=== PATIENT | male | born 1965 | race Caucasian/White ===

== ENCOUNTER 2018-09-15 11:43 | Emergency (ER) | payer OTHER ==
[2018-09-15 12:14] LABS: Absolute Lymphocytes (CBC) 2.3 K/uL (0.7-4.9); Absolute Monocytes 0.9 K/uL (0.1-1.3); Absolute Neutrophil 6.5 K/uL (1.8-8.0); Basophils % 0.7 % (0-1.3); Eosinophils % 1.2 % (0-4.4); Hematocrit 47.4 % (39.6-49.0); Lymphocytes % 22.9 % (15.3-44.8); MCH 24.2 pg (27.0-35.0); MCV 75.4 fL (80-100); MPV 7.3 fL (7.6-11.3); Monocytes % 8.8 % (3.3-12.3); RBC Red Blood Cell Count 6.29 M/uL (4.33-5.43)
[2018-09-15 12:32] LABS: Potassium 3.7 mmol/L (3.5-5.1); Troponin (Emerg Dept Use Only) 0.08 ng/mL (0.0-0.045)
[2018-09-15 12:44] LABS: Platelet Estimate ADEQ; Urine White Blood Cell Casts OK
[2018-09-15 12:45] LABS: Anisocytosis 1+; Blood Morphology Comment NOTED (NOT SEEN); Hypochromasia 1+; Platelets, Giant FEW
--- NOTE | 2018-09-15 13:02 | RAD REPORT ---
EXAM DESCRIPTION: Ruben Single View09/15/2018 12:20 pm CLINICAL HISTORY: Chest pain COMPARISON: 2014 FINDINGS: The lungs appear clear of acute infiltrate. The heart is probably upper limits normal siz e IMPRESSION: No acute abnormalities displayed
--- NOTE | 2018-09-15 13:25 | EKG ---
Test Date: 2018-09-15 Test Time: 11:49:50 Orthopedic Nurse: CRAIG MEASUREMENT RESULTS: Intervals: Rate: 74 VT: QRSD: 90 QT: 394 QTc: 437 Reseda: P: VT: QRS: -1 T: 25 INTERPRETIVE STATEMENTS: Atrial fibrillation Abnormal ECG Compared to ECG 03/05/2015 18:28:34 Sinus rhythm no longer present Electronically Signed On 09-15-18 13:25:37 CDT by Ashvin Nash
[2018-09-15] MEDS ORDERED: CLOPIDOGREL 75 MG TABLET ONE (13:30)
--- NOTE | 2018-09-15 13:45 | EDPHYS ---
Physician Documentation [facility] Name: Steve Gutierrez Age: 53 yrs Sex: Male : 1965 Arrival Date: 09/15/2018 Time: 11:50 Bed 4 Private MD: ED Physician Jl Velasquez HPI: 09/15 12:37 This 53 yrs old Male presents to ER via EMS with complaints of Chest Pain. rn 12:37 The patient or guardian reports chest pain that is located primarily in the left rn lateral anterior chest. Onset: this morning. The pain does not radiate. Associated signs and symptoms: Pertinent positives: None. Pertinent negatives: abdominal pain, cough, diaphoresis, dizziness, headache, lower extremity pain, lower extremity swelling, lightheadedness, nausea, near syncope, palpitations, recent travel, shortness of breath, syncope, vomiting. The chest pain is described as sharp, stabbing. Duration: The patient or guardian reports a single episode. Modifying factors: The symptoms are alleviated by nothing. the symptoms are aggravated by nothing. Severity of pain: At its worst the pain was moderate in the emergency department the pain is unchanged. The patient has not experienced similar symptoms in the past. Reports left sided chest pain, began 1-2 hours ago, constant, was sharp, now dull, no radiation, reports when touches chest wall can feel muscle spasm where pain is located, no fever/cough/sob. . Historical: - Allergies: 11:56 No Known Allergies; bp - Home Meds: 11:56 allopurinol 100 mg oral tab [Active]; omeprazole 20 mg oral TbEC [Active]; Coreg 25 mg bp Oral tab 1 tab 2 times per day [Active]; Exforge 10-160 mg oral tab [Active]; - PMHx: 11:56 CHF; Gastric Reflux; Gout; Hypertension; bp - Immunization history:: Adult Immunizations up to date. - Social history:: Smoking status: Patient uses tobacco products, smokes one pack cigarettes per day. - Ebola Screening: : Patient negative for fever greater than or equal to 101.5 degrees Fahrenheit, and additional compatible Ebola Virus Disease symptoms Patient denies exposure to infectious person Patient denies travel to an Ebola-affected area in the 21 days before illness onset No symptoms or risks identified at this time. - Family history:: not pertinent. - Hospitalizations: : No recent hospitalization is reported. ROS: 12:37 Constitutional: Negative for fever, chills, and weight loss, Eyes: Negative for injury, rn pain, redness, and discharge, Cardiovascular: Negative for palpitations, and edema, Respiratory: Negative for shortness of breath, cough, wheezing Abdomen/GI: Negative for abdominal pain, nausea, vomiting, diarrhea, and constipation, MS/Extremity: Negative for injury and deformity, Skin: Negative for injury, rash, and discoloration, Neuro: Negative for headache, weakness, numbness, tingling, and seizure. Exam: 12:37 Constitutional: This is a well developed, well nourished patient who is awake, alert, rn and in no acute distress. Head/Face: Normocephalic, atraumatic. Eyes: Pupils equal round and reactive to light, extra-ocular motions intact. Lids and lashes normal. Conjunctiva and sclera are non-icteric and not injected. Cornea within normal limits. Periorbital areas with no swelling, redness, or edema. Chest/axilla: Normal chest wall appearance and motion. Nontender with no deformity. No lesions are appreciated. Cardiovascular: Irregular, no murmur Respiratory: Lungs have equal breath sounds bilaterally, clear to auscultation and percussion. No rales, rhonchi or wheezes noted. No increased work of breathing, no retractions or nasal flaring. Abdomen/GI: soft, non-tender MS/ Extremity: Pulses equal, no cyanosis. Neurovascular intact. Full, normal range of motion. Equal circumference. Neuro: Awake and alert, GCS 15, oriented to person, place, time, and situation. Cranial nerves II-XII grossly intact. Motor strength 5/5 in all extremities. Sensory grossly intact. Cerebellar exam normal. Normal gait. Vital Signs: 11:58 BP 163 / 100; Pulse 76; Resp 14; Temp 97.6; Pulse Ox 98% ; Weight 138.35 kg; Height 6 bp ft. 6 in. (198.12 cm); 12:00 BP 131 / 116; Pulse 79; Resp 22; Pulse Ox 98% ; bp 12:30 BP 150 / 93; Pulse 74; Resp 16; Pulse Ox 98% ; bp 13:15 BP 149 / 86; Pulse 69; Resp 17; Pulse Ox 98% ; bp 11:58 Body Mass Index 35.25 (138.35 kg, 198.12 cm) bp MDM: 11:53 Patient medically screened. rn 13:41 Differential diagnosis: acute myocardial infarction, chest wall pain, congestive heart rn failure costochondritis, pericarditis, pleurisy, pneumonia, pneumothorax, pulmonary embolus, stable angina, unstable angina. Data reviewed: vital signs, nurses notes, lab test result(s), EKG, radiologic studies, plain films, and as a result, I will admit patient. Counseling: I had a detailed discussion with the patient and/or guardian regarding: the historical points, exam findings, and any diagnostic results supporting the discharge/admit diagnosis, lab results, radiology results, the need for further work-up and treatment in the hospital. Refusal of service: The patient/guardian displays adequate decision making capability and despite a detailed discussion of alternatives, benefits, risks, and consequences refuses: Admission to the hospital for further work-up and treatment. ED course: Pt refuses admission, reports feels much better after belching, states "no way staying in hospital", spoke with him at length about elevated troponin and possible heart attack. states he has had 3 caths, and all "normal". Understands risks of going home, states will return if worsens.. 09/15 11:53 Order name: Basic Metabolic Panel; Complete Time: 12:57 rn 09/15 11:53 Order name: CBC with Diff; Complete Time: 12:57 rn 09/15 11:53 Order name: NT PRO-BNP; Complete Time: 12:57 rn 09/15 11:53 Order name: Troponin (emerg Dept Use Only); Complete Time: 12:57 rn 09/15 11:53 Order name: XRAY Chest (1 view); Complete Time: 13:06 rn 09/15 12:19 Order name: CBC Smear Scan; Complete Time: 12:57 EDMS 09/15 11:53 Order name: EKG; Complete Time: 11:54 rn 09/15 11:53 Order name: Cardiac monitoring; Complete Time: 12:09 rn 09/15 11:53 Order name: EKG - Nurse/Tech; Complete Time: 12:09 rn 09/15 11:53 Order name: IV Saline Lock; Complete Time: 12: rn 09/15 11:53 Order name: Labs collected and sent; Complete Time: 12:09 rn 09/15 11:53 Order name: O2 Per Protocol; Complete Time: 12: rn 09/15 11:53 Order name: O2 Sat Monitoring; Complete Time: 12: rn Administered Medications: 13:25 Drug: PlaVIX 300 mg Route: PO; bp 13:57 Follow up: Response: No adverse reaction bp Disposition: 09/15/18 13:44 Patient has left against medical advice. Impression: Chest pain, unspecified, Unspecified combined systolic (congestive) and diastolic (congestive) heart failure, Elevated troponin. - Patients states they are going to Home. - Condition is Stable. - Discharge Instructions: Nonspecific Chest Pain, Heart Failure, Hypertension. Follow up: Private Physician; When: As needed; Reason: Recheck today's complaints, Re-evaluation by your physician. - Problem is new. - Symptoms have improved. Signatures: Dispatcher [employer] EDMS Jl Velasquez MD MD rn Ana, MOHSEN Tay RN bp Corrections: (The following items were deleted from the chart) 13:57 13:44 09/15/2018 13:44 Patients has left against medical advice. Impression: Chest bp pain, unspecified; Unspecified combined systolic (congestive) and diastolic (congestive) heart failure; Elevated troponin. Patient states they are going to Home. Condition is Stable. Follow up: Private Physician; When: As needed; Reason: Recheck today's complaints, Re-evaluation by your physician. Problem is new. Symptoms have improved. rn
--- NOTE | 2018-09-15 13:45 | ER ---
Nurse's Notes [facility] Name: Steve Gutierrez Age: 53 yrs Sex: Male : 1965 Arrival Date: 09/15/2018 Time: 11:50 Bed 4 Private MD: Diagnosis: Chest pain, unspecified;Unspecified combined systolic (congestive) and diastolic (congestive) heart failure;Elevated troponin Presentation: 09/15 11:50 Presenting complaint: EMS states: CHEST PAIN. Transition of care: patient was not bp received from another setting of care. Onset of symptoms was September 15, 2018 at 11:00. Risk Assessment: Do you want to hurt yourself or someone else? Patient reports no desire to harm self or others. Initial Sepsis Screen: Does the patient meet any 2 criteria? No. Patient's initial sepsis screen is negative. Does the patient have a suspected source of infection? No. Patient's initial sepsis screen is negative. Care prior to arrival: IV initiated. 20 GA, in the right hand. 11:50 Method Of Arrival: EMS: [employer] [facility] bp 11:50 Acuity: DELIA 2 bp 11:56 Care prior to arrival: Medication(s) given: Albuterol Neb x 1, ASA, 81 mg, x 4. bp Triage Assessment: 12:09 General: Appears in no apparent distress. uncomfortable, obese, Behavior is calm, bp cooperative, appropriate for age. Pain: Complains of pain in left lateral anterior chest. EENT: No deficits noted. Neuro: Level of Consciousness is awake, alert, obeys commands, Oriented to person, place, time, situation, Appropriate for age. Cardiovascular: Rhythm is sinus rhythm. Historical: - Allergies: 11:56 No Known Allergies; bp - Home Meds: 11:56 allopurinol 100 mg oral tab [Active]; omeprazole 20 mg oral TbEC [Active]; Coreg 25 mg bp Oral tab 1 tab 2 times per day [Active]; Exforge 10-160 mg oral tab [Active]; - PMHx: 11:56 CHF; Gastric Reflux; Gout; Hypertension; bp - Immunization history:: Adult Immunizations up to date. - Social history:: Smoking status: Patient uses tobacco products, smokes one pack cigarettes per day. - Ebola Screening: : Patient negative for fever greater than or equal to 101.5 degrees Fahrenheit, and additional compatible Ebola Virus Disease symptoms Patient denies exposure to infectious person Patient denies travel to an Ebola-affected area in the 21 days before illness onset No symptoms or risks identified at this time. - Family history:: not pertinent. - Hospitalizations: : No recent hospitalization is reported. Screenin:12 Abuse screen: Denies threats or abuse. Denies injuries from another. Nutritional bp screening: No deficits noted. Tuberculosis screening: No symptoms or risk factors identified. Fall Risk None identified. Assessment: 12:00 General: SEE TRIAGE NOTE. Pain: Pain does not radiate. Pain began 1 hour ago. bp 13:55 Reassessment: PT LEFT AMA, DECLINED ADMIT OR CARDIAC WORKUP. ADVISED TO STAY BY STAFF bp AND MD, BUT REFUSED. URGED TO RETURN IF S/S RETURN OR WORSEN. LEFT IN STABLE CONDITION, AO x4, NO ATAXIA. Vital Signs: 11:58 BP 163 / 100; Pulse 76; Resp 14; Temp 97.6; Pulse Ox 98% ; Weight 138.35 kg; Height 6 bp ft. 6 in. (198.12 cm); 12:00 BP 131 / 116; Pulse 79; Resp 22; Pulse Ox 98% ; bp 12:30 BP 150 / 93; Pulse 74; Resp 16; Pulse Ox 98% ; bp 13:15 BP 149 / 86; Pulse 69; Resp 17; Pulse Ox 98% ; bp 11:58 Body Mass Index 35.25 (138.35 kg, 198.12 cm) bp ED Course: 11:50 Patient arrived in ED. bp 11:53 Jl Velasquez MD is Attending Physician. rn 11:55 Triage completed. bp 11:58 Arm band placed on. bp 12:00 Maintain EMS IV. Dressing intact. Good blood return noted. Site clean \T\ dry. Gauge \T\ bp site: 20 GAUGE LEFT HAND. Patient maintains SpO2 saturation greater than 95% on room air. 12:00 Patient has correct armband on for positive identification. Placed in gown. Bed in low bp position. Call light in reach. Side rails up X2. monitoring specialist on. Pulse ox on. NIBP on. 12:03 EKG done, by solder technician. reviewed by Jl Velasquez MD. at1 12:15 XRAY Chest (1 view) In Process Unspecified. EDMS 12:30 Jasvir Perez, MOHSEN is Primary Nurse. bp 13:56 No provider procedures requiring assistance completed. IV discontinued, intact, bp bleeding controlled, No redness/swelling at site. Pressure dressing applied. Administered Medications: 13:25 Drug: PlaVIX 300 mg Route: PO; bp 13:57 Follow up: Response: No adverse reaction bp Outcome: 13:56 AMA AMA form signed bp 13:56 Condition: stable 13:56 Instructed on follow up and referral plans. 13:57 Patient left the ED. bp Signatures: Dispatcher [employer] EDMS Jl Velasquez MD MD rn Felicita Olmedo, scientific glass blower EKG Tat1 Jasvir Perez, RN RN bp
[2018-09-15 14:13] VITALS: TEMP 97.6; O2SAT 98
[2018-09-15 14:17] VITALS: BP 149/86
== END 2018-09-15 13:57 | disposition left against medical advice (07) ==
LOC: ER 11:43
DX: I50.40 Unspecified combined systolic (congestive) and diastolic (congestive) heart failure (principal); R79.89 Other specified abnormal findings of blood chemistry; I10 Essential (primary) hypertension; F17.210 Nicotine dependence, cigarettes, uncomplicated
CPT/HCPCS: 36415; 71045; 80048; 83880; 84484; 85025; 93005; 99285

== ENCOUNTER 2018-10-30 22:54 | Observation (INO) | payer OTHER ==
[2018-10-31 00:14] LABS: BUN Blood Urea Nitrogen 22 mg/dL (7-18); Bicarbonate 23 mmol/L (21-32); Glucose Level 113 mg/dL (74-106); Magnesium 2.4 mg/dL (1.8-2.4); Potassium 3.9 mmol/L (3.5-5.1); Sodium Level 140 mmol/L (136-145); Troponin (Emerg Dept Use Only) < 0.02 ng/mL (0.0-0.045)
[2018-10-31 01:04] LABS: Absolute Lymphocytes (CBC) 1.7 K/uL (0.7-4.9); Absolute Monocytes 0.8 K/uL (0.1-1.3); Absolute Neutrophil 7.2 K/uL (1.8-8.0); Basophils % 0.9 % (0-1.3); Eosinophils % 1.9 % (0-4.4); Hematocrit 47.5 % (39.6-49.0); Lymphocytes % 16.8 % (15.3-44.8); MCH 24.5 pg (27.0-35.0); MCV 74.6 fL (80-100); MPV 7.7 fL (7.6-11.3); Monocytes % 7.9 % (3.3-12.3); RBC Red Blood Cell Count 6.36 M/uL (4.33-5.43)
[2018-10-31 01:07] LABS: Protime INR 0.98
--- NOTE | 2018-10-31 02:25 | ER ---
Nurse's Notes [facility] Name: Steve Gutierrez Age: 53 yrs Sex: Male : 1965 Arrival Date: 10/30/2018 Time: 22:54 Bed 7 Private MD: Diagnosis: Near Syncope;Palpitations;Unspecified atrial fibrillation Presentation: 10/30 22:57 Presenting complaint: EMS states: toned out for report of pt feeling dizzy for approx bb 30 minutes now pt states symptoms have resolved. Transition of care: patient was not received from another setting of care. Onset of symptoms was October 30, 2018. Risk Assessment: Do you want to hurt yourself or someone else? Patient reports no desire to harm self or others. Initial Sepsis Screen: Does the patient meet any 2 criteria? No. Patient's initial sepsis screen is negative. Does the patient have a suspected source of infection? No. Patient's initial sepsis screen is negative. Care prior to arrival: IV initiated. 22 GA, in the right hand. 22:57 Method Of Arrival: EMS: [facility] bb 22:57 Acuity: DELIA 3 bb Triage Assessment: 23:01 General: Appears in no apparent distress. obese, Behavior is calm, cooperative. Pain: bb Denies pain. Neuro: Level of Consciousness is awake, alert, obeys commands, Oriented to person, place, time, situation, Speech is normal. Cardiovascular: Heart tones S1 S2 present Capillary refill < 3 seconds Patient's skin is warm and dry. Pulses are all present. Edema is absent. Cardiovascular: Reports diaphoresis, lightheadedness, palpitations, Denies chest pain, shortness of breath. Respiratory: Airway is patent Respiratory effort is even, unlabored, Respiratory pattern is regular, Breath sounds are clear bilaterally. GI: Abdomen is non-distended, Bowel sounds present X 4 quads. Abd is soft and non tender X 4 quads. Derm: Skin is pink, warm \T\ dry. Musculoskeletal: Circulation, motion, and sensation intact. Historical: - Allergies: 23:01 No Known Allergies; bb - Home Meds: 23:01 allopurinol 100 mg Oral tab [Active]; omeprazole 20 mg Oral TbEC [Active]; Colchicine bb Oral [Active]; amlodipine oral [Active]; Elaina 180 mg Oral tab 1 tab once daily [Active]; carvedilol oral oral [Active]; - PMHx: 23:01 CHF; Gastric Reflux; Gout; Hypertension; bb 10/31 02:08 Atrial Fib; bb - PSHx: 10/30 23:01 Appendectomy; Vasectomy; orthopedic surgery to left leg; orthopedic surgery to left bb hand; - Immunization history:: Adult Immunizations up to date. - Social history:: Smoking status: Patient/guardian denies using tobacco, Patient uses alcohol, but reports only rare drinking. Patient/guardian denies using street drugs. - Ebola Screening: : No symptoms or risks identified at this time. - Family history:: not pertinent. - Hospitalizations: : No recent hospitalization is reported. Screenin:05 Abuse screen: Denies threats or abuse. Nutritional screening: No deficits noted. bb Tuberculosis screening: No symptoms or risk factors identified. Fall Risk None identified. Assessment: 23:05 Reassessment: No changes from previously documented assessment. see triage assessment. bb 23:40 Reassessment: Patient appears in no apparent distress at this time. Patient and/or ak1 family updated on plan of care and expected duration. Pain level reassessed. Patient is alert, oriented x 3, equal unlabored respirations, skin warm/dry/pink. Patient denies pain at this time. Patient states feeling better. Patient states symptoms have improved. 10/31 00:24 Reassessment: inside lab paged for lab draw. ak1 00:45 Reassessment: inside lab obtained recollect labs. ak1 02:19 Reassessment: Patient and/or family updated on plan of care and expected duration. Pain bb level reassessed. Patient is alert, oriented x 3, equal unlabored respirations, skin warm/dry/pink. pt resting quietly with no complaints will continue to monitor. 03:23 Reassessment: Patient is alert, oriented x 3, equal unlabored respirations, skin bb warm/dry/pink. IV site intact, no erythema or edema noted report called to Asif CONNOLLY for room 219. Vital Signs: 10/30 23:01 BP 122 / 83; Pulse 83; Resp 18 S; Temp 98.2(O); Pulse Ox 100% on R/A; Weight 137.89 kg bb (R); Height 6 ft. 6 in. (198.12 cm) (R); Pain 0/10; 12/18 00:49 BP 129 / 88; Pulse 69; Resp 19; Pulse Ox 98% on R/A; mw2 02:18 BP 132 / 82; Pulse 62; Resp 18; Pulse Ox 97% on R/A; bb 03:19 BP 139 / 78; Pulse 70; Resp 15; Temp 98.2; Pulse Ox 98% on R/A; Pain 0/10; ak1 10/30 23:01 Body Mass Index 35.13 (137.89 kg, 198.12 cm) bb ED Course: 10/30 22:54 Patient arrived in ED. ds1 22:56 Jl Velasquez MD is Attending Physician. rn 22:56 Yamileth Sosa RN is Primary Nurse. bb 22:58 Triage completed. bb 23:01 Arm band placed on Patient placed in an exam room, on a stretcher, on lunchroom monitor, bb on pulse oximetry. EKG completed in triage. Results shown to MD. 23:05 Patient has correct armband on for positive identification. Placed in gown. Bed in low bb position. Call light in reach. Side rails up X 1. gambling monitor on. Pulse ox on. NIBP on. 23:18 CT completed. Patient tolerated procedure well. Patient moved to CT via stretcher. Patient moved back from CT. 23:23 CT Head Brain wo Cont In Process Unspecified. EDMS 23:39 No provider procedures requiring assistance completed. Missed attempt(s): 22 gauge in ak1 right hand. 12 02:23 Josr Merino MD is Hospitalizing Provider. rn 03:18 Patient admitted, IV remains in place. ak1 Administered Medications: No medications were administered Outcome: 02:24 Decision to Hospitalize by Provider. rn 03:18 Condition: improved ak1 03:18 Instructed on the need for admit. 03:23 Admitted to Tele accompanied by tech, via wheelchair, room 219, with chart, Report bb called to Asif CONNOLLY 03:46 Patient left the ED. ak1 Signatures: Dispatcher [employer] EDMS Ursula Peterson Demi ds1 Yamileth Sosa RN RN bb Jl Velasquez MD MD rn Krenek, Amber, RN RN ak1 Johnna Dong mw2 Corrections: (The following items were deleted from the chart) 10/30 22:58 22:57 Care prior to arrival: None. bb bb
--- NOTE | 2018-10-31 02:25 | EDPHYS ---
Physician Documentation [facility] Name: Steve Gutierrez Age: 53 yrs Sex: Male : 1965 Arrival Date: 10/30/2018 Time: 22:54 Bed 7 Private MD: ED Physician Jl Velasquez HPI: 10/30 23:07 This 53 yrs old Male presents to ER via EMS with complaints of near syncope. rn 23:07 The patient has experienced near-syncope. Onset: The symptoms/episode began/occurred rn just prior to arrival. Duration: This was a single episode. Associated injury: The patient did not suffer any apparent associated injury. Associated signs and symptoms: Pertinent positives: diaphoresis, lightheadedness, nausea, palpitations. Current symptoms: Currently, the patient is not experiencing any symptoms. The patient has not experienced similar symptoms in the past. Reports felt fine today, went to bathroom, felt sudden onset of nausea/diaphoresis/palpitations/and tunnel vision, almost passed out, laid down and felt better, now symptoms have resolved, now at baseline. Hx of "irregular heartbeat", but no known afib.. Historical: - Allergies: 23:01 No Known Allergies; bb - Home Meds: 23:01 allopurinol 100 mg Oral tab [Active]; omeprazole 20 mg Oral TbEC [Active]; Colchicine bb Oral [Active]; amlodipine oral [Active]; Elaina 180 mg Oral tab 1 tab once daily [Active]; carvedilol oral oral [Active]; - PMHx: 23:01 CHF; Gastric Reflux; Gout; Hypertension; bb 10/31 02:08 Atrial Fib; bb - PSHx: 10/30 23:01 Appendectomy; Vasectomy; orthopedic surgery to left leg; orthopedic surgery to left bb hand; - Immunization history:: Adult Immunizations up to date. - Social history:: Smoking status: Patient/guardian denies using tobacco, Patient uses alcohol, but reports only rare drinking. Patient/guardian denies using street drugs. - Ebola Screening: : No symptoms or risks identified at this time. - Family history:: not pertinent. - Hospitalizations: : No recent hospitalization is reported. ROS: 23:10 Constitutional: Negative for fever, chills, and weight loss, Eyes: Negative for injury, rn pain, redness, and discharge, Neck: Negative for injury, pain, and swelling, Cardiovascular: + palpitations Respiratory: Negative for cough, wheezing, and pleuritic chest pain, Abdomen/GI: Negative for abdominal pain, diarrhea, and constipation, MS/Extremity: Negative for injury and deformity, Skin: Negative for injury, rash, and discoloration, Neuro: Negative for headache, numbness, tingling, and seizure. Exam: 23:10 Constitutional: Overweight male, no acute distress Head/Face: Normocephalic, rn atraumatic. Eyes: Pupils equal round and reactive to light, extra-ocular motions intact. Lids and lashes normal. Conjunctiva and sclera are non-icteric and not injected. Cornea within normal limits. Periorbital areas with no swelling, redness, or edema. ENT: MMM, no stridor Cardiovascular: Irregular rhythm, normal rate, no murmur Respiratory: Lungs have equal breath sounds bilaterally, clear to auscultation. No increased work of breathing, no retractions or nasal flaring. Speaks full sentences Abdomen/GI: soft, non-tender MS/ Extremity: Pulses equal, no cyanosis. Neurovascular intact. Full, normal range of motion. Equal circumference. Neuro: Awake and alert, GCS 15, oriented to person, place, time, and situation. Cranial nerves II-XII grossly intact. Motor strength 5/5 in all extremities. Sensory grossly intact. Cerebellar exam normal. Vital Signs: 23:01 BP 122 / 83; Pulse 83; Resp 18 S; Temp 98.2(O); Pulse Ox 100% on R/A; Weight 137.89 kg bb (R); Height 6 ft. 6 in. (198.12 cm) (R); Pain 0/10; 10/31 00:49 BP 129 / 88; Pulse 69; Resp 19; Pulse Ox 98% on R/A; mw2 02:18 BP 132 / 82; Pulse 62; Resp 18; Pulse Ox 97% on R/A; bb 03:19 BP 139 / 78; Pulse 70; Resp 15; Temp 98.2; Pulse Ox 98% on R/A; Pain 0/10; ak1 10/30 23:01 Body Mass Index 35.13 (137.89 kg, 198.12 cm) bb MDM: 10/30 22:56 Patient medically screened. 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 Data reviewed: vital signs, nurses notes, lab test result(s), EKG, radiologic studies, CT scan, and as a result, I will admit patient. Counseling: I had a detailed discussion with the patient and/or guardian regarding: the historical points, exam findings, and any diagnostic results supporting the discharge/admit diagnosis, lab results, radiology results, the need for further work-up and treatment in the hospital. Response to treatment: the patient's symptoms have resolved after treatment, the patient's condition has returned to base line, and as a result, I will admit patient. 10/30 23:05 Order name: Basic Metabolic Panel 10/30 23:05 Order name: CBC with Diff 10/30 23:05 Order name: Magnesium; Complete Time: : 10/30 23:05 Order name: Protime (+inr); Complete Time: : 10/30 23:05 Order name: Ptt, Activated; Complete Time: : 10/30 23:05 Order name: Troponin (emerg Dept Use Only); Complete Time: : 10/30 23:06 Order name: Basic Metabolic Panel; Complete Time: : [facility] 10/30 23:06 Order name: CBC with Automated Diff; Complete Time: : [facility] 10/31 03:04 Order name: CKMB Creatine Kinase MB [facility] 10/31 03:04 Order name: CKMB Creatine Kinase MB [facility] 10/31 03:04 Order name: CKMB Creatine Kinase MB [facility] 10/31 03:04 Order name: Comprehensive Metabolic Panel [facility] 10/31 03:04 Order name: Comprehensive Metabolic Panel [facility] 10/31 03:04 Order name: Creatine Phosphokinase [facility] 10/30 23:05 Order name: CT Head Brain wo Cont 10/30 23:05 Order name: EKG; Complete Time: 23:06 10/30 23:05 Order name: Cardiac monitoring; Complete Time: 23:40 10/31 03:04 Order name: Creatine Phosphokinase [facility] 10/31 03:04 Order name: Creatine Phosphokinase [facility] 10/31 03:04 Order name: Lipid Profile [facility] 10/31 03:04 Order name: Lipid Profile [facility] 10/31 03:04 Order name: Troponin I [facility] 10/31 03:04 Order name: Troponin I [facility] 10/31 03:04 Order name: Troponin I [facility] 10/31 03:05 Order name: CONS Pharmacy Consult [facility] 10/31 03:05 Order name: CONS Physician Consult [facility] 10/31 03:05 Order name: Renal [facility] 10/31 03:05 Order name: Echo with Doppler [facility] 10/31 03:05 Order name: CBC with Automated Diff [facility] 10/31 03:05 Order name: Renal Ultrasound-Complete [facility] 10/30 23:05 Order name: EKG - Nurse/Tech; Complete Time: 23:17 rn 10/30 23:05 Order name: IV Saline Lock; Complete Time: 23:41 rn 10/30 23:05 Order name: Labs collected and sent; Complete Time: 23:41 rn 10/30 23:05 Order name: NPO; Complete Time: 23:17 rn 10/30 23:05 Order name: O2 Per Protocol; Complete Time: 23:17 rn 10/30 23:05 Order name: O2 Sat Monitoring; Complete Time: 23:17 rn Administered Medications: No medications were administered Disposition: 10/31/18 02:24 Hospitalization ordered by Josr Merino for Observation. Preliminary diagnosis are Near Syncope, Palpitations, Unspecified atrial fibrillation. - Bed requested for Telemetry/MedSurg (observation). - Status is Observation. ak1 - Condition is Stable. - Problem is new. - Symptoms have improved. UTI on Admission? No Signatures: Dispatcher [employer] [facility] Yanni Eagle RN Yamileth Driver RN RN bb Nieto, Roman, MD MD rn Krenek, Amber, RN RN ak1 Corrections: (The following items were deleted from the chart) 02:24 02:24 Hospitalization Ordered by Josr Merino MD for Observation. Preliminary rn diagnosis is Near Syncope; Palpitations. Bed requested for Telemetry/MedSurg (observation). Status is Observation. Condition is Stable. Problem is new. Symptoms have improved. UTI on Admission? No. rn 03:17 02:24 10/31/2018 02:24 Hospitalization Ordered by Josr Merino MD for Observation. malu Preliminary diagnosis is Near Syncope; Palpitations; Unspecified atrial fibrillation. Bed requested for Telemetry/MedSurg (observation). Status is Observation. Condition is Stable. Problem is new. Symptoms have improved. UTI on Admission? No. rn 03:46 03:17 10/31/2018 02:24 Hospitalization Ordered by Josr Merino MD for Observation. ak1 Preliminary diagnosis is Near Syncope; Palpitations; Unspecified atrial fibrillation. Bed requested for Telemetry/MedSurg (observation). Status is Observation. Condition is Stable. Problem is new. Symptoms have improved. UTI on Admission? No. kl
[2018-10-31] MEDS ORDERED: ONDANSETRON 4 MG/2 ML VIAL IV PRN (02:59)
[2018-10-31] MEDS ORDERED: MORPHINE 2 MG/ML SYR IV PRN (02:59)
[2018-10-31] MEDS ORDERED: ACETAMINOPHEN 500 MG TAB PO PRN (02:59)
[2018-10-31] MEDS ORDERED: NA CHLORIDE 0.9% 1,000 ML IV SCH (03:00)
[2018-10-31 04:05] VITALS: O2SAT 98
[2018-10-31 04:16] VITALS: BMI 36.8
--- NOTE | 2018-10-31 06:00 | EKG ---
Test Date: 2018-10-30 Test Time: 23:00:19 Station Chief: CARY MEASUREMENT RESULTS: Intervals: Rate: 80 ME: QRSD: 96 QT: 400 QTc: 461 Rea: P: ME: QRS: -5 T: 53 INTERPRETIVE STATEMENTS: Atrial fibrillation Nonspecific T wave abnormality, probably digitalis effect Prolonged QT Abnormal ECG Compared to ECG 09/15/2018 11:49:50 T-wave abnormality now present Prolonged QT interval now present Electronically Signed On 10-31-18 05:59:37 MANAGING MANAGER by Ashvin Nash
[2018-10-31 06:21] LABS: Absolute Monocytes 0.5 K/uL (0.1-1.3); Absolute Neutrophil 4.5 K/uL (1.8-8.0); Basophils % 1.1 % (0-1.3); Eosinophils % 2.8 % (0-4.4); Hematocrit 45.7 % (39.6-49.0); Lymphocytes % 26.8 % (15.3-44.8); MCH 24.5 pg (27.0-35.0); MCV 75.6 fL (80-100); MPV 7.4 fL (7.6-11.3); Monocytes % 7.5 % (3.3-12.3); RBC Red Blood Cell Count 6.05 M/uL (4.33-5.43)
[2018-10-31 06:46] LABS: ALT/SGPT 24 U/L (12-78); AST/SGOT 21 U/L (15-37); Albumin 3.2 g/dL (3.4-5.0); Alkaline Phosphatase 123 U/L (45-117); BUN Blood Urea Nitrogen 23 mg/dL (7-18); Bicarbonate 28 mmol/L (21-32); Bilirubin Total 0.7 mg/dL (0.2-1.0); CKMB Creatine Kinase MB < 1.0 ng/mL (0.3-3.6); Creatine Phosphokinase 38 U/L (39-308); Glucose Level 93 mg/dL (74-106); HDL Cholesterol 42 mg/dL (40-60); LDL Cholesterol, Calculated 112 (<130); Potassium 4.5 mmol/L (3.5-5.1); Protein, Total 6.9 g/dL (6.4-8.2); Sodium Level 141 mmol/L (136-145); Troponin I 0.02 ng/mL (0.0-0.045)
[2018-10-31 07:55] LABS: Urine Appearance CLEAR; Urine Bilirubin NEGATIVE (NEG); Urine Blood 1+ (NEG); Urine Color YELLOW; Urine Glucose NEGATIVE (NEG); Urine Protein 1+ (NEG); Urine Specific Gravity <=1.005 (1.005-1.030); Urine Urobilinogen 0.2 mg/dL (0.2-1.0); Urine pH 5.5 (5.0-7.0)
[2018-10-31] MEDS ORDERED: COLCHICINE 0.6 MG TAB PO PRN (07:56)
--- NOTE | 2018-10-31 07:57 | P.HP ---
Certification for Inpatient Patient admitted to: Observation With expected LOS: <2 Midnights Patient will require the following post-hospital care: None Practitioner: I am a practitioner with admitting privileges, knowledge of patient current condition, hospital course, and medical plan of care. Services: Services provided to patient in accordance with Admission requirements found in Title 42 Section 412.3 of the Code of Federal Regulations Patient History Date of Service: 10/31/18 Reason for admission: Lightheadedness/chest pain along with palpitations History of Present Illness: Patient is a 53-year-old gentleman who came into the hospital with lightheadedness. Patient almost passed out. He had gone to the restroom and while he was in the bathroom he suddenly started having nausea along with diaphoresis and palpitation. He felt like she was going to pass out but he laid down and afterwards he felt much better. He said he felt some palpitations. He has never had any history of arrhythmia. In the ER his workup revealed atrial fibrillation. He was in the hospital couple weeks ago with chest pain as well. Patient's renal function is elevated as well. Patient may need further workup with Cardiology including echocardiogram and stress test. Patient's renal function is elevated so will need to premedicate prior to cardiac catheterization. Will Consult nephrology and get a renal ultrasound. Also gently hydrate the patient. Thing patient has some underlying cardiac disease which has gone undiagnosed. He will need admission to the hospital for further workup. Allergies Tape Allergy (Uncoded 10/31/18 04:08) Hives/Rash Home Medications: Allopurinol [Zyloprim] 100 mg PO DAILY 10/31/18 Amlodipine/Valsartan [Amlodipine-Valsartan 10-160 mg] 1 tab PO DAILY 10/31/18 Carvedilol [Coreg] 25 mg PO BID 10/31/18 Colchicine 0.6 mg PO DAILY PRN 10/31/18 - Past Medical/Surgical History Has patient received pneumonia vaccine in the past: No Diabetic: No -: HTN -: CHF -: Gout -: Renal Failure stage I -: Appendectomy -: Knee surgery -: Vasectomy -: Jaw surgery -: Tracheostomy -: L hand sx -: L. knee TKR - Family History Father Medical History: Cancer Notes: colon- - Social History Smoking Status: Never smoker Alcohol use: Yes CD- Drugs: No Caffeine use: No Place of Residence: Home Review of Systems 10-point ROS is otherwise unremarkable Physical Examination - Vital Signs Temperature: 97.2 F Blood Pressure: 135/88 Pulse: 70 Respirations: 18 Pulse Ox (%): 98 - Physical Exam General: Alert, In no apparent distress, Oriented x3 HEENT: Atraumatic, PERRLA, Mucous membr. moist/pink, EOMI, Sclerae nonicteric Neck: Supple, 2+ carotid pulse no bruit, No LAD, Without JVD or thyroid abnormality Respiratory: Clear to auscultation bilaterally, Normal air movement Cardiovascular: Normal S1 S2, No murmurs, Irregular heart rate/rhythm Gastrointestinal: Normal bowel sounds, Soft and benign, Non-distended, No tenderness Musculoskeletal: No clubbing, No swelling, No tenderness Integumentary: No rashes Neurological: Normal gait, Normal speech, Normal strength at 5/5 x4 extr, Normal tone, Sensation intact, Cranial nerves 3-12 intact, Normal affect Lymphatics: No axilla or inguinal lymphadenopathy - Studies Laboratory Data (last 24 hrs) 10/31/18 00:43: PT 11.6, INR 0.98, APTT 22.8 L 10/31/18 00:43: WBC 10.0, Hgb 15.6, Hct 47.5, Plt Count 248 10/30/18 23:33: Sodium 140, Potassium 3.9, BUN 22 H, Creatinine 2.00 H, Glucose 113 H, Magnesium 2.4 Assessment & Plan - Problems (Diagnosis) (1) Atrial fibrillation with controlled ventricular rate Current Visit: Yes Status: Acute (2) Atypical chest pain Current Visit: Yes Status: Acute (3) Renal failure (ARF), acute on chronic Current Visit: No Status: Acute (4) Gout Current Visit: No Status: Chronic (5) Hypertension Current Visit: No Status: Chronic - Plan 1. Serial troponins and EKG 2. Cardiology consultation 3. Echocardiogram and patient may benefit from stress test; hold anti coagulation until evaluated by Cardiology 4. Anti-platelet therapy, and continue additional home medications. Lipid profile and statin therapy 5. IV morphine for pain 6. Nitro p.r.n. 7. Renal ultrasound and nephrology consultation 8. GI and DVT prophylaxis Discharge Plan: Home Plan to discharge in: Greater than 2 days - Advance Directives Does patient have a Living Will: No Does patient have a Durable POA for Healthcare: No - Code Status/Comfort Care Code Status Assessed: Yes Code Status: Full Code Critical Care: No Time Spent Managing PTS Care (In Minutes): 50
--- NOTE | 2018-10-31 08:26 | RAD REPORT ---
EXAM DESCRIPTION: CT - Head Brain Wo Cont - 10/31/2018 4:22 am CLINICAL HISTORY: near syncope Headache, syncope, head injury. COMPARISON: CT-STROKE BRAIN W/O CONTRAST dated 07/19/2012; HEAD BRAIN W O CONTRAST dated 08/23/2009 TECHNIQUE: All CT scans are performed using dose optimization technique as appropriate and may inclu de automated exposure control or mA/KV adjustment according to patient size. FINDINGS: No intracranial hemorrhage, hydrocephalus or extra-axial fluid collection.No areas of brai n edema or evidence of midline shift. The paranasal sinuses and mastoids are clear. The calvarium is intact. IMPRESSION: No acute intracranial abnormality.
[2018-10-31] MEDS: ALLOPURINOL 100 MG TAB PO SCH (09:00)
[2018-10-31] MEDS ORDERED: ASPIRIN EC 81 MG TAB PO SCH (09:00)
[2018-10-31] MEDS ORDERED: CARVEDILOL 25 MG TAB PO SCH (09:00)
[2018-10-31] MEDS ORDERED: VALSARTAN 80 MG TAB PO SCH (09:00)
[2018-10-31] MEDS: AMLODIPINE 10 MG TAB PO SCH (09:00)
[2018-10-31] MEDS ORDERED: VALSARTAN PO SCH (09:00)
[2018-10-31] MEDS ORDERED: AMLODIPINE PO SCH (09:00)
[2018-10-31 09:20] LABS: Urine Bacteria NONE SEEN /HPF (NONE SEEN); Urine Culture Reflex Order NOT NEEDED; Urine RBC <5 /HPF (NONE SEEN)
--- NOTE | 2018-10-31 09:26 | RAD REPORT ---
EXAM DESCRIPTION: US - Renal Ultrasound-Complete - 10/31/2018 8:46 am CLINICAL HISTORY: GUILLAUME Flank pain COMPARISON: Abdomen Exam Complete dated 07/28/2016 FINDINGS: Both kidneys are normal in size, shape and echotexture. The right kidney measures 10.0 x 5.7 x 4.9 cm. No hydronephrosis, focal mass or perinephric fluid. The left kidney measures 9.6 x 5.1 x 3.9 cm. No hydronephrosis, focal mass or perinephric fluid. The urinary bladder is incompletely distended without gross abnormality seen. IMPRESSION: Unremarkable renal sonogram.
[2018-10-31 10:42] LABS: Creatine Phosphokinase 55 U/L (39-308); Troponin I < 0.02 ng/mL (0.0-0.045)
--- NOTE | 2018-10-31 12:28 | ECHO ---
HEIGHT: 6 ft 6 in WEIGHT: 318 lb 8 oz DATE OF STUDY: 10/31/[address]: Josr Merino MD 2-DIMENSIONAL: YES M.MODE: YES DOPPLER: YES COLOR FLOW: YES TDS: NO PORTABLE: NO DEFINITY: NO BUBBLE STUDY: NO DIAGNOSIS: CHEST PAIN, SYNCOPE CARDIAC HISTORY: CATHERIZATION: YES SURGERY: NO PROSTHETIC VALVE: NO PACEMAKER: NO MEASUREMENTS (cm) DIASTOLIC (NORMALS) SYSTOLIC (NORMALS) IVSd 1.2 (0.6-1.2) LA Diam 5.1 (1.9-4.0) LVEF 50% LVIDd 4.8 (3.5-5.7) LVIDs 3.6 (2.0-3.5) %FS 25% LVPWd 1.1 (0.6-1.2) Ao Diam 3.0 (2.0-3.7) 2 DIMENSIONAL ASSESSMENT: RIGHT ATRIUM: NORMAL LEFT ATRIUM: DILATED RIGHT VENTRICLE: NORMAL LEFT VENTRICLE: NORMAL TRICUSPID VALVE: NORMAL MITRAL VALVE: NORMAL PULMONIC VALVE: NORMAL AORTIC VALVE: NORMAL PERICARDIAL EFFUSION: NONE AORTIC ROOT: NORMAL LEFT VENTRICULAR WALL MOTION: NORMAL. DOPPLER/COLOR FLOW: NORMAL. COMMENTS: LEFT ATRIUM ENLARGEMENT- NO THROMBUS. ATRIAL FIBRILLIATION. NORMAL LEFT VENTRICULAR SIZE AND FUNCTION. TECHNOLOGIST: MIL GENTILE RDCS
--- NOTE | 2018-10-31 14:44 | P.CNS ---
Date of Consult: 10/31/18 Reason for Consult: CKD Chief Complaint: Lightheadedness/chest pain along with palpitations History of Present Illness: A 53 Y/o man with PMhx of HTN on valsartan on BP meds since , gout on allopurinol and chlochicine prn and CKD Cr 1.4 from 6278-4313 and trending up to ~1.8-2.0 in 2018, was following with mooner but stopped follow as he couldnt afford the copay presented with near syncope, and chest pain, found to have new onset afib currently no chest pain, palpitation, nausea, vomiting , dyusria or hematuria Allergies Tape Allergy (Uncoded 10/31/18 04:08) Hives/Rash Home Medications: Allopurinol [Zyloprim] 100 mg PO DAILY 10/31/18 Amlodipine/Valsartan [Amlodipine-Valsartan 10-160 mg] 1 tab PO DAILY 10/31/18 Carvedilol [Coreg] 25 mg PO BID 10/31/18 Colchicine 0.6 mg PO DAILY PRN 10/31/18 - Past Medical/Surgical History Diabetic: No -: HTN -: CHF -: Gout -: Renal Failure stage I -: Appendectomy -: Knee surgery -: Vasectomy -: Jaw surgery -: Tracheostomy -: L hand sx -: L. knee TKR - Family History Father Medical History: Cancer Notes: colon- - Social History Smoking Status: Current every day smoker Alcohol use: Yes CD- Drugs: No Caffeine use: No Place of Residence: Home Physical Examination Temp Pulse Resp BP Pulse Ox 97.9 F 73 18 140/81 96 10/31/18 12:00 10/31/18 12:00 10/31/18 12:00 10/31/18 12:00 10/31/18 12:00 General: In no apparent distress, Oriented x3 Neck: Supple, Without JVD or thyroid abnormality Respiratory: Clear to auscultation bilaterally, Normal air movement Cardiovascular: No edema, Regular rate/rhythm, Normal S1 S2 Gastrointestinal: Normal bowel sounds Laboratory Data (last 24 hrs) 10/31/18 00:43: PT 11.6, INR 0.98, APTT 22.8 L 10/31/18 00:43: WBC 10.0, Hgb 15.6, Hct 47.5, Plt Count 248 10/30/18 23:33: Sodium 140, Potassium 3.9, BUN 22 H, Creatinine 2.00 H, Glucose 113 H, Magnesium 2.4 - Problems (1) Atrial fibrillation with controlled ventricular rate Current Visit: Yes Status: Acute (2) Atypical chest pain Current Visit: Yes Status: Acute (3) Renal failure (ARF), acute on chronic Current Visit: No Status: Acute (4) Gout Current Visit: No Status: Chronic Conclusions/Impression: A 53 Y/o man with PMhx of HTN on valsartan on BP meds since , gout on allopurinol and chlochicine prn and CKD Cr 1.4 from 0897-9122 and trending up to ~1.8-2.0 in 2018, was following with mooner but stopped follow as he couldnt afford the copay presented with near syncope, and chest pain, found to have new onset afib currently no chest pain, palpitation, nausea, vomiting , dyusria or hematuria CKD Cr at baseline ua +ve for protein and blood US 10/9.5 cm no hydro will hold cholchicine and valsartan renal dose all meds will order urine prot and cr HTN hold valsratan Chest pain cardiology f/u new onset Afib Started on AC Gout hold cholchicine and resume allopurinol
--- NOTE | 2018-10-31 16:58 | P.PN ---
Subjective Date of Service: 10/31/18 Chief Complaint: Lightheadedness/chest pain along with palpitations Patient seen and examined at bedside with RN. Chart reviewed. Case discussed with cardiology and nephrology at this time. No complaints to offer overnight. States the syncope is better than before. Review of Systems 10-point ROS is otherwise unremarkable Physical Examination - Vital Signs Temperature: 98.1 F Blood Pressure: 135/77 Pulse: 69 Respirations: 17 Pulse Ox (%): 97 - Physical Exam General: Alert, In no apparent distress HEENT: Atraumatic, PERRLA, EOMI Neck: Supple, JVD not distended Respiratory: Clear to auscultation bilaterally, Normal air movement Cardiovascular: Normal S1 S2, Irregular heart rate/rhythm Gastrointestinal: Normal bowel sounds, No tenderness Musculoskeletal: No tenderness Integumentary: No rashes Neurological: Normal speech, Normal tone, Normal affect Lymphatics: No axilla or inguinal lymphadenopathy - Studies Laboratory Data (last 24 hrs) 10/31/18 00:43: PT 11.6, INR 0.98, APTT 22.8 L 10/31/18 00:43: WBC 10.0, Hgb 15.6, Hct 47.5, Plt Count 248 10/30/18 23:33: Sodium 140, Potassium 3.9, BUN 22 H, Creatinine 2.00 H, Glucose 113 H, Magnesium 2.4 Medications List Reviewed: Yes Assessment And Plan - Current Problems (Diagnosis) (1) Atrial fibrillation with controlled ventricular rate Current Visit: Yes Status: Acute Plan: Atrial fibrillation with RVR with heart rate of 140 -Cardiology consulted. Appreciated Reccs -Started on Betapace and eliquis -echocardiogram is pending at this time -will follow up with cardiology post echocardiogram (2) Hx-TIA (transient ischemic attack) Current Visit: No Status: Chronic (3) GERD (gastroesophageal reflux disease) Current Visit: No Status: Chronic Qualifiers: Esophagitis presence: without esophagitis Qualified Code(s): K21.9 - Gastro -esophageal reflux disease without esophagitis (4) Gout Current Visit: No Status: Chronic Plan: Held colchine sent at this time due to GUILLAUME on CKD Qualifiers: Gout site: unspecified site Gout etiology: unspecified cause Chronicity: unspecified Qualified Code(s): M10.9 - Gout, unspecified (5) Hypertension Current Visit: No Status: Chronic Plan: Stop Losartan and Coreg for right now Qualifiers: Hypertension type: essential hypertension Qualified Code(s): I10 - Essential (primary) hypertension (6) Tobacco abuse Current Visit: No Status: Chronic - Plan Patient pending clinical improvement at this time. Will received 3 doses of Betapace here wait for patient can be safely discharged home. Has been started on Eliquis here was rate controlled. Rhythm however still continues to be in irregular heart rate. Echocardiogram is also pending at this time. Will follow up with cardiology in about next 24-48 hr for possible dc home Discharge Plan: Home Plan to discharge in: 48 Hours - Code Status/Comfort Care Code Status Assessed: Yes Critical Care: No
[2018-10-31] MEDS: SOTALOL HCL 80 MG TAB PO SCH (17:33)
--- NOTE | 2018-10-31 18:04 | CON ---
Date of Consultation: 10/31/2018 Mr. Gutierrez was admitted to Dr. Merino's service on 10/31/2018. I saw the patient on 10/31/2018. Reason For Consultation: Near syncope and atrial fibrillation, new onset. History Of Present Illness: Mr. Gutierrez is a 53-year-old white male, who presumably has a history of atrial fibrillation and CHF, as well as gout, reflux, and hypertension. This was listed on his chart , although the patient stated that he has never had any heart issues before. He came in with near sy ncope, was felt to have atrial fibrillation with moderate ventricular response. Denied any chest carlos manuel n, but did have some palpitations and near syncope. He did have palpitation. Denied any nausea or v omiting or diaphoresis. Denied PND, orthopnea, or pedal edema. His CPK MB troponin was negative. H is creatinine is 2.1. Echocardiogram is pending. Atrial fibrillation was noted on his last EKG. CT of the head was negative. Past Medical History: Otherwise stated above. Allergies: NONE. Review of Systems: Negative. Social History: Positive for tobacco. Negative for drugs. Family History: Negative for heart disease. Medications: At home include allopurinol, Coreg, colchicine. He also takes amlodipine and valsartan combination. Physical Examination: Vital Signs: Stable. He was afebrile. He was in atrial fibrillation at a rate of 80. HEENT: Negative. Neck: Supple without any bruit, lymphadenopathy, JVD, or thyromegaly. Chest: Clear to auscultation and percussion. Cardiac: Revealed a regular rhythm and rate. No murmurs, gallops, rubs, was irregularly irregular. Abdomen: Benign. Extremities: Revealed no clubbing, cyanosis, or edema. Diagnostic Data: As stated above. Impression And Plan: 1.Atrial fibrillation, possible new onset. 2.Renal insufficiency. Creatinine is 2.1, stage 3. 3.Obesity. He weighs 318 pounds. 4.Gout. 5.Hypertension. An echocardiogram is pending. We will see what that shows, but I would like to put him on Betapace 80 mg 1 p.o. b.i.d. He needs to get at least 3 doses before he goes home. I would also put him on Eliquis 5 mg b.i.d. considering his renal function. He will need an outpatient Kaur can eventually. If his blood pressure becomes an issue, we may have to take him off some of the RON inhibitors and ARBs concerning his renal function. I will discuss the case further with Dr. Helder ballesteros is covering for Dr. Merino. If he remains in atrial fibrillation after the third dose of Betapace, dana dougherty can certainly send him home and I will plan to do a cardioversion in 3 weeks. ATUL/JUAN M Voice ID: [id number] Report ID: [id number]
[2018-10-31 18:06] LABS: Urine Protein/Creatinine Ratio 0.7 ratio (<0.15)
[2018-10-31] MEDS: APIXABAN 5 MG TABLET PO SCH (20:09)
[2018-10-31] MEDS ORDERED: ATORVASTATIN 40 MG TAB PO SCH (21:00)
[2018-11-01] MEDS: SOTALOL HCL 80 MG TAB PO SCH (06:02)
[2018-11-01] MEDS: AMLODIPINE 10 MG TAB PO SCH (08:57)
[2018-11-01] MEDS: ALLOPURINOL 100 MG TAB PO SCH (08:58)
[2018-11-01 09:18] LABS: Potassium 3.8 mmol/L (3.5-5.1)
[2018-11-01] MEDS: APIXABAN 5 MG TABLET PO SCH (09:25)
[2018-11-01 11:08] VITALS: TEMP 97.1
--- NOTE | 2018-11-01 15:19 | P.DS ---
Admission Date: 10/31/18 Discharge Date: 11/01/18 Disposition: ROUTINE DISCHARGE Discharge Condition: GOOD Reason for Admission: Lightheadedness/chest pain along with palpitations - Problems (1) Atrial fibrillation with controlled ventricular rate Onset Date: 11/01/18 Current Visit: Yes Status: Acute (2) Hx-TIA (transient ischemic attack) Current Visit: No Status: Chronic (3) GERD (gastroesophageal reflux disease) Current Visit: No Status: Chronic Qualifiers: Esophagitis presence: without esophagitis Qualified Code(s): K21.9 - Gastro -esophageal reflux disease without esophagitis (4) Gout Onset Date: 11/01/18 Current Visit: No Status: Chronic Qualifiers: Gout site: unspecified site Gout etiology: unspecified cause Chronicity: unspecified Qualified Code(s): M10.9 - Gout, unspecified (5) Hypertension Onset Date: 11/01/18 Current Visit: No Status: Chronic Qualifiers: Hypertension type: essential hypertension Qualified Code(s): I10 - Essential (primary) hypertension (6) Tobacco abuse Current Visit: No Status: Chronic Brief History of Present Illness: See HPI Hospital Course: Overall during the hospital stay patient remained stable Patient was initially admitted to the hospital for atrial fibrillation with RVR. Patient was seen here by cardiology's and was started on Betapace and Eliquis. Patient's home dose of Coreg was on hold here in the hospital. Patient also had an echocardiogram done here in the hospital which was consistent with left atrial enlargement. Per cardiology's recommendation patient then was discharged home under stable condition was asked to follow up with cardiology outpatient for possible cardioversion after properly being anticoagulated. Patient demonstrated understanding and thus was discharged home under stable condition. While here in the hospital patient was also seen by nephrology for his GUILLAUME was improving and thus patient was discharged home under stable condition Vital Signs/Physical Exam: Temp Pulse Resp BP Pulse Ox 97.1 F 58 20 144/93 H 98 11/01/18 08:00 11/01/18 08:00 11/01/18 08:00 11/01/18 08:00 11/01/18 08:00 General: Alert, In no apparent distress HEENT: Atraumatic, PERRLA, EOMI Neck: Supple, JVD not distended Respiratory: Clear to auscultation bilaterally, Normal air movement Cardiovascular: Regular rate/rhythm, Normal S1 S2 Gastrointestinal: Normal bowel sounds, No tenderness Musculoskeletal: No tenderness Integumentary: No rashes Neurological: Normal speech, Normal tone, Normal affect Lymphatics: No axilla or inguinal lymphadenopathy Laboratory Data at Discharge: WBC 7.3 K/uL (4.3-10.9) D 10/31/18 05:57 Hgb 14.8 g/dL (13.6-17.9) 10/31/18 05:57 Hct 45.7 % (39.6-49.0) 10/31/18 05:57 Plt Count 240 K/uL (152-406) 10/31/18 05:57 PT 11.6 SECONDS (9.5-12.5) 10/31/18 00:43 INR 0.98 10/31/18 00:43 APTT 22.8 SECONDS (24.3-36.9) L 10/31/18 00:43 Sodium 139 mmol/L (136-145) 11/01/18 08:54 Potassium 3.8 mmol/L (3.5-5.1) 11/01/18 08:54 BUN 25 mg/dL (7-18) H 11/01/18 08:54 Creatinine 2.00 mg/dL (0.55-1.3) H 11/01/18 08:54 Glucose 109 mg/dL (74-106) H 11/01/18 08:54 Magnesium 2.4 mg/dL (1.8-2.4) 10/30/18 23:33 Total Bilirubin 0.7 mg/dL (0.2-1.0) 10/31/18 05:57 AST 21 U/L (15-37) 10/31/18 05:57 ALT 24 U/L (12-78) 10/31/18 05:57 Alkaline Phosphatase 123 U/L (45-117) H 10/31/18 05:57 Troponin I < 0.02 ng/mL (0.0-0.045) 10/31/18 09:59 Triglycerides 138 mg/dL (<150) 11/01/18 06:34 Cholesterol 180 mg/dL (<200) 11/01/18 06:34 HDL Cholesterol 42 mg/dL (40-60) 11/01/18 06:34 Cholesterol/HDL Ratio 4.29 11/01/18 06:34 Home Medications: Allopurinol [Zyloprim*] 100 mg PO DAILY 10/31/18 Amlodipine [Norvasc*] 10 mg PO DAILY #30 tab 11/01/18 Apixaban [Eliquis] 5 mg PO BID #60 tablet 11/01/18 Atorvastatin Calcium [Lipitor] 40 mg PO BEDTIME #30 tab 11/01/18 Sotalol HCl [Betapace*] 80 mg PO BID 6AM 6PM #60 tab 11/01/18 New Medications: Amlodipine [Norvasc*] 10 mg PO DAILY #30 tab Apixaban [Eliquis] 5 mg PO BID #60 tablet Atorvastatin Calcium [Lipitor] 40 mg PO BEDTIME #30 tab Sotalol HCl [Betapace*] 80 mg PO BID 6AM 6PM #60 tab Patient Discharge Instructions: Please f.u with PCP and Dr Pruett in 1 to 2 days post discharge. Please f.u with Nephrology In 1 to 2 days post discharge. New medication. Betapace 80mg BID. Eliquis 5mg BID. Stop taking. Coreg. Hold medication. Valsartan until you see nephrology Diet: Regular Activity: Ad zackery Followup: Aditya Le MD [ACTIVE - CAN ADMIT] - 1-2 Days (Call for appointment.) Malcolm Pruett MD [ACTIVE - CAN ADMIT] - 1-2 Days (Call for appointment.)
[2018-11-01 15:51] VITALS: BP 128/85
--- NOTE | 2018-11-01 16:01 | PN ---
Date of Progress Note: 11/01/2018 Subjective: The patient was admitted with acute kidney injury on chronic kidney disease. Physical Examination: Vital Signs: When I saw the patient, blood pressure 130/79, pulse of 72. Chest: Clear to auscultation. Heart: S1 and S2, regular. Abdomen: Soft, nontender. Extremities: Trace edema. Laboratory Data: WBC 7.3, H and H 14.8/45.7, platelets 240. Sodium 139, potassium 3.8, bicarb 26, B UN 25, creatinine 2, calcium 8.6. Current Medications: The patient on its include; amlodipine 10 mg, atorvastatin, sotalol, Tylenol, Z ofran, allopurinol. Assessment And Plan: 1.Chronic kidney disease, normal size kidney, proteinuric, non nephrotic mostly secondary to hyperte nsion nephrosclerosis/cardiorenal. I am going to continue the patient on current treatment. Start t he patient on gentle dose of Lasix and we will follow up the patient. 2.Gout. Continue allopurinol. 3.Hypertension, controlled, optimal. Continue current treatment. We will add low dose of Lasix. T he patient cleared from the renal standpoint for discharge planning to follow up in the office in 2-3 weeks with chemistry. CLARISSA/JUAN M Voice ID: [id number] Report ID: [id number]
== END 2018-11-01 13:00 | disposition home or self-care (01) ==
LOC: ER 22:54 → 2ND 10-31 02:59
PROVIDERS: ADMIT Hospitalist; ATTEND Hospitalist
DX: I48.91 Unspecified atrial fibrillation (principal); I12.9 Hypertensive chronic kidney disease with stage 1 through stage 4 chronic kidney disease, or unspecified chronic kidney disease; N18.3 Chronic kidney disease, stage 3 (moderate); N17.9 Acute kidney failure, unspecified; K21.9 Gastro-esophageal reflux disease without esophagitis; M10.9 Gout, unspecified; E66.9 Obesity, unspecified; Z68.36 Body mass index [BMI] 36.0-36.9, adult; F17.210 Nicotine dependence, cigarettes, uncomplicated; Z86.73 Personal history of transient ischemic attack (TIA), and cerebral infarction without residual deficits
CPT/HCPCS: 36415; 70450; 76770; 80048; 80053; 80061; 81001; 82550; 82553; 82570; 82962; 83735; 84156; 84484; 85025; 85610; 85730; 87040; 93005; 93306; 99285; G0378; J7030

== ENCOUNTER 2022-03-10 20:38 | Inpatient (IN) | payer OTHER ==
--- OUTSIDE RECORDS SUMMARY | 2022-03-10 20:41 | XMS REPORT | Continuity of Care Document ---
:1965 Author Organization [facility] t Address [address] [place] [address] Care Team Providers Name Role Phone Rashmi PENDLETON Primary Care Physician Unavailable Rashmi Pendleton Attending Clinician Unavailable Jose Attending Clinician Unavailable SANTO Attending Clinician Unavailable Santo ANGEL Attending Clinician Payers Payer Name Policy Type Policy Number Effective Date Expiration Date Apportable [id number] 2015 00:00:00 [place] Problems Condition Condition Condition Status Onset Resolution Last Treating Co mments Source Name Details Category Date Date Treatment Clinician Date S/P knee S/P knee Disease Active Unive rs surgery surgery 5-17 ity of 00:00: [place] 00 Medical Branch Knee Knee Disease Active Univers arthropath arthropath 9-03 it y of y y 00:00: [place] 00 Medical Branch Septic Septic Disease Active Univers joint of joint of 6-12 [place] of [place] Allergies, Adverse Reactions, Alerts Allergy Allergy Status Severity Reaction(s) Onset Inactive Treating Comm ents Source Name Type Date Date Clinician Cephalex Propensi Active Hives Univer s in ty to 4-18 ity of adverse 00:00: [place] reaction 00 Medical s Branch CEPHALEX DRUG Active Hives Univers IN INGREDI 4-18 ity of 00:00: [place] 00 Medical Branch Adhesive Propensi Active Rash Univer s ty to 04-25 ity of adverse 00:00: [place] reaction 00 Medical s to Branch drug ADHESIVE Drug Active Med Hives Univers Class 04-25 ity of 00:00: [place] 00 Medical Branch Social History Social Habit Start Date Stop Date Quantity Comments Source Exposure to Not sure [facility] SARS-CoV-2 Medical Branch (event) History of Snuff User [facility] tobacco use Medical Branc h Alcohol intake 2022-03-01 2022-03-01 0 /d [facility] 00:00:00 00:00:00 Medical Branch Tobacco use and 2015-04-25 2015-04-25 Current user [facility] [place] exposure 00:00:00 00:00:00 Medical Branch Sex Ass[birth year] [facility] 00:00:00 00:00:00 Medical Branch Smoking Status Start Date Stop Date Source Never smoker [facility] Branch Medications Ordered Filled Start Stop Current Ordering Indication Dosage Frequency Signature Comments Components Source Medication Medication Date Date Medication? Clinician (SIG) Name Name atorvastati Yes 40mg Take 40 mg Univers n 40 mg 4-18 by mouth ity of tablet 16:57: at [place] 09 bedtime. Medical Branch losartan Yes 100mg Take 100 Univ ers 100 mg 4-18 mg by ity of tablet 16:57: mouth daily. Medical Branch isosorbide Yes 30mg Take 30 mg U nivers mononitrate 4-18 by mouth 2 it y of 30 mg 24 hr 16:57: (two) [place] tablet 09 times Medical daily. Branch metoprolol Yes 50mg Take 50 mg U nivers succinate 4-18 by mouth ity of XL 50 mg 24 16:57: [place]. [place] hr tablet 09 [facility] OMEPRAZOLE Yes 40mg Take 40 mg U nivers ORAL 4-18 by mouth ity of 16:57: daily. Medical Branch allopurinoL Yes 100mg Take 100 U nivers 100 mg 4-18 mg by ity of tablet 16:57: mouth [place] 09 daily. Medical Branch aMILoride 5 Yes 5mg Take 5 mg U nivers mg tablet 4-18 by mouth 2 ity of 16:57: (two) [place] 09 times Medical daily. Branch TAKE 2 TABLETS BID amLODIPine Yes 10mg Take 10 mg U nivers 10 mg 4-18 by mouth ity of tablet 16:57: daily. Medical Branch furosemide Yes 80mg Take 80 mg U nivers 80 mg 4-18 by mouth ity of tablet 16:57: daily. Medical Branch sildenafiL Yes 100mg Take 100 Un lesley 100 mg 4-18 mg by ity of tablet 16:57: mouth daily. Medical Branch Cholecalcif Yes Take by Un lesley mary, 4-18 mouth ity of Vitamin D3, 16:57: daily. Adonisa s (VITAMIN [facility] D3) 125 mcg Scandia (5,000 unit) tablet apixaban 5 Yes 1358 5mg Take 1 Unive rs mg tablet 4-18 tablet by ity o f 00:00: mouth 2 (two) Medical times Branch daily. Indication s: atrial fibrillati on Sotalol HCl Sotalol HCl Yes Caleb TAKE [address] [facility] TABLET BY [facility] Losartan Losartan Yes Caleb [address] Potassium Potassium [facility]ics Atorvastati Atorvastati Yes Caleb TAKE [address] [facility] [facility] n Calcium n Calcium [facility] TABLET BY [facility] EVERY DAY l [facility] ent Clinics Allopurinol Allopurinol Yes Caleb [address] [facility] Diltiazem Diltiazem Yes Caleb [address] HCl ER HCl ER [facility] Amlodipine Amlodipine Yes Caleb [address] Besylate Besylate [facility] Omeprazole Omeprazole Yes Caleb [address] [facility] 30 minutes [facility] morning l meal [facility] ent Clinics Vital Signs Vital Name Observation Time Observation Value Comments Source Systolic blood 2022-03-01 21:20:00 114 mm[Hg] Univer sity of [facility] Diastolic blood 2022-03-01 21:20:00 70 mm[Hg] Unive rsity of [facility] Heart rate 2022-03-01 21:20:00 92 /min [facility] Body height 2022-03-01 21:20:00 198.1 cm [facility] Body weight 2022-03-01 21:20:00 129.417 kg [facility] BMI 2022-03-01 21:20:00 32.97 kg/m2 [facility] Oxygen saturation 2022-03-01 21:20:00 100 /min [facility] in Arterial blood Medical Br anch by Pulse oximetry Procedures This patient has no known procedures. Encounters Start End Encounter Admission Attending Care Care Encounter Source Date/Time Date/Time Type Type Clinicians Facility Department ID 2022-03-01 Outpatient [facility], [facility] [id number] [facility] 2022-02-24 Outpatient Pendleton, [facility] 07[facility]00 [facility] [id number] [facility] 2021-12-09 Outpatient Pendleton, [facility] 14:24:32 [facility] [id number] [facility] 2021-12-09 Outpatient Pendleton, [facility] 14:20:37 Caleb [id number] [facility] 2021-12-09 Outpatient Pendleton, [facility] 12:25:28 Caleb [id number] [facility] 2021-12-09 Outpatient Pendleton, [facility] 12:22:39 Caleb [id number] [facility] 2021-12-09 Outpatient Pendleton, [facility] 12:14:43 Caleb [id number] [facility] 2021-12-09 Outpatient Pendleton, [facility] 11:58:24 Caleb [id number] [facility] 2021-12-09 Outpatient [place], [place] [id number] [facility] 11:57:28 Caleb [id number] [facility] 2021-12-09 Outpatient [facility] [id number] [facility] 11:57:19 [id number] [facility] 2021-12-09 Outpatient Jose, [facility] [id number] 11:55:56 Jorge [id number] [facility] 2021-12-09 [facility] 11:[facility] Caleb [id number] [facility] 2021-12-09 [facility]der[facility] 11:[facility]13 Caleb [id number] [facility] 2022-03-10 2022-03-10 Outpatient R SANTO, [facility] [id number] Univers 14:00:00 14:00:00 REG [id number] marco [facility] 2022-03-10 2022-03-10 [id number] 2022-03-05 ambulatory [facility] [id number] [facility] 2022-03-01 2022-03-01 [facility] [id number] Univers 15:40:00 16:52:06 Visit Reg ROSENBERG [id number] marco [facility] [id number] Cathy harrell PROFESSIO [id number] [address] 2022-03-01 2022-03-01 [facility] [id number] Univers 15:40:00 16:52:06 DIONISIOJENNIFFER joelfabby [facility] 2022-02-26 2022-02-26 ambulatory [facility] [id number] [facility] 2022-02-26 2022-02-26 ambulatory [facility]LMLC [facility] [id number] [facility] 2022-02-24 2022-02-24 ambulatory [facility]LMLC [facility] [id number] [facility] 2022-02-24 2022-02-24 ambulatory [facility]MLC [facility] [id number] [facility] 2022-02-23 2022-02-23 ambulatory [facility]LMLC [facility] [id number] [facility] 2022-02-22 2022-02-22 ambulatory [facility]MLC [facility] [id number] [facility] 2022-01-19 2022-01-19 ambulatory [facility]C [facility] [id number] [facility] 2021-12-07 2021-12-07 ambulatory [facility]C [facility] [id number] [facility] 2021-11-19 2021-11-19 ambulatory [facility]ML[facility] [id number] [facility] 2021-10-28 2021-10-28 ambulatory [facility]MLC [facility] [id number] [facility] 2021-10-20 2021-10-20 ambulatory [facility]C [facility] [id number] [facility] 2021-07-27 2021-07-27 Outpatient [facility] [id number] [facility] 2021-06-11 2021-06-11 Outpatient [facility] [id number] [facility] 2021-03-12 2021-03-12 Outpatient [facility] [id number] [facility] 2021-03-12 2021-03-12 Outpatient [facility] [id number] [facility] 2020-12-11 2020-12-11 Outpatient [facility] [id number] [facility] 2020-11-25 2020-11-25 Outpatient [facility] [id number] [facility] 2020-10-29 2020-10-29 Outpatient [facility]C [facility] [id number] [facility] 2020-10-29 2020-10-29 Outpatient [facility]C [facility] [id number] [facility] 2020-10-28 2020-10-28 Outpatient [facility]C [facility] [id number] [facility] 2020-09-04 2020-09-04 Outpatient [facility]C [facility] [id number] [facility] 2020-08-29 2020-08-29 Outpatient [facility]C [facility] [id number] [facility] 2020-05-22 2020-05-22 [facility] [id number] 08:45:00 08:45:00 t [employer] [place] [facility] Out[facility] Clinics 2020-05-20 2020-05-20 [facility] [id number] 06:39:00 06:39:[address] [facility] - Drive [facility] Outpati ent Clinics 2020-05-05 2020-05-05 [facility] [id number] 10:18:00 10:18:[address] Luke s - Drive [facility] Out[facility] Clinics 2020-05-01 2020-05-01 [facility] [id number] 13:45:00 13:45:00 [place] [employer] - Drive [facility] Outpati ent Clinics 2020-05-01 2020-05-01 [facility] [id number] 13:45:00 13:45:00 [place] [employer] - Drive [facility] Outpat[facility] ent Clinics 2020-04-18 2020-04-18 [facility] [id number] 10:53:00 10:53:00 t [facility] s - Road [facility] 2020-04-10 2020-04-10 [facility] [id number] 11:00:00 11:00:00 t [facility] ent Clinics 2020-03-14 2020-03-14 [facility] [id number] 11:30:00 11:30:00 t [employer] s - Drive [facility] Results This patient has no known results.
--- NOTE | 2022-03-10 21:33 | RAD REPORT ---
EXAM DESCRIPTION: RAD - Chest Single View - 03/10/2022 9:02 pm CLINICAL HISTORY: DYSPNEA COMPARISON: Chest Pa And Lat (2 Views) dated 11/29/2018; Chest Single View dated 09/15/2018; CHEST SIN GLE VIEW dated 03/05/2015; CHEST SINGLE VIEW dated 03/01/2015 FINDINGS: Lines: None. Lungs: No evidence of edema or pneumonia. Pleural: No significant pleural effusions or pneumothorax. Cardiac: The heart size is within normal limits. Bones: No acute fractures. Other: IMPRESSION: No acute cardiopulmonary disease.
[2022-03-10] MEDS ORDERED: ONDANSETRON 4 MG (ODT) TAB ONE (22:13)
[2022-03-11] MEDS ORDERED: NA CHLORIDE 0.9% 1,000 ML ONE (00:56)
--- NOTE | 2022-03-11 01:30 | ER ---
Nurse's Notes [facility] Name: Steve Gutierrez Age: 56 yrs Sex: Male : 1965 Arrival Date: 03/10/2022 Time: 20:42 Bed 2 Private MD: Diagnosis: Vomiting;Acute kidney failure, unspecified-on chronic;Weakness;Chronic atrial fibrillation;Essential (primary) hypertension Presentation: 03/10 22:00 Chief complaint: Patient states: i have stage 5 kidney disease and i have been throwing lg3 up on and off for several weeks but now i cant keep anything down. its just getting worse. Coronavirus screen: Client denies travel out of the [place] in the last 14 days. At this time, the client does not indicate any symptoms associated with coronavirus-19. Ebola Screen: No symptoms or risks identified at this time. Initial Sepsis Screen: Does the patient meet any 2 criteria? No. Patient's initial sepsis screen is negative. Does the patient have a suspected source of infection? No. Patient's initial sepsis screen is negative. Risk Assessment: Do you want to hurt yourself or someone else? Patient reports no desire to harm self or others. Onset of symptoms is unknown. 22:00 Method Of Arrival: Wheelchair lg3 22:00 Acuity: DELIA 3 lg3 Triage Assessment: 22:03 General: Appears in no apparent distress. uncomfortable, Behavior is calm, cooperative. lg3 Pain: Complains of pain in abdomen. EENT: No deficits noted. No signs and/or symptoms were reported regarding the EENT system. Neuro: No deficits noted. Level of Consciousness is awake, alert, obeys commands, Oriented to person, place, time, situation. Cardiovascular: No deficits noted. Denies chest pain, shortness of breath. Respiratory: No deficits noted. Airway is patent Trachea midline Respiratory effort is even, unlabored, Respiratory pattern is regular, symmetrical. GI: Reports lower abdominal pain, upper abdominal pain, nausea, vomiting. : No deficits noted. No signs and/or symptoms were reported regarding the genitourinary system. Derm: No deficits noted. No signs and/or symptoms reported regarding the dermatologic system. Skin is intact, is healthy with good turgor, Skin is dry, Skin is pink, warm \T\ dry. Musculoskeletal: No deficits noted. No signs and/or symptoms reported regarding the musculoskeletal system. Circulation, motion, and sensation intact. Range of motion: intact in all extremities. Historical: - Allergies: 22:03 cephalexin; lg3 - Home Meds: 22:03 Metoprolol Tartrate Oral [Active]; Aspirin Oral [Active]; lg3 - PMHx: 22:03 Atrial Fib; CHF; Gastric Reflux; Gout; Hypertension; renal disease; lg3 - PSHx: 22:03 Appendectomy; left knee; left leg; jaw; lg3 - Immunization history:: Adult Immunizations up to date, Client reports having NOT received the Covid vaccine. - Social history:: Smoking status: Patient reports use of chewing tobacco. Patient/guardian denies using alcohol. Screenin/28 06:03 Abuse screen: Denies threats or abuse. Denies injuries from another. Nutritional as6 screening: No deficits noted. Tuberculosis screening: No symptoms or risk factors identified. Fall Risk None identified. Assessment: 01:30 General: see triage assessment . as6 18:05 GI: Reports nausea, vomiting. winslow Vital Signs: 03/10 22:00 BP 121 / 72; Pulse 91; Resp 17 S; Temp 97.8(O); Pulse Ox 100% on R/A; Weight 127.01 kg lg3 (R); Height 6 ft. 6 in. (198.12 cm) (R); Pain 6/10; 03/11 01:14 BP 116 / 64; Pulse 73 MON; Resp 14 S; Pulse Ox 100% on R/A; as6 02:14 BP 104 / 58; Pulse 68; Resp 13; Pulse Ox 100% on R/A; oe 03:10 BP 115 / 65; Pulse 60; Resp 14; Pulse Ox 100% on R/A; oe 04:14 BP 111 / 71; Pulse 62; Resp 18; Pulse Ox 100% on R/A; oe 06:05 BP 110 / 56; Pulse 62; Resp 14 S; Pulse Ox 100% on R/A; as6 03/10 22:00 Body Mass Index 32.36 (127.01 kg, 198.12 cm) lg3 ED Course: 03/10 20:42 Patient arrived in ED. belinda 20:46 Ashkan Messina MD is Attending Physician. ambreen 21:04 XRAY Chest (1 view) In Process Unspecified. EDMS 22:03 Triage completed. lg3 22:03 Arm band placed on right wrist. lg3 23:13 Donal Carrillo, MOHSEN is Primary Nurse. as6 03/11 01:00 Inserted saline lock: 20 gauge in right antecubital area, using aseptic technique. as6 Blood collected. 01:29 Peter Velasquez MD is Hospitalizing Provider. ambreen 02:24 Stone Protocol In Process Unspecified. EDMS 06:03 Bed in low position. Call light in reach. Side rails up X2. Adult w/ patient. Cardiac as6 monitor on. Pulse ox on. NIBP on. 06:03 No provider procedures requiring assistance completed. Patient admitted, IV remains in as6 place. Administered Medications: 02:24 Discontinued: NS 0.9% 1000 ml IV at 75 ml/hr continuous ambreen 03/10 22:10 Drug: Zofran (Ondansetron) 4 mg Route: PO; lg3 22:10 Follow up: Response: No adverse reaction lg3 03/11 04:18 Follow up: Response: No adverse reaction as6 01:13 Drug: NS 0.9% 1000 ml Route: IV; Rate: 75 ml/hr; Site: right antecubital; as6 04:17 Follow up: Response: No adverse reaction; IV Status: Order to discontinue infusion; IV as6 Intake: 100ml 02:21 Drug: Pepcid (famotidine) 20 mg Route: IVP; Site: right antecubital; as6 06:02 Follow up: Response: No adverse reaction as6 02:22 Drug: morphine 4 mg Route: IVP; Site: right antecubital; as6 06:02 Follow up: Response: No adverse reaction; RASS: Alert and Calm (0) as6 02:22 Drug: Zofran (Ondansetron) 4 mg Route: IVP; Site: right antecubital; as6 06:02 Follow up: Response: No adverse reaction as6 04:18 Drug: D5W 1000 ml, Sodium Bicarbonate 150 mEq Route: IV; Rate: 75 ml/hr; Site: right as6 antecubital; 06:03 Follow up: IV Status: Infusion continued upon admission as6 Intake: 04:17 IV: 100ml; Total: 100ml. as6 Outcome: 01:30 Decision to Hospitalize by Provider. ambreen 06:04 Admitted to ER Hold. Please see [facility] for further documentation. as6 06:04 Condition: stable 06:04 Instructed on the need for admit. 18:06 Patient left the ED. nayla Signatures: Dispatcher [employer] EDAshkan Yu MD MD cha Espinosa, Orlando oe Gibson, Lacie, RN RN lg3 Donal Carrillo RN RN as6 Brittany Cortez RN RN ha Zapata, Kelly kz
--- NOTE | 2022-03-11 01:30 | EDPHYS ---
Physician Documentation [facility] Name: Steve Gutierrez Age: 56 yrs Sex: Male : 1965 Arrival Date: 03/10/2022 Time: 20:42 Bed 2 Private MD: COTY Physician Ashkan Messina HPI: 03/11 01:23 This 56 yrs old Male presents to ER via Wheelchair with complaints of ambreen Vomiting. 01:23 The patient presents to the emergency department with nausea, vomiting, that is ambreen intermittent. Onset: The symptoms/episode began/occurred 3 day(s) ago. Possible causes: unknown. The symptoms are aggravated by food , The symptoms are alleviated by nothing. remaining still. Associated signs and symptoms: Pertinent positives: nausea, vomiting. Severity of symptoms: At their worst the symptoms were mild in the emergency department the symptoms are unchanged. The patient has experienced similar episodes in the past, several times. Historical: - Allergies: 03/10 22:03 cephalexin; lg3 - Home Meds: 22:03 Metoprolol Tartrate Oral [Active]; Aspirin Oral [Active]; lg3 - PMHx: 22:03 Atrial Fib; CHF; Gastric Reflux; Gout; Hypertension; renal disease; lg3 - PSHx: 22:03 Appendectomy; left knee; left leg; jaw; lg3 - Immunization history:: Adult Immunizations up to date, Client reports having NOT received the Covid vaccine. - Social history:: Smoking status: Patient reports use of chewing tobacco. Patient/guardian denies using alcohol. ROS: 03/11 01:24 Constitutional: Negative for fever, chills, and weight loss, Eyes: Negative for injury, ambreen pain, redness, and discharge, ENT: Negative for injury, pain, and discharge, Neck: Negative for injury, pain, and swelling, Cardiovascular: Negative for chest pain, palpitations, and edema, Respiratory: Negative for shortness of breath, cough, wheezing, and pleuritic chest pain, Back: Negative for injury and pain, : Negative for injury, bleeding, discharge, and swelling, MS/Extremity: Negative for injury and deformity, Skin: Negative for injury, rash, and discoloration, Neuro: Negative for headache, weakness, numbness, tingling, and seizure, Psych: Negative for depression, anxiety, suicide ideation, homicidal ideation, and hallucinations, Allergy/Immunology: Negative for hives, rash, and allergies, Endocrine: Negative for neck swelling, polydipsia, polyuria, polyphagia, and marked weight changes, Hematologic/Lymphatic: Negative for swollen nodes, abnormal bleeding, and unusual bruising. Abdomen/GI: Positive for abdominal pain, nausea and vomiting, abdominal cramps. Exam: 01:24 Constitutional: This is a well developed, well nourished patient who is awake, alert, ambreen and in no acute distress. Head/Face: Normocephalic, atraumatic. Eyes: Pupils equal round and reactive to light, extra-ocular motions intact. Lids and lashes normal. Conjunctiva and sclera are non-icteric and not injected. Cornea within normal limits. Periorbital areas with no swelling, redness, or edema. ENT: Nares patent. No nasal discharge, no septal abnormalities noted. Tympanic membranes are normal and external auditory canals are clear. Oropharynx with no redness, swelling, or masses, exudates, or evidence of obstruction, uvula midline. Mucous membranes moist. Neck: Trachea midline, no thyromegaly or masses palpated, and no cervical lymphadenopathy. Supple, full range of motion without nuchal rigidity, or vertebral point tenderness. No Meningismus. Chest/axilla: Normal chest wall appearance and motion. Nontender with no deformity. No lesions are appreciated. Cardiovascular: Regular rate and rhythm with a normal S1 and S2. No gallops, murmurs, or rubs. Normal PMI, no JVD. No pulse deficits. Respiratory: Lungs have equal breath sounds bilaterally, clear to auscultation and percussion. No rales, rhonchi or wheezes noted. No increased work of breathing, no retractions or nasal flaring. Back: No spinal tenderness. No costovertebral tenderness. Full range of motion. Male : Normal genitalia with no discharge or lesions. Skin: Warm, dry with normal turgor. Normal color with no rashes, no lesions, and no evidence of cellulitis. MS/ Extremity: Pulses equal, no cyanosis. Neurovascular intact. Full, normal range of motion. Neuro: Awake and alert, GCS 15, oriented to person, place, time, and situation. Cranial nerves II-XII grossly intact. Motor strength 5/5 in all extremities. Sensory grossly intact. Cerebellar exam normal. Normal gait. Psych: Awake, alert, with orientation to person, place and time. Behavior, mood, and affect are within normal limits. 01:24 ECG was reviewed by the Attending Physician. 01:24 Abdomen/GI: Inspection: abdomen appears normal, Bowel sounds: normal, Palpation: mild abdominal tenderness, in the right upper quadrant and left upper quadrant, Liver: no appreciated palpable abnormalities, Hernia: not appreciated. Vital Signs: 03/10 22:00 BP 121 / 72; Pulse 91; Resp 17 S; Temp 97.8(O); Pulse Ox 100% on R/A; Weight 127.01 kg lg3 (R); Height 6 ft. 6 in. (198.12 cm) (R); Pain 6/10; 03/11 01:14 BP 116 / 64; Pulse 73 MON; Resp 14 S; Pulse Ox 100% on R/A; as6 02:14 BP 104 / 58; Pulse 68; Resp 13; Pulse Ox 100% on R/A; oe 03:10 BP 115 / 65; Pulse 60; Resp 14; Pulse Ox 100% on R/A; oe 04:14 BP 111 / 71; Pulse 62; Resp 18; Pulse Ox 100% on R/A; oe 06:05 BP 110 / 56; Pulse 62; Resp 14 S; Pulse Ox 100% on R/A; as6 03/10 22:00 Body Mass Index 32.36 (127.01 kg, 198.12 cm) lg3 MDM: 03/10 20:47 Patient medically screened. ambreen 03/11 01:26 Differential diagnosis: Nonspecific abd pain, gastritis, cholecystitis, pancreatitis, ambreen appendicitis, diverticulitis, viral gastroenteritis, gastroenteritis. Data reviewed: vital signs, nurses notes, lab test result(s), EKG, radiologic studies, CT scan. Data interpreted: teletypesetter monitor: rate is 73 beats/min, rhythm is regular, Pulse oximetry: on room air is 73 %. Test interpretation: by ED physician or midlevel provider: ECG, plain radiologic studies. Counseling: I had a detailed discussion with the patient and/or guardian regarding: the historical points, exam findings, and any diagnostic results supporting the discharge/admit diagnosis, lab results, radiology results, the need for further work-up and treatment in the hospital. 03/10 20:47 Order name: Basic Metabolic Panel; Complete Time: 02:21 ambreen 03/10 20:47 Order name: CBC with Diff; Complete Time: 01:53 ambreen 03/10 20:47 Order name: LFT's; Complete Time: 02:21 ambreen 03/10 20:47 Order name: Magnesium; Complete Time: 02:21 ambreen 03/10 20:47 Order name: NT PRO-BNP; Complete Time: 02:21 ambreen 03/10 20:47 Order name: PT-INR; Complete Time: 01:53 ambreen 03/10 20:47 Order name: Troponin HS; Complete Time: 02:21 ambreen 03/10 23:48 Order name: SARS-COV-2 RT PCR (Document "Date of Onset" if Symptomatic); Complete Time: ambreen 03/11 01:30 Order name: Lipase; Complete Time: 02:21 EDMS 03/11 01:36 Order name: Urine Dipstick-Ancillary; Complete Time: 01:53 EDMS 03/11 03:26 Order name: Urinalysis EDMS 03/11 03:26 Order name: CBC with Automated Diff EDMS 03/11 03:26 Order name: CBC with Automated Diff EDMS 03/10 20:47 Order name: XRAY Chest (1 view) [facility] 03/11 01:26 Order name: Stone Protocol EDMS 03/11 03:26 Order name: CBC with Automated Diff EDMS 03/11 03:26 Order name: CBC with Automated Diff EDMS 03/11 03:26 Order name: Comprehensive Metabolic Panel EDMS 03/11 03:26 Order name: Comprehensive Metabolic Panel EDMS 03/11 03:26 Order name: Comprehensive Metabolic Panel EDMS 03/11 03:26 Order name: Comprehensive Metabolic Panel EDMS 03/11 03:26 Order name: Magnesium EDMS 03/11 03:26 Order name: Magnesium EDMS 03/11 03:26 Order name: Magnesium EDMS 03/11 03:26 Order name: Magnesium EDMS 03/11 08:14 Order name: US EDMS 03/10 20:47 Order name: EKG; Complete Time: 20:48 ambreen 03/10 20:47 Order name: Cardiac monitoring; Complete Time: 01:14 ambreen 03/10 20:47 Order name: EKG - Nurse/Tech; Complete Time: 01:14 ambreen 03/10 20:47 Order name: IV Saline Lock; Complete Time: 01:14 ambreen 03/10 20:47 Order name: Labs collected and sent; Complete Time: : [facility] 03/10 20:47 Order name: O2 Per Protocol; Complete Time: [facility] 03/10 20:47 Order name: O2 Sat Monitoring; Complete Time: : [facility] 03/10 23:48 Order name: Urine Dipstick-Ancillary (obtain specimen); Complete Time: 01:38 [facility] 03/11 03:26 Order name: NPO EDMS EC:24 Rate is 73 beats/min. Rhythm is irregularly irregular. QRS [place] is Normal. [place] interval ambreen is normal. QT interval is normal. No Q waves. T waves are Normal. No ST changes noted. Clinical impression: Atrial Fibrillation and No evidence of ischemia. Interpreted by me. Reviewed by me. Administered Medications: 02:24 Discontinued: NS 0.9% 1000 ml IV at 75 ml/hr continuous [facility] 03/10 22:10 Drug: Zofran (Ondansetron) 4 mg Route: PO; lg3 22:10 Follow up: Response: No adverse reaction lg3 03/11 04:18 Follow up: Response: No adverse reaction as6 01:13 Drug: NS 0.9% 1000 ml Route: IV; Rate: 75 ml/hr; Site: right antecubital; as6 04:17 Follow up: Response: No adverse reaction; IV Status: Order to discontinue infusion; IV as6 Intake: 100ml 02:21 Drug: Pepcid (famotidine) 20 mg Route: IVP; Site: right antecubital; as6 06:02 Follow up: Response: No adverse reaction as6 02:22 Drug: morphine 4 mg Route: IVP; Site: right antecubital; as6 06:02 Follow up: Response: No adverse reaction; RASS: Alert and Calm (0) as6 02:22 Drug: Zofran (Ondansetron) 4 mg Route: IVP; Site: right antecubital; as6 06:02 Follow up: Response: No adverse reaction as6 04:18 Drug: D5W 1000 ml, Sodium Bicarbonate 150 mEq Route: IV; Rate: 75 ml/hr; Site: right as6 antecubital; 06:03 Follow up: IV Status: Infusion continued upon admission as6 Disposition Summary: 03/11/22 01:30 Hospitalization Ordered Hospitalization Status: Inpatient Admission ambreen Provider: Peter Velasquez cha Condition: Stable ambreen Problem: new ambreen Symptoms: have improved ambreen Bed/Room Type: Standard ambreen Location: Telemetry/MedSurg (Inpatient)(03/11/22 16:34) ja Room Assignment: 216(03/11/22 16:34) steffany Diagnosis - Vomiting ambreen - Acute kidney failure, unspecified - on chronic ambreen - Weakness ambreen - Chronic atrial fibrillation ambreen - Essential (primary) hypertension ambreen Forms: - Medication Reconciliation Form ambreen - SBAR form ambreen Signatures: Dispatcher [employer] EDMS Ashkan Messina MD MD cha Attema, Lee, SOUS CHEF-C SOUS CHEF-Cla1 Mk Mayen, RN RN ja1 Jimena Allan RN RN eb1 Amy Guzman RN RN lg3 Donal Carrillo, RN RN as6 Corrections: (The following items were deleted from the chart) 01:30 01:24 LIPASE+C.LAB.BRZ ordered. EDKS EDKS 01:48 01:30 Telemetry/MedSurg (Inpatient) ambreen eb1 01:48 01:30 ambreen eb1 16:34 01:48 [facility] ER HOLD eb1 ja1 16:34 01:48 ERHOLD- eb1 ja1
[2022-03-11 01:36] LABS: Absolute Lymphocytes (CBC) 1.5 K/uL (0.7-4.9); Hematocrit 34.7 % (39.6-49.0); Lymphocytes % 31.6 % (15.3-44.8); MPV 8.6 fL (7.6-11.3); Protime INR 1.14; RBC Red Blood Cell Count 4.06 M/uL (4.33-5.43)
[2022-03-11 01:36] LABS: Urine Blood 3+ (Negative); Urine Glucose Negative (Negative); Urine Protein 2+ (Negative); Urine Specific Gravity 1.015 (1.005-1.030); Urine pH 5.5 (5.0-7.0)
[2022-03-11] MEDS ORDERED: ONDANSETRON 4 MG/2 ML VIAL ONE ×2 (02:10→13:03)
[2022-03-11] MEDS ORDERED: FAMOTIDINE 20 MG/2 ML VIAL IV ONE (02:10)
[2022-03-11] MEDS ORDERED: MORPHINE 4 MG/ML SYR ONE (02:10)
[2022-03-11 02:16] LABS: Albumin 3.9 g/dL (3.4-5.0); Bilirubin Direct 0.3 mg/dL (0-0.2); Bilirubin Total 0.6 mg/dL (0.2-1.0); Magnesium 2.1 mg/dL (1.8-2.4); Potassium 4.8 mmol/L (3.5-5.1); Protein, Total 7.7 g/dL (6.4-8.2); Troponin High Sensitivity 24.2 pg/mL (<58.9)
--- NOTE | 2022-03-11 03:31 | P.HP ---
Certification for Inpatient Patient admitted to: Inpatient With expected LOS: >2 Midnights Patient will require the following post-hospital care: None Practitioner: I am a practitioner with admitting privileges, knowledge of patient current condition, hospital course, and medical plan of care. Services: Services provided to patient in accordance with Admission requirements found in Title 42 Section 412.3 of the Code of Federal Regulations <Fredy Fragoso - Last Filed: 03/11/22 03:27> Patient History Date of Service: 03/11/22 Reason for admission: Acute renal failure History of Present Illness: 56-year-old male with history of atrial fibrillation not on chronic anticoagulation therapy, chronic diastolic congestive heart failure, GERD, gout, hypertension and chronic kidney disease was sent to the ER by his storage management consultant, he has been having malaise, weakness, lethargy and vomiting over the course of the last week. Ever since November him and his storage management consultant have been working to have a fistula placed to initiate dialysis, patient reports his most recent creatinine was 6 but he been doing very poorly this past week. He was evaluated here in the emergency department found to be in acute renal failure with significant uremia, acidosis although his potassium was normal, blood pressure within normal limits. ED wishes to admit patient for further evaluation and management/to initiate dialysis. Patient did have CT abdomen pelvis without contrast which was negative for any acute findings or signs of obstructive uropathy. - Past Medical/Surgical History Diabetic: No -: HTN -: Chronic diastolic CHF -: Gout -: ESRD -: A. fib -: Appendectomy -: Knee surgery -: Vasectomy -: Jaw surgery -: Tracheostomy -: L hand sx -: L. knee TKR Psychosocial/ Personal History: Patient lives at home with his family - Family History Father -: Cancer Notes: colon- - Social History Smoking Status: Never smoker Alcohol use: Yes CD- Drugs: No Caffeine use: No Place of Residence: Home <Fredy Fragoso - Last Filed: 03/11/22 03:27> Date of Service: 03/11/22 <Peter Velasquez - Last Filed: 03/11/22 16:40> Allergies Tape Allergy (Uncoded 10/31/18 04:08) Hives/Rash Home Medications: allopurinoL [Zyloprim*] 100 mg PO DAILY 10/31/18 Amlodipine [Norvasc*] 10 mg PO DAILY #30 tab 11/01/18 Apixaban [Eliquis] 5 mg PO BID #60 tablet 11/01/18 Atorvastatin Calcium [Lipitor] 40 mg PO BEDTIME #30 tab 11/01/18 Sotalol HCl [Betapace*] 80 mg PO BID 6AM 6PM #60 tab 11/01/18 Review of Systems 10-point ROS is otherwise unremarkable Gastrointestinal: Nausea, Vomiting, Abdominal Pain <Fredy Fragoso - Last Filed: 03/11/22 03:27> Physical Examination - Physical Exam General: Alert, In no apparent distress, Oriented x3 HEENT: Atraumatic, PERRLA, Mucous membr. moist/pink, EOMI, Sclerae nonicteric Neck: Supple, 2+ carotid pulse no bruit, No LAD, Without JVD or thyroid abnormality Respiratory: Clear to auscultation bilaterally, Normal air movement Cardiovascular: Regular rate/rhythm, Normal S1 S2 Gastrointestinal: Normal bowel sounds, No tenderness Musculoskeletal: No tenderness Integumentary: No rashes Neurological: Normal speech, Normal strength at 5/5 x4 extr, Normal tone, Normal affect - Studies Laboratory Data (last 24 hrs) 03/11/22 01:23: Lipase Cancelled 03/11/22 01:09: PT 12.6 H, INR 1.14 03/11/22 01:09: WBC 4.9, Hgb 11.4 L, Hct 34.7 L, Plt Count 124 L 03/11/22 01:09: Sodium 136, Potassium 4.8, BUN 163 H, Creatinine 13.00 H*, Glucose 109 H, Magnesium 2.1, Total Bilirubin 0.6, AST 10 L, ALT 33, Alkaline Phosphatase 154 H, Lipase 857 H <Fredy Fragoso - Last Filed: 03/11/22 03:27> - Studies Laboratory Data (last 24 hrs) 03/11/22 01:23: Lipase Cancelled 03/11/22 01:09: PT 12.6 H, INR 1.14 03/11/22 01:09: WBC 4.9, Hgb 11.4 L, Hct 34.7 L, Plt Count 124 L 03/11/22 01:09: Sodium 136, Potassium 4.8, BUN 163 H, Creatinine 13.00 H*, Glucose 109 H, Magnesium 2.1, Total Bilirubin 0.6, AST 10 L, ALT 33, Alkaline Phosphatase 154 H, Lipase 857 H <Peter Velasquez - Last Filed: 03/11/22 16:40> Assessment and Plan - Plan Assessment: ESRD/uremia/acidosis Acute on chronic diastolic congestive heart failure Atrial fibrillation not on chronic anticoagulation therapy Hypertension Gout Plan: ESRD/uremia/acidosis: Nephrology consulted, aware patient will need dialysis will need to consult general surgery for temporary dialysis access. Patient started on bicarbonate drip. N.p.o. Acute on chronic diastolic congestive heart failure: BNP elevated although this is likely related to his renal failure as well chest x-ray is clear no significant signs of overload at this time, blood pressure not significantly elevated. Continue gentle bicarbonate drip patient will benefit with dialysis. Last echocardiogram 2018 with atrial fibrillation and ejection fraction of around 50%. Atrial fibrillation not on chronic anticoagulation therapy:Monitor on telemetry, rate is controlled well at this time patient has not taken any anticoagulants recently. Was taken off of his Eliquis by nephrology. Hypertension: Obtain and continue medication Gout: Continue home medications DVT PPX: SCD Code status: Full Discharge Plan: Home Plan to discharge in: Greater than 2 days - Advance Directives Does patient have a Living Will: No Does patient have a Durable POA for Healthcare: No - Code Status/Comfort Care Code Status Assessed: Yes (Full code) Critical Care: No Time Spent Managing Pts Care (In Minutes): 55 <Fredy Fragoso - Last Filed: 03/11/22 03:27> - Plan Patient seen on rounds earlier this morning. No significant change. Agree with plan of care as noted above Continues with nausea, had emesis last night. Reports about a week of symptoms associated with vague/diffuse abdominal discomfort. Has had minimal p.o. intake over the last week CT abdomen/pelvis without acute findings per overnight read General surgery consulted for dialysis access, nephrology consulted, <Peter Velasquez - Last Filed: 03/11/22 16:40>
[2022-03-11] MEDS ORDERED: SODIUM BICARB 50 MEQ/50ML VIAL ONE (03:59)
[2022-03-11] MEDS ORDERED: D5W 1,000 ML IV ONE (03:59)
[2022-03-11] MEDS ORDERED: D5W 1,000 ML with NA BICARB 8.4% 150 MEQ IV SCH ×2 (04:00)
[2022-03-11 08:06] VITALS: BMI 32.2
--- NOTE | 2022-03-11 08:14 | RAD REPORT ---
EXAM DESCRIPTION: US - Urinary Bladder - 03/11/2022 8:05 am CLINICAL HISTORY: Bladder pain. Unable to empty bladder. FINDINGS: Prevoid bladder volume equals 240 cc Postvoid bladder volume equals 3 cc No ascites IMPRESSION: Prevoid bladder volume equals 240 cc Postvoid bladder volume equals 3 cc
--- NOTE | 2022-03-11 11:54 | P.CNS ---
Date of Consult: 03/11/22 Reason for Consult: Progressive CKD/ ESRD Requesting Physician: Peter Velasquez Primary Care Provider: Dr. Caleb Pendleton Chief Complaint: Acute renal failure History of Present Illness: 56-year-old male with history of atrial fibrillation not on chronic anticoagulation therapy, chronic diastolic congestive heart failure, GERD, gout, hypertension and chronic kidney disease was sent to the ER by his sofa inspector, he has been having malaise, weakness, lethargy and vomiting over the course of the last week. Ever since November him and his sofa inspector have been working to have a fistula placed to initiate dialysis, patient reports his most recent creatinine was 6 but he been doing very poorly this past week. He was evaluated here in the emergency department found to be in acute renal failure with significant uremia, acidosis although his potassium was normal, blood pressure within normal limits. ED wishes to admit patient for further evaluation and management/to initiate dialysis. Patient did have CT abdomen pelvis without contrast which was negative for any acute findings or signs of obstructive uropathy. 01:23 This 56 yrs old Male presents to ER via Wheelchair with complaints of ambreen Vomiting. 01:23 The patient presents to the emergency department with nausea, vomiting, that is ambreen intermittent. Onset: The symptoms/episode began/occurred 3 day(s) ago. Possible causes: unknown. The symptoms are aggravated by food , The symptoms are alleviated by nothing. remaining still. Associated signs and symptoms: Pertinent positives: nausea, vomiting. Severity of symptoms: At their worst the symptoms were mild in the e mergency department the symptoms are unchanged. The patient has experienced similar episodes in the past, several times. Allergies Tape Allergy (Uncoded 10/31/18 04:08) Hives/Rash Home medications list reviewed: Yes Home Medications: Metoprolol Tartrate 1 tab PO DAILY 03/11/22 - Past Medical/Surgical History Diabetic: No -: HTN -: Chronic diastolic CHF -: Gout -: ESRD/ Dr. Greco -: A. fib -: Appendectomy -: Knee surgery -: Vasectomy -: Jaw surgery -: Tracheostomy -: L hand sx -: L. knee TKR Psychosocial/ Personal History: Patient lives at home with his family - Family History Father Medical History: Cancer Notes: colon- - Social History Smoking Status: Current every day smoker Alcohol use: No CD- Drugs: No Caffeine use: No Place of Residence: Home Review of Systems 10-point ROS is otherwise unremarkable General: Weakness, Malaise Gastrointestinal: Nausea Neurological: Weakness Physical Examination Temp Pulse Resp BP Pulse Ox 61 107/69 95 03/11/22 08:00 03/11/22 08:00 03/11/22 08:00 General: Oriented x3, Cooperative, Mild distress HEENT: Atraumatic Neck: Supple Respiratory: Clear to auscultation bilaterally Cardiovascular: No edema, Regular rate/rhythm Gastrointestinal: Soft and benign, Non-distended, No guarding Musculoskeletal: No clubbing, No contractures Integumentary: No rashes, No cyanosis Neurological: Normal speech Laboratory Data (last 24 hrs) 03/11/22 01:23: Lipase Cancelled 03/11/22 01:09: PT 12.6 H, INR 1.14 03/11/22 01:09: WBC 4.9, Hgb 11.4 L, Hct 34.7 L, Plt Count 124 L 03/11/22 01:09: Sodium 136, Potassium 4.8, BUN 163 H, Creatinine 13.00 H*, Glucose 109 H, Magnesium 2.1, Total Bilirubin 0.6, AST 10 L, ALT 33, Alkaline Phosphatase 154 H, Lipase 857 H Imagings Data: EXAM DESCRIPTION: RAD - Chest Single View - 03/10/2022 9:02 pm CLINICAL HISTORY: DYSPNEA COMPARISON: Chest Pa And Lat (2 Views) dated 11/29/2018; Chest Single View dated 09/15/2018; CHEST SINGLE VIEW dated 03/05/2015; CHEST SINGLE VIEW dated 03/01/2015 FINDINGS: Lines: None. Lungs: No evidence of edema or pneumonia. Pleural: No significant pleural effusions or pneumothorax. Cardiac: The heart size is within normal limits. Bones: No acute fractures. Other: IMPRESSION: No acute cardiopulmonary disease. EXAM DESCRIPTION: US - Urinary Bladder - 03/11/2022 8:05 am CLINICAL HISTORY: Bladder pain. Unable to empty bladder. FINDINGS: Prevoid bladder volume equals 240 cc Postvoid bladder volume equals 3 cc No ascites IMPRESSION: Prevoid bladder volume equals 240 cc Postvoid bladder volume equals 3 cc Conclusions/Impression: ESRD Uremia with weight loss and anorexia -Surgery consult for tunneled HD CVC placement -Check HBV panel -Initiate dialysis michi Acidosis -Continue IVF with bicarb HTN with CKD/ CHF complicated by hypotension -Restart Metoprolol due to his history of Afib (Not on anticoagulation) Diastolic CHF, chronic -Low sodium diet Malnutrition -Encourage nutrition as tolerated -Consider Nepro Anemia in chronic illness -Start Retacrit CKD MBD -Start Vitamin D Thank you for the consultation. Case reviewed with Dr. Velasquez; CVC placement tomorrow
[2022-03-11] MEDS ORDERED: EPOETIN ALFA 10,000 UNIT/ML VIAL SQ ONE (12:30)
[2022-03-11] MEDS: ONDANSETRON 4 MG/2 ML VIAL IV PRN (12:58)
[2022-03-11] MEDS: MORPHINE 2 MG/ML SYR IV PRN (13:01)
[2022-03-11] MEDS ORDERED: MORPHINE 2 MG/ML SYR ONE (13:06)
--- NOTE | 2022-03-11 13:20 | RAD REPORT ---
EXAM DESCRIPTION: CT - Stone Protocol - 03/11/2022 6:03 am CLINICAL HISTORY: 56 years Male abd pain, N/V TECHNIQUE: Axial CT imaging of the abdomen and pelvis was performed without oral or intravenous cont rast. Sagittal and coronal reconstructed images were then performed. The CT study is performed acco rding to ALARA (as low as reasonably achievable) or ALARA/IMAGE GENTLY, with automatic adjustment of mA and/or kV according to patient size. Performed on: 03/11/2022 at 2:14 AM COMPARISON: 02/05/2018. FINDINGS: Lung bases: The lung bases are clear. Liver: The liver is normal in size and configuration. No focal hepatic abnormalities are appreciated on this unenhanced scan. Liver attenuation is within normal limits. Spleen: The spleen is top normal in size and is normal in configuration and attenuation. No focal spl enic abnormalities are appreciated on this unenhanced scan. Gallbladder and bile duct: The gallbladder is well distended and contains numerous gallstones. Ther e is no biliary ductal dilatation. Pancreas: The pancreas is grossly normal in size and configuration. Adrenal Glands: The adrenal glands are normal in size and configuration. Kidneys: The kidneys are normal in size and configuration. There is no evidence of hydronephrosis. Th ere is no evidence of nephrolithiasis. No focal renal abnormalities are identified. There is a circum aortic left renal vein. Stomach: The stomach is grossly normal. There is no definite hiatal hernia. Bowel: The bowel gas pattern is non specific and non obstructive. There is prominent colonic submucos al fat best appreciated from the distal transverse colon to the rectosigmoid junction and can be seen with chronic inflammatory bowel disease. Appendix: The appendix is not clearly visualized and may be surgically absent. Free air: There is no evidence of free air. Free fluid: There is no evidence of free fluid. Vasculature: The aorta is normal in caliber and contour. The inferior vena cava is grossly unremarkab le. There is a circumaortic left renal vein. Lymphadenopathy: No pathologic lymphadenopathy is identified. Bladder: The bladder is incompletely distended on this examination. There is minimal intramural fat along the wall of the urinary bladder which is a nonspecific finding. Reproductive: The prostate gland is grossly within normal limits. The prostate gland measures approxi mately 5.3 x 3.9 cm in cross-sectional diameter. Bones: No acute osseous abnormalities are identified. There are degenerative changes of the thoracolu mbar spine. A hemangioma is present in the L4 vertebral body. Soft tissues: No acute soft tissue abnormalities are identified. IMPRESSION: 1. No evidence of acute intra-abdominal or intrapelvic pathology. 2. Cholelithiasis without evidence of biliary ductal dilatation. 3. Prominent colonic submucosal fat best appreciated from the distal transverse colon to the rectos igmoid junction which is nonspecific but can be seen with chronic inflammatory bowel disease. 4. Borderline splenomegaly. Electronically signed by: Pat Rubio DO 03/11/2022 2:59 AM CDT Due to temporary technical issues with the PACS/Fluency reporting system, reports are being signed by the in house radiologist without review as a courtesy to ensure prompt reporting. The interpreting r adiologist is fully responsible for the content of the report.
[2022-03-11] MEDS: D5W 1,000 ML with NA BICARB 8.4% 150 MEQ IV SCH ×4 (16:00→21:33)
[2022-03-11] MEDS ORDERED: NA CHLORIDE 0.9% 1,000 ML IV PRN (19:55)
[2022-03-11] MEDS ORDERED: MANNITOL 25% 12.5 GM/50 ML VIAL IV PRN (19:55)
[2022-03-11] MEDS ORDERED: ALBUMIN HUMAN 25% 50 ML IV SCH (20:00)
[2022-03-11] MEDS: DOCUSATE NA 100 MG CAP PO SCH (21:33)
[2022-03-11] MEDS: METOPROLOL TAR 25 MG TAB PO SCH (21:34)
[2022-03-12 04:03] LABS: Absolute Lymphocytes (CBC) 1.2 K/uL (0.7-4.9); Hematocrit 30.1 % (39.6-49.0); Lymphocytes % 28.7 % (15.3-44.8); MPV 8.1 fL (7.6-11.3); RBC Red Blood Cell Count 3.59 M/uL (4.33-5.43)
[2022-03-12 04:36] LABS: Albumin 3.6 g/dL (3.4-5.0); Bilirubin Total 0.7 mg/dL (0.2-1.0); Magnesium 1.8 mg/dL (1.8-2.4); Phosphorus 6.9 mg/dL (2.5-4.9); Potassium 4.2 mmol/L (3.5-5.1); Protein, Total 6.7 g/dL (6.4-8.2); Uric Acid 8.3 mg/dL (3.5-7.2)
--- NOTE | 2022-03-12 06:40 | P.PN ---
Date of Service: 03/12/22 Subjective: didn't sleep much last night, tired this morning falling asleep during conversation threw up food last night ROS: 10 point ROS as noted above, otherwise negative Physical exam GEN: slight lethargy, but arousable, AOX3 HEENT: Normal conjunctiva, sclera anicteric CV: Regular rate and rhythm, +mild edema Pulm: Nonlabored respirations on room air ABD: Soft, nondistended Neuro: moves extremities, arousable Problem List ESRD/uremia/acidosis Acute on chronic diastolic congestive heart failure Atrial fibrillation not on chronic anticoagulation therapy Hypertension Gout no significant change overnight plan for dialysis cath placement today continue bicarb drip nephrology consulted, dialysis today monitor afib, eliquis stopped as outpatient nausea/vomiting likely secondary to uremia Code: full Dispo: home, 3-4 days, set up dialysis Time Spent Managing Pts Care (In Minutes): 35
[2022-03-12] MEDS: D5W 1,000 ML with NA BICARB 8.4% 150 MEQ IV SCH ×4 (07:20→23:41)
--- NOTE | 2022-03-12 07:47 | EKG ---
Test Date: 2022-03-11 Test Time: 01:05:56 Train Control Electronic Technician: MEASUREMENT RESULTS: Intervals: Rate: 73 [place]: QRSD: 108 QT: 406 QTc: 447 [place]: P: [place]: QRS: 23 T: 75 INTERPRETIVE STATEMENTS: Atrial fibrillation Abnormal ECG Compared to ECG 10/30/2018 23:00:19 T-wave abnormality no longer present Prolonged QT interval no longer present Electronically Signed On 03-12-22 07:42:38 CDT by Malcolm Pruett
[2022-03-12] MEDS: VITAMIN D 5,000 UNIT CAP PO SCH (09:00)
[2022-03-12] MEDS: METOPROLOL TAR 25 MG TAB PO SCH ×2 (09:00→21:14)
[2022-03-12] MEDS: DOCUSATE NA 100 MG CAP PO SCH ×2 (09:00→21:14)
[2022-03-12] MEDS: CALCITROL 0.25 MCG CAP PO SCH (09:00)
[2022-03-12] MEDS: ONDANSETRON 4 MG/2 ML VIAL IV PRN ×2 (11:52→18:52)
[2022-03-12] MEDS ORDERED: NA CHLORIDE 0.9% 500 ML ONE (12:14)
[2022-03-12] MEDS ORDERED: FENTANYL CITR 100 MCG/2 ML ONE ×2 (12:28→13:17)
[2022-03-12] MEDS ORDERED: LIDOCAINE 2% MPF 5 ML VIAL ONE ×2 (12:28→13:17)
[2022-03-12] MEDS ORDERED: propofoL 200 MG/20 ML VIAL IV ONE ×2 (12:28→13:17)
[2022-03-12] MEDS ORDERED: MIDAZOLAM HCL 2 MG/2 ML INJ ONE ×2 (12:28→13:17)
[2022-03-12] MEDS ORDERED: HEPARIN 5000 UNIT/ML 1 ML VIAL ONE (12:30)
[2022-03-12] MEDS ORDERED: BUPIVACAINE 0.5% PF 10 ML VIAL ONE (12:31)
[2022-03-12] MEDS ORDERED: NA CHLORIDE 0.9% 100 ML IV ONE (12:31)
[2022-03-12] MEDS ORDERED: CIPROFLOXACIN 400mg IV 400 MG/200 ML BAG IV ONE (12:57)
[2022-03-12] MEDS ORDERED: LIDOCAINE 1% MPF 5 ML VIAL ONE (13:17)
[2022-03-12] MEDS ORDERED: ONDANSETRON 4 MG/2 ML VIAL ONE (13:21)
[2022-03-12] MEDS ORDERED: Phenylephrine HCl 10 MG/ML 1 ML VIAL ONE (13:31)
[2022-03-12] MEDS ORDERED: EPHEDRINE SULF 50 MG/ML VIAL ONE (13:50)
[2022-03-12] MEDS ORDERED: NS 0.9% VIAL 10 ML ONE (13:51)
--- NOTE | 2022-03-12 14:08 | P.BOP ---
Preoperative diagnosis: ESRD Postoperative diagnosis: same Primary procedure: 1. Placement of tunneled D catheter Secondary procedure: 2. Interpretation of fluoroscopy Other procedure(s): 3. Right neck ultrasound Estimated blood loss: <10cc Specimen: none Findings: as above Anesthesia: General Complications: None Drain(s): Other (Hemosplit) Transferred to: Recovery Room Condition: Good
--- NOTE | 2022-03-12 14:51 | RAD REPORT ---
EXAM DESCRIPTION: ISRAChevy Single View03/12/2022 2:26 pm CLINICAL HISTORY: Device placement/central venous catheter placement IMPRESSION: Central venous catheter with its tip in the superior vena cava No pneumothorax
--- NOTE | 2022-03-12 14:52 | RAD REPORT ---
EXAM DESCRIPTION: RAD - Fluoroscopy <1 Hour - 03/12/2022 2:42 pm CLINICAL HISTORY: Device placement central venous catheter placement FINDINGS: A central venous catheter was placed into the superior vena cava. Fifteen fluoroscopic spo t images are submitted. Fluoroscopy time 0.9 minutes The examination was performed by Dr. Sloan
--- NOTE | 2022-03-12 18:10 | CON ---
Date of Consultation: 03/12/2022 Diagnosis: End-stage renal disease. History Of Present Illness: This is a case of a 56-year-old patient with history of atrial fibrillat ion, congestive heart failure, GERD, gout, hypertension, now in need of hemodialysis access with admi ssion to the hospital for malaise, weakness, lethargic, and vomiting. Medications: Include metoprolol. Past Medical History: As above. Past Surgical History: Prior surgeries includes tracheostomy after a trauma, jaw surgery, left hand surgery, left knee surgery, appendectomy, vasectomy. Family History: Colon cancer. Social History: He smokes every day a pack a day. He does not drink alcohol. The patient counseled on the importance of smoking cessation. Physical Examination: General: The patient is awake, alert. HEENT: Pupils anicteric. Heart: S1, S2. Abdomen: Soft and depressible. Respiratory: Bilateral breath sounds. Extremities: Good capillary refill. Laboratory Data: Blood work shows WBC count of 4.2, hemoglobin of 10.1, platelets of 103. INR is 1. 14. Bicarb is 13, potassium 4.2, creatinine is 11.4. Chest x-ray interpreted by Dr. Rome, no acute c ardiopulmonary disease. Assessment: This is a 56-year-old patient with multiple medical problems as described above, but at the same time he needs dialysis catheter today. They want a tunneled catheter. I explained to the p atient the benefits, alternatives, and risks, also to the family member, which include, but not limit ed to infection, bleeding, damage to adjacent structures as complication, hemothorax, pneumothorax, p ulmonary embolism, myocardial infarction, sepsis, deep vein thromboses, and even . He also unde rstands this may not relieve any symptoms. He might need more than one surgical intervention. He sa ys he was already planning to have a fistula placed in [place], but this event came to acute and he d id not have a chance for that. He understands that catheter will be placed today. HM/MODL Voice ID: [id number] Report ID: [id number]
--- NOTE | 2022-03-12 18:19 | P.PN ---
Date of Service: 03/12/22 Vital Signs Temp Pulse Resp BP Pulse Ox 97 F 78 18 122/60 99 03/12/22 14:43 03/12/22 14:43 03/12/22 14:43 03/12/22 14:43 03/12/22 08:00 Medications Calcitriol (Calcitrol 0.25 Mcg Cap) 0.5 mcg PO DAILY [facility] Last Admin: 03/12/22 09:00 Dose: Not Given Documented by: Cholecalciferol (Vitamin D 5,000 Unit Cap) 5,000 unit PO DAILY [facility] Last Admin: 03/12/22 09:00 Dose: Not Given Documented by: Docusate Sodium (Docusate Na 100 Mg Cap) 100 mg PO BID [facility] Last Admin: 03/12/22 09:00 Dose: Not Given Documented by: Heparin Sodium (Porcine) (Heparin 1,000 Unit/Ml Vial) 6,000 unit IV EVERY HD PRN PRN Reason: AFTER EACH Last Admin: 03/12/22 17:28 Dose: 6,000 unit Documented by: Sodium Bicarbonate 150 meq/ (Dextrose/Water) 1,150 mls @ 75 mls/hr IV .[id number] [facility] Last Admin: 03/12/22 07:20 Dose: 1,150 mls Documented by: Albumin Human (Albumin 25%) 50 mls @ 100 mls/hr IV EVERY HD [facility] Mannitol (Mannitol 25% 12.5 Gm/50 Ml Vial) 12.5 gm IV EVERY HD PRN PRN Reason: Titrate to SBP (MUST DEFINE) Metoprolol Tartrate (Metoprolol Tar 25 Mg Tab) 12.5 mg PO BID [facility] Last Admin: 03/12/22 09:00 Dose: Not Given Documented by: Morphine Sulfate (Morphine 2 Mg/Ml Syr) 2 mg IV Q6H PRN PRN Reason: Pain scale 5-7 (Moderate) Last Admin: 03/11/22 13:01 Dose: 2 mg Documented by: Ondansetron HCl (Ondansetron 4 Mg/2 Ml Vial) 4 mg IV Q6HP PRN PRN Reason: NAUSEA / VOMITING Last Admin: 03/12/22 11:52 Dose: 4 mg Documented by: Sodium Chloride (Flush Normal Saline 10 Ml) 10 ml IV BID [facility] Last Admin: 03/12/22 09:00 Dose: 10 ml Documented by: Assessment/ Plan: Nephrology No dyspnea No chest pain Malaise, fatigue, weakness, anorexia and mild confusion. No acute events overnight Vitals, medications, blood work and imaging reviewed in the chart. General: Oriented x3, Cooperative, Mild distress HEENT: Atraumatic Neck: Supple Respiratory: Clear to auscultation bilaterally Cardiovascular: No edema, Regular rate/rhythm Gastrointestinal: Soft and benign, Non-distended, No guarding Musculoskeletal: No clubbing, No contractures Integumentary: No rashes, No cyanosis Neurological: Normal speech Laboratory Data (last 24 hrs) 03/11/22 01:23: Lipase Cancelled 03/11/22 01:09: PT 12.6 H, INR 1.14 03/11/22 01:09: WBC 4.9, Hgb 11.4 L, Hct 34.7 L, Plt Count 124 L 03/11/22 01:09: Sodium 136, Potassium 4.8, BUN 163 H, Creatinine 13.00 H*, Glucose 109 H, Magnesium 2.1, Total Bilirubin 0.6, AST 10 L, ALT 33, Alkaline Phosphatase 154 H, Lipase 857 H Imagings Data: EXAM DESCRIPTION: RAD - Chest Single View - 03/10/2022 9:02 pm CLINICAL HISTORY: DYSPNEA COMPARISON: Chest Pa And Lat (2 Views) dated 11/29/2018; Chest Single View dated 09/15/2018; CHEST SINGLE VIEW dated 03/05/2015; CHEST SINGLE VIEW dated 03/01/2015 FINDINGS: Lines: None. Lungs: No evidence of edema or pneumonia. Pleural: No significant pleural effusions or pneumothorax. Cardiac: The heart size is within normal limits. Bones: No acute fractures. Other: IMPRESSION: No acute cardiopulmonary disease. EXAM DESCRIPTION: US - Urinary Bladder - 03/11/2022 8:05 am CLINICAL HISTORY: Bladder pain. Unable to empty bladder. FINDINGS: Prevoid bladder volume equals 240 cc Postvoid bladder volume equals 3 cc No ascites IMPRESSION: Prevoid bladder volume equals 240 cc Postvoid bladder volume equals 3 cc Conclusions/Impression: ESRD Uremia with weight loss and anorexia -Tunneled HD CVC placement today -HBV panel pending -Initiate dialysis today -Social Work consult to arrange HD placement Acidosis -Continue IVF with bicarb HTN with CKD/ CHF complicated by hypotension -Continue Metoprolol due to his history of Afib (Not on anticoagulation) Diastolic CHF, chronic -Low sodium diet Malnutrition -Encourage nutrition as tolerated -Consider Nepro Anemia in chronic illness -Retacrit TIW CKD MBD -Continue Vitamin D Case reviewed with Dr. Velasquez
[2022-03-12] MEDS: MORPHINE 2 MG/ML SYR IV PRN (18:51)
--- NOTE | 2022-03-13 01:55 | OP ---
Date of Procedure: 03/12/2022 Surgeon: Kamar Sloan MD Preoperative Diagnosis: End-stage renal disease. Postoperative Diagnosis: End-stage renal disease. Procedures: 1.Placement of a tunneled hemodialysis catheter. Catheter placed is a HemoSplit hemodialysis cathet er. 2.Interpretation of fluoroscopy. 3.Right neck ultrasound. Estimated Blood Loss: Less than 10 mL. Specimen: None. Findings: As above. Anesthesia: General plus local. Estimated Blood Loss: Less than 10 cc. Indications: This is the case of a 56-year-old patient who comes to us with end-stage renal disease. The patient needed hemodialysis catheter. They requested for a tunneled catheter. The benefits, a lternatives, and risks of placement of catheter were fully explained to him and his family, which inc lude, but are not limited to infection, bleeding, damage to adjacent structures, anesthesia complicat ion, hemothorax, pneumothorax, PE, sepsis, DVT, SC, and even . He also understands this may not relieve symptoms. He might need more than one surgical intervention. He signed a consent. He also understands this is a temporary catheter. He has to visit his vascular surgeon in [place] to put fi stula as soon as possible and to remove this as soon as possible. Procedure In Detail: The patient was brought to the operating room, placed in supine position and an esthesia was done without complication. The neck area was prepped and draped in a sterile fashion. The chest also was prepped and draped in a sterile fashion. The patient was placed in Trendelenburg position. Right neck ultrasound was done. We noticed patency of the internal jugular vein. After i njecting local anesthetic to use that as a guidance, we placed an 18-gauge needle in the right internet developer al jugular vein at the first attempt. We passed a guidewire to remove the needle. A guidewire was s een coming into superior vena cava using fluoroscopy. A small incision was made in the right upper c hest where we tried to tunnel the catheter to meet that new incision in the right neck region. Seria l dilators were placed through the guidewire under direct visualization with fluoroscopy until we put the introducer as the final one. We removed the guidewire, passed the catheter through and peeled o ff the introducer catheter. This was done under fluoroscopy. Excellent backflow and inflow. The li ne was flushed with heparinized solution. The patient tolerated the procedure well. 3-0 chromic was used for the neck and the catheter was secured with 3-0 nylon. The patient tolerated the procedure well. The patient was brought back to normal position from Trendelenburg and the patient was sent to recovery in stable condition where he is going to receive a stat chest x-ray. AIMEE Voice ID: [id number] Report ID: [id number]
[2022-03-13 04:24] LABS: Absolute Lymphocytes (CBC) 1.2 K/uL (0.7-4.9); Hematocrit 27.9 % (39.6-49.0); Lymphocytes % 30.4 % (15.3-44.8); MPV 8.6 fL (7.6-11.3); RBC Red Blood Cell Count 3.36 M/uL (4.33-5.43)
[2022-03-13 05:02] LABS: Albumin 3.2 g/dL (3.4-5.0); Bilirubin Total 0.9 mg/dL (0.2-1.0); Magnesium 1.7 mg/dL (1.8-2.4); Phosphorus 5.4 mg/dL (2.5-4.9); Potassium 3.4 mmol/L (3.5-5.1); Protein, Total 6.3 g/dL (6.4-8.2)
--- NOTE | 2022-03-13 06:31 | P.PN ---
Date of Service: 03/13/22 Subjective: tolerated HD yesterday feels better unable to keep food down no new/worsening symptoms ROS: 10 point ROS as noted above, otherwise negative Physical exam GEN: drowsy, AOx3, NAD HEENT: Normal conjunctiva, sclera anicteric CV: Regular rate and rhythm, +mild edema Pulm: Nonlabored respirations on room air ABD: Soft, nondistended integumentary: R upper chest with HD cath in place Problem List ESRD/uremia/acidosis emesis secondary to uremia Acute on chronic diastolic congestive heart failure Atrial fibrillation not on chronic anticoagulation therapy Hypertension Gout feels slightly better tolerated HD yesterday plan for dialysis today nephrology consulted monitor afib, eliquis stopped as outpatient nausea/vomiting likely secondary to uremia no epigastric / RUQ tenderness, CT abd negative Code: full Dispo: home, 2-3 days, set up dialysis Time Spent Managing Pts Care (In Minutes): 35
[2022-03-13] MEDS: ONDANSETRON 4 MG/2 ML VIAL IV PRN (07:22)
[2022-03-13] MEDS: MORPHINE 2 MG/ML SYR IV PRN (07:22)
[2022-03-13] MEDS: METOPROLOL TAR 25 MG TAB PO SCH ×2 (09:00→21:40)
[2022-03-13] MEDS ORDERED: POTASSIUM 25 MEQ EFFERV TAB PO ONE (09:15)
[2022-03-13] MEDS: DOCUSATE NA 100 MG CAP PO SCH ×2 (09:41→21:40)
[2022-03-13] MEDS: CALCITROL 0.25 MCG CAP PO SCH (09:41)
[2022-03-13] MEDS: VITAMIN D 5,000 UNIT CAP PO SCH (09:41)
[2022-03-13] MEDS ORDERED: EPOETIN ALFA-EPBX 10,000 UNIT/ML VIAL SQ ONE (10:31)
--- NOTE | 2022-03-13 10:34 | P.PN ---
Date of Service: 03/13/22 Vital Signs Temp Pulse Resp BP Pulse Ox 97.7 F 80 13 103/56 L 97 03/13/22 08:00 03/13/22 09:00 03/13/22 08:00 03/13/22 09:00 03/13/22 08:00 Medications Calcitriol (Calcitrol 0.25 Mcg Cap) 0.5 mcg PO DAILY [facility] Last Admin: 03/13/22 09:41 Dose: 0.5 mcg Documented by: Cholecalciferol (Vitamin D 5,000 Unit Cap) 5,000 unit PO DAILY [facility] Last Admin: 03/13/22 09:41 Dose: 5,000 unit Documented by: Docusate Sodium (Docusate Na 100 Mg Cap) 100 mg PO BID [facility] Last Admin: 03/13/22 09:41 Dose: 100 mg Documented by: Heparin Sodium (Porcine) (Heparin 1,000 Unit/Ml Vial) 6,000 unit IV EVERY HD PRN PRN Reason: AFTER EACH Last Admin: 03/12/22 17:28 Dose: 6,000 unit Documented by: Sodium Bicarbonate 150 meq/ (Dextrose/Water) 1,150 mls @ 75 mls/hr IV .[id number] [facility] Last Admin: 03/12/22 23:41 Dose: 1,150 mls Documented by: Albumin Human (Albumin 25%) 50 mls @ 100 mls/hr IV EVERY HD [facility] Mannitol (Mannitol 25% 12.5 Gm/50 Ml Vial) 12.5 gm IV EVERY HD PRN PRN Reason: Titrate to SBP (MUST DEFINE) Metoprolol Tartrate (Metoprolol Tar 25 Mg Tab) 12.5 mg PO BID [facility] Last Admin: 03/13/22 09:00 Dose: Not Given Documented by: Morphine Sulfate (Morphine 2 Mg/Ml Syr) 2 mg IV Q6H PRN PRN Reason: Pain scale 5-7 (Moderate) Last Admin: 03/13/22 07:22 Dose: 2 mg Documented by: Ondansetron HCl (Ondansetron 4 Mg/2 Ml Vial) 4 mg IV Q6HP PRN PRN Reason: NAUSEA / VOMITING Last Admin: 03/13/22 07:22 Dose: 4 mg Documented by: Sodium Chloride (Flush Normal Saline 10 Ml) 10 ml IV BID [facility] Last Admin: 03/13/22 09:00 Dose: Not Given Documented by: Assessment/ Plan: Nephrology No dyspnea No chest pain Malaise, fatigue, weakness, anorexia and nausea. No acute events overnight Vitals, medications, blood work and imaging reviewed in the chart. General: Oriented x3, Cooperative, Mild distress HEENT: Atraumatic Neck: Supple Respiratory: Clear to auscultation bilaterally Cardiovascular: No edema, Regular rate/rhythm Gastrointestinal: Soft and benign, Non-distended, No guarding Musculoskeletal: No clubbing, No contractures Integumentary: No rashes, No cyanosis Neurological: Normal speech Laboratory Data (last 24 hrs) 03/11/22 01:23: Lipase Cancelled 03/11/22 01:09: PT 12.6 H, INR 1.14 03/11/22 01:09: WBC 4.9, Hgb 11.4 L, Hct 34.7 L, Plt Count 124 L 03/11/22 01:09: Sodium 136, Potassium 4.8, BUN 163 H, Creatinine 13.00 H*, Glucose 109 H, Magnesium 2.1, Total Bilirubin 0.6, AST 10 L, ALT 33, Alkaline Phosphatase 154 H, Lipase 857 H Imagings Data: EXAM DESCRIPTION: RAD - Chest Single View - 03/10/2022 9:02 pm CLINICAL HISTORY: DYSPNEA COMPARISON: Chest Pa And Lat (2 Views) dated 11/29/2018; Chest Single View dated 09/15/2018; CHEST SINGLE VIEW dated 03/05/2015; CHEST SINGLE VIEW dated 03/01/2015 FINDINGS: Lines: None. Lungs: No evidence of edema or pneumonia. Pleural: No significant pleural effusions or pneumothorax. Cardiac: The heart size is within normal limits. Bones: No acute fractures. Other: IMPRESSION: No acute cardiopulmonary disease. EXAM DESCRIPTION: US - Urinary Bladder - 03/11/2022 8:05 am CLINICAL HISTORY: Bladder pain. Unable to empty bladder. FINDINGS: Prevoid bladder volume equals 240 cc Postvoid bladder volume equals 3 cc No ascites IMPRESSION: Prevoid bladder volume equals 240 cc Postvoid bladder volume equals 3 cc Conclusions/Impression: ESRD Uremia with weight loss and anorexia -HBV panel pending -First HD 03-13-22; Next HD today -Social Work consult to arrange HD placement Acidosis -Continue IVF with bicarb HTN with CKD/ CHF complicated by hypotension -Continue Metoprolol due to his history of Afib (Not on anticoagulation) Diastolic CHF, chronic -Low sodium diet Malnutrition -Encourage nutrition as tolerated -Start Nepro Anemia in chronic illness -Retacrit X1 today CKD MBD -Continue Vitamin D Case reviewed with Dr. Velasquez
[2022-03-13] MEDS: NEPRO SHAKE 237 ML CAN PO SCH ×2 (14:00→21:41)
[2022-03-13] MEDS: D5W 1,000 ML with NA BICARB 8.4% 150 MEQ IV SCH ×2 (14:00)
[2022-03-13] MEDS: NA CHLORIDE 0.9% 1,000 ML IV SCH (16:07)
[2022-03-14] MEDS: NA CHLORIDE 0.9% 1,000 ML IV SCH ×3 (04:20→20:44)
[2022-03-14 04:35] LABS: Absolute Lymphocytes (CBC) 1.2 K/uL (0.7-4.9); Hematocrit 27.7 % (39.6-49.0); Lymphocytes % 29.9 % (15.3-44.8); MPV 8.6 fL (7.6-11.3); RBC Red Blood Cell Count 3.33 M/uL (4.33-5.43)
[2022-03-14 04:52] LABS: Albumin 3.3 g/dL (3.4-5.0); Bilirubin Total 0.9 mg/dL (0.2-1.0); Magnesium 1.7 mg/dL (1.8-2.4); Potassium 3.7 mmol/L (3.5-5.1); Protein, Total 6.4 g/dL (6.4-8.2)
--- NOTE | 2022-03-14 06:24 | P.PN ---
Date of Service: 03/14/22 Subjective: feeling better, s/p HD yesterday tolerated breakfast slight nausea this morning reports metallic taste this morning ROS: 10 point ROS as noted above, otherwise negative Physical exam GEN: AOx3, NAD HEENT: Normal conjunctiva, sclera anicteric CV: Regular rate and rhythm, +mild b/l pedal edema Pulm: Nonlabored respirations on room air ABD: Soft, nondistended integumentary: R upper chest with HD cath in place Problem List ESRD/uremia/acidosis emesis secondary to uremia Acute on chronic diastolic congestive heart failure Atrial fibrillation not on chronic anticoagulation therapy Hypertension Gout feels better tolerated HD twice now next HD [place] nephrology consulted monitor afib, eliquis stopped as outpatient nausea/vomiting likely secondary to uremia, seems to have improved no epigastric / RUQ tenderness, CT abd negative Code: full Dispo: home, ~2 days, set up dialysis Time Spent Managing Pts Care (In Minutes): 35
[2022-03-14] MEDS: ONDANSETRON 4 MG/2 ML VIAL IV PRN (06:38)
[2022-03-14] MEDS: DOCUSATE NA 100 MG CAP PO SCH ×2 (08:24→20:43)
[2022-03-14] MEDS: VITAMIN D 5,000 UNIT CAP PO SCH (08:25)
[2022-03-14] MEDS: NEPRO SHAKE 237 ML CAN PO SCH ×3 (08:25→20:45)
[2022-03-14] MEDS: CALCITROL 0.25 MCG CAP PO SCH (08:25)
[2022-03-14] MEDS: METOPROLOL TAR 25 MG TAB PO SCH ×2 (08:25→20:45)
[2022-03-14 12:31] LABS: Urine Appearance Clear (Clear); Urine Bilirubin Negative (Negative); Urine Blood 3+ (Negative); Urine Color Yellow (Yellow); Urine Glucose Negative (Negative); Urine Protein 3+ (Negative); Urine Specific Gravity 1.015 (1.005-1.030); Urine Urobilinogen 0.2 mg/dL (0.2-1.0)
[2022-03-14 12:42] LABS: Urine Microscopic Reflex ORDER UMIC
[2022-03-14 12:44] LABS: Urine RBC >50 /HPF (NONE SEEN)
[2022-03-14 12:45] LABS: Urine Bacteria <20 /HPF (NONE SEEN)
--- NOTE | 2022-03-14 16:16 | P.PN ---
Date of Service: 03/14/22 Vital Signs Temp Pulse Resp BP Pulse Ox 97.8 F 68 20 117/68 97 03/14/22 12:00 03/14/22 12:00 03/14/22 12:00 03/14/22 12:00 03/14/22 12:00 Medications Calcitriol (Calcitrol 0.25 Mcg Cap) 0.5 mcg PO DAILY [facility] Last Admin: 03/14/22 08:25 Dose: 0.5 mcg Documented by: Cholecalciferol (Vitamin D 5,000 Unit Cap) 5,000 unit PO DAILY [facility] Last Admin: 03/14/22 08:25 Dose: 5,000 unit Documented by: Docusate Sodium (Docusate Na 100 Mg Cap) 100 mg PO BID [facility] Last Admin: 03/14/22 08:24 Dose: 100 mg Documented by: Enteral Nutritional Formula (Nepro Shake 237 Ml Can) 240 ml PO TID [facility] Last Admin: 03/14/22 12:42 Dose: Not Given Documented by: Heparin Sodium (Porcine) (Heparin 1,000 Unit/Ml Vial) 6,000 unit IV EVERY HD PRN PRN Reason: AFTER EACH Last Admin: 03/13/22 21:54 Dose: 6,000 unit Documented by: Albumin Human (Albumin 25%) 50 mls @ 100 mls/hr IV EVERY HD [facility] Sodium Chloride (Ns 1000 Ml Ivbag) 1,000 mls @ 75 mls/hr IV .[id number] [facility] Last Admin: 03/14/22 08:24 Dose: 1,000 mls Documented by: Mannitol (Mannitol 25% 12.5 Gm/50 Ml Vial) 12.5 gm IV EVERY HD PRN PRN Reason: Titrate to SBP (MUST DEFINE) Metoprolol Tartrate (Metoprolol Tar 25 Mg Tab) 12.5 mg PO BID [facility] Last Admin: 03/14/22 08:25 Dose: 12.5 mg Documented by: Morphine Sulfate (Morphine 2 Mg/Ml Syr) 2 mg IV Q6H PRN PRN Reason: Pain scale 5-7 (Moderate) Last Admin: 03/13/22 07:22 Dose: 2 mg Documented by: Ondansetron HCl (Ondansetron 4 Mg/2 Ml Vial) 4 mg IV Q6HP PRN PRN Reason: NAUSEA / VOMITING Last Admin: 03/14/22 06:38 Dose: 4 mg Documented by: Sodium Chloride (Flush Normal Saline 10 Ml) 10 ml IV BID [facility] Last Admin: 03/14/22 08:25 Dose: Not Given Documented by: Assessment/ Plan: Nephrology No dyspnea No chest pain Feeling better with an improving appetite. Metallic taste. No acute events overnight Vitals, medications, blood work and imaging reviewed in the chart. General: Oriented x3, Cooperative, Mild distress HEENT: Atraumatic Neck: Supple Respiratory: Clear to auscultation bilaterally Cardiovascular: No edema, Regular rate/rhythm Gastrointestinal: Soft and benign, Non-distended, No guarding Musculoskeletal: No clubbing, No contractures Integumentary: No rashes, No cyanosis Neurological: Normal speech Laboratory Data (last 24 hrs) 03/11/22 01:23: Lipase Cancelled 03/11/22 01:09: PT 12.6 H, INR 1.14 03/11/22 01:09: WBC 4.9, Hgb 11.4 L, Hct 34.7 L, Plt Count 124 L 03/11/22 01:09: Sodium 136, Potassium 4.8, BUN 163 H, Creatinine 13.00 H*, Glucose 109 H, Magnesium 2.1, Total Bilirubin 0.6, AST 10 L, ALT 33, Alkaline Phosphatase 154 H, Lipase 857 H Imagings Data: EXAM DESCRIPTION: RAD - Chest Single View - 03/10/2022 9:02 pm CLINICAL HISTORY: DYSPNEA COMPARISON: Chest Pa And Lat (2 Views) dated 11/29/2018; Chest Single View dated 09/15/2018; CHEST SINGLE VIEW dated 03/05/2015; CHEST SINGLE VIEW dated 03/01/2015 FINDINGS: Lines: None. Lungs: No evidence of edema or pneumonia. Pleural: No significant pleural effusions or pneumothorax. Cardiac: The heart size is within normal limits. Bones: No acute fractures. Other: IMPRESSION: No acute cardiopulmonary disease. EXAM DESCRIPTION: US - Urinary Bladder - 03/11/2022 8:05 am CLINICAL HISTORY: Bladder pain. Unable to empty bladder. FINDINGS: Prevoid bladder volume equals 240 cc Postvoid bladder volume equals 3 cc No ascites IMPRESSION: Prevoid bladder volume equals 240 cc Postvoid bladder volume equals 3 cc Conclusions/Impression: ESRD Uremia with weight loss and anorexia -HBV panel pending -First HD 03-13-22; Next HD Tuesday -Social Work consult to arrange HD placement Acidosis, Resolved HTN with CKD/ CHF complicated by hypotension -Continue Metoprolol due to his history of Afib (Not on anticoagulation) Diastolic CHF, chronic -Low sodium diet -Start CoQ10 Malnutrition -Encourage nutrition as tolerated -Continue Nepro Anemia in chronic illness -Retacrit TIW CKD MBD -Continue Vitamin D Case reviewed with Dr. Velasquez
[2022-03-14] MEDS: MORPHINE 2 MG/ML SYR IV PRN (20:43)
[2022-03-14 22:29] VITALS: O2SAT 99
[2022-03-14] MEDS ORDERED: ALPRAZOLAM 0.25 MG TABLET PO ONE (23:46)
[2022-03-15] MEDS: MORPHINE 2 MG/ML SYR IV PRN ×2 (05:51→20:43)
[2022-03-15 05:58] LABS: Hematocrit 28.4 % (39.6-49.0); MPV 8.4 fL (7.6-11.3); RBC Red Blood Cell Count 3.38 M/uL (4.33-5.43)
[2022-03-15 06:16] LABS: Albumin 3.1 g/dL (3.4-5.0); Magnesium 1.7 mg/dL (1.8-2.4); Phosphorus 4.5 mg/dL (2.5-4.9); Potassium 3.7 mmol/L (3.5-5.1)
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
[2022-03-15] MEDS: NA CHLORIDE 0.9% 1,000 ML IV SCH ×2 (07:00→18:14)
[2022-03-15] MEDS: COENZYME Q10- 200 MG CAP PO SCH (09:00)
[2022-03-15] MEDS: CALCITROL 0.25 MCG CAP PO SCH (09:00)
[2022-03-15] MEDS: DOCUSATE NA 100 MG CAP PO SCH ×2 (09:00→20:41)
[2022-03-15] MEDS: METOPROLOL TAR 25 MG TAB PO SCH ×2 (09:00→20:41)
[2022-03-15] MEDS: NEPRO SHAKE 237 ML CAN PO SCH (09:00)
[2022-03-15] MEDS: VITAMIN D 5,000 UNIT CAP PO SCH (09:00)
[2022-03-15] MEDS: EPOETIN ALFA 10,000 UNIT/ML VIAL SQ SCH (16:28)
[2022-03-15 21:55] LABS: UR PROTEIN 236.6 mg/dL (<11.9); Urine Protein/Creatinine Ratio 1.4 ratio (<0.15)
[2022-03-16 05:29] LABS: Hematocrit 26.8 % (39.6-49.0); MPV 8.2 fL (7.6-11.3); RBC Red Blood Cell Count 3.18 M/uL (4.33-5.43)
[2022-03-16 05:46] LABS: Albumin 2.9 g/dL (3.4-5.0); Magnesium 1.8 mg/dL (1.8-2.4); Phosphorus 3.8 mg/dL (2.5-4.9); Potassium 4.1 mmol/L (3.5-5.1)
[2022-03-16] MEDS: NA CHLORIDE 0.9% 1,000 ML IV SCH ×2 (06:29→09:40)
[2022-03-16] MEDS: METOPROLOL TAR 25 MG TAB PO SCH ×2 (08:21→22:23)
[2022-03-16] MEDS: DOCUSATE NA 100 MG CAP PO SCH ×2 (08:21→22:23)
[2022-03-16] MEDS: VITAMIN D 5,000 UNIT CAP PO SCH (08:21)
[2022-03-16] MEDS: COENZYME Q10- 200 MG CAP PO SCH (08:21)
[2022-03-16] MEDS: CALCITROL 0.25 MCG CAP PO SCH (08:21)
[2022-03-16 12:04] LABS: Urine Appearance Clear (Clear); Urine Bilirubin Negative (Negative); Urine Blood 3+ (Negative); Urine Color Yellow (Yellow); Urine Glucose Negative (Negative); Urine Protein 3+ (Negative); Urine Specific Gravity 1.015 (1.005-1.030); Urine Urobilinogen 0.2 mg/dL (0.2-1.0)
[2022-03-16 12:38] LABS: Urine Bacteria <20 /HPF (NONE SEEN); Urine Microscopic Reflex ORDER UMIC; Urine RBC >50 /HPF (NONE SEEN)
[2022-03-16 12:39] LABS: Urine Yeast FEW (NONE SEEN)
--- NOTE | 2022-03-16 17:28 | P.PN ---
Date of Service: 03/15/22 Vital Signs Temp Pulse Resp BP Pulse Ox 98.2 F 69 18 140/88 100 03/16/22 12:00 03/16/22 12:00 03/16/22 12:00 03/16/22 12:00 03/16/22 12:00 Medications Calcitriol (Calcitrol 0.25 Mcg Cap) 0.5 mcg PO DAILY [facility] Last Admin: 03/16/22 08:21 Dose: 0.5 mcg Documented by: Cholecalciferol (Vitamin D 5,000 Unit Cap) 5,000 unit PO DAILY [facility] Last Admin: 03/16/22 08:21 Dose: 5,000 unit Documented by: Coenzyme Q10 (Coenzyme Q10- 200 Mg Cap) 200 mg PO DAILY [facility] Last Admin: 03/16/22 08:21 Dose: 200 mg Documented by: Docusate Sodium (Docusate Na 100 Mg Cap) 100 mg PO BID [facility] Last Admin: 03/16/22 08:21 Dose: 100 mg Documented by: Epoetin Agustín (Epoetin Agustín 10,000 Unit/Ml Vial) 10,000 unit SQ M,W,F [facility] Last Admin: 03/15/22 16:28 Dose: 10,000 unit Documented by: Heparin Sodium (Porcine) (Heparin 1,000 Unit/Ml Vial) 6,000 unit IV EVERY HD PRN PRN Reason: AFTER EACH Last Admin: 03/13/22 21:54 Dose: 6,000 unit Documented by: Albumin Human (Albumin 25%) 50 mls @ 100 mls/hr IV EVERY HD [facility] Mannitol (Mannitol 25% 12.5 Gm/50 Ml Vial) 12.5 gm IV EVERY HD PRN PRN Reason: Titrate to SBP (MUST DEFINE) Metoprolol Tartrate (Metoprolol Tar 25 Mg Tab) 12.5 mg PO BID [facility] Last Admin: 03/16/22 08:21 Dose: 12.5 mg Documented by: Morphine Sulfate (Morphine 2 Mg/Ml Syr) 2 mg IV Q6H PRN PRN Reason: Pain scale 5-7 (Moderate) Last Admin: 03/15/22 20:43 Dose: 2 mg Documented by: Ondansetron HCl (Ondansetron 4 Mg/2 Ml Vial) 4 mg IV Q6HP PRN PRN Reason: NAUSEA / VOMITING Last Admin: 03/14/22 06:38 Dose: 4 mg Documented by: Sodium Chloride (Flush Normal Saline 10 Ml) 10 ml IV BID [facility] Last Admin: 03/16/22 08:21 Dose: Not Given Documented by: Assessment/ Plan: Nephrology No dyspnea No chest pain No acute events overnight Vitals, medications, blood work and imaging reviewed in the chart. General: Oriented x3, Cooperative, Mild distress HEENT: Atraumatic Neck: Supple Respiratory: Clear to auscultation bilaterally Cardiovascular: No edema, Regular rate/rhythm Gastrointestinal: Soft and benign, Non-distended, No guarding Musculoskeletal: No clubbing, No contractures Integumentary: No rashes, No cyanosis Neurological: Normal speech Laboratory Data (last 24 hrs) 03/11/22 01:23: Lipase Cancelled 03/11/22 01:09: PT 12.6 H, INR 1.14 03/11/22 01:09: WBC 4.9, Hgb 11.4 L, Hct 34.7 L, Plt Count 124 L 03/11/22 01:09: Sodium 136, Potassium 4.8, BUN 163 H, Creatinine 13.00 H*, Glucose 109 H, Magnesium 2.1, Total Bilirubin 0.6, AST 10 L, ALT 33, Alkaline Phosphatase 154 H, Lipase 857 H Imagings Data: EXAM DESCRIPTION: RAD - Chest Single View - 03/10/2022 9:02 pm CLINICAL HISTORY: DYSPNEA COMPARISON: Chest Pa And Lat (2 Views) dated 11/29/2018; Chest Single View dated 09/15/2018; CHEST SINGLE VIEW dated 03/05/2015; CHEST SINGLE VIEW dated 03/01/2015 FINDINGS: Lines: None. Lungs: No evidence of edema or pneumonia. Pleural: No significant pleural effusions or pneumothorax. Cardiac: The heart size is within normal limits. Bones: No acute fractures. Other: IMPRESSION: No acute cardiopulmonary disease. EXAM DESCRIPTION: US - Urinary Bladder - 03/11/2022 8:05 am CLINICAL HISTORY: Bladder pain. Unable to empty bladder. FINDINGS: Prevoid bladder volume equals 240 cc Postvoid bladder volume equals 3 cc No ascites IMPRESSION: Prevoid bladder volume equals 240 cc Postvoid bladder volume equals 3 cc Conclusions/Impression: ESRD Uremia with weight loss and anorexia -HBV panel pending -First HD 03-13-22; HD MWF -HD placement Acidosis, Resolved HTN with CKD/ CHF complicated by hypotension -Continue Metoprolol due to his history of Afib (Not on anticoagulation) Diastolic CHF, chronic -Low sodium diet -Continue CoQ10 Malnutrition -Encourage nutrition as tolerated -Continue Nepro Anemia in chronic illness -Retacrit TIW CKD MBD -Continue Vitamin D
--- NOTE | 2022-03-16 17:29 | P.PN ---
Date of Service: 03/16/22 Vital Signs Temp Pulse Resp BP Pulse Ox 98.2 F 69 18 140/88 100 03/16/22 12:00 03/16/22 12:00 03/16/22 12:00 03/16/22 12:00 03/16/22 12:00 Medications Calcitriol (Calcitrol 0.25 Mcg Cap) 0.5 mcg PO DAILY [facility] Last Admin: 03/16/22 08:21 Dose: 0.5 mcg Documented by: Cholecalciferol (Vitamin D 5,000 Unit Cap) 5,000 unit PO DAILY [facility] Last Admin: 03/16/22 08:21 Dose: 5,000 unit Documented by: Coenzyme Q10 (Coenzyme Q10- 200 Mg Cap) 200 mg PO DAILY [facility] Last Admin: 03/16/22 08:21 Dose: 200 mg Documented by: Docusate Sodium (Docusate Na 100 Mg Cap) 100 mg PO BID [facility] Last Admin: 03/16/22 08:21 Dose: 100 mg Documented by: Epoetin Agustín (Epoetin Agustín 10,000 Unit/Ml Vial) 10,000 unit SQ M,W,F [facility] Last Admin: 03/15/22 16:28 Dose: 10,000 unit Documented by: Heparin Sodium (Porcine) (Heparin 1,000 Unit/Ml Vial) 6,000 unit IV EVERY HD PRN PRN Reason: AFTER EACH Last Admin: 03/13/22 21:54 Dose: 6,000 unit Documented by: Albumin Human (Albumin 25%) 50 mls @ 100 mls/hr IV EVERY HD [facility] Mannitol (Mannitol 25% 12.5 Gm/50 Ml Vial) 12.5 gm IV EVERY HD PRN PRN Reason: Titrate to SBP (MUST DEFINE) Metoprolol Tartrate (Metoprolol Tar 25 Mg Tab) 12.5 mg PO BID [facility] Last Admin: 03/16/22 08:21 Dose: 12.5 mg Documented by: Morphine Sulfate (Morphine 2 Mg/Ml Syr) 2 mg IV Q6H PRN PRN Reason: Pain scale 5-7 (Moderate) Last Admin: 03/15/22 20:43 Dose: 2 mg Documented by: Ondansetron HCl (Ondansetron 4 Mg/2 Ml Vial) 4 mg IV Q6HP PRN PRN Reason: NAUSEA / VOMITING Last Admin: 03/14/22 06:38 Dose: 4 mg Documented by: Sodium Chloride (Flush Normal Saline 10 Ml) 10 ml IV BID [facility] Last Admin: 03/16/22 08:21 Dose: Not Given Documented by: Assessment/ Plan: Nephrology No dyspnea No chest pain Feeling better with improved appetite No acute events overnight Vitals, medications, blood work and imaging reviewed in the chart. General: Oriented x3, Cooperative, Mild distress HEENT: Atraumatic Neck: Supple Respiratory: Clear to auscultation bilaterally Cardiovascular: No edema, Regular rate/rhythm Gastrointestinal: Soft and benign, Non-distended, No guarding Musculoskeletal: No clubbing, No contractures Integumentary: No rashes, No cyanosis Neurological: Normal speech Laboratory Data (last 24 hrs) 03/11/22 01:23: Lipase Cancelled 03/11/22 01:09: PT 12.6 H, INR 1.14 03/11/22 01:09: WBC 4.9, Hgb 11.4 L, Hct 34.7 L, Plt Count 124 L 03/11/22 01:09: Sodium 136, Potassium 4.8, BUN 163 H, Creatinine 13.00 H*, Glucose 109 H, Magnesium 2.1, Total Bilirubin 0.6, AST 10 L, ALT 33, Alkaline Phosphatase 154 H, Lipase 857 H Imagings Data: EXAM DESCRIPTION: RAD - Chest Single View - 03/10/2022 9:02 pm CLINICAL HISTORY: DYSPNEA COMPARISON: Chest Pa And Lat (2 Views) dated 11/29/2018; Chest Single View dated 09/15/2018; CHEST SINGLE VIEW dated 03/05/2015; CHEST SINGLE VIEW dated 03/01/2015 FINDINGS: Lines: None. Lungs: No evidence of edema or pneumonia. Pleural: No significant pleural effusions or pneumothorax. Cardiac: The heart size is within normal limits. Bones: No acute fractures. Other: IMPRESSION: No acute cardiopulmonary disease. EXAM DESCRIPTION: US - Urinary Bladder - 03/11/2022 8:05 am CLINICAL HISTORY: Bladder pain. Unable to empty bladder. FINDINGS: Prevoid bladder volume equals 240 cc Postvoid bladder volume equals 3 cc No ascites IMPRESSION: Prevoid bladder volume equals 240 cc Postvoid bladder volume equals 3 cc Conclusions/Impression: ESRD Uremia with weight loss and anorexia -HBV panel pending -First HD 03-13-22; HD MWF -HD placement Acidosis, Resolved HTN with CKD/ CHF complicated by hypotension -Continue Metoprolol due to his history of Afib (Not on anticoagulation) Diastolic CHF, chronic -Low sodium diet -Continue CoQ10 Malnutrition -Encourage nutrition as tolerated -Continue Nepro Anemia in chronic illness -Retacrit TIW CKD MBD -Continue Vitamin D
--- NOTE | 2022-03-16 17:31 | P.PN ---
Subjective Date of Service: 03/16/22 Primary Care Provider: Dr. Caleb Pendleton Chief Complaint: Acute renal failure Patient has no new complaints. He reports good appetites. Blood pressure is well controlled. Physical Examination - Vital Signs Temperature: 98.2 F Blood Pressure: 140/88 Pulse: 69 Respirations: 18 Pulse Ox (%): 100 Assessment And Plan - Plan Physical exam GEN: AOx3, NAD HEENT: Normal conjunctiva, sclera anicteric CV: Regular rate and rhythm, +mild b/l pedal edema Pulm: Non-labored respirations on room air ABD: Soft, nondistended integumentary: R upper chest with HD cath in place Problem List ESRD/uremia/metabolic acidosis acidosis emesis secondary to uremia; resolved Acute on chronic diastolic congestive heart failure Atrial fibrillation not on chronic anticoagulation therapy Hypertension Gout Clinically stable nephrology is following and managing hemodialysis Patient is slated for routine hemodialysis and waiting for dialysis seat. nausea/vomiting secondary to uremia, resolved. Resume Eliquis for A. fib Hepatitis panel is still pending.
[2022-03-16] MEDS: APIXABAN 2.5 MG TABLET PO SCH (22:23)
[2022-03-17 04:48] LABS: Absolute Lymphocytes (CBC) 1.4 K/uL (0.7-4.9); Hematocrit 28.9 % (39.6-49.0); Lymphocytes % 28.7 % (15.3-44.8); MPV 8.3 fL (7.6-11.3); RBC Red Blood Cell Count 3.41 M/uL (4.33-5.43)
[2022-03-17 05:01] LABS: Bilirubin Total 0.7 mg/dL (0.2-1.0); Phosphorus 3.8 mg/dL (2.5-4.9); Protein, Total 6.2 g/dL (6.4-8.2)
[2022-03-17] MEDS: METOPROLOL TAR 25 MG TAB PO SCH ×2 (09:00→20:33)
--- NOTE | 2022-03-17 12:14 | P.PN ---
Subjective Date of Service: 03/17/22 Primary Care Provider: Dr. Caleb Pendleton Chief Complaint: Acute renal failure Patient has no complaint. No new issues since yesterday. He is scheduled for dialysis today. Physical Examination - Vital Signs Temperature: 97.5 F Blood Pressure: 139/81 Pulse: 63 Respirations: 16 Pulse Ox (%): 100 Assessment And Plan - Plan Physical exam GEN: AOx3, NAD HEENT: Normal conjunctiva, sclera anicteric CV: Regular rate and rhythm, +mild b/l pedal edema Pulm: Non-labored respirations on room air ABD: Soft, nondistended integumentary: R upper chest with HD cath in place Problem List ESRD/uremia/metabolic acidosis acidosis emesis secondary to uremia; resolved Acute on chronic diastolic congestive heart failure Atrial fibrillation not on chronic anticoagulation therapy Hypertension Gout Clinically stable nephrology is following and managing hemodialysis Patient is slated for routine hemodialysis and waiting for dialysis seat. nausea/vomiting secondary to uremia, resolved. Continue Eliquis for A. fib Hepatitis panel is still pending.
[2022-03-17 12:15] LABS: HBsAG Nonreactive (Nonreactive)
[2022-03-17] MEDS: VITAMIN D 5,000 UNIT CAP PO SCH (12:44)
[2022-03-17] MEDS: DOCUSATE NA 100 MG CAP PO SCH ×2 (12:44→20:33)
[2022-03-17] MEDS: APIXABAN 2.5 MG TABLET PO SCH ×2 (12:44→20:33)
[2022-03-17] MEDS: CALCITROL 0.25 MCG CAP PO SCH ×2 (12:44→18:02)
[2022-03-17] MEDS: COENZYME Q10- 200 MG CAP PO SCH (12:45)
[2022-03-17] MEDS: EPOETIN ALFA 10,000 UNIT/ML VIAL SQ SCH (17:00)
--- NOTE | 2022-03-17 20:08 | P.PN ---
Date of Service: 03/17/22 Vital Signs Temp Pulse Resp BP Pulse Ox 98.1 F 79 16 151/84 H 79 L 03/17/22 16:00 03/17/22 16:00 03/17/22 16:00 03/17/22 16:00 03/17/22 16:00 Medications Apixaban (Apixaban 2.5 Mg Tablet) 2.5 mg PO BID [facility] Last Admin: 03/17/22 12:44 Dose: 2.5 mg Documented by: Calcitriol (Calcitrol 0.25 Mcg Cap) 0.5 mcg PO DAILY [facility] Last Admin: 03/17/22 18:02 Dose: 0.5 mcg Documented by: Cholecalciferol (Vitamin D 5,000 Unit Cap) 5,000 unit PO DAILY [facility] Last Admin: 03/17/22 12:44 Dose: 5,000 unit Documented by: Coenzyme Q10 (Coenzyme Q10- 200 Mg Cap) 200 mg PO DAILY [facility] Last Admin: 03/17/22 12:45 Dose: 200 mg Documented by: Docusate Sodium (Docusate Na 100 Mg Cap) 100 mg PO BID [facility] Last Admin: 03/17/22 12:44 Dose: 100 mg Documented by: Epoetin Agustín (Epoetin Agustín 10,000 Unit/Ml Vial) 10,000 unit SQ M,W,F [facility] Last Admin: 03/17/22 17:00 Dose: 10,000 unit Documented by: Heparin Sodium (Porcine) (Heparin 1,000 Unit/Ml Vial) 4,000 unit IV EVERY HD PRN PRN Reason: DIALYSIS CATHETER CARE Last Admin: 03/17/22 12:20 Dose: 4,000 unit Documented by: Heparin Sodium (Porcine) (Heparin 1,000 Unit/Ml Vial) 2,000 unit IV EVERY HD PRN PRN Reason: DIALYSIS Last Admin: 03/17/22 09:28 Dose: 2,000 unit Documented by: Albumin Human (Albumin 25%) 50 mls @ 100 mls/hr IV EVERY HD [facility] Mannitol (Mannitol 25% 12.5 Gm/50 Ml Vial) 12.5 gm IV EVERY HD PRN PRN Reason: Titrate to SBP (MUST DEFINE) Metoprolol Tartrate (Metoprolol Tar 25 Mg Tab) 12.5 mg PO BID [facility] Last Admin: 03/17/22 09:00 Dose: Not Given Documented by: Ondansetron HCl (Ondansetron 4 Mg/2 Ml Vial) 4 mg IV Q6HP PRN PRN Reason: NAUSEA / VOMITING Last Admin: 03/14/22 06:38 Dose: 4 mg Documented by: Sodium Chloride (Flush Normal Saline 10 Ml) 10 ml IV BID [facility] Last Admin: 03/17/22 09:00 Dose: 10 ml Documented by: Assessment/ Plan: Nephrology No dyspnea No chest pain Feeling better with improved appetite No acute events overnight Vitals, medications, blood work and imaging reviewed in the chart. General: Oriented x3, Cooperative, Mild distress HEENT: Atraumatic Neck: Supple Respiratory: Clear to auscultation bilaterally Cardiovascular: No edema, Regular rate/rhythm Gastrointestinal: Soft and benign, Non-distended, No guarding Musculoskeletal: No clubbing, No contractures Integumentary: No rashes, No cyanosis Neurological: Normal speech Laboratory Data (last 24 hrs) 03/11/22 01:23: Lipase Cancelled 03/11/22 01:09: PT 12.6 H, INR 1.14 03/11/22 01:09: WBC 4.9, Hgb 11.4 L, Hct 34.7 L, Plt Count 124 L 03/11/22 01:09: Sodium 136, Potassium 4.8, BUN 163 H, Creatinine 13.00 H*, Glucose 109 H, Magnesium 2.1, Total Bilirubin 0.6, AST 10 L, ALT 33, Alkaline Phosphatase 154 H, Lipase 857 H Imagings Data: EXAM DESCRIPTION: RAD - Chest Single View - 03/10/2022 9:02 pm CLINICAL HISTORY: DYSPNEA COMPARISON: Chest Pa And Lat (2 Views) dated 11/29/2018; Chest Single View dated 09/15/2018; CHEST SINGLE VIEW dated 03/05/2015; CHEST SINGLE VIEW dated 03/01/2015 FINDINGS: Lines: None. Lungs: No evidence of edema or pneumonia. Pleural: No significant pleural effusions or pneumothorax. Cardiac: The heart size is within normal limits. Bones: No acute fractures. Other: IMPRESSION: No acute cardiopulmonary disease. EXAM DESCRIPTION: US - Urinary Bladder - 03/11/2022 8:05 am CLINICAL HISTORY: Bladder pain. Unable to empty bladder. FINDINGS: Prevoid bladder volume equals 240 cc Postvoid bladder volume equals 3 cc No ascites IMPRESSION: Prevoid bladder volume equals 240 cc Postvoid bladder volume equals 3 cc Conclusions/Impression: ESRD Uremia with weight loss and anorexia -HBV panel negative -First HD 03-13-22; HD MWF -HD placement [facility] Acidosis, Resolved HTN with CKD/ CHF complicated by hypotension -Continue Metoprolol due to his history of Afib (Not on anticoagulation) Diastolic CHF, chronic -Low sodium diet -Continue CoQ10 Malnutrition -Encourage nutrition as tolerated -Continue Nepro Anemia in chronic illness -Retacrit TIW CKD MBD -Continue Vitamin D
[2022-03-18] MEDS: COENZYME Q10- 200 MG CAP PO SCH (09:00)
[2022-03-18] MEDS: METOPROLOL TAR 25 MG TAB PO SCH (09:28)
[2022-03-18] MEDS: DOCUSATE NA 100 MG CAP PO SCH (09:28)
[2022-03-18] MEDS: CALCITROL 0.25 MCG CAP PO SCH (09:28)
[2022-03-18] MEDS: APIXABAN 2.5 MG TABLET PO SCH (09:29)
[2022-03-18] MEDS: VITAMIN D 5,000 UNIT CAP PO SCH (09:29)
[2022-03-18 09:30] VITALS: BP 119/83
[2022-03-18 10:36] VITALS: TEMP 97.3
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
--- NOTE | 2022-03-18 21:01 | P.PN ---
Date of Service: 03/18/22 Vital Signs Temp Pulse Resp BP Pulse Ox 97.3 F 80 18 119/83 100 03/18/22 08:00 03/18/22 09:28 03/18/22 08:00 03/18/22 09:28 03/18/22 08:00 Assessment/ Plan: Nephrology No dyspnea No chest pain Feeling better and ready to go home. No acute events overnight Vitals, medications, blood work and imaging reviewed in the chart. General: Oriented x3, Cooperative, Mild distress HEENT: Atraumatic Neck: Supple Respiratory: Clear to auscultation bilaterally Cardiovascular: No edema, Regular rate/rhythm Gastrointestinal: Soft and benign, Non-distended, No guarding Musculoskeletal: No clubbing, No contractures Integumentary: No rashes, No cyanosis Neurological: Normal speech Laboratory Data (last 24 hrs) 03/11/22 01:23: Lipase Cancelled 03/11/22 01:09: PT 12.6 H, INR 1.14 03/11/22 01:09: WBC 4.9, Hgb 11.4 L, Hct 34.7 L, Plt Count 124 L 03/11/22 01:09: Sodium 136, Potassium 4.8, BUN 163 H, Creatinine 13.00 H*, Glucose 109 H, Magnesium 2.1, Total Bilirubin 0.6, AST 10 L, ALT 33, Alkaline Phosphatase 154 H, Lipase 857 H Imagings Data: EXAM DESCRIPTION: RAD - Chest Single View - 03/10/2022 9:02 pm CLINICAL HISTORY: DYSPNEA COMPARISON: Chest Pa And Lat (2 Views) dated 11/29/2018; Chest Single View dated 09/15/2018; CHEST SINGLE VIEW dated 03/05/2015; CHEST SINGLE VIEW dated 03/01/2015 FINDINGS: Lines: None. Lungs: No evidence of edema or pneumonia. Pleural: No significant pleural effusions or pneumothorax. Cardiac: The heart size is within normal limits. Bones: No acute fractures. Other: IMPRESSION: No acute cardiopulmonary disease. EXAM DESCRIPTION: US - Urinary Bladder - 03/11/2022 8:05 am CLINICAL HISTORY: Bladder pain. Unable to empty bladder. FINDINGS: Prevoid bladder volume equals 240 cc Postvoid bladder volume equals 3 cc No ascites IMPRESSION: Prevoid bladder volume equals 240 cc Postvoid bladder volume equals 3 cc Conclusions/Impression: ESRD Uremia with weight loss and anorexia -HBV panel negative -First HD 03-13-22; HD MWF -HD placement [facility] Acidosis, Resolved HTN with CKD/ CHF complicated by hypotension -Continue Metoprolol due to his history of Afib (Not on anticoagulation) Diastolic CHF, chronic -Low sodium diet -Continue CoQ10 Malnutrition -Encourage nutrition as tolerated -Continue Nepro Anemia in chronic illness -Retacrit TIW CKD MBD -Continue Vitamin D Case reviewed with Dr. Pisano
== END 2022-03-18 11:25 | disposition home or self-care (01) | DRG 291 ==
LOC: ER 20:38 → ERHOLD 03-11 03:21 → 2ND 03-11 17:09
PROVIDERS: ADMIT Hospitalist; ATTEND Hospitalist
PROC: 02HV33Z Insertion of Infusion Device into Superior Vena Cava, Percutaneous Approach (ICD-10-PCS; 2022-03-12)
PROC: B518YZA Fluoroscopy of Superior Vena Cava using Other Contrast, Guidance (ICD-10-PCS; 2022-03-12)
PROC: 5A1D70Z Performance of Urinary Filtration, Intermittent, Less than 6 Hours Per Day (ICD-10-PCS; 2022-03-12)
PROC: 0JH63XZ Insertion of Tunneled Vascular Access Device into Chest Subcutaneous Tissue and Fascia, Percutaneous Approach (ICD-10-PCS; principal; 2022-03-12 12:00)
PROC: 5A1D70Z Performance of Urinary Filtration, Intermittent, Less than 6 Hours Per Day (ICD-10-PCS; 2022-03-13)
PROC: 5A1D70Z Performance of Urinary Filtration, Intermittent, Less than 6 Hours Per Day (ICD-10-PCS; 2022-03-15)
PROC: 5A1D70Z Performance of Urinary Filtration, Intermittent, Less than 6 Hours Per Day (ICD-10-PCS; 2022-03-17)
DX: I13.2 Hypertensive heart and chronic kidney disease with heart failure and with stage 5 chronic kidney disease, or end stage renal disease (principal); I50.33 Acute on chronic diastolic (congestive) heart failure; N18.6 End stage renal disease; N17.9 Acute kidney failure, unspecified; E87.2 Acidosis; E46 Unspecified protein-calorie malnutrition; I48.91 Unspecified atrial fibrillation; K21.9 Gastro-esophageal reflux disease without esophagitis; M10.9 Gout, unspecified; F17.210 Nicotine dependence, cigarettes, uncomplicated; I95.9 Hypotension, unspecified; R11.2 Nausea with vomiting, unspecified; Z68.31 Body mass index [BMI] 31.0-31.9, adult; D63.8 Anemia in other chronic diseases classified elsewhere; Z20.822 Contact with and (suspected) exposure to COVID-19
CPT/HCPCS: 36415; 71045; 74176; 76000; 76377; 76857; 80048; 80053; 80069; 80076; 81003; 81015; 82570; 83520; 83690; 83735; 83880; 84100; 84156; 84484; 84550; 85025; 85027; 85610; 86021; 86160; 86317; 86335; 86704; 86803; 87086; 87088; 87340; 90935; 93005; 96361; 96365; 96366; 96375; 99285; C1752; J0744; J1644; J2250; J2270; J2370; J2405; J2704; J3010; J3490; J7030; J7040; Q5106; U0003

== ENCOUNTER 2022-05-13 10:04 | Emergency (ER) | payer OTHER ==
--- NOTE | 2022-05-13 10:55 | ER ---
Nurse's Notes [facility] Name: Steve Gutierrez Age: 56 yrs Sex: Male : 1965 Arrival Date: 05/13/2022 Time: 10:09 Bed 11 Private MD: Diagnosis: Foreign body in right ear, initial encounter Presentation: 05/13 10:26 Chief complaint: Patient states: he got the soft part of an earbud stuck in his right ap3 ear this morning around 0630. patient reports being evaluated at another ED and they were unable to dislodge the earbud. Patient reports pain in the right ear. Coronavirus screen: At this time, the client does not indicate any symptoms associated with coronavirus-19. Ebola Screen: No symptoms or risks identified at this time. Initial Sepsis Screen: Does the patient meet any 2 criteria? No. Patient's initial sepsis screen is negative. Does the patient have a suspected source of infection? No. Patient's initial sepsis screen is negative. Risk Assessment: Do you want to hurt yourself or someone else? Patient reports no desire to harm self or others. Onset of symptoms was May 13, 2022 at 06:30. 10:26 Method Of Arrival: Ambulatory ap3 10:26 Acuity: DELIA 4 ap3 Triage Assessment: 10:29 General: Appears uncomfortable, Behavior is calm, cooperative. Pain: Complains of pain ap3 in right ear Pain currently is 7 out of 10 on a pain scale. Pain began suddenly. EENT: Reports decreased hearing in right ear pain in right ear. Neuro: Level of Consciousness is awake, alert, obeys commands, Oriented to person, place, time, situation. Cardiovascular: Patient's skin is warm and dry. Respiratory: Airway is patent Respiratory effort is even, unlabored, Respiratory pattern is regular, symmetrical. Historical: - Allergies: 10:28 Cephalexin; ap3 - PMHx: 10:28 Atrial Fib; CHF; Gastric Reflux; Gout; Hypertension; Renal Disease; dialysis; ap3 - PSHx: 10:28 Appendectomy; jaw; left knee; left leg; ap3 - Immunization history:: Client reports having NOT received the Covid vaccine. - Social history:: Smoking status: Patient reports use of chewing tobacco. Screenin:30 Abuse screen: Denies threats or abuse. Nutritional screening: No deficits noted. ap3 Tuberculosis screening: No symptoms or risk factors identified. Vital Signs: 10:26 BP 137 / 76; Pulse 84; Resp 17; Temp 98.2; Pulse Ox 100% ; Weight 127.91 kg; Height 6 ap3 ft. 6 in. (198.12 cm); Pain 7/10; 10:26 Body Mass Index 32.59 (127.91 kg, 198.12 cm) ap3 ED Course: 10:09 Patient arrived in ED. ja2 10:11 Ashkan Anders PA is PHCP. cp 10:11 Ashkan Messina MD is Attending Physician. cp 10:28 Triage completed. ap3 10:30 Arm band placed on right wrist. ap3 10:53 Sondra Looney MD is Referral Physician. cp 11:24 Shazia Carmichael, RN is Primary Nurse. iw Administered Medications: No medications were administered Outcome: 10:54 Discharge ordered by . cp 11:24 Patient left the ED. iw Signatures: Shazia Carmichael RN RN Ashkan Snyder PA PA cp Prokisch, Amanda, RN RN ap3 [facility]
--- NOTE | 2022-05-13 10:55 | EDPHYS ---
Physician Documentation [facility] Name: Steve Gutierrez Age: 56 yrs Sex: Male : 1965 Arrival Date: 05/13/2022 Time: 10:09 Bed 11 Private MD: COTY Physician Ashkan Messina HPI: 05/13 10:49 This 56 yrs old Male presents to ER via Ambulatory with complaints of Foreign Body In cp Ear. 10:50 The patient presents with a foreign body sensation, soft plastic tip of ear bud. The cp complaints affect the right ear. Onset: The symptoms/episode began/occurred this morning. Associated signs and symptoms: Pertinent negatives: cough, fever, shortness of breath, sore throat. Severity of symptoms: in the emergency department the symptoms are unchanged despite home interventions. Historical: - Allergies: 10:28 Cephalexin; ap3 - PMHx: 10:28 Atrial Fib; CHF; Gastric Reflux; Gout; Hypertension; Renal Disease; dialysis; ap3 - PSHx: 10:28 Appendectomy; jaw; left knee; left leg; ap3 - Immunization history:: Client reports having NOT received the Covid vaccine. - Social history:: Smoking status: Patient reports use of chewing tobacco. ROS: 10:51 Eyes: Negative for injury, pain, redness, and discharge. cp 10:51 Constitutional: Negative for body aches, chills, fever, poor PO intake. 10:51 ENT: Positive for ear pain, foreign body sensation, Negative for drainage from ear(s), sore throat, difficulty swallowing, difficulty handling secretions. 10:51 Respiratory: Negative for cough, shortness of breath, wheezing. 10:51 Abdomen/GI: Negative for abdominal pain, vomiting, diarrhea, constipation. 10:51 Neuro: Negative for altered mental status, headache. 10:51 All other systems are negative. Exam: 10:52 Head/Face: Normocephalic, atraumatic. cp 10:52 Constitutional: The patient appears in no acute distress, alert, awake, non-toxic, well developed, well nourished. 10:52 ENT: External ear(s): are unremarkable, Ear canal(s): foreign body, black colored plastic tip of ear bud, in the right external ear canal, Examination of the other ear shows no obvious abnormality, Nose: is normal, Mouth: is normal. 10:52 Chest/axilla: Inspection: normal. 10:52 Cardiovascular: Rate: normal. Vital Signs: 10:26 BP 137 / 76; Pulse 84; Resp 17; Temp 98.2; Pulse Ox 100% ; Weight 127.91 kg; Height 6 ap3 ft. 6 in. (198.12 cm); Pain 7/10; 10:26 Body Mass Index 32.59 (127.91 kg, 198.12 cm) ap3 MDM: 10:46 Patient medically screened. [facility] 10:53 Differential diagnosis: otitis media, otitis externa, ruptured TM, foreign body, cp cerumen impaction, barotrauma . Data reviewed: vital signs, nurses notes, and as a result, I will discharge patient. Administered Medications: No medications were administered Disposition Summary: 05/13/22 10:54 Discharge Ordered Location: Home cp Problem: new cp Symptoms: are resolved cp Condition: Stable cp Diagnosis - Foreign body in right ear, initial encounter cp Followup: cp - With: Sondra Looney MD - When: 1 - 2 days - Reason: Worsening of condition Discharge Instructions: - Discharge Summary Sheet cp - Ear Foreign Body cp Forms: - Medication Reconciliation Form cp - Thank You Letter cp - Antibiotic Education cp - Prescription Opioid Use cp Signatures: Ashkan Messina MD MD cha Page, Corey, JUAN C PA Felicita Banegas, RN RN ap3
[2022-05-13 11:33] VITALS: BP 137/76; TEMP 98.2; O2SAT 100
== END 2022-05-13 11:24 | disposition home or self-care (01) ==
LOC: ER 10:04
DX: T16.1XXA Foreign body in right ear, initial encounter (principal)
CPT/HCPCS: 99281

== ENCOUNTER 2023-08-02 11:39 | Observation (INO) | payer OTHER ==
--- OUTSIDE RECORDS SUMMARY | 2023-08-02 11:50 | XMS REPORT | Continuity of Care Document ---
:1965 Author Organization [facility] t Address [address] [place] [address] Care Team Providers Name Role Phone Caleb Pendleton Primary Care Physician Caleb Pendleton Attending Clinician Unavailable Jorge Garcia Attending Clinician Unavailable REGINALD GASPAR Attending Clinician Unavailable REGINALD GASPAR Attending Clinician Unavailable BRUNA PLUMMER Attending Clinician Unavailable REG BLANCHARD Attending Clinician Unavailable DELFIN VASQUEZ Attending Clinician Unavailable Delfin Vasquez MD Attending Clinician Suraj Wan MD Attending Clinician SURAJ WAN Attending Clinician Unavailable Salomon ANGEL, Joslyn Dunbar Attending Clinician [phone] Reg Blanchard MD Attending Clinician ZONIA BRAMBILA Attending Clinician Unavailable ZONIA BRAMBILA Attending Clinician Unavailable Bruna Plummer PA-C Attending Clinician Doctor Unassigned, Lavelle Attending Clinician Unavailable Call, Clc Apac Phone Attending Clinician Unavailable MART SANTANA Attending Clinician Unavailable Mart Grimes Attending Clinician Nurse, Clc Echo Attending Clinician Unavailable Vicky Garcia Attending Clinician Josefa CONNOLLY, Steve James Attending Clinician Unavailable Gerson Anguiano MD Attending Clinician Luis Orta MD Attending Clinician LUIS ORTA Attending Clinician Unavailable Hugo Sandoval MD Attending Clinician ZONIA BRAMBILA Admitting Clinician Unavailable DELFIN VASQUEZ Admitting Clinician Unavailable MART SANTANA Admitting Clinician Unavailable Gerson Anguiano MD Admitting Clinician Payers Payer Name Policy Type Policy Number Effective Date Expiration Date Soraya hester Metail [id number] 2015spring [facility]00[id number] Common Sp angelita ing Medicare 00:00:00 - [facility] Problems Condition Condition Condition Status Onset Resolution Last Treating Co mments Source Name Details Category Date Date Treatment Clinician Date Chronic Chronic Disease Active Univers heart heart 3-21 ity of failure failure 00:00: [place] with with 00 Medical preserved preserved Bran ch ejection ejection fraction fraction ICD ICD Disease Active Univers (implantab (implantab 3-21 it y of le le 00:00: [place] cardiovert cardiovert 00 Me dical er-defibri er-defibri Br anch llator) in llator) in place place Nonobstruc Nonobstruc Disease Active U nivers tive tive 3-21 ity of atheroscle atheroscle [place] rosis of rosis of 00 Medica l coronary coronary Branch artery artery Persistent Persistent Disease Active Overview : Univers atrial atrial 1-17 Formattin ity of fibrillati fibrillati 00:00: g of this [place] on on 00 note Medical might be Branch different from the original. 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 [id number] Body mass Problem Com mon index Spirit [BMI] - [facility] 33.0-33.9, [facility] End stage ESRD (end Problem Com mon renal stage Spirit disease renal - [facility] disease) [facility] Chronic Problem Common co-occurre gout, Spirit nt and due unspecifie - [facility] to gout d, with [facility] Congestive CHF Problem Commo n heart (congestiv Spirit failure e heart - [facility] failure) [facility] Vitamin D Vitamin D Problem Com mon deficiency deficiency Sp angelita - [facility] [id number] Anemia in Problem Com mon chronic Spirit kidney - [facility] disease [facility] [id number] Cardiac Problem Commo n defibrilla Spirit tor in - [facility] place [facility] [id number] Dyslipidem Problem Co mmon ia Spirit - [facility] [id number] Chronic Problem Commo n kidney Spirit disease, - [facility] stage IV (severe) [facility] [id number] Erectile Problem Comm on dysfunctio Spirit n, - [facility] unspecifie [facility] erectile [facility] dysfunctio Medica l n type Center [id number] History of Problem Co mmon MRSA Spirit infection - [facility] Gastroesop Gastroesop Problem C ommon hageal hageal Spirit reflux reflux - CHI disease disease [facility] without without [facility] esophagiti esophagiti Me dical s s [place] [id number] Atrial Problem Common fibrillati Spirit on by - [facility] electrocar [facility] [id number] Reactive Problem Commo n depression Spirit - [facility] [id number] Hypertensi Problem Com mon on, Spirit unspecifie - [facility] d type [facility] Allergies, Adverse Reactions, Alerts Allergy Allergy Status Severity Reaction(s) Onset Inactive Treating Comm ents Source Name Type Date Date Clinician Cephalex Propensi Active Hives Univer s in ty to 4-18 ity of adverse 00:00: [place] reaction 00 Medical s Branch CEPHALEX DRUG Active Hives Univers IN INGREDI 4-18 ity of 00:00: [place] 00 Medical Branch Adhesive Propensi Active Rash Univer s ty to 6-12 ity of adverse 00:00: [place] reaction 00 Medical s to Branch drug Adhesive Propensi Active Rash Univer s ty to 6-12 ity of adverse 00:00: [place] reaction 00 Medical s to Branch drug ADHESIVE Drug Active Med Hives Univers Class 6-12 ity of 00:00: [place] 00 Medical Branch Social History Social Habit Start Date Stop Date Quantity Comments Source Gender identity [facility] [place] [facility] Sexual orientation [facility] [place] [facility] History SDOH Social Unive rsity of Connections Phone [facility] edical Branch History SDOH Social Unive rsity of Connections [facility] Med ical Together Branch History SDOH Social Unive rsity of Connections [facility] Medical Branch History SDOH Social Unive rsity of Connections [place] [facility] Membership Branch History SDOH Social Unive rsity of Connections [place] [facility] Meetings Branch History of tobacco Snuff User Univer sity of use [facility] Sex Assigned At Common Sp angelita - [facility] History of Social 2023-05-30 2023-05-30 Univers ity of function 00:00:00 00:00:00 [facility] Alcohol intake 2023-05-30 2023-05-30 0 /d University of 00:00:00 00:00:00 [facility] Exposure to 2023-04-02 2023-04-12 Not sure University SARS-CoV-2 (event) 00:00:00 07:18:00 [facility] Tobacco use and 2022-11-25 2022-11-25 User of Universit y of exposure 00:00:00 00:00:00 smokeless [facility] tobacco [place] Tobacco Comment 2022-11-25 2022-11-25 1 1/2 - 2 Universit y of 00:00:00 00:00:00 cans/day [place] [facility] History SDOH 2022-11-03 2022-11-03 1 University o f Alcohol Frequency 00:00:00 00:00:00 [place] M edical Branch History SDOH 2022-11-03 2022-11-03 0 University o f Alcohol Std Drinks 00:00:00 00:00:00 [facility] Branch History SDOH 2022-11-03 2022-11-03 1 University o f Alcohol Binge 00:00:00 00:00:00 [place] [facility] Branch History SDOH Social 2022-11-03 2022-11-03 3 Unive rsity of Connections Living 00:00:00 00:00:00 [facility] Education 2022-11-03 2022-11-03 12 University of 00:00:00 00:00:00 [facility] Smoking Status Start Date Stop Date Source Never smoked tobacco [facility] Medications Ordered Filled Start Stop Current Ordering Indication Dosage Frequency Signature Comments Components Source Medication Medication Date Date Medication? Clinician (SIG) Name Name metoprolol Yes 25mg Take 1 Unive rs succinate 5-30 tablet by ity o f XL 25 mg 24 00:00: mouth [place] hr tablet 00 the Medical morning. Branch metoprolol Yes 25mg Take 1 Unive rs succinate 5-30 tablet by ity o f XL 25 mg 24 00:00: [place] hr tablet 00 the Medical morning. Branch metoprolol 2022-0 Yes 25mg Take 1 Unive rs succinate 5-30 tablet by ity o f XL 25 mg 24 00:00: [place] hr tablet 00 the Medical morning. Branch metoprolol 2022- Yes 25mg Take 1 Unive rs succinate 5-30 tablet by ity o f XL 25 mg 24 00:00: [place] hr tablet 00 the Medical morning. Branch metoprolol 2023-0 Yes 25mg Take 1 Unive rs succinate 5-30 tablet by ity o f XL 25 mg 24 00:00: mouth [place] hr tablet 00 the Medical morning. Branch metoprolol 2023-0 Yes 25mg Take 1 Unive rs succinate 5-30 tablet by ity o f XL 25 mg 24 00:00: mouth [place] hr tablet 00 the Medical morning. Branch metoprolol 2023-0 Yes 25mg Take 1 Unive rs succinate 5-30 tablet by ity o f XL 25 mg 24 00:00: [place] hr tablet 00 the Medical morning. Branch metoprolol 2023-0 Yes 25mg Take 1 Unive rs succinate 5-30 tablet by ity o f XL 25 mg 24 00:00: [place] hr tablet 00 the Medical morning. Branch metoprolol 2023-0 Yes 25mg Take 1 Unive rs succinate 5-30 tablet by ity o f XL 25 mg 24 00:00: [place] hr tablet 00 the Medical morning. Branch metoprolol 2023-0 Yes 25mg Take 1 Unive rs succinate 5-30 tablet by ity o f XL 25 mg 24 00:00: [place] hr tablet 00 the Medical morning. Branch amLODIPine 2023-0 2023- No 10mg Take 1 Univ ers 10 mg 3-30 03-30 tablet by ity of tablet 09:21: 00:00 mouth in [place] 07 :00 the Medical morning. Branch amLODIPine 2023-0 2023- No 10mg Take 1 Univ ers 10 mg 3-30 03-30 tablet by ity of tablet 09:21: 00:00 mouth in [place] 07 :00 the Medical morning. Branch amLODIPine 2023-0 2023- No 10mg Take 1 Univ ers 10 mg 3-30 03-30 tablet by ity of tablet 09:21: 00:00 mouth in [place] 07 :00 the Medical morning. Branch amLODIPine 2023-0 2023- No 10mg Take 1 Univ ers 10 mg 3-30 03-30 tablet by ity of tablet 09:21: 00:00 mouth in [place] 07 :00 the Medical morning. Branch losartan 25 2023-0 Yes [id number] 25mg Take 1 Univers mg tablet 3-30 9100 tablet by ity o f 00:00: mouth in [place] 00 the Medical morning. Branch losartan 25 2022-0 Yes [id number] 25mg Take 1 Univers mg tablet 3-30 9100 tablet by ity o f 00:00: mouth in [place] 00 the Medical morning. Branch losartan 25 2022-0 Yes [id number] 25mg Take 1 Univers mg tablet 3-30 9100 tablet by ity o f 00:00: mouth in [place] 00 the Medical morning. Branch losartan 25 2022-0 Yes [id number] 25mg Take 1 Univers mg tablet 3-30 9100 tablet by ity o f 00:00: mouth in [place] 00 the Medical morning. Branch losartan 25 2022-0 Yes [id number] 25mg Take 1 Univers mg tablet 3-30 9100 tablet by ity o f 00:00: mouth in [place] the Medical morning. Branch losartan 25 2022-0 Yes [id number] 25mg Take 1 Univers mg tablet 3-30 9100 tablet by ity o f 00:00: mouth in [place] the Medical morning. Branch losartan 25 2022-0 Yes [id number] 25mg Take 1 Univers mg tablet 3-30 9100 tablet by ity o f 00:00: mouth in [place] the Medical morning. Branch losartan 25 2022-0 Yes [id number] 25mg Take 1 Univers mg tablet 3-30 9100 tablet by ity o f 00:00: mouth in [place] the Medical morning. Branch losartan 25 2022-0 Yes [id number] 25mg Take 1 Univers mg tablet 3-30 9100 tablet by ity o f 00:00: mouth in [place] the Medical morning. Branch losartan 25 2022-0 Yes [id number] 25mg Take 1 Univers mg tablet 3-30 9100 tablet by ity o f 00:00: mouth in [place] 00 the Medical morning. Branch losartan 25 2022-0 Yes [id number] 25mg Take 1 Univers mg tablet 3-30 9100 tablet by ity o f 00:00: mouth in [place] 00 the Medical morning. Branch losartan 25 2022-0 Yes [id number] 25mg Take 1 Univers mg tablet 3-30 9100 tablet by ity o f 00:00: mouth in [place] 00 the Medical morning. Branch losartan 25 2022-0 Yes [id number] 25mg Take 1 Univers mg tablet 3-30 9100 tablet by ity o f 00:00: mouth in [place] 00 the Medical morning. Branch losartan 25 2022-0 Yes [id number] 25mg Take 1 Univers mg tablet 3-30 9100 tablet by ity o f 00:00: mouth in [place] 00 the Medical morning. Branch dronedarone 2022-0 3- No [id number] 400mg Take 1 Univers 400 mg 3-30 03-30 tablet by ity of tablet 00:00: 00:00 mouth in [place] 00 :00 the Medical morning Branch and 1 tablet in the evening. Take with meals. dronedarone 2022-0 2022- No [id number] 400mg Take 1 Univers 400 mg 3-30 03-30 tablet by ity of tablet 00:00: 00:00 mouth in [place] 00 :00 the Medical morning Branch and 1 tablet in the evening. Take with meals. dronedarone 2022-0 3- No [id number] 400mg Take 1 Univers 400 mg 3-30 -30 tablet by ity of tablet 00:00: 00:00 mouth in [place] 00 :00 the Medical morning Branch and 1 tablet in the evening. Take with meals. dronedarone 2022-0 2022- No [id number] 400mg Take 1 Univers 400 mg 3-30 -30 tablet by ity of tablet 00:00: 00:00 mouth in [place] 00 :00 the Medical morning Branch and 1 tablet in the evening. Take with meals. OMEPRAZOLE 3-0 Yes 40mg Take 40 mg U nivers ORAL 3-21 by mouth ity of 08:50: daily. [place] [address] Medical Branch allopurinoL 3-0 Yes 100mg Take 1 Uni vers 100 mg 3-21 tablet by ity of tablet 08:50: mouth in [place] [address] the Medical morning. Branch sildenafiL 3-0 Yes 100mg Take 1 Univ ers 100 mg 3-21 tablet by ity of tablet 08:50: mouth in [place] [address] the Medical morning. Branch Cholecalcif 2022-0 Yes Take by Uni vers mary, 3-21 mouth ity of Vitamin D3, 08:50: [place] 125 [place] 58 Medical (5,000 Branch unit) tablet atorvastati 3-0 Yes 40mg Take 1 Univ ers n 40 mg 3-21 tablet by ity of tablet 08:50: mouth at [place] [address] bedtime. Medical Branch OMEPRAZOLE 2023-0 Yes 40mg Take 40 mg U nivers ORAL 3-21 by mouth ity of 08:50: daily. [place] [address] Medical Branch allopurinoL 2023-0 Yes 100mg Take 1 Uni vers 100 mg 3-21 tablet by ity of tablet 08:50: mouth in [place] [address] the Medical morning. Branch sildenafiL 2023-0 Yes 100mg Take 1 Univ ers 100 mg 3-21 tablet by ity of tablet 08:50: mouth in [place] [address] the Medical morning. Branch Cholecalcif 2023-0 Yes Take by Uni vers mary, 3-21 mouth ity of Vitamin D3, 08:50: [place]. [place] 125 [place] 58 Medical (5,000 Branch unit) tablet atorvastati 2023-0 Yes 40mg Take 1 Univ ers n 40 mg 3-21 tablet by ity of tablet 08:50: mouth at [place] [address] bedtime. Medical Branch OMEPRAZOLE 2023-0 Yes 40mg Take 40 mg U nivers ORAL 3-21 by mouth ity of 08:50: daily. [place] [address] Medical Branch allopurinoL 2023-0 Yes 100mg Take 1 Uni vers 100 mg 3-21 tablet by ity of tablet 08:50: mouth in [place] [address] the Medical morning. Branch sildenafiL 2023-0 Yes 100mg Take 1 Univ ers 100 mg 3-21 tablet by ity of tablet 08:50: mouth in [place] [address] the Medical morning. Branch Cholecalcif 2023-0 Yes Take by Uni vers mary, 3-21 mouth ity of Vitamin D3, 08:50: [place]. [place] 125 [place] 58 Medical (5,000 Branch unit) tablet atorvastati 2023-0 Yes 40mg Take 1 Univ ers n 40 mg 3-21 tablet by ity of tablet 08:50: mouth at [place] [address] bedtime. Medical Branch OMEPRAZOLE 2023-0 Yes 40mg Take 40 mg U nivers ORAL 3-21 by mouth ity of 08:50: daily. [place] [address] Medical Branch allopurinoL 2023-0 Yes 100mg Take 1 Uni vers 100 mg 3-21 tablet by ity of tablet 08:50: mouth in [place] [address] the Medical morning. Branch sildenafiL 2023-0 Yes 100mg Take 1 Univ ers 100 mg 3-21 tablet by ity of tablet 08:50: mouth in [place] [address] the Medical morning. Branch Cholecalcif 2023-0 Yes Take by Uni vers mary, 3-21 mouth ity of Vitamin D3, 08:50: [place]. [place] 125 [place] 58 Medical (5,000 Branch unit) tablet atorvastati 2023-0 Yes 40mg Take 1 Univ ers n 40 mg 3-21 tablet by ity of tablet 08:50: mouth at [place] [address] bedtime. Medical Branch OMEPRAZOLE 2023-0 Yes 40mg Take 40 mg U nivers ORAL 3-21 by mouth ity of 08:50: daily. [place] [address] Medical Branch allopurinoL 2023-0 Yes 100mg Take 1 Uni vers 100 mg 3-21 tablet by ity of tablet 08:50: mouth in [place] [address] the Medical morning. Branch sildenafiL 2023-0 Yes 100mg Take 1 Univ ers 100 mg 3-21 tablet by ity of tablet 08:50: mouth in [place] [address] the Medical morning. Branch Cholecalcif 2023-0 Yes Take by Uni vers mary, 3-21 mouth ity of Vitamin D3, 08:50: [place]. [place] 125 [place] 58 Medical (5,000 Branch unit) tablet atorvastati 2023-0 Yes 40mg Take 1 Univ ers n 40 mg 3-21 tablet by ity of tablet 08:50: mouth at [place] [address] bedtime. Medical Branch OMEPRAZOLE 2023-0 Yes 40mg Take 40 mg U nivers ORAL 3-21 by mouth ity of 08:50: daily. [place] [address] Medical Branch allopurinoL 2023-0 Yes 100mg Take 1 Uni vers 100 mg 3-21 tablet by ity of tablet 08:50: mouth in [place] [address] the Medical morning. Branch sildenafiL 2023-0 Yes 100mg Take 1 Univ ers 100 mg 3-21 tablet by ity of tablet 08:50: mouth in [place] [address] the Medical morning. Branch Cholecalcif 2023-0 Yes Take by Uni vers mary, 3-21 mouth ity of Vitamin D3, 08:50: [place]. [place] 125 [place] 58 Medical (5,000 Branch unit) tablet atorvastati 2023-0 Yes 40mg Take 1 Univ ers n 40 mg 3-21 tablet by ity of tablet 08:50: mouth at [place] [address] bedtime. Medical Branch OMEPRAZOLE 2023-0 Yes 40mg Take 40 mg U nivers ORAL 3-21 by mouth ity of 08:50: daily. [place] [address] Medical Branch allopurinoL 2023-0 Yes 100mg Take 1 Uni vers 100 mg 3-21 tablet by ity of tablet 08:50: mouth in [place] [address] the Medical morning. Branch sildenafiL 2023-0 Yes 100mg Take 1 Univ ers 100 mg 3-21 tablet by ity of tablet 08:50: mouth in [place] [address] the Medical morning. Branch Cholecalcif 2023-0 Yes Take by Uni vers mary, 3-21 mouth ity of Vitamin D3, 08:50: [place]. [place] 125 [place]cg 58 Medical (5,000 Branch unit) tablet atorvastati 2023-0 Yes 40mg Take 1 Univ ers n 40 mg 3-21 tablet by ity of tablet 08:50: mouth at [place] [address] bedtime. Medical Branch OMEPRAZOLE 2023-0 Yes 40mg Take 40 mg U nivers ORAL 3-21 by mouth ity of 08:50: daily. [place] [address] Medical Branch allopurinoL 2023-0 Yes 100mg Take 1 Uni vers 100 mg 3-21 tablet by ity of tablet 08:50: mouth in [place] [address] the Medical morning. Branch sildenafiL 2023-0 Yes 100mg Take 1 Univ ers 100 mg 3-21 tablet by ity of tablet 08:50: mouth in [place] [address] the Medical morning. Branch Cholecalcif 2023-0 Yes Take by Uni vers mary, 3-21 mouth ity of Vitamin D3, 08:50: [place]. [place] 125 [place] 58 Medical (5,000 Branch unit) tablet atorvastati 2023-0 Yes 40mg Take 1 Univ ers n 40 mg 3-21 tablet by ity of tablet 08:50: mouth at [place] [address] bedtime. Medical Branch OMEPRAZOLE 2023-0 Yes 40mg Take 40 mg U nivers ORAL 3-21 by mouth ity of 08:50: daily. [place] [address] Medical Branch allopurinoL 2023-0 Yes 100mg Take 1 Uni vers 100 mg 3-21 tablet by ity of tablet 08:50: mouth in [place] [address] the Medical morning. Branch sildenafiL 2023-0 Yes 100mg Take 1 Univ ers 100 mg 3-21 tablet by ity of tablet 08:50: mouth in [place] [address] the Medical morning. Branch Cholecalcif 2023-0 Yes Take by Uni vers mray, 3-21 mouth ity of Vitamin D3, 08:50: [place]. [place] 125 [place]cg 58 Medical (5,000 Branch unit) tablet atorvastati 2023-0 Yes 40mg Take 1 Univ ers n 40 mg 3-21 tablet by ity of tablet 08:50: mouth at [place] [address] bedtime. Medical Branch OMEPRAZOLE 2023-0 Yes 40mg Take 40 mg U nivers ORAL 3-21 by mouth ity of 08:50: daily. [place] [address] Medical Branch allopurinoL 2023-0 Yes 100mg Take 1 Uni vers 100 mg 3-21 tablet by ity of tablet 08:50: mouth in [place] [address] the Medical morning. Branch amLODIPine 2023-0 Yes 10mg Take 1 Unive rs 10 mg 3-21 tablet by ity of tablet 08:50: mouth in [place] [address] the Medical morning. Branch sildenafiL 2023-0 Yes 100mg Take 1 Univ ers 100 mg 3-21 tablet by ity of tablet 08:50: mouth in [place] [address] the Medical morning. Branch Cholecalcif 2023-0 Yes Take by Uni vers mary, 3-21 mouth ity of Vitamin D3, 08:50: [place] 125 [place] 58 Medical (5,000 Branch unit) tablet atorvastati 2023-0 Yes 40mg Take 1 Univ ers n 40 mg 3-21 tablet by ity of tablet 08:50: mouth at [place] [address] bedtime. Medical Branch OMEPRAZOLE 2023-0 Yes 40mg Take 40 mg U nivers ORAL 3-21 by mouth ity of 08:50: daily. [place] [address] Medical Branch allopurinoL 2023-0 Yes 100mg Take 1 Uni vers 100 mg 3-21 tablet by ity of tablet 08:50: mouth in [place] [address] the Medical morning. Branch amLODIPine 2023-0 Yes 10mg Take 1 Unive rs 10 mg 3-21 tablet by ity of tablet 08:50: mouth in [place] [address] the Medical morning. Branch sildenafiL 2023-0 Yes 100mg Take 1 Univ ers 100 mg 3-21 tablet by ity of tablet 08:50: mouth in [place] [address] the Medical morning. Branch Cholecalcif 2023-0 Yes Take by Uni vers mary, 3-21 mouth ity of Vitamin D3, 08:50: [place]. [place] 125 [place] 58 Medical (5,000 Branch unit) tablet atorvastati 2023-0 Yes 40mg Take 1 Univ ers n 40 mg 3-21 tablet by ity of tablet 08:50: mouth at [place] [address] bedtime. Medical Branch OMEPRAZOLE 2023-0 Yes 40mg Take 40 mg U nivers ORAL 3-21 by mouth ity of 08:50: daily. [place] [address] Medical Branch allopurinoL 2023-0 Yes 100mg Take 1 Uni vers 100 mg 3-21 tablet by ity of tablet 08:50: mouth in [place] [address] the Medical morning. Branch amLODIPine 2023-0 Yes 10mg Take 1 Unive rs 10 mg 3-21 tablet by ity of tablet 08:50: mouth in [place] [address] the Medical morning. Branch sildenafiL 2023-0 Yes 100mg Take 1 Univ ers 100 mg 3-21 tablet by ity of tablet 08:50: mouth in [place] [address] the Medical morning. Branch Cholecalcif 2023-0 Yes Take by Uni vers mary, 3-21 mouth ity of Vitamin D3, 08:50: [place] 125 [place] 58 Medical (5,000 Branch unit) tablet atorvastati 2023-0 Yes 40mg Take 1 Univ ers n 40 mg 3-21 tablet by ity of tablet 08:50: mouth at [place] [address] bedtime. Medical Branch OMEPRAZOLE 2023-0 Yes 40mg Take 40 mg U nivers ORAL 3-21 by mouth ity of 08:50: daily. [place] [address] Medical Branch allopurinoL 2023-0 Yes 100mg Take 1 Uni vers 100 mg 3-21 tablet by ity of tablet 08:50: mouth in [place] [address] the Medical morning. Branch sildenafiL 2023-0 Yes 100mg Take 1 Univ ers 100 mg 3-21 tablet by ity of tablet 08:50: mouth in [place] [address] the Medical morning. Branch Cholecalcif 2023-0 Yes Take by Uni vers mary, 3-21 mouth ity of Vitamin D3, 08:50: [place] 125 [place] 58 Medical (5,000 Branch unit) tablet atorvastati 2023-0 Yes 40mg Take 1 Univ ers n 40 mg 3-21 tablet by ity of tablet 08:50: mouth at [place] [address] bedtime. Medical Branch OMEPRAZOLE 2023-0 Yes 40mg Take 40 mg U nivers ORAL 3-21 by mouth ity of 08:50: daily. [place] [address] Medical Branch allopurinoL 2023-0 Yes 100mg Take 1 Uni vers 100 mg 3-21 tablet by ity of tablet 08:50: mouth in [place] [address] the Medical morning. Branch sildenafiL 2023-0 Yes 100mg Take 1 Univ ers 100 mg 3-21 tablet by ity of tablet 08:50: mouth in [place] [address] the Medical morning. Branch Cholecalcif 2023-0 Yes Take by Uni vers mary, 3-21 mouth ity of Vitamin D3, 08:50: [place]. [place] 125 [place] 58 Medical (5,000 Branch unit) tablet atorvastati 2023-0 Yes 40mg Take 1 Univ ers n 40 mg 3-21 tablet by ity of tablet 08:50: mouth at [place] [address] bedtime. Medical Branch OMEPRAZOLE 2023-0 Yes 40mg Take 40 mg U nivers ORAL 3-21 by mouth ity of 08:50: daily. [place] [address] Medical Branch allopurinoL 2023-0 Yes 100mg Take 1 Uni vers 100 mg 3-21 tablet by ity of tablet 08:50: mouth in [place] [address] the Medical morning. Branch sildenafiL 2023-0 Yes 100mg Take 1 Univ ers 100 mg 3-21 tablet by ity of tablet 08:50: mouth in [place] [address] the Medical morning. Branch Cholecalcif 2023-0 Yes Take by Uni vers mary, 3-21 mouth ity of Vitamin D3, 08:50: [place] 125 [place] 58 [facility] (5,000 Branch unit) tablet atorvastati 2023-0 Yes 40mg Take 1 Univ ers n 40 mg 3-21 tablet by ity of tablet 08:50: mouth at [place] [address] bedtime. Medical Branch OMEPRAZOLE 2023-0 Yes 40mg Take 40 mg U nivers ORAL 3-21 by mouth ity of 08:50: daily. [place] [address] Medical Branch allopurinoL 2023-0 Yes 100mg Take 1 Uni vers 100 mg 3-21 tablet by ity of tablet 08:50: mouth in [place] [address] the Medical morning. Branch sildenafiL 2023-0 Yes 100mg Take 1 Univ ers 100 mg 3-21 tablet by ity of tablet 08:50: mouth in [place] [address] the Medical morning. Branch Cholecalcif 2023-0 Yes Take by Uni vers mary, 3-21 mouth ity of Vitamin D3, 08:50: [place]. [place] 125 [place]cg 58 [facility] (5,000 Branch unit) tablet atorvastati 2023-0 Yes 40mg Take 1 Univ ers n 40 mg 3-21 tablet by ity of tablet 08:50: mouth at [place] [address] bedtime. Medical Branch OMEPRAZOLE 2023-0 Yes 40mg Take 40 mg U nivers ORAL 3-21 by mouth ity of 08:50: daily. [place] [address] Medical Branch allopurinoL 2023-0 Yes 100mg Take 1 Uni vers 100 mg 3-21 tablet by ity of tablet 08:50: mouth in [place] [address] the Medical morning. Branch sildenafiL 2023-0 Yes 100mg Take 1 Univ ers 100 mg 3-21 tablet by ity of tablet 08:50: mouth in [place] [address] the Medical morning. Branch Cholecalcif 2023-0 Yes Take by Uni vers mary, 3-21 mouth ity of Vitamin D3, 08:50: [place]. [place] 125 mcg 58 [facility] (5,000 Branch unit) tablet atorvastati 2023-0 Yes 40mg Take 1 Univ ers n 40 mg 3-21 tablet by ity of tablet 08:50: mouth at [place] [address] bedtime. Medical Branch OMEPRAZOLE 2023-0 Yes 40mg Take 40 mg U nivers ORAL 3-21 by mouth ity of 08:50: daily. [place] [address] Medical Branch allopurinoL 2023-0 Yes 100mg Take 1 Uni vers 100 mg 3-21 tablet by ity of tablet 08:50: mouth in [place] [address] the Medical morning. Branch sildenafiL 2023-0 Yes 100mg Take 1 Univ ers 100 mg 3-21 tablet by ity of tablet 08:50: mouth in [place] [address] the Medical morning. Branch Cholecalcif 2023-0 Yes Take by Uni vers mary, 3-21 mouth ity of Vitamin D3, 08:50: [place]. [place] 125 [place]cg 58 Medical (5,000 Branch unit) tablet atorvastati 2023-0 Yes 40mg Take 1 [facility] ers n 40 mg 3-21 tablet by ity of tablet 08:50: mouth at [place] [address] bedtime. Medical Branch OMEPRAZOLE 2023-0 Yes 40mg Take 40 mg U nivers ORAL 3-21 by mouth ity of 08:50: daily. [place] [address] Medical Branch allopurinoL 2023-0 Yes 100mg Take 1 Uni vers 100 mg 3-21 tablet by ity of tablet 08:50: mouth in [place] 58 the Medical morning. Branch sildenafiL 2023-0 Yes 100mg Take 1 Univ ers 100 mg 3-21 tablet by ity of tablet 08:50: mouth in [place] [address] the Medical morning. Branch Cholecalcif 2023-0 Yes Take by Uni vers mary, 3-21 mouth ity of Vitamin D3, 08:50: daily. [place] 125 [place]cg 58 Medical (5,000 Branch unit) tablet atorvastati 2023-0 Yes 40mg Take 1 Univ ers n 40 mg 3-21 tablet by ity of tablet 08:50: mouth at [place] [address] bedtime. Medical Branch atorvastati 2023-0 Yes 40mg Take 1 [facility] ers n 40 mg 3-16 tablet by ity of tablet 09:35: mouth at [place] [address] bedtime. Medical Branch OMEPRAZOLE 2023-0 Yes 40mg Take 40 mg U nivers ORAL 3-16 by mouth ity of 09:35: daily. [place] [address] Medical Branch allopurinoL 2023-0 Yes 100mg Take 1 Uni vers 100 mg 3-16 tablet by ity of tablet 09:35: mouth in [place] [address] the Medical morning. Branch amLODIPine 2023-0 Yes 10mg Take 1 Unive rs 10 mg 3-16 tablet by ity of tablet 09:35: mouth in [place] [address] the Medical morning. Branch sildenafiL 2023-0 Yes 100mg Take 1 Univ ers 100 mg 3-16 tablet by ity of tablet 09:35: mouth in [place] [address] the Medical morning. Branch Cholecalcif 2023-0 Yes Take by Uni vers mary, 3-16 mouth ity of Vitamin D3, 09:35: daily. [place] 125 [place]cg 44 [facility] (5,000 Branch unit) tablet atorvastati 2023-0 Yes 40mg Take 1 [facility] ers n 40 mg 3-16 tablet by ity of tablet 09:35: mouth at [place] [address] bedtime. Medical Branch OMEPRAZOLE 2023-0 Yes 40mg Take 40 mg U nivers ORAL 3-16 by mouth ity of 09:35: daily. [place] [address] Medical Branch allopurinoL 2023-0 Yes 100mg Take 1 Uni vers 100 mg 3-16 tablet by ity of tablet 09:35: mouth in [place] [address] the Medical morning. Branch amLODIPine 2023-0 Yes 10mg Take 1 Un[facility] rs 10 mg 3-16 tablet by ity of tablet 09:35: mouth in [place] [address] the Medical morning. Branch sildenafiL 2023-0 Yes 100mg Take 1 Univ ers 100 mg 3-16 tablet by ity of tablet 09:35: mouth in [place] [address] the Medical morning. Branch Cholecalcif 3-0 Yes Take by Uni vers mary, 3-16 mouth ity of Vitamin D3, 09:35: daily. [place] 125 [place]cg 44 [facility] (5,000 Branch unit) tablet atorvastati 2023-0 Yes 40mg Take 1 [facility] ers n 40 mg 3-16 tablet by ity of tablet 09:35: mouth at [place] [address] bedtime. Medical Branch OMEPRAZOLE 2023-0 Yes 40mg Take 40 mg U nivers ORAL 3-16 by mouth ity of 09:35: daily. [place] [address] Medical Branch allopurinoL 2023-0 Yes 100mg Take 1 Uni vers 100 mg 3-16 tablet by ity of tablet 09:35: mouth in [place] [address] the Medical morning. Branch amLODIPine 3-0 Yes 10mg Take 1 Un[facility] rs 10 mg 3-16 tablet by ity of tablet 09:35: mouth in [place] [address] the Medical morning. Branch sildenafiL 2023-0 Yes 100mg Take 1 [facility] ers 100 mg 3-16 tablet by ity of tablet 09:35: mouth in [place] [address] the Medical morning. Branch Cholecalcif 3-0 Yes Take by Uni vers mary, 3-16 mouth ity of Vitamin D3, 09:35: daily. [place] 125 [place] 44 [facility] (5,000 Branch unit) tablet amiodarone 2023-0 Yes 200mg Take 1 [facility] ers 200 mg 3-16 tablet by ity of tablet 00:00: mouth in [place] [address] the Medical morning. Branch amiodarone 2023-0 Yes 200mg Take 1 [facility] ers 200 mg 3-16 tablet by ity of tablet 00:00: mouth in [place] [address] the Medical morning. Branch amiodarone 2023-0 Yes 200mg Take 1 Univ ers 200 mg 3-16 tablet by ity of tablet 00:00: mouth in [place] [address] the Medical morning. Branch amiodarone 2023-0 Yes 200mg Take 1 [facility] ers 200 mg 3-16 tablet by ity of tablet 00:00: mouth in [place] [address] the Medical morning. Branch amiodarone 2023-0 2023- No 200mg Take 1 Uni vers 200 mg 3-16 03-30 tablet by ity of tablet 00:00: 00:00 mouth in [place] 00 :00 the Medical morning. Branch amiodarone 2023-0 2023- No 200mg Take 1 Uni vers 200 mg 3-16 03-30 tablet by ity of tablet 00:00: 00:00 mouth in [place] 00 :00 the Medical morning. Branch atorvastati 2023-0 Yes 40mg Take 1 Univ ers n 40 mg 3-14 tablet by ity of tablet 08:13: mouth at [place] [address] bedtime. Medical Branch OMEPRAZOLE 2023-0 Yes 40mg Take 40 mg U nivers ORAL 3-14 by mouth ity of 08:13: daily. [place] Medical Branch allopurinoL 2023-0 Yes 100mg Take 1 Uni vers 100 mg 3-14 tablet by ity of tablet 08:13: mouth in [place] [address] the Medical morning. Branch amLODIPine 2023-0 Yes 10mg Take 1 Unive rs 10 mg 3-14 tablet by ity of tablet 08:13: mouth in [place] [address] the Medical morning. Branch Cholecalcif 3-0 Yes Take by Uni vers mary, 3-14 mouth ity of Vitamin D3, 08:13: [place]. [place] 125 [place]cg 02 [facility] (5,000 Branch unit) tablet atorvastati 3-0 Yes 40mg Take 1 [facility] ers n 40 mg 3-14 tablet by ity of tablet 08:13: mouth at [place] [address] bedtime. Medical Branch OMEPRAZOLE 2023-0 Yes 40mg Take 40 mg U nivers ORAL 3-14 by mouth ity of 08:13: daily. [place] [address] Medical Branch allopurinoL 2023-0 Yes 100mg Take 1 Uni vers 100 mg 3-14 tablet by ity of tablet 08:13: mouth in [place] the Medical morning. Branch amLODIPine 2023-0 Yes 10mg Take 1 Unive rs 10 mg 3-14 tablet by ity of tablet 08:13: mouth in [place] [address] the Medical morning. Branch Cholecalcif 2023-0 Yes Take by Uni vers mary, 3-14 mouth ity of Vitamin D3, 08:13: daily. [place] 125 [place]cg 02 [facility] (5,000 Branch unit) tablet iopamidol 2023-0 2023- No ONCE INTRA U nivers (ISOVUE 2-02 12-16 PROCEDURE, ity o f 300-500 mL) 15:07: 15:17 [place] injection 07 :04 on [facility] 12/16/22 at Branch 0907, Until [facility] 12/16/22 at 0917, Routine, CV Intraproce dure atorvastati 2022-0 Yes 40mg Take 40 mg [facility] n 40 mg 2-02 by mouth ity of tablet 12:40: at [place] [address] bedtime. Medical Branch OMEPRAZOLE 2022-0 Yes 40mg Take 40 mg U nivers ORAL 2-02 by mouth ity of 12:40: daily. [place] [address] Medical Branch allopurinoL 2022-0 Yes 100mg Take 100 U nivers 100 mg 2-02 mg by ity of tablet 12:40: mouth [place] daily. Medical Branch amLODIPine 2022-0 Yes 10mg Take 10 mg U nivers 10 mg 2-02 by mouth ity of tablet 12:40: daily. [place] [address] Medical Branch sildenafiL 2022-0 Yes 100mg Take 100 [facility] [place] 100 mg 2-02 mg by ity of tablet 12:40: mouth [place] [address] daily. Medical Branch Cholecalcif 2022-0 Yes Take by Uni vers mary, 2-02 mouth ity of Vitamin D3, 12:40: daily. [place] 125 mcg 34 Medical (5,000 Branch unit) tablet atorvastati 2022-0 Yes 40mg Take 40 mg [facility] n 40 mg 2-02 by mouth ity of tablet 12:40: at [place] [address] bedtime. Medical Branch OMEPRAZOLE 2022-0 Yes 40mg Take 40 mg U nivers ORAL 2-02 by mouth ity of 12:40: daily. [place] [address] Medical Branch allopurinoL 2022-0 Yes 100mg Take 100 U nivers 100 mg 2-02 mg by ity of tablet 12:40: mouth [place] daily. Medical Branch amLODIPine 2022-0 Yes 10mg Take 10 mg U nivers 10 mg 2-02 by mouth ity of tablet 12:40: daily. [place] [address] Medical Branch sildenafiL 2022-0 Yes 100mg Take 100 [facility] [place] 100 mg 2-02 mg by ity of tablet 12:40: mouth [place] 34 daily. Medical Branch Cholecalcif 2022-0 Yes Take by Uni vers mary, 2-02 mouth ity of Vitamin D3, 12:40: daily. [place] 125 mcg 34 Medical (5,000 Branch unit) tablet atorvastati 2022-0 Yes 40mg Take 40 mg [facility] n 40 mg 2-02 by mouth ity of tablet 12:40: at [place] [address] bedtime. Medical Branch OMEPRAZOLE 2022-0 Yes 40mg Take 40 mg U nivers ORAL 2-02 by mouth ity of 12:40: daily. [place] [address] Medical Branch allopurinoL 2022-0 Yes 100mg Take 100 U nivers 100 mg 2-02 mg by ity of tablet 12:40: mouth [place] 34 daily. Medical Branch amLODIPine 2022-0 Yes 10mg Take 10 mg U nivers 10 mg 2-02 by mouth ity of tablet 12:40: daily. [place] [address] Medical Branch sildenafiL 2022-0 Yes 100mg Take 100 [facility] [place] 100 mg 2-02 mg by ity of tablet 12:40: mouth [place] 34 daily. Medical Branch Cholecalcif 2022-0 Yes Take by Uni vers mary, 2-02 mouth ity of Vitamin D3, 12:40: daily. [place] 125 mcg 34 Medical (5,000 Branch unit) tablet atorvastati 2022-0 Yes 40mg Take 40 mg [facility] n 40 mg 2-02 by mouth ity of tablet 12:40: at [place] [address] bedtime. Medical Branch OMEPRAZOLE 2022-0 Yes 40mg Take 40 mg U nivers ORAL 2-02 by mouth ity of 12:40: daily. [place] [address] Medical Branch allopurinoL 2022-0 Yes 100mg Take 100 U nivers 100 mg 2-02 mg by ity of tablet 12:40: mouth [place] daily. Medical Branch amLODIPine 2022-0 Yes 10mg Take 10 mg U nivers 10 mg 2-02 by mouth ity of tablet 12:40: daily. [place] [address] Medical Branch sildenafiL 2022-0 Yes 100mg Take 100 [facility] [place] 100 mg 2-02 mg by ity of tablet 12:40: mouth [place] 34 daily. Medical Branch Cholecalcif 2022-0 Yes Take by Uni vers mary, 2-02 mouth ity of Vitamin D3, 12:40: daily. [place] 125 [place]cg 34 Medical (5,000 Branch unit) tablet sildenafiL 2022-0 Yes 100mg Take 100 [facility] [place] 100 mg 2-02 mg by ity of tablet 12:40: mouth [place] 34 daily. Medical Branch sildenafiL 2022-0 Yes 100mg Take 100 [facility] [place] 100 mg 2-02 mg by ity of tablet 12:40: mouth [place] 34 daily. Medical Branch atorvastati 2022-0 Yes 40mg Take 40 mg [facility] n 40 mg 1-31 by mouth ity of tablet 08:45: at [place] 14 bedtime. Medical Branch OMEPRAZOLE 2022-0 Yes 40mg Take 40 mg U nivers ORAL 1-31 by mouth ity of 08:45: daily. [place] [address] Medical Branch allopurinoL 2022-0 Yes 100mg Take 100 U nivers 100 mg 1-31 mg by ity of tablet 08:45: mouth [place] 14 daily. Medical Branch amLODIPine 2022-0 Yes 10mg Take 10 mg U nivers 10 mg 1-31 by mouth ity of tablet 08:45: daily. [place] [address] Medical Branch sildenafiL 2022-0 Yes 100mg Take 100 [facility] [place] 100 mg 1-31 mg by ity of tablet 08:45: mouth [place] 14 daily. Medical Branch Cholecalcif 2022-0 Yes Take by Uni vers mary, - mouth ity of Vitamin D3, 08:45: daily. [place] 125 [place]cg 14 Medical (5,000 Branch unit) tablet atorvastati 2022-0 Yes 40mg Take 40 mg [facility] n 40 mg -31 by mouth ity of tablet 08:45: at [place] 14 bedtime. Medical Branch OMEPRAZOLE 2022-0 Yes 40mg Take 40 mg U nivers ORAL 1-31 by mouth ity of 08:45: daily. [place] [address] Medical Branch allopurinoL 2022-0 Yes 100mg Take 100 U nivers 100 mg 1-31 mg by ity of tablet 08:45: mouth [place] 14 daily. Medical Branch amLODIPine 2022-0 Yes 10mg Take 10 mg U nivers 10 mg 1-31 by mouth ity of tablet 08:45: daily. [place] [address] Medical Branch sildenafiL 2022-0 Yes 100mg Take 100 [facility] [place] 100 mg 1-31 mg by ity of tablet 08:45: mouth [place] 14 daily. Medical Branch Cholecalcif 2022-0 Yes Take by Uni vers mary, 1-31 mouth ity of Vitamin D3, 08:45: daily. [place] 125 [place]cg 14 Medical (5,000 Branch unit) tablet apixaban 5 2022-0 Yes 1358 5mg Take 1 Unive rs mg tablet 1-31 tablet by ity o f 00:00: mouth in [place] 00 the Medical morning Branch and 1 tablet in the evening. Indication s: atrial fibrillati on apixaban 2022-0 Yes 1358 5mg Take 1 Unive rs mg tablet 1-31 tablet by ity o f 00:00: mouth in [place] 00 the Medical morning Branch and 1 tablet in the evening. Indication s: atrial fibrillati on apixaban 2022-0 Yes 1358 5mg Take 1 Unive rs mg tablet 1-31 tablet by ity o f 00:00: mouth in [place] 00 the Medical morning Branch and 1 tablet in the evening. Indication s: atrial fibrillati on apixaban 2022-0 Yes 1358 5mg Take 1 Unive rs mg tablet 1-31 tablet by ity o f 00:00: mouth in [place] 00 the Medical morning Branch and 1 tablet in the evening. Indication s: atrial fibrillati on apixaban 2022-0 Yes 1358 5mg Take 1 Unive rs mg tablet 1-31 tablet by ity o f 00:00: mouth in [place] 00 the Medical morning Branch and 1 tablet in the evening. Indication s: atrial fibrillati on apixaban 2022-0 Yes 1358 5mg Take 1 Unive rs mg tablet 1-31 tablet by ity o f 00:00: mouth in [place] 00 the Medical morning Branch and 1 tablet in the evening. Indication s: atrial fibrillati on apixaban 2022-0 Yes 1358 5mg Take 1 Unive rs mg tablet 1-31 tablet by ity o f 00:00: mouth in [place] 00 the Medical morning Branch and 1 tablet in the evening. Indication s: atrial fibrillati on apixaban 2022-0 Yes 1358 5mg Take 1 Unive rs mg tablet 1-31 tablet by ity o f 00:00: mouth in [place] 00 the Medical morning Branch and 1 tablet in the evening. Indication s: atrial fibrillati on apixaban 2022-0 Yes 1358 5mg Take 1 Unive rs mg tablet 1-31 tablet by ity o f 00:00: mouth in [place] 00 the Medical morning Branch and 1 tablet in the evening. Indication s: atrial fibrillati on apixaban 2022-0 Yes 1358 5mg Take 1 Unive rs mg tablet 1-31 tablet by ity o f 00:00: mouth in [place] 00 the Medical morning Branch and 1 tablet in the evening. Indication s: atrial fibrillati on apixaban 2022-0 Yes 1358 5mg Take 1 Unive rs mg tablet 1-31 tablet by ity o f 00:00: mouth in [place] 00 the Medical morning Branch and 1 tablet in the evening. Indication s: atrial fibrillati on apixaban 2022-0 Yes 1358 5mg Take 1 Unive rs mg tablet 1-31 tablet by ity o f 00:00: mouth in [place] 00 the Medical morning Branch and 1 tablet in the evening. Indication s: atrial fibrillati on apixaban 2022-0 Yes 1358 5mg Take 1 Unive rs mg tablet 1-31 tablet by ity o f 00:00: mouth in [place] 00 the Medical morning Branch and 1 tablet in the evening. Indication s: atrial fibrillati on apixaban 2022-0 Yes 1358 5mg Take 1 Unive rs mg tablet 1-31 tablet by ity o f 00:00: mouth in [place] 00 the Medical morning Branch and 1 tablet in the evening. Indication s: atrial fibrillati on apixaban 2022-0 Yes 1358 5mg Take 1 Unive rs mg tablet 1-31 tablet by ity o f 00:00: mouth in [place] 00 the Medical morning Branch and 1 tablet in the evening. Indication s: atrial fibrillati on apixaban 2022-0 Yes 1358 5mg Take 1 Unive rs mg tablet 1-31 tablet by ity o f 00:00: mouth in [place] 00 the Medical morning Branch and 1 tablet in the evening. Indication s: atrial fibrillati on apixaban 2022-0 Yes 1358 5mg Take 1 Unive rs mg tablet 1-31 tablet by ity o f 00:00: mouth in [place] 00 the Medical morning Branch and 1 tablet in the evening. Indication s: atrial fibrillati on apixaban 5 2022-0 Yes 1358 5mg Take 1 Unive rs mg tablet 1-31 tablet by ity o f 00:00: mouth in [place] 00 the Medical morning Branch and 1 tablet in the evening. Indication s: atrial fibrillati on apixaban 2022-0 Yes 1358 5mg Take 1 Unive rs mg tablet 1-31 tablet by ity o f 00:00: mouth in [place] 00 the Medical morning Branch and 1 tablet in the evening. Indication s: atrial fibrillati on apixaban 2022-0 Yes 1358 5mg Take 1 Unive rs mg tablet 1-31 tablet by ity o f 00:00: mouth in [place] 00 the Medical morning Branch and 1 tablet in the evening. Indication s: atrial fibrillati on apixaban 2022-0 Yes 1358 5mg Take 1 Unive rs mg tablet 1-31 tablet by ity o f 00:00: mouth in [place] 00 the Medical morning Branch and 1 tablet in the evening. Indication s: atrial fibrillati on apixaban 2022-0 Yes 1358 5mg Take 1 Unive rs mg tablet 1-31 tablet by ity o f 00:00: mouth in [place] 00 the Medical morning Branch and 1 tablet in the evening. Indication s: atrial fibrillati on apixaban 2022-0 Yes 1358 5mg Take 1 Unive rs mg tablet 1-31 tablet by ity o f 00:00: mouth in [place] 00 the Medical morning Branch and 1 tablet in the evening. Indication s: atrial fibrillati on apixaban 2022-0 Yes 1358 5mg Take 1 Unive rs mg tablet 1-31 tablet by ity o f 00:00: mouth in [place] 00 the Medical morning Branch and 1 tablet in the evening. Indication s: atrial fibrillati on apixaban 2022-0 Yes 1358 5mg Take 1 Unive rs mg tablet 1-31 tablet by ity o f 00:00: mouth in [place] 00 the Medical morning Branch and 1 tablet in the evening. Indication s: atrial fibrillati on apixaban 2022-0 Yes 1358 5mg Take 1 Unive rs mg tablet 1-31 tablet by ity o f 00:00: mouth in [place] 00 the Medical morning Branch and 1 tablet in the evening. Indication s: atrial fibrillati on apixaban 2022-0 Yes 1358 5mg Take 1 Unive rs mg tablet 1-31 tablet by ity o f 00:00: mouth in [place] 00 the Medical morning Branch and 1 tablet in the evening. Indication s: atrial fibrillati on atorvastati Yes 40mg Take 40 mg Univers n 40 mg 1-24 by mouth ity of tablet 12:15: at [place] [address] bedtime. Medical Branch OMEPRAZOLE 2022-0 Yes 40mg Take 40 mg U nivers ORAL 1-24 by mouth ity of 12:15: daily. [place] [address] Medical Branch allopurinoL 2022-0 Yes 100mg Take 100 U nivers 100 mg 1-24 mg by ity of tablet 12:15: mouth [place] [address] daily. Medical Branch Cholecalcif 2022-0 Yes Take by Uni vers mary, 1-24 mouth ity of Vitamin D3, 12:15: daily. [place] 125 [place] 51 Medical (5,000 Branch unit) tablet atorvastati 0 Yes 40mg Take 40 mg Univers n 40 mg 1-24 by mouth ity of tablet 12:15: at [place] [address] bedtime. Medical Branch OMEPRAZOLE 2022-0 Yes 40mg Take 40 mg U nivers ORAL 1-24 by mouth ity of 12:15: daily. [place] [address] Medical Branch allopurinoL 2022-0 Yes 100mg Take 100 U nivers 100 mg 1-24 mg by ity of tablet 12:15: mouth [place] [address] daily. Medical Branch Cholecalcif 2022-0 Yes Take by Uni vers mary, 1-24 mouth ity of Vitamin D3, 12:15: daily. [place] 125 [place] 51 Medical (5,000 Branch unit) tablet apixaban 2021-11 Yes 5mg 5 mg, Univers (ELIQUIS) 2-25 Oral, BID, ity of tablet 5 mg 02:00: First dose [place] 00 on [facility] 11/06/22 Branch at 1999, Until Discontinu ed, Routine
Indicatio ns: Non-Valvul ar Atrial Fibrillati on apixaban 2021-11 Yes 5mg 5 mg, Univers (ELIQUIS) 2-25 Oral, BID, ity of tablet 5 mg 02:00: First dose [place] 00 on [facility] 11/06/22 Branch at 2000, Until Discontinu ed, Routine
Indicatio ns: Non-Valvul ar Atrial Fibrillati on apixaban 2021-11 No 5mg 5 mg, Univers (ELIQUIS) 2-25 12-24 Oral, BID, ity of tablet 5 mg 02:00: 01:17 First dose [place] 00 :32 on [facility] 11/06/22 Branch at 1999, Until Discontinu ed, Routine
Indicatio ns: Non-Valvul ar Atrial Fibrillati on metoprolol 2021-11 Yes 75mg 75 mg, Unive rs succinate 2-24 Oral, ity of XL (TOPROL 15:00: DAILY, [place] XL) tablet 00 First dose Med ical 75 mg (after Branch last modificati on) on 11/06/22 at 0900, Until Discontinu ed, Routine metoprolol 2021-11 Yes 75mg 75 mg, Unive rs succinate 2-24 Oral, ity of XL (TOPROL 15:00: DAILY, [place] XL) tablet 00 First dose Med ical 75 mg (after Branch last modificati on) on 11/06/22 at 0900, Until Discontinu ed, Routine metoprolol 2021-11 75mg 75 mg, Univ ers succinate 2-24 12-24 Oral, ity of XL (TOPROL 15:00: 01:17 DAILY, [facility] XL) tablet 00 :32 First dose Med ical 75 mg (after Branch last modificati on) on 11/06/22 at 0900, Until Discontinu ed, Routine apixaban 2021-11 Yes 1358 5mg Take 1 Unive rs mg tablet 2-24 tablet by ity o f 00:00: mouth in [place] the Medical morning Branch and 1 tablet in the evening. Indication s: atrial fibrillati on metoprolol 2021-11 Yes [id number] 75mg Take 3 U nivers succinate 2-24 tablets by ity of XL 25 mg 24 00:00: mouth in [place] hr tablet the Medical morning. Branch amiodarone 2021-11 Yes 200mg Take 1 Univ ers 200 mg 2-24 tablet by ity of tablet 00:00: mouth in [place] 00 the Medical morning. Branch Indication s: vt apixaban 5 2021-11 Yes 1358 5mg Take 1 Unive rs mg tablet 2-24 tablet by ity o f 00:00: mouth in [place] the Medical morning Branch and 1 tablet in the evening. Indication s: atrial fibrillati on metoprolol 2021-11 Yes [id number] 75mg Take 3 U nivers succinate 2-24 tablets by ity of XL 25 mg 24 00:00: mouth in [place] hr tablet 00 the Medical morning. Branch amiodarone 2021-11 Yes 200mg Take 1 Univ ers 200 mg 2-24 tablet by ity of tablet 00:00: mouth in [place] the Medical morning. Branch Indication s: vt apixaban 2021-11 Yes 1358 5mg Take 1 Unive rs mg tablet 2-24 tablet by ity o f 00:00: mouth in [place] the Medical morning Branch and 1 tablet in the evening. Indication s: atrial fibrillati on metoprolol 2021-11 Yes [id number] 75mg Take 3 U nivers succinate 2-24 tablets by ity of XL 25 mg 24 00:00: mouth in [place] hr tablet 00 the Medical morning. Branch amiodarone 2021-11 Yes 200mg Take 1 Univ ers 200 mg 2-24 tablet by ity of tablet 00:00: mouth in [place] the Medical morning. Branch Indication s: vt apixaban 2021-11 Yes 1358 5mg Take 1 Unive rs mg tablet 2-24 tablet by ity o f 00:00: mouth in [place] the morning Branch and 1 tablet in the evening. Indication s: atrial fibrillati on metoprolol 2021-11 Yes [id number] 75mg Take 3 U nivers succinate 2-24 tablets by ity of XL 25 mg 24 00:00: mouth in [place] hr tablet the Medical morning. Branch amiodarone 2021-11 Yes 200mg Take 1 Univ ers 200 mg 2-24 tablet by ity of tablet 00:00: mouth in [place] the Medical morning. Branch Indication s: vt apixaban 2021-11 Yes 1358 5mg Take 1 Unive rs mg tablet 2-24 tablet by ity o f 00:00: mouth in [place] the Medical morning Branch and 1 tablet in the evening. Indication s: atrial fibrillati on metoprolol 2021-11 Yes [id number] 75mg Take 3 U nivers succinate 2-24 tablets by ity of XL 25 mg 24 00:00: mouth in [place] hr tablet 00 the Medical morning. Branch amiodarone 2021-11 Yes 200mg Take 1 Univ ers 200 mg 2-24 tablet by ity of tablet 00:00: mouth in [place] 00 the Medical morning. Branch Indication s: vt apixaban 2021-11 Yes 1358 5mg Take 1 Unive rs mg tablet 2-24 tablet by ity o f 00:00: mouth in [place] the Medical morning Branch and 1 tablet in the evening. Indication s: atrial fibrillati on metoprolol 2021-11 Yes [id number] 75mg Take 3 U nivers succinate 2-24 tablets by ity of XL 25 mg 24 00:00: mouth in [place] hr tablet 00 the Medical morning. Branch amiodarone 2021-11 Yes 200mg Take 1 Univ ers 200 mg 2-24 tablet by ity of tablet 00:00: mouth in [place] the Medical morning. Branch Indication s: vt apixaban 5 2021-11 Yes 1358 5mg Take 1 Unive rs mg tablet 2-24 tablet by ity o f 00:00: mouth in [place] the morning Branch and 1 tablet in the evening. Indication s: atrial fibrillati on metoprolol 2021-11 Yes [id number] 75mg Take 3 U nivers succinate 2-24 tablets by ity of XL 25 mg 24 00:00: mouth in [place] hr tablet 00 the morning. Branch amiodarone 2021-11 Yes 200mg Take 1 [facility] 200 mg 2-24 tablet by ity of tablet 00:00: mouth in [place] the morning. Branch Indication s: vt apixaban 5 2021-11 Yes 1358 5mg Take 1 [facility] mg tablet 2-24 tablet by ity o f 00:00: mouth in [place] the morning Branch and 1 tablet in the evening. Indication s: atrial fibrillati on metoprolol 2021-11 Yes [id number] 75mg Take 3 [facility] succinate 2-24 tablets by ity of XL 25 mg 24 00:00: mouth in [place] hr tablet 00 the Medical morning. Branch amiodarone 2021-11 Yes 200mg Take 1 [facility] 200 mg 2-24 tablet by ity of tablet 00:00: mouth in [place] the Medical morning. Branch Indication s: vt apixaban 5 2021-11 Yes 1358 5mg Take 1 [facility] mg tablet 2-24 tablet by ity o f 00:00: mouth in [place] the Medical morning Branch and 1 tablet in the evening. Indication s: atrial fibrillati on metoprolol 2021-11 Yes [id number] 75mg Take 3 [facility] succinate 2-24 tablets by ity of XL 25 mg 24 00:00: mouth in [place] hr tablet 00 the Medical morning. Branch amiodarone 2021-11 Yes 200mg Take 1 [facility] 200 mg 2-24 tablet by ity of tablet 00:00: mouth in [place] the Medical morning. Branch Indication s: vt apixaban 2021-11 Yes 1358 5mg Take 1 [facility] mg tablet 2-24 tablet by ity o f 00:00: mouth in [place] the morning Branch and 1 tablet in the evening. Indication s: atrial fibrillati on metoprolol 2021-11 Yes [id number] 75mg Take 3 [facility] succinate 2-24 tablets by ity of XL 25 mg 24 00:00: mouth in [place] hr tablet the Medical morning. Branch amiodarone 2021-11 Yes 200mg Take 1 [facility] 200 mg 2-24 tablet by ity of tablet 00:00: mouth in [place] the Medical morning. Branch Indication s: vt apixaban 2021-11 Yes 1358 5mg Take 1 [facility] mg tablet 2-24 tablet by ity o f 00:00: mouth in [place] the morning Branch and 1 tablet in the evening. Indication s: atrial fibrillati on metoprolol 2021-11 Yes [id number] 75mg Take 3 [facility] succinate 2-24 tablets by ity of XL 25 mg 24 00:00: mouth in [place] hr tablet the morning. Branch amiodarone 2021-11 Yes 200mg Take 1 [facility] 200 mg 2-24 tablet by ity of tablet 00:00: mouth in [place] the morning. Branch Indication s: vt apixaban 2021-11 Yes 1358 5mg Take 1 [facility] mg tablet 2-24 tablet by ity o f 00:00: mouth in [place] the Medical morning Branch and 1 tablet in the evening. Indication s: atrial fibrillati on metoprolol 2021-11 Yes [id number] 75mg Take 3 [facility] succinate 2-24 tablets by ity of XL 25 mg 24 00:00: mouth in [place] hr tablet 00 the Medical morning. Branch amiodarone 2021-11 Yes 200mg Take 1 [facility] 200 mg 2-24 tablet by ity of tablet 00:00: mouth in [place] 00 the Medical morning. Branch Indication s: vt apixaban 5 2021-11 Yes 1358 5mg Take 1 [facility] mg tablet 2-24 tablet by ity o f 00:00: mouth in [place] 00 the morning Branch and 1 tablet in the evening. Indication s: atrial fibrillati on metoprolol 2021-11 Yes [id number] 75mg Take 3 [facility] succinate 2-24 tablets by ity of XL 25 mg 24 00:00: mouth in [place] hr tablet 00 the morning. Branch amiodarone 2021-11 Yes 200mg Take 1 [facility] 200 mg 2-24 tablet by ity of tablet 00:00: mouth in [place] 00 the Medical morning. Branch Indication s: vt apixaban 5 2021-11 Yes 1358 5mg Take 1 [facility] mg tablet 2-24 tablet by ity o f 00:00: mouth in [place] the morning Branch and 1 tablet in the evening. Indication s: atrial fibrillati on metoprolol 2021-11 Yes [id number] 75mg Take 3 [facility] succinate 2-24 tablets by ity of XL 25 mg 24 00:00: mouth in [place] hr tablet 00 the Medical morning. Branch amiodarone 2021-11 Yes 200mg Take 1 [facility] 200 mg 2-24 tablet by ity of tablet 00:00: mouth in [place] the Medical morning. Branch Indication s: vt apixaban 2021-11 Yes 1358 5mg Take 1 [facility] mg tablet 2-24 tablet by ity o f 00:00: mouth in [place] the morning Branch and 1 tablet in the evening. Indication s: atrial fibrillati on metoprolol 2021-11 Yes [id number] 75mg Take 3 [facility] succinate 2-24 tablets by ity of XL 25 mg 24 00:00: mouth in [place] hr tablet 00 the Medical morning. Branch amiodarone 2021-11 Yes 200mg Take 1 [facility] 200 mg 2-24 tablet by ity of tablet 00:00: mouth in [place] 00 the Medical morning. Branch Indication s: vt metoprolol 2021-11 Yes [id number] 75mg Take 3 [facility] succinate 2-24 tablets by ity of XL 25 mg 24 00:00: mouth in [place] hr tablet 00 the Medical morning. Branch amiodarone 2021-11 Yes 200mg Take 1 [facility] 200 mg 2-24 tablet by ity of tablet 00:00: mouth in [place] 00 the Medical morning. Branch Indication s: vt metoprolol 2021-11 Yes [id number] 75mg Take 3 [facility] succinate 2-24 tablets by ity of XL 25 mg 24 00:00: mouth in [place] hr tablet 00 the Medical morning. Branch amiodarone 2021-11 Yes 200mg Take 1 [facility] 200 mg 2-24 tablet by ity of tablet 00:00: mouth in [place] 00 the Medical morning. Branch Indication s: vt metoprolol 2021-11 Yes [id number] 75mg Take 3 [facility] succinate 2-24 tablets by ity of XL 25 mg 24 00:00: mouth in [place] hr tablet 00 the Medical morning. Branch metoprolol 2021-11 Yes [id number] 75mg Take 3 [facility] succinate 2-24 tablets by ity of XL 25 mg 24 00:00: mouth in [place] hr tablet 00 the Medical morning. Branch metoprolol 2021-11 Yes [id number] 75mg Take 3 [facility] succinate 2-24 tablets by ity of XL 25 mg 24 00:00: mouth in [place] hr tablet 00 the Medical morning. Branch metoprolol 2021-11 Yes [id number] 75mg Take 3 [facility] succinate 2-24 tablets by ity of XL 25 mg 24 00:00: mouth in [place] hr tablet 00 the Medical morning. Branch metoprolol 2021-11 Yes [id number] 75mg Take 3 [facility] succinate 2-24 tablets by ity of XL 25 mg 24 00:00: mouth in [place] hr tablet 00 the Medical morning. Branch metoprolol 2021-11 Yes [id number] 75mg Take 3 [facility] succinate 2-24 tablets by ity of XL 25 mg 24 00:00: mouth in [place] hr tablet 00 the Medical morning. Branch metoprolol 2021-11 Yes [id number] 75mg Take 3 [facility] succinate 2-24 tablets by ity of XL 25 mg 24 00:00: mouth in [place] hr tablet 00 the Medical morning. Branch metoprolol 2021-11 Yes [id number] 75mg Take 3 [facility] succinate 2-24 tablets by ity of XL 25 mg 24 00:00: mouth in [place] hr tablet 00 the Medical morning. Branch metoprolol 2021-11 Yes [id number] 75mg Take 3 [facility] succinate 2-24 tablets by ity of XL 25 mg 24 00:00: mouth in [place] hr tablet 00 the Medical morning. Branch metoprolol 2021-11 Yes [id number] 75mg Take 3 [facility] succinate 2-24 tablets by ity of XL 25 mg 24 00:00: mouth in [place] hr tablet 00 the Medical morning. Branch metoprolol 2021-11 Yes [id number] 75mg Take 3 [facility] succinate 2-24 tablets by ity of XL 25 mg 24 00:00: mouth in [place] hr tablet 00 the Medical morning. Branch metoprolol 2021-11 Yes [id number] 75mg Take 3 [facility] succinate 2-24 tablets by ity of XL 25 mg 24 00:00: mouth in [place] hr tablet 00 the Medical morning. Branch metoprolol 2021-11 Yes [id number] 75mg Take 3 [facility] succinate 2-24 tablets by ity of XL 25 mg 24 00:00: mouth in [place] hr tablet 00 the Medical morning. Branch metoprolol 2021-11 Yes [id number] 75mg Take 3 [facility] succinate 2-24 tablets by ity of XL 25 mg 24 00:00: mouth in [place] hr tablet 00 the Medical morning. Branch metoprolol 2021-11 Yes [id number] 75mg Take 3 [facility] succinate 2-24 tablets by ity of XL 25 mg 24 00:00: mouth in [place] hr tablet 00 the Medical morning. Branch metoprolol 2021-11 Yes [id number] 75mg Take 3 [facility] succinate 2-24 tablets by ity of XL 25 mg 24 00:00: mouth in [place] hr tablet 00 the Medical morning. Branch metoprolol 2021-11 Yes [id number] 75mg Take 3 [facility] succinate 2-24 tablets by ity of XL 25 mg 24 00:00: mouth in [place] hr tablet 00 the Medical morning. Branch metoprolol 2021-11 Yes [id number] 75mg Take 3 [facility] succinate 2-24 tablets by ity of XL 25 mg 24 00:00: mouth in [place] hr tablet 00 the Medical morning. Branch metoprolol 2021-11- No [id number] 75mg Take 3 [facility] succinate -06 04-30 tablets by ity of XL 25 mg 24 00:00: 00:00 mouth in [place] hr tablet 00 :00 the Medical morning. Branch metoprolol 2021-11- No [id number] 75mg Take 3 [facility] succinate 2-24 05-30 tablets by ity of XL 25 mg 24 00:00: 00:00 mouth in [place] hr tablet 00 :00 the Medical morning. Branch amiodarone 2021-11- No 200mg Take 1 [facility] vers 200 mg 01-07 tablet by ity of tablet 00:00: 00:00 mouth in [place] 00 :00 the Medical morning. Branch Indication s: vt amiodarone 2021-11- No 200mg Take 1 [facility] vers 200 mg 01-07 tablet by ity of tablet 00:00: 00:00 mouth in [place] 00 :00 the Medical morning. Branch Indication s: vt amiodarone 2021-11- No 200mg Take 1 [facility] vers 200 mg 01-07 tablet by ity of tablet 00:00: 00:00 mouth in [place] 00 :00 the Medical morning. Branch Indication s: vt apixaban 5 2021-11- No 1358 5mg Take 1 [facility] mg tablet 01-07 tablet by ity of 00:00: 00:00 mouth in [place] 00 :00 the Medical morning Branch and 1 tablet in the evening. Indication s: atrial fibrillati on apixaban 5 2021-11- No 1358 5mg Take 1 [facility] mg tablet 01-07 tablet by ity of 00:00: 00:00 mouth in [place] 00 :00 the Medical morning Branch and 1 tablet in the evening. Indication s: atrial fibrillati on apixaban 5 2021-11- No 1358 5mg Take 1 [facility] mg tablet 01-07 tablet by ity of 00:00: 00:00 mouth in [place] 00 :00 the Medical morning Branch and 1 tablet in the evening. Indication s: atrial fibrillati on atorvastati 2021-11 Yes 40mg Take 40 mg [facility] n 40 mg 2- by mouth ity of tablet 17:17: at [place] 32 bedtime. Medical Branch OMEPRAZOLE 2021-11 Yes 40mg Take 40 mg [facility] nivers ORAL 2-23 by mouth ity of 17:17: daily. [place] [address] Medical Branch allopurinoL 2021-11 Yes 100mg Take 100 [facility] n[facility] 100 mg 2-23 mg by ity of tablet 17:17: mouth [place] 32 daily. Medical Branch amLODIPine 2021-11 Yes 10mg Take 10 mg [facility]ivers 10 mg 2-23 by mouth ity of tablet 17:17: daily. [place] [address] Medical Branch sildenafiL 2021-11 Yes 100mg Take 100 [facility] 100 mg 2-23 mg by ity of tablet 17:17: mouth [place] daily. Medical Branch Cholecalcif 2021-11 Yes Take by [facility], 2-23 mouth [facility] of Vitamin D3, 17:17: [place] (VITAMIN Medical D3) 125 mcg Branch (5,000 unit) tablet atorvastati 2021-11 Yes 40mg Take 40 mg [facility] n 40 mg 2-23 by mouth ity of tablet 17:17: at [place] [address] bedtime. Medical Branch OMEPRAZOLE 2021-11 Yes 40mg Take 40 mg [facility] nivers ORAL 2-23 by mouth ity of 17:17: daily. [place] [address] Medical Branch allopurinoL 2021-11 Yes 100mg Take 100 [facility] 100 mg 2-23 mg by ity of tablet 17:17: mouth [place] [address] daily. Medical Branch amLODIPine 2021-11 Yes 10mg Take 10 mg [facility] 10 mg 2-23 by mouth ity of tablet 17:17: daily. [place] [address] Medical Branch sildenafiL 2021-11 Yes 100mg Take 100 [facility] 100 mg 2-23 mg by ity of tablet 17:17: mouth [place] [address] daily. Medical Branch Cholecalcif 2021-11 Yes Take by [facility] m[facility], 2-23 mouth ity of Vitamin D3, 17:17: [place]. [place] (VITAMIN Medical D3) 125 mcg Branch (5,000 unit) tablet atorvastati 2021-11 Yes 40mg Take 40 mg [facility] n 40 mg 2-23 by mouth ity of tablet 17:17: at [place] [address] bedtime. Medical Branch OMEPRAZOLE 2021-11 Yes 40mg Take 40 mg [facility] nivers ORAL 2-23 by mouth ity of 17:17: daily. [place] [address] Medical Branch allopurinoL 2021-11 Yes 100mg Take 100 [facility] 100 mg 2-23 mg by ity of tablet 17:17: mouth [place] 32 daily. Medical Branch amLODIPine 2021-11 Yes 10mg Take 10 mg [facility] 10 mg 2-23 by mouth ity of tablet 17:17: daily. [place] [address] Medical Branch sildenafiL 2021-11 Yes 100mg Take 100 [facility] 100 mg 2-23 mg by ity of tablet 17:17: mouth [place] 32 daily. Medical Branch Cholecalcif 2021-11 Yes Take by [facility] m[facility], 2-23 mouth ity of Vitamin D3, 17:17: [place]. [place] (VITAMIN 32 Medical D3) 125 mcg Branch (5,000 unit) tablet atorvastati 2021-11 Yes 40mg Take 40 mg [facility] n 40 mg 2-23 by mouth ity of tablet 17:17: at [place] bedtime. Medical Branch OMEPRAZOLE 2021-11 Yes 40mg Take 40 mg [facility] nivers ORAL 2-23 by mouth ity of 17:17: daily. [place] [address] Medical Branch allopurinoL 2021-11 Yes 100mg Take 100 [facility] 100 mg 2-23 mg by ity of tablet 17:17: mouth [place] 32 daily. Medical Branch amLODIPine 2021-11 Yes 10mg Take 10 mg [facility]ivers 10 mg 2-23 by mouth ity of tablet 17:17: daily. [place] [address] Medical Branch sildenafiL 2021-11 Yes 100mg Take 100 [facility] 100 mg 2-23 mg by ity of tablet 17:17: mouth [place] 32 daily. Medical Branch Cholecalcif 2021-11 Yes Take by [facility] mary, 2-23 mouth ity of Vitamin D3, 17:17: [place]. [place] (VITAMIN 32 Medical D3) 125 mcg Branch (5,000 unit) tablet atorvastati 2021-11 Yes 40mg Take 40 mg [facility] n 40 mg 2-23 by mouth ity of tablet 17:17: at [place] [address] bedtime. Medical Branch OMEPRAZOLE 2021-11 Yes 40mg Take 40 mg [facility] nivers ORAL 2-23 by mouth ity of 17:17: daily. [place] [address] Medical Branch allopurinoL 2021-11 Yes 100mg Take 100 [facility] 100 mg 2-23 mg by ity of tablet 17:17: mouth [place] 32 daily. Medical Branch amLODIPine 2022-1 Yes 10mg Take 10 mg [facility]ivers 10 mg 2-23 by mouth ity of tablet 17:17: daily. [place] [address] Medical Branch sildenafiL 2021-11 Yes 100mg Take 100 [facility] [place] 100 mg 2-23 mg by ity of tablet 17:17: mouth [place] 32 daily. Medical Branch Cholecalcif 2021-11 Yes Take by [facility] mary, 2-23 mouth ity of Vitamin D3, 17:17: [place]. [place] (VITAMIN 32 Medical D3) 125 mcg Branch (5,000 unit) tablet atorvastati 2021-11 Yes 40mg Take 40 mg [facility] n 40 mg 2-23 by mouth ity of tablet 17:17: at [place] [address] bedtime. Medical Branch OMEPRAZOLE 2021-11 Yes 40mg Take 40 mg [facility] nivers ORAL 2-23 by mouth ity of 17:17: daily. [place] [address] Medical Branch allopurinoL 2021-11 Yes 100mg Take 100 [facility] nivers 100 mg 2-23 mg by ity of tablet 17:17: mouth [place] [address] daily. Medical Branch amLODIPine 2021-11 Yes 10mg Take 10 mg [facility] nivers 10 mg 2-23 by mouth ity of tablet 17:17: daily. [place] [address] Medical Branch sildenafiL 2021-11 Yes 100mg Take 100 [facility] 100 mg 2-23 mg by ity of tablet 17:17: mouth [place] daily. Medical Branch Cholecalcif 2021-11 Yes Take by [facility] mary, 2-23 mouth ity of Vitamin D3, 17:17: [place]. [place] (VITAMIN 32 Medical D3) 125 mcg Branch (5,000 unit) tablet atorvastati 2021-11 Yes 40mg Take 40 mg [facility] n 40 mg 2-23 by mouth ity of tablet 17:17: at [place] [address] bedtime. Medical Branch OMEPRAZOLE 2021-11 Yes 40mg Take 40 mg U nivers ORAL 2-23 by mouth ity of 17:17: daily. [place] [address] Medical Branch allopurinoL 2021-11 Yes 100mg Take 100 U nivers 100 mg 2-23 mg by ity of tablet 17:17: mouth [place] 32 daily. Medical Branch amLODIPine 2021-11 Yes 10mg Take 10 mg U nivers 10 mg 2-23 by mouth ity of tablet 17:17: daily. [place] [address] Medical Branch sildenafiL 2021-11 Yes 100mg Take 100 [facility] [place] 100 mg 2-23 mg by ity of tablet 17:17: mouth [place] 32 daily. Medical Branch Cholecalcif 2021-11 Yes Take by [facility] vers mary, 2-23 mouth ity of Vitamin D3, 17:17: daily. [place] (VITAMIN 32 Medical D3) 125 mcg Branch (5,000 unit) tablet atorvastati 2021-11 Yes 40mg Take 40 mg [facility] n 40 mg 2-23 by mouth ity of tablet 17:17: at [place] [address] bedtime. Medical Branch OMEPRAZOLE 2021-11 Yes 40mg Take 40 mg U nivers ORAL 2-23 by mouth ity of 17:17: daily. [place] [address] Medical Branch allopurinoL 2021-11 Yes 100mg Take 100 U nivers 100 mg 2-23 mg by ity of tablet 17:17: mouth [place] 32 daily. Medical Branch amLODIPine 2021-11 Yes 10mg Take 10 mg U nivers 10 mg 2-23 by mouth ity of tablet 17:17: daily. [place] [address] Medical Branch sildenafiL 2021-11 Yes 100mg Take 100 [facility] [place] 100 mg 2-23 mg by ity of tablet 17:17: mouth [place] 32 daily. Medical Branch Cholecalcif 2021-11 Yes Take by [facility] mary, 2-23 mouth ity of Vitamin D3, 17:17: daily. [place] (VITAMIN 32 Medical D3) 125 mcg Branch (5,000 unit) tablet atorvastati 2021-11 Yes 40mg Take 40 mg [facility] n 40 mg 2-23 by mouth ity of tablet 17:17: at [place] [address] bedtime. Medical Branch OMEPRAZOLE 2021-11 Yes 40mg Take 40 mg U nivers ORAL 2-23 by mouth ity of 17:17: daily. [place] [address] Medical Branch allopurinoL 2021-11 Yes 100mg Take 100 U nivers 100 mg 2-23 mg by ity of tablet 17:17: mouth [place] 32 daily. Medical Branch amLODIPine 2021-11 Yes 10mg Take 10 mg U nivers 10 mg 2-23 by mouth ity of tablet 17:17: daily. [place] [address] Medical Branch sildenafiL 2021-11 Yes 100mg Take 100 [facility] [place] 100 mg 2-23 mg by ity of tablet 17:17: mouth [place] 32 daily. Medical Branch Cholecalcif 2021-11 Yes Take by [facility] mary, 2-23 mouth ity of Vitamin D3, 17:17: daily. [place] (VITAMIN 32 Medical D3) 125 mcg Branch (5,000 unit) tablet atorvastati 2021-11 Yes 40mg Take 40 mg [facility] n 40 mg 2-23 by mouth ity of tablet 17:17: at [place] [address] bedtime. Medical Branch OMEPRAZOLE 2021-11 Yes 40mg Take 40 mg U nivers ORAL 2-23 by mouth ity of 17:17: daily. [place] [address] Medical Branch allopurinoL 2021-11 Yes 100mg Take 100 U nivers 100 mg 2-23 mg by ity of tablet 17:17: mouth [place] 32 daily. Medical Branch amLODIPine 2021-11 Yes 10mg Take 10 mg U nivers 10 mg 2-23 by mouth ity of tablet 17:17: daily. [place] [address] Medical Branch sildenafiL 2021-11 Yes 100mg Take 100 [facility] [place] 100 mg 2-23 mg by ity of tablet 17:17: mouth [place] 32 daily. Medical Branch Cholecalcif 2021-11 Yes Take by [facility] vers mary, 2-23 mouth ity of Vitamin D3, 17:17: daily. [place] (VITAMIN 32 Medical D3) 125 mcg Branch (5,000 unit) tablet atorvastati 2021-11 Yes 40mg Take 40 mg [facility] n 40 mg 2-23 by mouth ity of tablet 17:17: at [place] [address] bedtime. Medical Branch OMEPRAZOLE 2021-11 Yes 40mg Take 40 mg U nivers ORAL 2-23 by mouth ity of 17:17: daily. [place] [address] Medical Branch allopurinoL 2021-11 Yes 100mg Take 100 U nivers 100 mg 2-23 mg by ity of tablet 17:17: mouth [place] 32 daily. Medical Branch amLODIPine 2021-11 Yes 10mg Take 10 mg U nivers 10 mg 2-23 by mouth ity of tablet 17:17: daily. [place] [address] Medical Branch sildenafiL 2021-11 Yes 100mg Take 100 [facility] [place] 100 mg 2-23 mg by ity of tablet 17:17: mouth [place] 32 daily. Medical Branch Cholecalcif 2021-11 Yes Take by [facility] vers mary, 2-23 mouth ity of Vitamin D3, 17:17: [place]. [place] (VITAMIN 32 Medical D3) 125 mcg Branch (5,000 unit) tablet amLODIPine 2021-11 Yes 10mg Take 10 mg U nivers 10 mg 2-23 by mouth ity of tablet 17:17: daily. [address] sildenafiL 2021-11 Yes 100mg Take 100 [facility] [place] 100 mg 2-23 mg by ity of tablet 17:17: mouth [place] 32 daily. [facility] Branch amLODIPine 2021-11 Yes 10mg Take 10 mg U nivers 10 mg 2-23 by mouth ity of tablet 17:17: daily. [address] sildenafiL 2021-11 Yes 100mg Take 100 Un [place] 100 mg 2-23 mg by ity of tablet 17:17: mouth [place] 32 daily. [facility] Branch amiodarone 2021-11 Yes 200mg 200 mg, Uni vers (PACERONE) 2-23 Oral, ity of tablet 200 15:00: DAILY, [place] mg 00 First dose Medical on [facility] 11/05/22 at 0900, Until Discontinu ed, Routine amiodarone 2021-11 Yes 200mg 200 mg, Uni vers (PACERONE) 2-23 Oral, ity of tablet 200 15:00: DAILY, [place] mg 00 First dose Medical on [facility] 11/05/22 at 0900, Until Discontinu ed, Routine amiodarone 2021-11 No 200mg 200 mg, Un [facility] (PACERONE) - 12-24 Oral, ity of tablet 200 15:00: 01:17 DAILY, [place] mg 00 :32 First dose Medical on [facility] 11/05/22 at 0900, Until Discontinu ed, Routine metoprolol 2021-11 No 50mg Take 50 mg Univers succinate 01-06 by mouth ity o f XL 50 mg 24 11:25: 00:00 daily. [place] hr tablet 02 :00 [facility] metoprolol 2021-11 No 50mg Take 50 mg Univers succinate 01-06- by mouth ity o f XL 50 mg 24 11:25: 00:00 daily. [place] hr tablet 02 :00 [facility] metoprolol 2021-11- No 50mg Take 50 mg Univers succinate 01-06- by mouth ity o f XL 50 mg 24 11:25: 00:00 daily. [place] hr tablet 02 :00 [facility] metoprolol 2021-11- No 50mg Take 50 mg [facility] succinate 2-23 12-23 by mouth ity o f XL 50 mg 24 11:25: 00:00 daily. [place] hr tablet 02 : Medical Branch atorvastati 2021-11 Yes 40mg Take 40 mg [facility] n 40 mg 2-23 by mouth ity of tablet 11:25: at [place] 00 bedtime. Medical Branch OMEPRAZOLE 2021-11 Yes 40mg Take 40 mg U nivers ORAL 2-23 by mouth ity of 11:25: daily. Medical Branch allopurinoL 2021-11 Yes 100mg Take 100 U nivers 100 mg 2-23 mg by ity of tablet 11:25: mouth [place] 00 daily. Medical Branch amLODIPine 2021-11 Yes 10mg Take 10 mg U nivers 10 mg 2-23 by mouth ity of tablet 11:25: daily. Medical Branch sildenafiL 2021-11 Yes 100mg Take 100 [facility] [place] 100 mg 2-23 mg by ity of tablet 11:25: mouth [place] 00 daily. Medical Branch Cholecalcif 2021-11 Yes Take by Uni vers mary, 2-23 mouth ity of Vitamin D3, 11:25: daily. [place] (VITAMIN 00 Medical D3) 125 mcg Branch (5,000 unit) tablet atorvastati 2021-11 Yes 40mg Take 40 mg [facility] n 40 mg 2-23 by mouth ity of tablet 11:25: at [place] 00 bedtime. Medical Branch OMEPRAZOLE 2021-11 Yes 40mg Take 40 mg U nivers ORAL 2-23 by mouth ity of 11:25: daily. Medical Branch allopurinoL 2021-11 Yes 100mg Take 100 U nivers 100 mg 2-23 mg by ity of tablet 11:25: mouth [place] 00 daily. Medical Branch amLODIPine 2021-11 Yes 10mg Take 10 mg U nivers 10 mg 2-23 by mouth ity of tablet 11:25: daily. Medical Branch sildenafiL 2021-11 Yes 100mg Take 100 [facility] [place] 100 mg 2-23 mg by ity of tablet 11:25: mouth [place] 00 daily. Medical Branch Cholecalcif 2021-11 Yes Take by Uni vers mary, 2-23 mouth ity of Vitamin D3, 11:25: daily. [place] (VITAMIN 00 Medical D3) 125 mcg Branch (5,000 unit) tablet atorvastati 2021-11 Yes 40mg Take 40 mg Univers n 40 mg 2-23 by mouth ity of tablet 11:25: at [place] 00 bedtime. Medical Branch OMEPRAZOLE 2021-11 Yes 40mg Take 40 mg U nivers ORAL 2-23 by mouth ity of 11:25: daily. Medical Branch allopurinoL 2021-11 Yes 100mg Take 100 U nivers 100 mg 2-23 mg by ity of tablet 11:25: mouth daily. Medical Branch amLODIPine 2021-11 Yes 10mg Take 10 mg U nivers 10 mg 2-23 by mouth ity of tablet 11:25: daily. Medical Branch sildenafiL 2021-11 Yes 100mg Take 100 [facility] [place] 100 mg 2-23 mg by ity of tablet 11:25: mouth daily. Medical Branch Cholecalcif 2021-11 Yes Take by Uni vers mary, 2-23 mouth ity of Vitamin D3, 11:25: daily. [place] (VITAMIN 00 Medical D3) 125 mcg [place] (5,000 unit) tablet isosorbide 2021-11- No 30mg Take 30 mg Univers mononitrate 2-23 12-23 by mouth 2 i ty of 30 mg 24 hr 08:29: 00:00 (two) [place] tablet 17 :00 times Medical daily. Branch isosorbide 2021-11- No 30mg Take 30 mg Univers mononitrate 2-23 12-23 by mouth 2 i ty of 30 mg 24 hr 08:29: 00:00 (two) [place] tablet 17 :00 times Medical daily. Branch isosorbide 2021-11- No 30mg Take 30 mg Univers mononitrate 2-23 12-23 by mouth 2 i ty of 30 mg 24 hr 08:29: 00:00 (two) [place] tablet 17 :00 times Medical daily. Branch isosorbide 2021-11- No 30mg Take 30 mg Univers mononitrate 2-23 12-23 by mouth 2 i ty of 30 mg 24 hr 08:29: 00:00 (two) [place] tablet 17 :00 times Medical daily. Branch HYDROcodone 2021-11 Yes 1{tbl} 1 tablet, Univers -acetaminop 2-23 Oral, ity of hen (NORCO 01:06: Q6HPRN, [place] 5) 5-325 mg 16 Starting Medi danae tablet 1 on [place] Branch tablet 11/04/22 at 1906, Until Discontinu ed, Routine, Pain (scale 4-6) HYDROcodone 2021-11 Yes 1{tbl} 1 tablet, Univers -acetaminop 2-23 Oral, ity of hen (NORCO 01:06: Q6HPRN, [place] 5) 5-325 mg 16 Starting Medi danae tablet 1 on [place] Branch tablet 11/04/22 at 1906, Until Discontinu ed, Routine, Pain (scale 4-6) HYDROcodone 2021-11- No 1{tbl} 1 tablet, Univers -acetaminop 2-23 11-06 Oral, ity of hen (NORCO 01:06: 01:17 Q6HPRN, [place] 5) 5-325 mg 16 :32 Starting Medi danae tablet 1 on [place] Branch tablet 11/04/22 at 1906, Until Tue11/05/22 at 1917, Routine, Pain (scale 4-6) lidocaine 2021-11- No ONCE INTRA U nivers 1% (PF) 01-05 PROCEDURE, ity o f (XYLOCAINE) 21:54: 23:18 Starting [place] injection 28 :17 on [facility] Medical 11/04/22 Branch at 1554, Until [place] 11/04/22 at 1718, Routine, CV Intraproce dure sulfur 2021-11- No [id number] 5mL 5 mL, Unive rs hexafluorid 01-05 Intravenou i ty of e microsphr 20:15: 18:30 s, ONCE, 1 [place] (LUMASON) 00 :00 dose, On Medica l injection 5 [place] Branch mL 11/04/22 at 1415, Routine
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 approving Restricted medication : MICHELLE EDMOND sulfur 2021-11- No [id number] 5mL 5 mL, Unive rs hexafluorid 01-05 Intravenou i ty of e microsphr 20:15: 18:30 s, ONCE, 1 [place] (LUMASON) 00 :00 dose, On Medica l injection 5 Renae Branch mL 11/04/22 at 1415, Routine
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 approving Restricted medication : MICHELLE EDMOND magnesium 2021-11- No [id number] 1g 1 g, IV Univers sulfate in 01-05 Piggyback, it y of D5W 1 16:30: 17:42 ONCE, 1 [place] gram/100 mL 00 :00 dose, On [facility] RTU IV Renae Branch Piggyback 1 11/04/22 g at 1030, Administer over 60 Minutes, 100 mL aspirin 2021-11- No 81mg 81 mg, Univers chewable 01-05 Oral, ity of tablet 81 15:00: 14:56 DAILY, [place] mg 00 :10 First dose Medical on Renae Branch 11/04/22 at 0900, Until Discontinu ed, Routine vancomycin 2021-11 No 15mg/kg 1,500 mg Univers 1500 mg in 01-05 (rounded ity of NS 500 mL 13:45: 16:24 from [place] IV 00 :00 1,939.5 mg Medical Piggyback = 15 mg/kg Bran RTU 1,500 ?129.3 mg kg), IV Piggyback, ONCE, 1 dose, On Renae 11/04/22 at 0745, Administer over 90 Minutes, 500 mL, CV Preprocedu re
Reas on for Anti-Infec tive: Surgical Prophylaxi s
Surgi danae Prophylaxi s: Cardiothor acic
Du ration of therapy: within 24 hours of surgery atorvastati 2021-11 Yes 40mg 40 mg, Univ ers n (LIPITOR) 01-05 Oral, QHS, it y of tablet 40 03:00: [place] dose [place] mg 00 on [facility] 11/03/22 Branch at 2100, Until Discontinu ed, Routine atorvastati 2021-11 Yes 40mg 40 mg, Univ ers n (LIPITOR) 01-05 Oral, QHS, it y of tablet 40 03:00: [place] mg 00 on [facility] 11/03/22 Branch at 2100, Until Discontinu ed, Routine atorvastati 2021-11- No 40mg 40 mg, Uni vers n (LIPITOR) 01-05 Oral, QHS, i ty of tablet 40 03:00: 01:17 First dose [place] mg 00 :32 on Tue Medical 11/03/22 Branch at 2100, Until Discontinu ed, Routine heparin 2021-11- No [id number] 0U/h 0-3,200 Un lesley 25,000 -22 12-22 Units/hr ity of Units/250 02:48: 13:39 (0-32 [place] mL 51 :10 mL/hr), IV Medical (Premixed Infusion, Branc h Bag) in TITRATE, 0.45 % NS Parameters in Admin. Instr., Starting on Tue11/03/22 at 2047
In itiate infusion at 12 units/kg/h r calculated as: 1,000 Units/hr (Maximum initial rate: 1,000 Units/hr, then adjust dose as needed per aPTT).&nbs p; CA UTION - If LMWH given in ER, AVOID bolus and start next dose/drip 12 hrs after ER dosage.&nb sp; M ust program rate using programmab le infusion pump.&nbsp ; Yadira ck with the ordering provider first prior to any administra tion should the patient be on existing/a dditional anticoagul ant therapy.&a mp;nbsp;&n bsp;Range, Dosing and Testing&nb sp; - aPTT < 40: & nbsp;Bolus 3000 units, increase rate 100 units/hr.& nbsp;- aPTT 40-49:&nbs p; In crease rate 50 units/hr. - aPTT 50-70:&nbs p; NO CHANGE.&nb sp;- aPTT 71-85:&nbs p;&nbs p;Decrease rate 50 units/hr.& nbsp;- aPTT 86-100:&nb sp; H old 30 minutes, decrease rate 100 units/hr.& nbsp;- aPTT 101-150:&n bsp; Hold 60 minutes, decrease rate 150 units/hr.& nbsp;- aPTT > 150: Hold 60 minutes, decrease rate 300 units/hr.& nbsp;&nbsp ;Check aPTT 6 hours after initiation , then Q6H after every change, aPTT Q12H once therapeuti c levels are reached.&n bsp; DO NOT ADJUST INITIAL BOLUS OR INITIAL INFUSION RATE.
iopamidol 2021-11 No ONCE INTRA U nivers (ISOVUE 01-04 PROCEDURE, ity o f 370-500 mL) 23:25: 23:47 [place] injection 28 :53 on [facility] 11/03/22 Branch at 1725, Until Tue11/03/22 at 1747, Routine, CV Intraproce dure lidocaine 2021-11- No ONCE INTRA U nivers 1% (PF) 01-04 PROCEDURE, ity o f (XYLOCAINE) 22:58: 23:46 Starting [place] injection 15 :21 on [facility] 11/03/22 Branch at 1658, Until Tue11/03/22 at 1746, Routine, CV Intraproce dure midazolam 2021-11- No ONCE INTRA U nivers (VERSED) 01-04 PROCEDURE, ity of injection 22:56: 23:46 Starting [place] as 22 :21 on [facility] 11/03/22 Branch at 1656, Until Tue11/03/22 at 1746, Routine, CV Intraproce dure FENTanyl PF 2021-11 No ONCE INTRA Univers (SUBLIMAZE 01-04 PROCEDURE, it y of (PF)) 22:56: 23:46 Starting [place] injection 10 :21 on [facility] 11/03/22 Branch at 1656, Until [facility] 11/03/22 at 1746, Routine, CV Intraproce dure aspirin 2021-11 325mg 325 mg, Unive rs tablet 325 01-04 Oral, ity of mg 15:45: 14:54 ONCE, 1 [place] 00 :00 dose, On Medical [facility] Branch 11/03/22 at 0945, Routine sulfur 2021-11- No [id number] 5mL 5 mL, Unive rs hexafluorid 01-04 Intravenou i ty of e microsphr 15:30: 15:30 s, ONCE, 1 [place] (LUMASON) 00 :00 dose, On Medica l injection 5 Tue Branch mL 11/03/22 at 0930, Routine
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 approving Restricted medication : MICHELLE EDMOND pantoprazol 2021-11 Yes 40mg 40 mg, Univ ers e 2- Oral, ity of (PROTONIX) 15:00: DAILY, [place] EC tablet 00 First dose Medi danae 40 mg on Wed Branch 11/03/22 at 0900, Until Discontinu ed, Routine amLODIPine 2021-11 Yes 10mg 10 mg, Unive rs (NORVASC) 2-21 Oral, ity of tablet 10 15:00: DAILY, [place] mg 00 First dose Medical on Wed Branch 11/03/22 at 0900, Until Discontinu ed, Routine allopurinoL 2021-11 Yes 100mg 100 mg, Un lesley (ZYLOPRIM) 2-21 Oral, ity of tablet 100 15:00: DAILY, [place] mg 00 First dose Medical on Wed Branch 11/03/22 at 0900, Until Discontinu ed, Routine pantoprazol 2021-11 Yes 40mg 40 mg, Univ ers e 2- Oral, ity of (PROTONIX) 15:00: DAILY, [place] EC tablet 00 First dose Medi danae 40 mg on Wed Branch 11/03/22 at 0900, Until Discontinu ed, Routine amLODIPine 2021-11 Yes 10mg 10 mg, Unive rs (NORVASC) 2- Oral, ity of tablet 10 15:00: DAILY, [place] mg 00 First dose Medical on Wed Branch 11/03/22 at 0900, Until Discontinu ed, Routine allopurinoL 2021-11 Yes 100mg 100 mg, Un lesley (ZYLOPRIM) 2-21 Oral, ity of tablet 100 15:00: DAILY, [place] mg 00 First dose Medical on Wed Branch 11/03/22 at 0900, Until Discontinu ed, Routine pantoprazol 2021-11 No 40mg 40 mg, Uni vers e 2- 12- Oral, ity of (PROTONIX) 15:00: 01:17 DAILY, [place] EC tablet 00 :32 First dose Medi danae 40 mg on Wed Branch 11/03/22 at 0900, Until Discontinu ed, Routine amLODIPine 2021-11 No 10mg 10 mg, Univ ers (NORVASC) 2- 12-24 Oral, ity of tablet 10 15:00: 01:17 DAILY, [place] mg 00 :32 First dose Medical on Tue Branch 11/03/22 at 0900, Until Discontinu ed, Routine allopurinoL 2021-11- No 100mg 100 mg, U nivers (ZYLOPRIM) 01-0424 Oral, ity of tablet 100 15:00: 01:17 DAILY, [place] mg 00 :32 First dose Medical on Tue Branch 11/03/22 at 0900, Until Discontinu ed, Routine metoprolol 2021-11- No 50mg 50 mg, Univ ers succinate 01-04 Oral, ity of XL (TOPROL 15:00: 15:51 DAILY, [place] XL) tablet 00 :07 First dose Med ical 50 mg on Tue Branch 11/03/22 at 0900, Until Discontinu ed, Routine heparin 2021-11- No 0U/h 0-3,200 Univer s 25,000 01-04 Units/hr ity of Units/250 11:00: 23:45 (0-32 [place] mL 00 :39 mL/hr), IV Medical (Premixed Infusion, Branc h Bag) in TITRATE, 0.45 % NS Parameters in Admin. Instr., Starting on Tue11/03/22 at 0500
In itiate infusion at 12 units/kg/h r calculated as: 1,000 Units/hr (Maximum initial rate: 1,000 Units/hr, then adjust dose as needed per aPTT).&nbs p; CA UTION - If LMWH given in ER, AVOID bolus and start next dose/drip 12 hrs after ER dosage.&nb sp; M ust program rate using programmab le infusion pump.&nbsp ; Yadira ck with the ordering provider first prior to any administra tion should the patient be on existing/a dditional anticoagul ant therapy.&a mp;nbsp;&n bsp;Range, Dosing and Testing&nb sp; - aPTT < 40: & nbsp;Bolus 3000 units, increase rate 100 units/hr.& nbsp;- aPTT 40-49:&nbs p; In crease rate 50 units/hr. - aPTT 50-70:&nbs p; NO CHANGE.&nb sp;- aPTT 71-85:&nbs p;&nbs p;Decrease rate 50 units/hr.& nbsp;- aPTT 86-100:&nb sp; H old 30 minutes, decrease rate 100 units/hr.& nbsp;- aPTT 101-150:&n bsp; Hold 60 minutes, decrease rate 150 units/hr.& nbsp;- aPTT > 150: Hold 60 minutes, decrease rate 300 units/hr.& nbsp;&nbsp ;Check aPTT 6 hours after initiation , then Q6H after every change, aPTT Q12H once therapeuti c levels are reached.&n bsp; DO NOT ADJUST INITIAL BOLUS OR INITIAL INFUSION RATE.
HEPARIN 2021-11- No 4000U 4,000 Univers SODIUM 01-04 Units, IV ity of (PORCINE) 11:00: 11:26 Push, [place] 1,000 00 :00 ONCE, 1 Medical UNIT/ML dose, On Branch BOLUS ACS Wed ORDER SET 11/03/22 at 0500, ASHLEY amiodarone 2021-11- No 1mg/min 1 mg/min Univers (CORDARONE) 01-04 (33.3333 ity of 900 mg in 09:00: 20:55 mL/hr, [place] D5W 500 mL 00 :02 rounded to Med ical infusion 33.33 Branch mL/hr), IV Infusion, CONTINUOUS , Starting on 11/03/22 at 0300
Al l amiodarone infusions must be administer ed using a 0.22 micron in line filter. Administer via central line if available. Amiodarone infusions with concentrat ions > 2 mg/mL must be administer ed via central line.
atorvastati 2021-11 Yes 40mg Take 40 mg Univers n 40 mg 01-04 by mouth ity of tablet 03:01: at [place] 23 bedtime. Medical Branch metoprolol 2021-11 Yes 50mg Take 50 mg U nivers succinate 01-04 by mouth ity of XL 50 mg 24 03:01: daily. [place] hr tablet 23 Medical Branch OMEPRAZOLE 2021-11 Yes 40mg Take 40 mg U nivers ORAL 2-21 by mouth ity of 03:01: daily. [place] Medical Branch allopurinoL 2021-11 Yes 100mg Take 100 U nivers 100 mg 2-21 mg by ity of tablet 03:01: mouth [place] 23 daily. Medical Branch amLODIPine 2021-11 Yes 10mg Take 10 mg U nivers 10 mg 2-21 by mouth ity of tablet 03:01: daily. [place] [address] Medical Branch sildenafiL 2021-11 Yes 100mg Take 100 Un lesley 100 mg 2-21 mg by ity of tablet 03:01: mouth [place] 23 daily. Medical Branch aMILoride 5 2021-11- No 5mg Take 5 mg Univers mg tablet -03 11- by mouth 2 ity of 02:37: 00:00 (two) [place] 38 :00 times Medical daily. Branch TAKE 2 TABLETS BID aMILoride 5 2021-11 No 5mg Take 5 mg Univers mg tablet -03 11- by mouth 2 ity of 02:37: 00:00 (two) [place] 38 :00 times Medical daily. Branch TAKE 2 TABLETS BID aMILoride 5 2021-11 No 5mg Take 5 mg Univers mg tablet -03 11- by mouth 2 ity of 02:37: 00:00 (two) [place] 38 :00 times Medical daily. Branch TAKE 2 TABLETS BID losartan 2021-11- No 100mg Take 100 Uni vers 100 mg 2-21 12-21 mg by ity of tablet 02:37: 00:00 mouth [place] 02 :00 daily. Medical Branch losartan 2021-11- No 100mg Take 100 Uni vers 100 mg 2-21 12-21 mg by ity of tablet 02:37: 00:00 mouth [place] 02 :00 daily. Medical Branch losartan 2021-11- No 100mg Take 100 Uni vers 100 mg 2-21 12-21 mg by ity of tablet 02:37: 00:00 mouth [place] 02 :00 daily. Medical Branch furosemide 2021-11- No 80mg Take 80 mg Univers 80 mg 2-21 12-21 by mouth ity of tablet 02:36: 00:00 daily. [place] 13 :00 Medical Branch furosemide 2021-11- No 80mg Take 80 mg Univers 80 mg 2-21 12- by mouth ity of tablet 02:36: 00:00 daily. [place] 13 :00 Medical Branch furosemide 2021-11- No 80mg Take 80 mg Univers 80 mg - 12-21 by mouth ity of tablet 02:36: 00:00 daily. [place] 13 :00 Medical Branch isosorbide 2021-11 Yes 30mg Take 30 mg U nivers mononitrate 2-21 by mouth 2 it y of 30 mg 24 hr 02:15: (two) [place] tablet 37 times Medical daily. Branch Cholecalcif 2021-11 Yes Take by Uni vers mary, 2-21 mouth ity of Vitamin D3, 02:15: daily. [place] s (VITAMIN 37 Medical D3) 125 mcg Branch (5,000 unit) tablet Oseltamivir Oseltamivir 2021-11 No QD Oseltamivi Phosphate Phosphate 2-07 r 30 MG 30 MG 00:00: Phosphate 00 30 MG Oseltamivir Oseltamivir 2021-11 No QD Oseltamivi Phosphate Phosphate 2-07 r 30 MG 30 MG 00:00: Phosphate 00 30 MG Oseltamivir Oseltamivir 2021-11 No QD Oseltamivi Phosphate Phosphate 2-07 r 30 MG 30 MG 00:00: Phosphate 00 30 MG Oseltamivir Oseltamivir 2021-11 No QD Oseltamivi Phosphate Phosphate 2-07 r 30 MG 30 MG 00:00: Phosphate 00 30 MG Oseltamivir Oseltamivir 2021-11 No QD Oseltamivi Phosphate Phosphate 2-07 r 30 MG 30 MG 00:00: Phosphate 00 30 MG atorvastati Yes 40mg Take 40 mg Univers n 40 mg 4-18 by mouth ity of tablet 16:57: at [place] 09 bedtime. Medical Branch losartan Yes 100mg Take 100 Univ ers 100 mg 4-18 mg by ity of tablet 16:57: mouth [place] daily. Medical Branch isosorbide Yes 30mg Take 30 mg U nivers mononitrate 4-18 by mouth 2 it y of 30 mg 24 hr 16:57: (two) [place] tablet 09 times Medical daily. Branch metoprolol Yes 50mg Take 50 mg U nivers succinate 4-18 by mouth ity of XL 50 mg 24 16:57: daily. [place] s hr tablet 09 Medical Branch OMEPRAZOLE Yes 40mg Take 40 mg U nivers ORAL 4-18 by mouth ity of 16:57: daily. [place] [facility] Branch allopurinoL Yes 100mg Take 100 U nivers 100 mg 4-18 mg by ity of tablet 16:57: mouth daily. Medical Branch aMILoride 5 Yes 5mg Take 5 mg U nivers mg tablet 4-18 by mouth 2 ity of 16:57: (two) [place] times Medical daily. Branch TAKE 2 TABLETS BID amLODIPine Yes 10mg Take 10 mg U nivers 10 mg 4-18 by mouth ity of tablet 16:57: daily. [address] Branch furosemide Yes 80mg Take 80 mg U nivers 80 mg 4-18 by mouth ity of tablet 16:57: daily. [address] Branch sildenafiL Yes 100mg Take 100 Un lesley 100 mg 4-18 mg by ity of tablet 16:57: mouth daily. Medical Branch Cholecalcif Yes Take by Uni vers mary, 4-18 mouth ity of Vitamin D3, 16:57: [place]. [place] (VITAMIN [facility] D3) 125 mcg Branch (5,000 unit) tablet apixaban 5 Yes 1358 5mg Take 1 Unive rs mg tablet 4-18 tablet by ity o f 00:00: mouth 2 [place] (two) Medical times Branch daily. Indication s: atrial fibrillati on apixaban 5 2021-0 2021- No 1358 5mg Take 1 Univ ers mg tablet 4-18 12-21 tablet by ity of 00:00: 00:00 mouth 2 [place] 00 :00 (two) Medical times Branch daily. Indication s: atrial fibrillati on apixaban 5 2021-0 2021- No 1358 5mg Take 1 Univ ers mg tablet 4-18 12-21 tablet by ity of 00:00: 00:00 mouth 2 [place] 00 :00 (two) Medical times Branch daily. Indication s: atrial fibrillati on apixaban 5 2021-0 2021- No 1358 5mg Take 1 Univ ers mg tablet 4-18 12-21 tablet by ity of 00:00: 00:00 mouth 2 [place] 00 :00 (two) Medical times Branch daily. Indication s: atrial fibrillati on Cephalexin Cephalexin 2- No 1{capsu BID Cephalexin 500 MG 500 MG 02-24 le} 500 MG 00:00: 00:00 00 :00 Cephalexin Cephalexin 2021-0 2- No 1{capsu BID Cephalexin 500 MG 500 MG 02-24 le} 500 MG 00:00: 00:00 00 :00 Cephalexin Cephalexin 2021-0 2- No 1{capsu BID Cephalexin 500 MG 500 MG 02-24 le} 500 MG 00:00: 00:00 00 :00 Cephalexin Cephalexin 2021-0 2- No 1{capsu BID Cephalexin 500 MG 500 MG 02-24 le} 500 MG 00:00: 00:00 00 :00 [place] Kenalog 2017- No 40mg Common (Triamcinol (Triamcinol 0-25 S pirit one) one) 00:00: - [facility] Dexamethaso Dexamethaso 2018-1 No 10mg Common ne ne 0-25 Spirit 00:00: - [facility] Kenalog Kenalog 2017- No 40mg Common (Triamcinol (Triamcinol 0-25 S pirit one) one) 00:00: - [facility] Dexamethaso Dexamethaso 2018-1 No 10mg Common ne ne 0-25 Spirit 00:00: - [facility] Kenalog Kenalog 2018-1 No 40mg Common (Triamcinol (Triamcinol 0-25 S pirit one) one) 00:00: - [facility] Dexamethaso Dexamethaso 2018-1 No 10mg Common ne ne 0-25 Spirit 00:00: - [facility] Kenalog Kenalog 2018-1 No 40mg Common (Triamcinol (Triamcinol 0-25 S pirit one) one) 00:00: - [facility] Dexamethaso Dexamethaso 2018-1 No 10mg Common ne ne 0-25 Spirit 00:00: - [facility] Kenalog Kenalog 2017- No 40mg Common (Triamcinol (Triamcinol 0-25 S pirit one) one) 00:00: - [facility] Dexamethaso Dexamethaso 2017-11 No 10mg Common ne ne 0-25 Spirit 00:00: - [facility] 00 [facility] Kenalog Kenalog 2017-11 No 40mg Common (Triamcinol (Triamcinol 0-25 S pirit one) one) 00:00: - [facility] Dexamethaso Dexamethaso 2017-11 No 10mg Common ne ne 0-25 Spirit 00:00: - [facility] 00 [facility] Kenalog Kenalog 2017-11 No 40mg Common (Triamcinol (Triamcinol 0-25 S pirit one) one) 00:00: - [facility] 00 [facility] Dexamethaso Dexamethaso 2017-11 No 10mg Common ne ne 0-25 Spirit 00:00: - [facility] 00 [facility] Kenalog Kenalog 2017-11 No 40mg Common (Triamcinol (Triamcinol 0-25 S pirit one) one) 00:00: - [facility] Dexamethaso Dexamethaso 2017-11 No 10mg Common ne ne 0-25 Spirit 00:00: - [facility] Kenalog Kenalog 2017-11 No 40mg Common (Triamcinol (Triamcinol 0-25 S pirit one) one) 00:00: - [facility] Dexamethaso Dexamethaso 2017-11 No 10mg Common ne ne 0-25 Spirit 00:00: - [facility] 00 [facility] Kenalog Kenalog 2017-11 No 40mg Common (Triamcinol (Triamcinol 0-25 S pirit one) one) 00:00: - [facility] Dexamethaso Dexamethaso 2017-11 No 10mg Common ne ne 0-25 Spirit 00:00: - [facility] 00 [facility] Kenalog Kenalog 2017-11 No 40mg Common (Triamcinol (Triamcinol 0-25 S pirit one) one) 00:00: - [facility] Dexamethaso Dexamethaso 2017-11 No 10mg Common ne ne 0-25 Spirit 00:00: - [facility] 00 [facility] Kenalog Kenalog 2017-11 No 40mg Common (Triamcinol (Triamcinol 0-25 S pirit one) one) 00:00: - [facility] Dexamethaso Dexamethaso 2017-11 No 10mg Common ne ne 0-25 Spirit 00:00: - [facility] 00 [facility] Kenalog Kenalog 2017-11 No 40mg Common (Triamcinol (Triamcinol 0-25 S pirit one) one) 00:00: - [facility] Dexamethaso Dexamethaso 2017-11 No 10mg Common ne ne 0-25 Spirit 00:00: - [facility] 00 [facility] Kenalog Kenalog 2017-11 No 40mg Common (Triamcinol (Triamcinol 0-25 S pirit one) one) 00:00: - [facility] Dexamethaso Dexamethaso 2017-11 No 10mg Common ne ne 0-25 Spirit 00:00: - [facility] 00 [facility] Kenalog Kenalog 2017-11 No 40mg Common (Triamcinol (Triamcinol 0-25 S pirit one) one) 00:00: - [facility] Dexamethaso Dexamethaso 2017-11 No 10mg Common ne ne 0-25 Spirit 00:00: - [facility] Kenalog Kenalog 2017-11 No 40mg Common (Triamcinol (Triamcinol 0-25 S pirit one) one) 00:00: - [facility] Dexamethaso Dexamethaso 2017-11 No 10mg Common ne ne 0-25 Spirit 00:00: - [facility] 00 [facility] Kenalog Kenalog 2017-11 No 40mg Common (Triamcinol (Triamcinol 0-25 S pirit one) one) 00:00: - [facility] Dexamethaso Dexamethaso 2017-11 No 10mg Common ne ne 0-25 Spirit 00:00: - [facility] 00 [facility] Kenalog Kenalog 2017-11 No 40mg Common (Triamcinol (Triamcinol 0-25 S pirit one) one) 00:00: - [facility] 00 [facility] Dexamethaso Dexamethaso 2018- No 10mg Common ne ne 0-25 Spirit 00:00: - [facility] 00 [facility] Kenalog Kenalog 2017- No 40mg Common (Triamcinol (Triamcinol 0-25 S pirit one) one) 00:00: - [facility] 00 [facility] Dexamethaso Dexamethaso 2017- No 10mg Common ne ne 0-25 Spirit 00:00: - [facility] 00 [facility] Kenalog Kenalog 2017- No 40mg Common (Triamcinol (Triamcinol 0-25 S pirit one) one) 00:00: - [facility] 00 [facility] Dexamethaso Dexamethaso 2017- No 10mg Common ne ne 0-25 Spirit 00:00: - [facility] 00 [facility] Kenalog Kenalog 2017- No 40mg Common (Triamcinol (Triamcinol 0-25 S pirit one) one) 00:00: - [facility] 00 [facility] Dexamethaso Dexamethaso 2017- No 10mg Common ne ne 0-25 Spirit 00:00: - [facility] 00 [facility] Kenalog Kenalog 2017- No 40mg Common (Triamcinol (Triamcinol 0-25 S pirit one) one) 00:00: - [facility] Dexamethaso Dexamethaso 2018- No 10mg Common ne ne 0-25 Spirit 00:00: - [facility] 00 [facility] Kenalog Kenalog 2017- No 40mg Common (Triamcinol (Triamcinol 0-25 S pirit one) one) 00:00: - [facility] Dexamethaso Dexamethaso 2018- No 10mg Common ne ne 0-25 Spirit 00:00: - [facility] 00 [facility] Dexamethaso Dexamethaso 2018- No 10mg Common ne ne 0-25 Spirit 00:00: - [facility] 00 [facility] Kenalog Kenalog 2017- No 40mg Common (Triamcinol (Triamcinol 0-25 S pirit one) one) 00:00: - [facility] Kenalog Kenalog 2018-0 No 40mg Common (Triamcinol (Triamcinol 7-16 S pirit one) one) 00:00: - [facility] Dexamethaso Dexamethaso 2018-0 No 10mg Common ne ne 7-16 Spirit 00:00: - [facility] 00 [facility] Kenalog Kenalog 2018-0 No 40mg Common (Triamcinol (Triamcinol 7-16 S pirit one) one) 00:00: - [facility] 00 [facility] Dexamethaso Dexamethaso 2018-0 No 10mg Common ne ne 7-16 Spirit 00:00: - [facility] 00 [facility] Kenalog Kenalog 2018-0 No 40mg Common (Triamcinol (Triamcinol 7-16 S pirit one) one) 00:00: - [facility] 00 [facility] Dexamethaso Dexamethaso 2018-0 No 10mg Common ne ne 7-16 Spirit 00:00: - [facility] 00 [facility] Kenalog Kenalog 2018-0 No 40mg Common (Triamcinol (Triamcinol 7-16 S pirit one) one) 00:00: - [facility] 00 [facility] Dexamethaso Dexamethaso 2018-0 No 10mg Common ne ne 7-16 Spirit 00:00: - [facility] 00 [facility] Kenalog Kenalog 2018-0 No 40mg Common (Triamcinol (Triamcinol 7-16 S pirit one) one) 00:00: - [facility] 00 [facility] Dexamethaso Dexamethaso 2018-0 No 10mg Common ne ne 7-16 Spirit 00:00: - [facility] 00 [facility] Kenalog Kenalog 2018-0 No 40mg Common (Triamcinol (Triamcinol 7-16 S pirit one) one) 00:00: - [facility] 00 [facility] Dexamethaso Dexamethaso 2018-0 No 10mg Common ne ne 7-16 Spirit 00:00: - [facility] 00 [facility] Kenalog Kenalog 2018-0 No 40mg Common (Triamcinol (Triamcinol 7-16 S pirit one) one) 00:00: - [facility] Dexamethaso Dexamethaso 2018-0 No 10mg Common ne ne 7-16 Spirit 00:00: - [facility] 00 [facility] Kenalog Kenalog 2018-0 No 40mg Common (Triamcinol (Triamcinol 7-16 S pirit one) one) 00:00: - [facility] 00 [facility] Dexamethaso Dexamethaso 2018-0 No 10mg Common ne ne 7-16 Spirit 00:00: - [facility] 00 [facility] Kenalog Kenalog 2018-0 No 40mg Common (Triamcinol (Triamcinol 7-16 S pirit one) one) 00:00: - [facility] 00 [facility] Dexamethaso Dexamethaso 2018-0 No 10mg Common ne ne 7-16 Spirit 00:00: - [facility] 00 [facility] Kenalog Kenalog 2018-0 No 40mg Common (Triamcinol (Triamcinol 7-16 S pirit one) one) 00:00: - [facility] 00 [facility] Dexamethaso Dexamethaso 2018-0 No 10mg Common ne ne 7-16 Spirit 00:00: - [facility] 00 [facility] Kenalog Kenalog 2018-0 No 40mg Common (Triamcinol (Triamcinol 7-16 S pirit one) one) 00:00: - [facility] 00 [facility] Dexamethaso Dexamethaso 2018-0 No 10mg Common ne ne 7-16 Spirit 00:00: - [facility] 00 [facility] Kenalog Kenalog 2018-0 No 40mg Common (Triamcinol (Triamcinol 7-16 S pirit one) one) 00:00: - [facility] Dexamethaso Dexamethaso 2018-0 No 10mg Common ne ne 7-16 Spirit 00:00: - [facility] 00 [facility] Kenalog Kenalog 2018-0 No 40mg Common (Triamcinol (Triamcinol 7-16 S pirit one) one) 00:00: - [facility] 00 [facility] Dexamethaso Dexamethaso 2018-0 No 10mg Common ne ne 7-16 Spirit 00:00: - [facility] 00 [facility] Kenalog Kenalog 2018-0 No 40mg Common (Triamcinol (Triamcinol 7-16 S pirit one) one) 00:00: - [facility] 00 [facility] Dexamethaso Dexamethaso 2018-0 No 10mg Common ne ne 7-16 Spirit 00:00: - [facility] 00 [facility] Kenalog Kenalog 2018-0 No 40mg Common (Triamcinol (Triamcinol 7-16 S pirit one) one) 00:00: - [facility] 00 [facility] Dexamethaso Dexamethaso 2018-0 No 10mg Common ne ne 7-16 Spirit 00:00: - [facility] 00 [facility] Kenalog Kenalog 2018-0 No 40mg Common (Triamcinol (Triamcinol 7-16 S pirit one) one) 00:00: - [facility] 00 [facility] Dexamethaso Dexamethaso 2018-0 No 10mg Common ne ne 7-16 Spirit 00:00: - [facility] 00 [facility] Kenalog Kenalog 2018-0 No 40mg Common (Triamcinol (Triamcinol 7-16 S pirit one) one) 00:00: - [facility] 00 [facility] Dexamethaso Dexamethaso 2018-0 No 10mg Common ne ne 7-16 Spirit 00:00: - [facility] 00 [facility] Kenalog Kenalog 2018-0 No 40mg Common (Triamcinol (Triamcinol 7-16 S pirit one) one) 00:00: - [facility] 00 [facility] Dexamethaso Dexamethaso 2018-0 No 10mg Common ne ne 7-16 Spirit 00:00: - [facility] 00 [facility] Kenalog Kenalog 2018-0 No 40mg Common (Triamcinol (Triamcinol 7-16 S pirit one) one) 00:00: - [facility] 00 [facility] Dexamethaso Dexamethaso 2018-0 No 10mg Common ne ne 7-16 Spirit 00:00: - [facility] 00 [facility] Kenalog Kenalog 2018-0 No 40mg Common (Triamcinol (Triamcinol 7-16 S pirit one) one) 00:00: - [facility] 00 [facility] Dexamethaso Dexamethaso 2018-0 No 10mg Common ne ne 7-16 Spirit 00:00: - [facility] 00 [facility] Lupilloalog Kenalog 2018-0 No 40mg Common (Triamcinol (Triamcinol 7-16 S pirit one) one) 00:00: - [facility] 00 [facility] Dexamethaso Dexamethaso 2018-0 No 10mg Common ne ne 7-16 Spirit 00:00: - [facility] 00 [facility] Kenalog Kenalog 2018-0 No 40mg Common (Triamcinol (Triamcinol 7-16 S pirit one) one) 00:00: - [facility] 00 [facility] Dexamethaso Dexamethaso 2018-0 No 10mg Common ne ne 7-16 Spirit 00:00: - [facility] 00 [facility] Kenalog Kenalog 2018-0 No 40mg Common (Triamcinol (Triamcinol 7-16 S pirit one) one) 00:00: - [facility] 00 [facility] Dexamethaso Dexamethaso 2018-0 No 10mg Common ne ne 7-16 Spirit 00:00: - [facility] 00 [facility] Dexamethaso Dexamethaso 2018-0 No 10mg Common ne ne 7-16 Spirit 00:00: - [facility] 00 [facility] Vitor Kenalog 2017-0 No 40mg Common (Triamcinol (Triamcinol 7-16 S pirit one) one) 00:00: - [facility] 00 [facility] Sotalol HCl Sotalol HCl Yes Caleb TAKE 1 Common [place] TABLET BY Spirit MOUTH - [facility] EVERY DAY [facility] Losartan Losartan Yes Caleb 1 tablet C ommon Potassium Potassium [place] Spir it - [facility] Atorvastati Atorvastati Yes Caleb TAKE 1 Common n Calcium n Calcium [place] TABLET BY Spirit MOUTH - [facility] EVERY DAY [facility] Allopurinol Allopurinol Yes Caleb 1 tablet Common [place] [facility] Diltiazem Diltiazem Yes Caleb 1 capsule Common HCl ER HCl ER [place] [facility] Amlodipine Amlodipine Yes Caleb 1 tablet Common Besylate Besylate [place] [facility] Omeprazole Omeprazole Yes Caleb 1 capsule Common [place] 30 minutes [facility] before - [facility] morning [facility] Sildenafil Sildenafil No Sildenafil Citrate 100 Citrate 100 Citrate MG MG 100 MG Losartan Losartan No Losartan Potassium Potassium Potassium 100 MG 100 MG 100 MG Sotalol HCl Sotalol HCl No Sotalol 160 MG 160 MG HCl 160 MG dilTIAZem dilTIAZem No 1{capsu QD dilTIAZem HCl ER 180 HCl ER 180 le} HCl ER 180 MG MG MG Atorvastati Atorvastati No Atorvastat n Calcium n Calcium in Calcium 40 MG 40 MG 40 MG Dilt-XR 180 Dilt-XR 180 No Dilt-XR MG MG 180 MG Atorvastati Atorvastati No Atorvastat n Calcium n Calcium in Calcium 40 MG 40 MG 40 MG Allopurinol Allopurinol No Allopurino 100 MG 100 MG l 100 MG Losartan Losartan No Losartan Potassium Potassium Potassium 100 MG 100 MG 100 MG Allopurinol Allopurinol No 1{table QD Allopurino 100 MG 100 MG t} l 100 MG Sotalol HCl Sotalol HCl No Sotalol 160 MG 160 MG HCl 160 MG amLODIPine amLODIPine No 1{table QD amLODIPine Besylate 10 Besylate 10 t} Besylate MG MG 10 MG Vitamin D3 Vitamin D3 No Vitamin D3 125 MCG 125 MCG 125 MCG (5000 UT) (5000 UT) (5000 UT) Sotalol HCl Sotalol HCl No QD Sotalol 160 MG 160 MG HCl 160 MG Dilt-XR 180 Dilt-XR 180 No Dilt-XR MG MG 180 MG Omeprazole Omeprazole No Omeprazole 40 MG 40 MG 40 MG Sildenafil Sildenafil No Sildenafil Citrate 100 Citrate 100 Citrate MG MG 100 MG Sodium Sodium No 1{table BID Sodium Bicarbonate Bicarbonate t} Bicarbonat 650 MG 650 MG e 650 MG Losartan Losartan No 1{table QD Losartan Potassium Potassium t} Potassium 100 MG 100 MG 100 MG Isosorbide Isosorbide No 1{table QD Isosorbide Mononitrate Mononitrate t_in_th Mononitrat ER 30 MG ER 30 MG e_morni e ER 30 MG ng} Omeprazole Omeprazole No QD Omeprazole 40 MG 40 MG 40 MG Atorvastati Atorvastati No Atorvastat n Calcium n Calcium in Calcium 40 MG 40 MG 40 MG Allopurinol Allopurinol No Allopurino 100 MG 100 MG l 100 MG Losartan Losartan No Losartan Potassium Potassium Potassium 100 MG 100 MG 100 MG Allopurinol Allopurinol No 1{table QD Allopurino 100 MG 100 MG t} l 100 MG Sotalol HCl Sotalol HCl No Sotalol 160 MG 160 MG HCl 160 MG amLODIPine amLODIPine No 1{table QD amLODIPine Besylate 10 Besylate 10 t} Besylate MG MG 10 MG Vitamin D3 Vitamin D3 No Vitamin D3 125 MCG 125 MCG 125 MCG (5000 UT) (5000 UT) (5000 UT) Sotalol HCl Sotalol HCl No QD Sotalol 160 MG 160 MG HCl 160 MG Dilt-XR 180 Dilt-XR 180 No Dilt-XR MG MG 180 MG Omeprazole Omeprazole No Omeprazole 40 MG 40 MG 40 MG Sildenafil Sildenafil No Sildenafil Citrate 100 Citrate 100 Citrate MG MG 100 MG Sodium Sodium No 1{table BID Sodium Bicarbonate Bicarbonate t} Bicarbonat 650 MG 650 MG e 650 MG Losartan Losartan No 1{table QD Losartan Potassium Potassium t} Potassium 100 MG 100 MG 100 MG Isosorbide Isosorbide No 1{table QD Isosorbide Mononitrate Mononitrate t_in_th Mononitrat ER 30 MG ER 30 MG e_morni e ER 30 MG ng} Omeprazole Omeprazole No QD Omeprazole 40 MG 40 MG 40 MG Dilt-XR 180 Dilt-XR 180 No Dilt-XR MG MG 180 MG Losartan Losartan No Losartan Potassium Potassium Potassium 100 MG 100 MG 100 MG Atorvastati Atorvastati No Atorvastat n Calcium n Calcium in Calcium 40 MG 40 MG 40 MG Isosorbide Isosorbide No 1{table QD Isosorbide Mononitrate Mononitrate t_in_th Mononitrat ER 30 MG ER 30 MG e_morni e ER 30 MG ng} Sildenafil Sildenafil No Sildenafil Citrate 100 Citrate 100 Citrate MG MG 100 MG Sotalol HCl Sotalol HCl No Sotalol 160 MG 160 MG HCl 160 MG Sodium Sodium No 1{table BID Sodium Bicarbonate Bicarbonate t} Bicarbonat 650 MG 650 MG e 650 MG Omeprazole Omeprazole No Omeprazole 40 MG 40 MG 40 MG amLODIPine amLODIPine No 1{table QD amLODIPine Besylate 10 Besylate 10 t} Besylate MG MG 10 MG Allopurinol Allopurinol No Allopurino 100 MG 100 MG l 100 MG Vitamin D3 Vitamin D3 No Vitamin D3 125 MCG 125 MCG 125 MCG (5000 UT) (5000 UT) (5000 UT) Dilt-XR 180 Dilt-XR 180 No Dilt-XR MG MG 180 MG Losartan Losartan No Losartan Potassium Potassium Potassium 100 MG 100 MG 100 MG Atorvastati Atorvastati No Atorvastat n Calcium n Calcium in Calcium 40 MG 40 MG 40 MG Isosorbide Isosorbide No 1{table QD Isosorbide Mononitrate Mononitrate t_in_th Mononitrat ER 30 MG ER 30 MG e_morni e ER 30 MG ng} Sildenafil Sildenafil No Sildenafil Citrate 100 Citrate 100 Citrate MG MG 100 MG Sotalol HCl Sotalol HCl No Sotalol 160 MG 160 MG HCl 160 MG Sodium Sodium No 1{table BID Sodium Bicarbonate Bicarbonate t} Bicarbonat 650 MG 650 MG e 650 MG Omeprazole Omeprazole No Omeprazole 40 MG 40 MG 40 MG amLODIPine amLODIPine No 1{table QD amLODIPine Besylate 10 Besylate 10 t} Besylate MG MG 10 MG Allopurinol Allopurinol No Allopurino 100 MG 100 MG l 100 MG Vitamin D3 Vitamin D3 No Vitamin D3 125 MCG 125 MCG 125 MCG (5000 UT) (5000 UT) (5000 UT) amLODIPine amLODIPine No 1{table QD amLODIPine Besylate 10 Besylate 10 t} Besylate MG MG 10 MG Losartan Losartan No Losartan Potassium Potassium Potassium 100 MG 100 MG 100 MG Metoprolol Metoprolol No 1{table QD Metoprolol Succinate Succinate t} Succinate ER 50 MG ER 50 MG ER 50 MG Dilt-XR 180 Dilt-XR 180 No Dilt-XR MG MG 180 MG Lasix 80 MG Lasix 80 MG No 1{table BID Lasix 80 t} MG Vitamin D3 Vitamin D3 No Vitamin D3 125 MCG 125 MCG 125 MCG (5000 UT) (5000 UT) (5000 UT) Losartan Losartan No 1{table QD Losartan Potassium Potassium t} Potassium 100 MG 100 MG 100 MG Sotalol HCl Sotalol HCl No Sotalol 160 MG 160 MG HCl 160 MG Allopurinol Allopurinol No 1{table QD Allopurino 100 MG 100 MG t} l 100 MG Sildenafil Sildenafil No Sildenafil Citrate 100 Citrate 100 Citrate MG MG 100 MG Omeprazole Omeprazole No Omeprazole 40 MG 40 MG 40 MG Atorvastati Atorvastati No Atorvastat n Calcium n Calcium in Calcium 40 MG 40 MG 40 MG Allopurinol Allopurinol No Allopurino 100 MG 100 MG l 100 MG Omeprazole Omeprazole No QD Omeprazole 40 MG 40 MG 40 MG Sodium Sodium No 1{table BID Sodium Bicarbonate Bicarbonate t} Bicarbonat 650 MG 650 MG e 650 MG aMILoride aMILoride No 2{table BID aMILoride HCl 5 MG HCl 5 MG t_with_ HCl 5 MG food} Isosorbide Isosorbide No 1{table QD Isosorbide Mononitrate Mononitrate t_in_th Mononitrat ER 30 MG ER 30 MG e_morni e ER 30 MG ng} amLODIPine amLODIPine No 1{table QD amLODIPine Besylate 10 Besylate 10 t} Besylate MG MG 10 MG Losartan Losartan No Losartan Potassium Potassium Potassium 100 MG 100 MG 100 MG Metoprolol Metoprolol No 1{table QD Metoprolol Succinate Succinate t} Succinate ER 50 MG ER 50 MG ER 50 MG Dilt-XR 180 Dilt-XR 180 No Dilt-XR MG MG 180 MG Lasix 80 MG Lasix 80 MG No 1{table BID Lasix 80 t} MG Vitamin D3 Vitamin D3 No Vitamin D3 125 MCG 125 MCG 125 MCG (5000 UT) (5000 UT) (5000 UT) Losartan Losartan No 1{table QD Losartan Potassium Potassium t} Potassium 100 MG 100 MG 100 MG Sotalol HCl Sotalol HCl No Sotalol 160 MG 160 MG HCl 160 MG Allopurinol Allopurinol No 1{table QD Allopurino 100 MG 100 MG t} l 100 MG Sildenafil Sildenafil No Sildenafil Citrate 100 Citrate 100 Citrate MG MG 100 MG Omeprazole Omeprazole No Omeprazole 40 MG 40 MG 40 MG Atorvastati Atorvastati No Atorvastat n Calcium n Calcium in Calcium 40 MG 40 MG 40 MG Allopurinol Allopurinol No Allopurino 100 MG 100 MG l 100 MG Omeprazole Omeprazole No QD Omeprazole 40 MG 40 MG 40 MG Sodium Sodium No 1{table BID Sodium Bicarbonate Bicarbonate t} Bicarbonat 650 MG 650 MG e 650 MG aMILoride aMILoride No 2{table BID aMILoride HCl 5 MG HCl 5 MG t_with_ HCl 5 MG food} Isosorbide Isosorbide No 1{table QD Isosorbide Mononitrate Mononitrate t_in_th Mononitrat ER 30 MG ER 30 MG e_morni e ER 30 MG ng} Allopurinol Allopurinol No 1{table QD Allopurino 100 MG 100 MG t} l 100 MG Atorvastati Atorvastati No Atorvastat n Calcium n Calcium in Calcium 40 MG 40 MG 40 MG Omeprazole Omeprazole No Omeprazole 40 MG 40 MG 40 MG Losartan Losartan No 1{table QD Losartan Potassium Potassium t} Potassium 100 MG 100 MG 100 MG Sotalol HCl Sotalol HCl No Sotalol 160 MG 160 MG HCl 160 MG Sildenafil Sildenafil No Sildenafil Citrate 100 Citrate 100 Citrate MG MG 100 MG Vitamin D3 Vitamin D3 No Vitamin D3 125 MCG 125 MCG 125 MCG (5000 UT) (5000 UT) (5000 UT) Dilt-XR 180 Dilt-XR 180 No Dilt-XR MG MG 180 MG Losartan Losartan No Losartan Potassium Potassium Potassium 100 MG 100 MG 100 MG Lasix 80 MG Lasix 80 MG No 1{table BID Lasix 80 t} MG Isosorbide Isosorbide No 1{table QD Isosorbide Mononitrate Mononitrate t_in_th Mononitrat ER 30 MG ER 30 MG e_morni e ER 30 MG ng} Metoprolol Metoprolol No 1{table QD Metoprolol Succinate Succinate t} Succinate ER 50 MG ER 50 MG ER 50 MG Allopurinol Allopurinol No Allopurino 100 MG 100 MG l 100 MG Omeprazole Omeprazole No QD Omeprazole 40 MG 40 MG 40 MG amLODIPine amLODIPine No 1{table QD amLODIPine Besylate 10 Besylate 10 t} Besylate MG MG 10 MG Sodium Sodium No 1{table BID Sodium Bicarbonate Bicarbonate t} Bicarbonat 650 MG 650 MG e 650 MG aMILoride aMILoride No 2{table BID aMILoride HCl 5 MG HCl 5 MG t_with_ HCl 5 MG food} Losartan Losartan No 1{table QD Losartan Potassium Potassium t} Potassium 100 MG 100 MG 100 MG Omeprazole Omeprazole No QD Omeprazole 40 MG 40 MG 40 MG Allopurinol Allopurinol No 1{table QD Allopurino 100 MG 100 MG t} l 100 MG aMILoride aMILoride No 2{table BID aMILoride HCl 5 MG HCl 5 MG t_with_ HCl 5 MG food} Omeprazole Omeprazole No Omeprazole 40 MG 40 MG 40 MG Vitamin D3 Vitamin D3 No Vitamin D3 125 MCG 125 MCG 125 MCG (5000 UT) (5000 UT) (5000 UT) Isosorbide Isosorbide No 1{table QD Isosorbide Mononitrate Mononitrate t_in_th Mononitrat ER 30 MG ER 30 MG e_morni e ER 30 MG ng} Dilt-XR 180 Dilt-XR 180 No Dilt-XR MG MG 180 MG Losartan Losartan No Losartan Potassium Potassium Potassium 100 MG 100 MG 100 MG Atorvastati Atorvastati No Atorvastat n Calcium n Calcium in Calcium 40 MG 40 MG 40 MG Metoprolol Metoprolol No 1{table QD Metoprolol Succinate Succinate t} Succinate ER 50 MG ER 50 MG ER 50 MG Sodium Sodium No 1{table BID Sodium Bicarbonate Bicarbonate t} Bicarbonat 650 MG 650 MG e 650 MG Allopurinol Allopurinol No Allopurino 100 MG 100 MG l 100 MG Sotalol HCl Sotalol HCl No Sotalol 160 MG 160 MG HCl 160 MG Sildenafil Sildenafil No Sildenafil Citrate 100 Citrate 100 Citrate MG MG 100 MG amLODIPine amLODIPine No 1{table QD amLODIPine Besylate 10 Besylate 10 t} Besylate MG MG 10 MG Lasix 80 MG Lasix 80 MG No 1{table BID Lasix 80 t} MG Losartan Losartan No 1{table QD Losartan Potassium Potassium t} Potassium 100 MG 100 MG 100 MG Omeprazole Omeprazole No QD Omeprazole 40 MG 40 MG 40 MG Allopurinol Allopurinol No 1{table QD Allopurino 100 MG 100 MG t} l 100 MG aMILoride aMILoride No 2{table BID aMILoride HCl 5 MG HCl 5 MG t_with_ HCl 5 MG food} Omeprazole Omeprazole No Omeprazole 40 MG 40 MG 40 MG Vitamin D3 Vitamin D3 No Vitamin D3 125 MCG 125 MCG 125 MCG (5000 UT) (5000 UT) (5000 UT) Isosorbide Isosorbide No 1{table QD Isosorbide Mononitrate Mononitrate t_in_ Mononitrat ER 30 MG ER 30 MG e_morni e ER 30 MG ng} Dilt-XR 180 Dilt-XR 180 No Dilt-XR MG MG 180 MG Losartan Losartan No Losartan Potassium Potassium Potassium 100 MG 100 MG 100 MG Atorvastati Atorvastati No Atorvastat n Calcium n Calcium in Calcium 40 MG 40 MG 40 MG Metoprolol Metoprolol No 1{table QD Metoprolol Succinate Succinate t} Succinate ER 50 MG ER 50 MG ER 50 MG Sodium Sodium No 1{table BID Sodium Bicarbonate Bicarbonate t} Bicarbonat 650 MG 650 MG e 650 MG Allopurinol Allopurinol No Allopurino 100 MG 100 MG l 100 MG Sotalol HCl Sotalol HCl No Sotalol 160 MG 160 MG HCl 160 MG Sildenafil Sildenafil No Sildenafil Citrate 100 Citrate 100 Citrate MG MG 100 MG amLODIPine amLODIPine No 1{table QD amLODIPine Besylate 10 Besylate 10 t} Besylate MG MG 10 MG Lasix 80 MG Lasix 80 MG No 1{table BID Lasix 80 t} MG Losartan Losartan No 1{table QD Losartan Potassium Potassium t} Potassium 100 MG 100 MG 100 MG Omeprazole Omeprazole No QD Omeprazole 40 MG 40 MG 40 MG Allopurinol Allopurinol No 1{table QD Allopurino 100 MG 100 MG t} l 100 MG aMILoride aMILoride No 2{table BID aMILoride HCl 5 MG HCl 5 MG t_with_ HCl 5 MG food} Omeprazole Omeprazole No Omeprazole 40 MG 40 MG 40 MG Vitamin D3 Vitamin D3 No Vitamin D3 125 MCG 125 MCG 125 MCG (5000 UT) (5000 UT) (5000 UT) Isosorbide Isosorbide No 1{table QD Isosorbide Mononitrate Mononitrate t_in_th Mononitrat ER 30 MG ER 30 MG e_morni e ER 30 MG ng} Dilt-XR 180 Dilt-XR 180 No Dilt-XR MG MG 180 MG Losartan Losartan No Losartan Potassium Potassium Potassium 100 MG 100 MG 100 MG Atorvastati Atorvastati No Atorvastat n Calcium n Calcium in Calcium 40 MG 40 MG 40 MG Metoprolol Metoprolol No 1{table QD Metoprolol Succinate Succinate t} Succinate ER 50 MG ER 50 MG ER 50 MG Sodium Sodium No 1{table BID Sodium Bicarbonate Bicarbonate t} Bicarbonat 650 MG 650 MG e 650 MG Allopurinol Allopurinol No Allopurino 100 MG 100 MG l 100 MG Sotalol HCl Sotalol HCl No Sotalol 160 MG 160 MG HCl 160 MG Sildenafil Sildenafil No Sildenafil Citrate 100 Citrate 100 Citrate MG MG 100 MG amLODIPine amLODIPine No 1{table QD amLODIPine Besylate 10 Besylate 10 t} Besylate MG MG 10 MG Lasix 80 MG Lasix 80 MG No 1{table BID Lasix 80 t} MG Dilt-XR 180 Dilt-XR 180 No Dilt-XR MG MG 180 MG Isosorbide Isosorbide No 1{table BID Isosorbide Mononitrate Mononitrate t_in_th Mononitrat ER 30 MG ER 30 MG e_morni e ER 30 MG ng} Losartan Losartan No Losartan Potassium Potassium Potassium 100 MG 100 MG 100 MG Metoprolol Metoprolol No 1{table QD Metoprolol Succinate Succinate t} Succinate ER 50 MG ER 50 MG ER 50 MG amLODIPine amLODIPine No 1{table QD amLODIPine Besylate 10 Besylate 10 t} Besylate MG MG 10 MG Apixaban 5 Apixaban 5 No BID Apixaban 5 MG MG MG Allopurinol Allopurinol No 1{table QD Allopurino 100 MG 100 MG t} l 100 MG Omeprazole Omeprazole No QD Omeprazole 40 MG 40 MG 40 MG Omeprazole Omeprazole No Omeprazole 40 MG 40 MG 40 MG Allopurinol Allopurinol No Allopurino 100 MG 100 MG l 100 MG Lasix 80 MG Lasix 80 MG No 1{table QD Lasix 80 t} MG aMILoride aMILoride No 2{table BID aMILoride HCl 5 MG HCl 5 MG t_with_ HCl 5 MG food} Sildenafil Sildenafil No Sildenafil Citrate 100 Citrate 100 Citrate MG MG 100 MG Vitamin D3 Vitamin D3 No Vitamin D3 125 MCG 125 MCG 125 MCG (5000 UT) (5000 UT) (5000 UT) Atorvastati Atorvastati No Atorvastat n Calcium n Calcium in Calcium 40 MG 40 MG 40 MG Sotalol HCl Sotalol HCl No Sotalol 160 MG 160 MG HCl 160 MG Losartan Losartan No 1{table QD Losartan Potassium Potassium t} Potassium 100 MG 100 MG 100 MG Eliquis 5 Eliquis 5 No BID Eliquis 5 MG MG MG Sodium Sodium No 1{table BID Sodium Bicarbonate Bicarbonate t} Bicarbonat 650 MG 650 MG e 650 MG Dilt-XR 180 Dilt-XR 180 No Dilt-XR MG MG 180 MG Isosorbide Isosorbide No 1{table BID Isosorbide Mononitrate Mononitrate t_in_th Mononitrat ER 30 MG ER 30 MG e_morni e ER 30 MG ng} Losartan Losartan No Losartan Potassium Potassium Potassium 100 MG 100 MG 100 MG Metoprolol Metoprolol No 1{table QD Metoprolol Succinate Succinate t} Succinate ER 50 MG ER 50 MG ER 50 MG amLODIPine amLODIPine No 1{table QD amLODIPine Besylate 10 Besylate 10 t} Besylate MG MG 10 MG Apixaban 5 Apixaban 5 No BID Apixaban 5 MG MG MG Allopurinol Allopurinol No 1{table QD Allopurino 100 MG 100 MG t} l 100 MG Omeprazole Omeprazole No QD Omeprazole 40 MG 40 MG 40 MG Omeprazole Omeprazole No Omeprazole 40 MG 40 MG 40 MG Allopurinol Allopurinol No Allopurino 100 MG 100 MG l 100 MG Lasix 80 MG Lasix 80 MG No 1{table QD Lasix 80 t} MG aMILoride aMILoride No 2{table BID aMILoride HCl 5 MG HCl 5 MG t_with_ HCl 5 MG food} Sildenafil Sildenafil No Sildenafil Citrate 100 Citrate 100 Citrate MG MG 100 MG Vitamin D3 Vitamin D3 No Vitamin D3 125 MCG 125 MCG 125 MCG (5000 UT) (5000 UT) (5000 UT) Atorvastati Atorvastati No Atorvastat n Calcium n Calcium in Calcium 40 MG 40 MG 40 MG Sotalol HCl Sotalol HCl No Sotalol 160 MG 160 MG HCl 160 MG Losartan Losartan No 1{table QD Losartan Potassium Potassium t} Potassium 100 MG 100 MG 100 MG Eliquis 5 Eliquis 5 No BID Eliquis 5 MG MG MG Sodium Sodium No 1{table BID Sodium Bicarbonate Bicarbonate t} Bicarbonat 650 MG 650 MG e 650 MG Eliquis 5 Eliquis 5 No BID Eliquis 5 MG MG MG Atorvastati Atorvastati No Atorvastat n Calcium n Calcium in Calcium 40 MG 40 MG 40 MG Allopurinol Allopurinol No Allopurino 100 MG 100 MG l 100 MG Dilt-XR 180 Dilt-XR 180 No Dilt-XR MG MG 180 MG Losartan Losartan No Losartan Potassium Potassium Potassium 100 MG 100 MG 100 MG Metoprolol Metoprolol No 1{table QD Metoprolol Succinate Succinate t} Succinate ER 50 MG ER 50 MG ER 50 MG amLODIPine amLODIPine No 1{table QD amLODIPine Besylate 10 Besylate 10 t} Besylate MG MG 10 MG Lasix 80 MG Lasix 80 MG No 1{table QD Lasix 80 t} MG Sildenafil Sildenafil No Sildenafil Citrate 100 Citrate 100 Citrate MG MG 100 MG Isosorbide Isosorbide No 1{table BID Isosorbide Mononitrate Mononitrate t_in_th Mononitrat ER 30 MG ER 30 MG e_morni e ER 30 MG ng} Losartan Losartan No 1{table QD Losartan Potassium Potassium t} Potassium 100 MG 100 MG 100 MG Sotalol HCl Sotalol HCl No Sotalol 160 MG 160 MG HCl 160 MG Vitamin D3 Vitamin D3 No Vitamin D3 125 MCG 125 MCG 125 MCG (5000 UT) (5000 UT) (5000 UT) Omeprazole Omeprazole No Omeprazole 40 MG 40 MG 40 MG aMILoride aMILoride No 2{table BID aMILoride HCl 5 MG HCl 5 MG t_with_ HCl 5 MG food} Sodium Sodium No 1{table BID Sodium Bicarbonate Bicarbonate t} Bicarbonat 650 MG 650 MG e 650 MG Apixaban 5 Apixaban 5 No BID Apixaban 5 MG MG MG Eliquis 5 Eliquis 5 No BID Eliquis 5 MG MG MG Atorvastati Atorvastati No Atorvastat n Calcium n Calcium in Calcium 40 MG 40 MG 40 MG Allopurinol Allopurinol No Allopurino 100 MG 100 MG l 100 MG Dilt-XR 180 Dilt-XR 180 No Dilt-XR MG MG 180 MG Losartan Losartan No Losartan Potassium Potassium Potassium 100 MG 100 MG 100 MG Metoprolol Metoprolol No 1{table QD Metoprolol Succinate Succinate t} Succinate ER 50 MG ER 50 MG ER 50 MG amLODIPine amLODIPine No 1{table QD amLODIPine Besylate 10 Besylate 10 t} Besylate MG MG 10 MG Lasix 80 MG Lasix 80 MG No 1{table QD Lasix 80 t} MG Sildenafil Sildenafil No Sildenafil Citrate 100 Citrate 100 Citrate MG MG 100 MG Isosorbide Isosorbide No 1{table BID Isosorbide Mononitrate Mononitrate t_in_th Mononitrat ER 30 MG ER 30 MG e_morni e ER 30 MG ng} Losartan Losartan No 1{table QD Losartan Potassium Potassium t} Potassium 100 MG 100 MG 100 MG Sotalol HCl Sotalol HCl No Sotalol 160 MG 160 MG HCl 160 MG Vitamin D3 Vitamin D3 No Vitamin D3 125 MCG 125 MCG 125 MCG (5000 UT) (5000 UT) (5000 UT) Omeprazole Omeprazole No Omeprazole 40 MG 40 MG 40 MG aMILoride aMILoride No 2{table BID aMILoride HCl 5 MG HCl 5 MG t_with_ HCl 5 MG food} Sodium Sodium No 1{table BID Sodium Bicarbonate Bicarbonate t} Bicarbonat 650 MG 650 MG e 650 MG Apixaban 5 Apixaban 5 No BID Apixaban 5 MG MG MG Apixaban 5 Apixaban 5 No BID Apixaban 5 MG MG MG aMILoride aMILoride No 2{table BID aMILoride HCl 5 MG HCl 5 MG t_with_ HCl 5 MG food} Eliquis 5 Eliquis 5 No BID Eliquis 5 MG MG MG Allopurinol Allopurinol No Allopurino 100 MG 100 MG l 100 MG Lasix 80 MG Lasix 80 MG No 1{table QD Lasix 80 t} MG Isosorbide Isosorbide No 1{table BID Isosorbide Mononitrate Mononitrate t_in_th Mononitrat ER 30 MG ER 30 MG e_morni e ER 30 MG ng} Losartan Losartan No Losartan Potassium Potassium Potassium 100 MG 100 MG 100 MG Promethazin Promethazin No .5{tabl BID Promethazi e HCl 25 MG e HCl 25 MG et_as_n ne HCl 25 eeded} MG Sodium Sodium No 1{table BID Sodium Bicarbonate Bicarbonate t} Bicarbonat 650 MG 650 MG e 650 MG Omeprazole Omeprazole No Omeprazole 40 MG 40 MG 40 MG Sotalol HCl Sotalol HCl No Sotalol 160 MG 160 MG HCl 160 MG amLODIPine amLODIPine No 1{table QD amLODIPine Besylate 10 Besylate 10 t} Besylate MG MG 10 MG Metoprolol Metoprolol No 1{table QD Metoprolol Succinate Succinate t} Succinate ER 50 MG ER 50 MG ER 50 MG Sildenafil Sildenafil No Sildenafil Citrate 100 Citrate 100 Citrate MG MG 100 MG Dilt-XR 180 Dilt-XR 180 No Dilt-XR MG MG 180 MG Vitamin D3 Vitamin D3 No Vitamin D3 125 MCG 125 MCG 125 MCG (5000 UT) (5000 UT) (5000 UT) Losartan Losartan No 1{table QD Losartan Potassium Potassium t} Potassium 100 MG 100 MG 100 MG Atorvastati Atorvastati No Atorvastat n Calcium n Calcium in Calcium 40 MG 40 MG 40 MG Apixaban 5 Apixaban 5 No BID Apixaban 5 MG MG MG aMILoride aMILoride No 2{table BID aMILoride HCl 5 MG HCl 5 MG t_with_ HCl 5 MG food} Eliquis 5 Eliquis 5 No BID Eliquis 5 MG MG MG Allopurinol Allopurinol No Allopurino 100 MG 100 MG l 100 MG Lasix 80 MG Lasix 80 MG No 1{table QD Lasix 80 t} MG Promethazin Promethazin No .5{tabl BID Promethazi e HCl 25 MG e HCl 25 MG et_as_n ne HCl 25 eeded} MG Sodium Sodium No 1{table BID Sodium Bicarbonate Bicarbonate t} Bicarbonat 650 MG 650 MG e 650 MG Losartan Losartan No Losartan Potassium Potassium Potassium 100 MG 100 MG 100 MG Vitamin D3 Vitamin D3 No Vitamin D3 125 MCG 125 MCG 125 MCG (5000 UT) (5000 UT) (5000 UT) Omeprazole Omeprazole No Omeprazole 40 MG 40 MG 40 MG Sotalol HCl Sotalol HCl No Sotalol 160 MG 160 MG HCl 160 MG Isosorbide Isosorbide No 1{table BID Isosorbide Mononitrate Mononitrate t_in_th Mononitrat ER 30 MG ER 30 MG e_morni e ER 30 MG ng} Metoprolol Metoprolol No 1{table QD Metoprolol Succinate Succinate t} Succinate ER 50 MG ER 50 MG ER 50 MG Losartan Losartan No 1{table QD Losartan Potassium Potassium t} Potassium 100 MG 100 MG 100 MG Dilt-XR 180 Dilt-XR 180 No Dilt-XR MG MG 180 MG Sildenafil Sildenafil No Sildenafil Citrate 100 Citrate 100 Citrate MG MG 100 MG amLODIPine amLODIPine No 1{table QD amLODIPine Besylate 10 Besylate 10 t} Besylate MG MG 10 MG Atorvastati Atorvastati No Atorvastat n Calcium n Calcium in Calcium 40 MG 40 MG 40 MG Atorvastati Atorvastati No Atorvastat n Calcium n Calcium in Calcium 40 MG 40 MG 40 MG Vitamin D3 Vitamin D3 No Vitamin D3 125 MCG 125 MCG 125 MCG (5000 UT) (5000 UT) (5000 UT) Allopurinol Allopurinol No Allopurino 100 MG 100 MG l 100 MG Atorvastati Atorvastati No QD Atorvastat n Calcium n Calcium in Calcium 40 MG 40 MG 40 MG Metoprolol Metoprolol No 1{table QD Metoprolol Succinate Succinate t} Succinate ER 50 MG ER 50 MG ER 50 MG Eliquis 5 Eliquis 5 No BID Eliquis 5 MG MG MG Losartan Losartan No Losartan Potassium Potassium Potassium 100 MG 100 MG 100 MG Apixaban 5 Apixaban 5 No BID Apixaban 5 MG MG MG aMILoride aMILoride No 2{table BID aMILoride HCl 5 MG HCl 5 MG t_with_ HCl 5 MG food} Promethazin Promethazin No .5{tabl BID Promethazi e HCl 25 MG e HCl 25 MG et_as_n ne HCl 25 eeded} MG Sotalol HCl Sotalol HCl No Sotalol 160 MG 160 MG HCl 160 MG Allopurinol Allopurinol No 1{table QD Allopurino 100 MG 100 MG t} l 100 MG amLODIPine amLODIPine No 1{table QD amLODIPine Besylate 10 Besylate 10 t} Besylate MG MG 10 MG Dilt-XR 180 Dilt-XR 180 No Dilt-XR MG MG 180 MG Sildenafil Sildenafil No Sildenafil Citrate 100 Citrate 100 Citrate MG MG 100 MG Isosorbide Isosorbide No 1{table QD Isosorbide Mononitrate Mononitrate t_in_th Mononitrat ER 30 MG ER 30 MG e_morni e ER 30 MG ng} Omeprazole Omeprazole No QD Omeprazole 40 MG 40 MG 40 MG Omeprazole Omeprazole No Omeprazole 40 MG 40 MG 40 MG Lasix 80 MG Lasix 80 MG No 1{table BID Lasix 80 t} MG Sodium Sodium No 1{table BID Sodium Bicarbonate Bicarbonate t} Bicarbonat 650 MG 650 MG e 650 MG Losartan Losartan No 1{table QD Losartan Potassium Potassium t} Potassium 100 MG 100 MG 100 MG Atorvastati Atorvastati No QD Atorvastat n Calcium n Calcium in Calcium 40 MG 40 MG 40 MG Atorvastati Atorvastati No Atorvastat n Calcium n Calcium in Calcium 40 MG 40 MG 40 MG Omeprazole Omeprazole No Omeprazole 40 MG 40 MG 40 MG Vitamin D3 Vitamin D3 No Vitamin D3 125 MCG 125 MCG 125 MCG (5000 UT) (5000 UT) (5000 UT) Losartan Losartan No Losartan Potassium Potassium Potassium 100 MG 100 MG 100 MG Sildenafil Sildenafil No Sildenafil Citrate 100 Citrate 100 Citrate MG MG 100 MG Omeprazole Omeprazole No QD Omeprazole 40 MG 40 MG 40 MG Isosorbide Isosorbide No 1{table QD Isosorbide Mononitrate Mononitrate t_in_th Mononitrat ER 30 MG ER 30 MG e_morni e ER 30 MG ng} Eliquis 5 Eliquis 5 No BID Eliquis 5 MG MG MG Sodium Sodium No 1{table BID Sodium Bicarbonate Bicarbonate t} Bicarbonat 650 MG 650 MG e 650 MG Apixaban 5 Apixaban 5 No BID Apixaban 5 MG MG MG Lasix 80 MG Lasix 80 MG No 1{table BID Lasix 80 t} MG Metoprolol Metoprolol No 1{table QD Metoprolol Succinate Succinate t} Succinate ER 50 MG ER 50 MG ER 50 MG Dilt-XR 180 Dilt-XR 180 No Dilt-XR MG MG 180 MG Allopurinol Allopurinol No 1{table QD Allopurino 100 MG 100 MG t} l 100 MG Promethazin Promethazin No .5{tabl BID Promethazi e HCl 25 MG e HCl 25 MG et_as_n ne HCl 25 eeded} MG aMILoride aMILoride No 2{table BID aMILoride HCl 5 MG HCl 5 MG t_with_ HCl 5 MG food} Allopurinol Allopurinol No Allopurino 100 MG 100 MG l 100 MG amLODIPine amLODIPine No 1{table QD amLODIPine Besylate 10 Besylate 10 t} Besylate MG MG 10 MG Sotalol HCl Sotalol HCl No Sotalol 160 MG 160 MG HCl 160 MG Losartan Losartan No 1{table QD Losartan Potassium Potassium t} Potassium 100 MG 100 MG 100 MG Atorvastati Atorvastati No QD Atorvastat n Calcium n Calcium in Calcium 40 MG 40 MG 40 MG Atorvastati Atorvastati No Atorvastat n Calcium n Calcium in Calcium 40 MG 40 MG 40 MG Omeprazole Omeprazole No Omeprazole 40 MG 40 MG 40 MG Vitamin D3 Vitamin D3 No Vitamin D3 125 MCG 125 MCG 125 MCG (5000 UT) (5000 UT) (5000 UT) Losartan Losartan No Losartan Potassium Potassium Potassium 100 MG 100 MG 100 MG Sildenafil Sildenafil No Sildenafil Citrate 100 Citrate 100 Citrate MG MG 100 MG Omeprazole Omeprazole No QD Omeprazole 40 MG 40 MG 40 MG Isosorbide Isosorbide No 1{table QD Isosorbide Mononitrate Mononitrate t_in_th Mononitrat ER 30 MG ER 30 MG e_morni e ER 30 MG ng} Eliquis 5 Eliquis 5 No BID Eliquis 5 MG MG MG Sodium Sodium No 1{table BID Sodium Bicarbonate Bicarbonate t} Bicarbonat 650 MG 650 MG e 650 MG Apixaban 5 Apixaban 5 No BID Apixaban 5 MG MG MG Lasix 80 MG Lasix 80 MG No 1{table BID Lasix 80 t} MG Metoprolol Metoprolol No 1{table QD Metoprolol Succinate Succinate t} Succinate ER 50 MG ER 50 MG ER 50 MG Dilt-XR 180 Dilt-XR 180 No Dilt-XR MG MG 180 MG Allopurinol Allopurinol No 1{table QD Allopurino 100 MG 100 MG t} l 100 MG Promethazin Promethazin No .5{tabl BID Promethazi e HCl 25 MG e HCl 25 MG et_as_n ne HCl 25 eeded} MG aMILoride aMILoride No 2{table BID aMILoride HCl 5 MG HCl 5 MG t_with_ HCl 5 MG food} Allopurinol Allopurinol No Allopurino 100 MG 100 MG l 100 MG amLODIPine amLODIPine No 1{table QD amLODIPine Besylate 10 Besylate 10 t} Besylate MG MG 10 MG Sotalol HCl Sotalol HCl No Sotalol 160 MG 160 MG HCl 160 MG Losartan Losartan No 1{table QD Losartan Potassium Potassium t} Potassium 100 MG 100 MG 100 MG Promethazin Promethazin No .5{tabl BID Promethazi e HCl 25 MG e HCl 25 MG et_as_n ne HCl 25 eeded} MG Sildenafil Sildenafil No Sildenafil Citrate 100 Citrate 100 Citrate MG MG 100 MG Metoprolol Metoprolol No 1{table QD Metoprolol Succinate Succinate t} Succinate ER 50 MG ER 50 MG ER 50 MG Allopurinol Allopurinol No 1{table QD Allopurino 100 MG 100 MG t} l 100 MG Omeprazole Omeprazole No QD Omeprazole 40 MG 40 MG 40 MG Atorvastati Atorvastati No QD Atorvastat n Calcium n Calcium in Calcium 40 MG 40 MG 40 MG Atorvastati Atorvastati No QD Atorvastat n Calcium n Calcium in Calcium 40 MG 40 MG 40 MG Metoprolol Metoprolol No 1{table QD Metoprolol Succinate Succinate t} Succinate ER 50 MG ER 50 MG ER 50 MG Allopurinol Allopurinol No 1{table QD Allopurino 100 MG 100 MG t} l 100 MG Sildenafil Sildenafil No Sildenafil Citrate 100 Citrate 100 Citrate MG MG 100 MG Omeprazole Omeprazole No QD Omeprazole 40 MG 40 MG 40 MG Promethazin Promethazin No .5{tabl BID Promethazi e HCl 25 MG e HCl 25 MG et_as_n ne HCl 25 eeded} MG Atorvastati Atorvastati No QD Atorvastat n Calcium n Calcium in Calcium 40 MG 40 MG 40 MG Allopurinol Allopurinol No 1{table QD Allopurino 100 MG 100 MG t} l 100 MG Promethazin Promethazin No .5{tabl BID Promethazi e HCl 25 MG e HCl 25 MG et_as_n ne HCl 25 eeded} MG Omeprazole Omeprazole No QD Omeprazole 40 MG 40 MG 40 MG Sildenafil Sildenafil No Sildenafil Citrate 100 Citrate 100 Citrate MG MG 100 MG Metoprolol Metoprolol No 1{table QD Metoprolol Succinate Succinate t} Succinate ER 50 MG ER 50 MG ER 50 MG Atorvastati Atorvastati No QD Atorvastat n Calcium n Calcium in Calcium 40 MG 40 MG 40 MG Allopurinol Allopurinol No 1{table QD Allopurino 100 MG 100 MG t} l 100 MG Promethazin Promethazin No .5{tabl BID Promethazi e HCl 25 MG e HCl 25 MG et_as_n ne HCl 25 eeded} MG Omeprazole Omeprazole No QD Omeprazole 40 MG 40 MG 40 MG Sildenafil Sildenafil No Sildenafil Citrate 100 Citrate 100 Citrate MG MG 100 MG Metoprolol Metoprolol No 1{table QD Metoprolol Succinate Succinate t} Succinate ER 50 MG ER 50 MG ER 50 MG Atorvastati Atorvastati No QD Atorvastat n Calcium n Calcium in Calcium 40 MG 40 MG 40 MG Allopurinol Allopurinol No 1{table QD Allopurino 100 MG 100 MG t} l 100 MG Promethazin Promethazin No .5{tabl BID Promethazi e HCl 25 MG e HCl 25 MG et_as_n ne HCl 25 eeded} MG Omeprazole Omeprazole No QD Omeprazole 40 MG 40 MG 40 MG Sildenafil Sildenafil No Sildenafil Citrate 100 Citrate 100 Citrate MG MG 100 MG Metoprolol Metoprolol No 1{table QD Metoprolol Succinate Succinate t} Succinate ER 50 MG ER 50 MG ER 50 MG Atorvastati Atorvastati No QD Atorvastat n Calcium n Calcium in Calcium 40 MG 40 MG 40 MG Allopurinol Allopurinol No 1{table QD Allopurino 100 MG 100 MG t} l 100 MG Promethazin Promethazin No .5{tabl BID Promethazi e HCl 25 MG e HCl 25 MG et_as_n ne HCl 25 eeded} MG Omeprazole Omeprazole No QD Omeprazole 40 MG 40 MG 40 MG Sildenafil Sildenafil No Sildenafil Citrate 100 Citrate 100 Citrate MG MG 100 MG Metoprolol Metoprolol No 1{table QD Metoprolol Succinate Succinate t} Succinate ER 50 MG ER 50 MG ER 50 MG Omeprazole Omeprazole No QD Omeprazole 40 MG 40 MG 40 MG Promethazin Promethazin No .5{tabl BID Promethazi e HCl 25 MG e HCl 25 MG et_as_n ne HCl 25 eeded} MG Allopurinol Allopurinol No Allopurino 100 MG 100 MG l 100 MG Sildenafil Sildenafil No Sildenafil Citrate 100 Citrate 100 Citrate MG MG 100 MG Metoprolol Metoprolol No 1{table QD Metoprolol Succinate Succinate t} Succinate ER 50 MG ER 50 MG ER 50 MG Sildenafil Sildenafil No Sildenafil Citrate 100 Citrate 100 Citrate MG MG 100 MG Atorvastati Atorvastati No QD Atorvastat n Calcium n Calcium in Calcium 40 MG 40 MG 40 MG Atorvastati Atorvastati No QD Atorvastat n Calcium n Calcium in Calcium 40 MG 40 MG 40 MG Metoprolol Metoprolol No Metoprolol Succinate Succinate Succinate ER 50 MG ER 50 MG ER 50 MG Allopurinol Allopurinol No 1{table QD Allopurino 100 MG 100 MG t} l 100 MG Omeprazole Omeprazole No Omeprazole 40 MG 40 MG 40 MG Dilt-XR 180 Dilt-XR 180 No Dilt-XR MG MG 180 MG Sotalol HCl Sotalol HCl No QD Sotalol 160 MG 160 MG HCl 160 MG dilTIAZem dilTIAZem No 1{capsu QD dilTIAZem HCl ER 180 HCl ER 180 le} HCl ER 180 MG MG MG Sotalol HCl Sotalol HCl No QD Sotalol 160 MG 160 MG HCl 160 MG Atorvastati Atorvastati No Atorvastat n Calcium n Calcium in Calcium 40 MG 40 MG 40 MG Allopurinol Allopurinol No 1{table QD Allopurino 100 MG 100 MG t} l 100 MG Omeprazole Omeprazole No QD Omeprazole 40 MG 40 MG 40 MG Losartan Losartan No 1{table QD Losartan Potassium Potassium t} Potassium 100 MG 100 MG 100 MG Losartan Losartan No 1{table QD Losartan Potassium Potassium t} Potassium 100 MG 100 MG 100 MG Atorvastati Atorvastati No QD Atorvastat n Calcium n Calcium in Calcium 40 MG 40 MG 40 MG Sildenafil Sildenafil No Sildenafil Citrate 100 Citrate 100 Citrate MG MG 100 MG amLODIPine amLODIPine No 1{table QD amLODIPine Besylate 10 Besylate 10 t} Besylate MG MG 10 MG Omeprazole Omeprazole No QD Omeprazole 40 MG 40 MG 40 MG Omeprazole Omeprazole No QD Omeprazole 40 MG 40 MG 40 MG Allopurinol Allopurinol No Allopurino 100 MG 100 MG l 100 MG Losartan Losartan No 1{table QD Losartan Potassium Potassium t} Potassium 100 MG 100 MG 100 MG Atorvastati Atorvastati No QD Atorvastat n Calcium n Calcium in Calcium 40 MG 40 MG 40 MG amLODIPine amLODIPine No 1{table QD amLODIPine Besylate 10 Besylate 10 t} Besylate MG MG 10 MG Omeprazole Omeprazole No Omeprazole 40 MG 40 MG 40 MG Sotalol HCl Sotalol HCl No QD Sotalol 160 MG 160 MG HCl 160 MG Immunizations Ordered Immunization Filled Immunization Date Status Commen ts Source Name Name Vitor Adler 2018-05-29 Completed [facility]one) 11:43:00 - [facility] Dexamethasone Dexamethasone 2018-05-29 Completed [facility] Vital Signs Vital Name Observation Time Observation Value Comments Source Systolic blood 2023-05-30 20:09:00 134 mm[Hg] Univer [facility]ity [facility] Diastolic blood 2023-05-30 20:09:00 77 [facility] 20:09:00 88 /min [facility] Respiratory rate 2023-05-30 20:09:00 22 /min [facility] 2023-05-30 20:09:00 198.1 cm [facility] Body weight 2023-05-30 20:09:00 132.722 kg [facility] BMI 2023-05-30 20:09:00 33.81 kg/m2 [facility] Oxygen saturation in 2023-05-30 20:09:00 99 /min [facility] Arterial blood by [facility] Pulse oximetry Branch Systolic blood 2023-04-12 13:08:00 130 mm[Hg] Univer sity [facility] Diastolic blood 2023-04-12 13:08:00 77 mm[Hg] Unive rsity of pressure [facility] Heart rate 2023-04-12 13:08:00 87 /min [facility] Body temperature 2023-04-12 13:08:00 36.11 Mariel [facility] Body height 2023-04-12 13:08:00 198.1 cm [facility] Body weight 2023-04-12 13:08:00 132.904 kg [facility] BMI 2023-04-12 13:08:00 33.86 kg/m2 [facility] Oxygen saturation in 2023-04-12 13:08:00 98 /min [facility] Arterial blood by [facility] Pulse oximetry Branch Systolic blood 2023-02-10 13:39:00 132 mm[Hg] Univer sity of pressure [facility] Diastolic blood 2023-02-10 13:39:00 79 mm[Hg] Unive rsity of pressure [facility] Heart rate 2023-02-10 13:39:00 64 /min [facility] Body temperature 2023-02-10 13:39:00 36.5 Mariel [facility] Body height 2023-02-10 13:39:00 198.1 cm [facility] Body weight 2023-02-10 13:39:00 130.681 kg [facility] BMI 2023-02-10 13:39:00 33.29 kg/m2 [facility] Oxygen saturation in 2023-02-10 13:39:00 90 /min [facility] Arterial blood by [facility] Pulse oximetry Branch Systolic blood 2023-02-01 13:53:00 123 mm[Hg] Univer sity of pressure [facility] Diastolic blood 2023-02-01 13:53:00 66 mm[Hg] Unive rsity [facility] pressure [facility] Heart rate 2023-02-01 13:53:00 64 /min [facility] Body temperature 2023-02-01 13:53:00 36.17 Mariel [facility] Respiratory rate 2023-02-01 13:53:00 18 /min [facility] Body height 2023-02-01 13:53:00 198.1 cm [facility] Body weight 2023-02-01 13:53:00 130.681 kg [facility] BMI 2023-02-01 13:53:00 33.29 kg/m2 [facility] Oxygen saturation in 2023-02-01 13:53:00 100 /min [facility] [place] [facility] Systolic blood 2023-01-27 15:00:00 121 mm[Hg] Univer sity of [facility] Diastolic blood 2023-01-27 15:00:00 75 mm[Hg] Unive rsity [facility] Heart rate 2023-01-27 15:00:00 67 /min [facility] Oxygen saturation in 2023-01-27 15:00:00 88 /min [facility] Arterial blood by [place] [facility] Pulse oximetry Branch Body weight 2023-01-25 15:35:00 131.8 kg [facility] BMI 2023-01-25 15:35:00 33.58 kg/m2 [facility] Systolic blood 2023-01-25 13:12:00 134 mm[Hg] Univer [facility]ity [facility] Diastolic blood 2023-01-25 13:12:00 72 mm[Hg] Unive rsity [facility] Heart rate 2023-01-25 13:12:00 93 /min [facility] Body temperature 2023-01-25 13:12:00 36.28 Mariel [facility] Body height 2023-01-25 13:12:00 198.1 cm [facility] Body weight 2023-01-25 13:12:00 131.815 kg [facility] BMI 2023-01-25 13:12:00 33.58 kg/m2 [facility] Oxygen saturation in 2023-01-25 13:12:00 99 /min [facility] [place] [facility] Heart rate 2022-12-16 18:25:00 93 /min [facility] Oxygen saturation in 2022-12-16 18:25:00 100 /min [facility] Arter[facility] blood by [facility]anae Pulse oximetry Branch Respiratory rate 2022-12-16 18:15:00 19 /min [facility] Systolic blood 2022-12-16 18:00:00 188 mm[Hg] Univer sity of pressure [facility] Diastolic blood 2022-12-16 18:00:00 105 mm[Hg] Unive rsity of pressure [facility] Body temperature 2022-12-16 12:56:00 36.44 Mariel [facility] Body height 2022-12-16 12:56:00 198.1 cm [facility] Body weight 2022-12-16 12:56:00 129.275 kg [facility] BMI 2022-12-16 12:56:00 32.94 kg/m2 [facility] Systolic blood 2022-12-16 15:30:00 118 mm[Hg] Univer sity of [facility] Diastolic blood 2022-12-16 15:30:00 65 mm[Hg] Unive rsity of pressure [facility] Heart rate 2022-12-16 15:30:00 73 /min [facility] Respiratory rate 2022-12-16 15:30:00 15 /min [facility] Oxygen saturation in 2022-12-16 15:30:00 97 /min [facility] Arterial blood by [facility] Pulse oximetry Branch Body temperature 2022-12-16 12:56:00 36.44 Mariel [facility] Body height 2022-12-16 12:56:00 198.1 cm [facility] Body weight 2022-12-16 12:56:00 129.275 kg [facility] BMI 2022-12-16 12:56:00 32.94 kg/m2 [facility] Systolic blood 2022-12-14 14:50:00 161 mm[Hg] Univer sity of pressure [facility] Diastolic blood 2022-12-14 14:50:00 84 mm[Hg] Unive rsity of pressure [facility] Heart rate 2022-12-14 14:45:00 78 /min [facility] Oxygen saturation in 2022-12-14 14:45:00 100 /min [facility] by [place] [facility] Respiratory rate 2022-12-14 14:35:00 13 /min [facility] Body height 2022-12-07 17:08:00 198.1 cm [facility] Body weight 2022-12-07 17:08:00 132.541 kg [facility] BMI 2022-12-07 17:08:00 33.77 kg/m2 [facility] Systolic blood 2022-11-25 16:26:00 138 mm[Hg] Univer sity of pressure [facility] Diastolic blood 2022-11-25 16:26:00 75 mm[Hg] Unive rsity [facility] Heart rate 2022-11-25 16:26:00 80 /min [facility] Body temperature 2022-11-25 16:26:00 36.39 Mariel [facility] Body height 2022-11-25 16:26:00 198.1 cm [facility] Body weight 2022-11-25 16:26:00 132.541 kg [facility] BMI 2022-11-25 16:26:00 33.77 kg/m2 [facility] Oxygen saturation in 2022-11-25 16:26:00 99 /min [facility] by [place] [facility] Heart rate 2022-11-05 20:00:00 90 /min [facility] Respiratory rate 2022-11-05 20:00:00 25 /min [facility] Oxygen saturation in 2022-11-05 20:00:00 100 /min [facility] [place] [facility] Systolic blood 2022-11-05 19:00:00 143 mm[Hg] Univer sity of [facility] Diastolic blood 2022-11-05 19:00:00 71 mm[Hg] Unive rsity of pressure [facility] Body weight 2022-11-05 19:00:00 131 kg [facility] BMI 2022-11-05 19:00:00 33.37 kg/m2 [facility] Body temperature 2022-11-05 18:00:00 36.5 Mariel [facility] Body height 2022-11-03 08:21:00 198.1 cm [facility] Systolic blood 2022-11-04 21:00:00 149 mm[Hg] Univer sity of pressure [facility] Diastolic blood 2022-11-04 21:00:00 76 mm[Hg] Unive rsity of pressure [facility] Heart rate 2022-11-04 21:00:00 75 /min [facility] Respiratory rate 2022-11-04 21:00:00 19 /min [facility] Oxygen saturation in 2022-11-04 21:00:00 96 /min [facility] Arterial blood by [place] [facility] Pulse oxim[facility] Body temperature 2022-11-04 18:00:00 36.56 Mariel [facility] Body weight 2022-11-04 17:45:00 130.61 kg [facility] BMI 2022-11-04 17:45:00 33.37 kg/m2 [facility] Body height 2022-11-03 08:21:00 198.1 cm [facility] Systolic blood 2022-11-03 22:42:00 138 mm[Hg] Univer sity of pressure [facility] Diastolic blood 2022-11-03 22:42:00 75 mm[Hg] Unive rsity of pressure [facility] Respiratory rate 2022-11-03 22:42:00 15 /min [facility] Oxygen saturation in 2022-11-03 22:42:00 99 /min [facility] Arterial blood by [place] [facility] Pulse oxim[facility] Heart rate 2022-11-03 18:00:00 70 /min [facility] Body temperature 2022-11-03 17:00:00 36.61 Mariel [facility] Body height 2022-11-03 08:21:00 198.1 cm [facility] Body weight 2022-11-03 08:21:00 129.275 kg [facility] BMI 2022-11-03 08:21:00 33.37 kg/m2 [facility] height 2022-10-19 14:40:00 78 [in_i] [facility] weight 2022-10-19 14:40:00 294 [lb_av] [facility] bmi 2022-10-19 14:40:00 33.97 kg/m2 [facility] height 2022-09-30 15:10:00 78 [in_i] [facility] weight 2022-09-30 15:10:00 294.5 [lb_av] Common [facility] temperature 2022-09-30 15:10:00 97.9 [degF] [facility] bmi 2022-09-30 15:10:00 34.03 kg/m2 [facility] oximetry 2022-09-30 15:10:00 99 % [facility] respiratory rate 2022-09-30 15:10:00 18 /min [facility] on [facility] blood pressure 2022-09-30 15:10:00 138 mm[Hg] Common [facility] - systolic [facility] blood pressure 2022-09-30 15:10:00 72 mm[Hg] Common [facility] - diastolic [facility] height 2022-06-16 13:40:00 78 [in_i] [facility] weight 2022-06-16 13:40:00 289 [lb_av] [facility] temperature 2022-06-16 13:40:00 97.6 [degF] [facility] bmi 2022-06-16 13:40:00 33.39 kg/m2 [facility] oximetry 2022-06-16 13:40:00 96 % [facility] respiratory rate 2022-06-16 13:40:00 16 /min [facility] on [facility] blood pressure 2022-06-16 13:40:00 132 mm[Hg] Common [facility] - systolic [facility] blood pressure 2022-06-16 13:40:00 76 mm[Hg] Common [facility] - diastolic [facility] Systolic blood 2022-03-01 21:20:00 114 mm[Hg] Univer sity of pressure [facility] Diastolic blood 2022-03-01 21:20:00 70 mm[Hg] Unive rsity of pressure [facility] Heart rate 2022-03-01 21:20:00 92 /min Universi ty [facility] Body height 2022-03-01 21:20:00 [facility]22-[facility]-01 21:20:00 129.417 kg Universi [facility] BMI 2022-03-01 21:20:00 32.97 kg/m2 [facility] Oxygen saturation in 2022-03-01 21:20:00 100 /min [facility] blood by [facility] Pulse oximetry Branch height 2022-02-24 09:00:00 78 [in_i] [facility] weight 2022-02-24 09:00:00 290.0 [lb_av] Common [facility] temperature 2022-02-24 09:00:00 98.0 [degF] Common [facility] bmi 2022-02-24 09:00:00 33.51 kg/m2 [facility] oximetry 2022-02-24 09:00:00 100 % [facility] respiratory rate 2022-02-24 09:00:00 17 /min [facility] on [facility] blood pressure 2022-02-24 09:00:00 120 mm[Hg] Common [facility] - systolic [facility] blood pressure 2022-02-24 09:00:00 65 mm[Hg] Common [facility] - diastolic [facility] height 2022-01-26 15:20:00 78 [in_i] Common [facility] weight 2022-01-26 15:20:00 312.6 [lb_av] Common [facility] temperature 2022-01-26 15:20:00 97.5 [degF] Common [facility] bmi 2022-01-26 15:20:00 36.12 kg/m2 [facility] oximetry 2022-01-26 15:20:00 100 % [facility] respiratory rate 2022-01-26 15:20:00 17 /min Comm on [facility] blood pressure 2022-01-26 15:20:00 134 mm[Hg] Common [facility] - systolic [facility] blood pressure 2022-01-26 15:20:00 76 mm[Hg] Common [facility] - diastolic [facility] height 2021-10-28 15:20:00 78 [in_i] [facility] weight 2021-10-28 15:20:00 314.3 [lb_av] [facility] temperature 2021-10-28 15:20:00 98.5 [degF] Common [facility] bmi 2021-10-28 15:20:00 36.32 kg/m2 [facility] oximetry 2021-10-28 15:20:00 98 % [facility] respiratory rate 2021-10-28 15:20:00 16 /min Comm on [facility] blood pressure 2021-10-28 15:20:00 132 mm[Hg] Common [facility] systolic [facility] blood pressure 2021-10-28 15:20:00 72 mm[Hg] Common [facility] diastolic [facility] Procedures Procedure Date / Time Performing Clinician Source Performed ASSIGNMENT OF BENEFITS 2023-04-12 12:19:32 Travis Ledezma [facility] Name [facility] [place] CARDIOVERSION EXTERNAL 2023-01-27 15:10:00 Zonia Brambila [facility] NOTICE OF PRIVACY PRACTICES 2023-01-27 12:35:01 Doctor Shayna george [facility] ASSIGNMENT OF BENEFITS 2023-01-27 12:34:38 Doctor Unassigned, [facility] CONSENT/REFUSAL FOR 2023-01-27 12:34:21 Doctor Unassigned, [facility] DIAGNOSIS AND TREATMENT [place] [facility] [place] ELECTROPHYSIOLOGY PROCEDURE 2022-12-16 15:08:31 Patty [facility] ELECTROPHYSIOLOGY PROCEDURE 2022-12-16 15:08:31 Patty [facility] POCT ACT LOW RANGE 2022-12-16 14:56:00 Patty [facility] POCT ACT LOW RANGE 2022-12-16 14:45:00 Patty [facility] POCT ACT LOW RANGE 2022-12-16 14:25:00 Patty [facility] POCT ACT LOW RANGE 2022-12-16 14:02:00 Patty [facility] BASIC METABOLIC PANEL (NA, 2022-12-16 13:01:00 Zonia Brambila [facility] K, CL, CO2, GLUCOSE, BUN, Medica l Branch CREATININE, CA) BASIC METABOLIC PANEL (NA, 2022-12-16 13:01:00 Patty [facility] K, CL, CO2, GLUCOSE, BUN, Medica l Branch CREATININE, CA) HB ABO GROUPING 2022-12-16 12:47:00 [facility]BO GROUPING 2022-12-16 12:47:00 [facility] TRANSESOPHAGEAL ECHO (JAG) 2022-12-14 14:42:57 [facility] COMPLETE W/ DOPPLER AND Medical Branch COLOR MAGNESIUM 2022-12-14 13:28:00 [facility] BASIC METABOLIC PANEL (NA, 2022-12-14 13:28:00 [facility], CL, CO2, GLUCOSE, BUN, Medica l Branch CREATININE, CA) CBC WITH DIFF 2022-12-14 13:28:00 Obi Tareq [facility] PROTHROMBIN TIME / INR 2022-12-14 13:28:00 Elmira Crocker [facility] NOTICE OF PRIVACY PRACTICES 2022-12-14 13:08:36 Doctor Shayna george, [place] [facility] Name [facility] CONSENT/REFUSAL FOR 2022-12-14 13:08:11 Doctor Omar, [facility] DIAGNOSIS AND TREATMENT [place] [facility] [place] ASSIGNMENT OF BENEFITS 2022-12-14 13:07:51 Doctor Unasssilva, [facility] Name [facility] EXTERNAL PROVIDER RECORDS 2022-11-12 06:01:00 Doctor Nelson, [facility] Name [facility] MAGNESIUM 2022-11-05 07:28:00 [facility] BASIC METABOLIC PANEL (NA, 2022-11-05 07:28:00 Silvio, [facility] K, CL, CO2, GLUCOSE, BUN, Medica l Branch CREATININE, CA) CBC WITHOUT DIFF 2022-11-05 07:28:00 Silvio [facility] MAGNESIUM 2022-11-05 07:28:00 [facility] BASIC METABOLIC PANEL (NA, 2022-11-05 07:28:00 [facility], CL, CO2, GLUCOSE, BUN, Medica l Branch CREATININE, CA) CBC WITHOUT DIFF 2022-11-05 07:28:00 Silvio [facility] MAGNESIUM 2022-11-05 07:28:00 [facility] BASIC METABOLIC PANEL (NA, 2022-11-05 07:28:00 [facility], CL, CO2, GLUCOSE, BUN, Medica l Branch CREATININE, CA) CBC WITHOUT DIFF 2022-11-05 07:28:00 Silvio [facility] XR CHEST 1 VW 2022-11-05 00:30:02 [facility] VW 2022-11-05 00:30:02 Aracely [facility] XR CHEST 1 VW 2022-11-05 00:30:02 [facility] PROCEDURE 2022-11-04 23:00:03 Janeyonas [facility] ELECTROPHYSIOLOGY PROCEDURE 2022-11-04 23:00:03 Patty [facility] ELECTROPHYSIOLOGY PROCEDURE 2022-11-04 23:00:03 Patty [facility] ELECTROPHYSIOLOGY PROCEDURE 2022-11-04 23:00:03 Patty [facility] ELECTROPHYSIOLOGY PROCEDURE 2022-11-04 23:00:03 Patty [facility] ELECTROPHYSIOLOGY PROCEDURE 2022-11-04 23:00:03 Patty [facility] CATH PROCEDURE LOG 2022-11-04 21:54:21 [facility] CATH PROCEDURE LOG 2022-11-04 21:54:21 [facility] CATH PROCEDURE LOG 2022-11-04 21:54:21 [facility] TRANSESOPHAGEAL ECHO (JAG) 2022-11-04 19:49:41 Bernard Brambilae [facility] [place] COMPLETE W/ DOPPLER, COLOR Medic al Branch AND CONTRAST TRANSESOPHAGEAL ECHO (JAG) 2022-11-04 19:49:41 NarcisaonRezahie [facility] [place] COMPLETE W/ DOPPLER, COLOR Medic al Branch AND CONTRAST TRANSESOPHAGEAL ECHO (JAG) 2022-11-04 19:49:41 Reza Brambilahie [facility] [place] COMPLETE W/ DOPPLER, COLOR Medic al Branch AND CONTRAST TRANSESOPHAGEAL ECHO (JAG) 2022-11-04 19:49:41 Reza Brambilahie [facility] [place] COMPLETE W/ DOPPLER, COLOR Medic al Branch AND CONTRAST HEPATITIS B SURFACE 2022-11-04 14:41:00 Agusto Caruso [facility] ANTIBODY [facility] HEPATITIS B SURFACE 2022-11-04 14:41:00 Shady Agusto [facility] ANTIBODY [facility] HEPATITIS B SURFACE 2022-11-04 14:41:00 Shady Agusto [facility] ANTIBODY [facility] BASIC METABOLIC PANEL (NA, 2022-11-04 10:03:00 Sivlio, Gerson [facility] K, CL, CO2, GLUCOSE, BUN, Medica l Branch CREATININE, CA) CBC WITHOUT DIFF 2022-11-04 10:03:00 Silvio Gerson [facility] HEPATITIS B SURFACE ANTIGEN 2022-11-04 10:03:00 [facility] BASIC METABOLIC PANEL (NA, 2022-11-04 10:03:00 Gerson Anguiano [facility] K, CL, CO2, GLUCOSE, BUN, Medica l Branch CREATININE, CA) CBC WITHOUT DIFF 2022-11-04 10:03:00 Slivio [facility] HEPATITIS B SURFACE ANTIGEN 2022-11-04 10:03:00 Shady [facility] BASIC METABOLIC PANEL (NA, 2022-11-04 10:03:00 Gerson Anguiano [facility] K, CL, CO2, GLUCOSE, BUN, Medica l Branch CREATININE, CA) CBC WITHOUT DIFF 2022-11-04 10:03:00 Silvio [facility] HEPATITIS B SURFACE ANTIGEN 2022-11-04 10:03:00 Shady [facility] ACTIVATED PARTIAL THRMPLAS 2022-11-04 06:06:00 Gerson Anguiano [facility] ACTIVATED PARTIAL THRMPLAS 2022-11-04 06:06:00 Gerson Anguiano [facility] ACTIVATED PARTIAL THRMPLAS 2022-11-04 06:06:00 Gerson Anguiano [facility] DISCLOSURE AND CONSENT, 2022-11-04 06:01:00 Doctor Unassigned, [facility] MEDICAL AND SURGICAL [place] [facility] PROCEDURES DISCLOSURE AND CONSENT, 2022-11-04 06:01:00 Doctor Unassigned, [facility] MEDICAL AND SURGICAL [place] [facility] PROCEDURES DISCLOSURE AND CONSENT, 2022-11-04 06:01:00 Doctor Unassigned, [facility] MEDICAL AND SURGICAL [place] [facility] PROCEDURES ACTIVATED PARTIAL THRMPLAS 2022-11-04 02:34:00 Gerson Anguiano [facility] ACTIVATED PARTIAL THRMPLAS 2022-11-04 02:34:00 Gerson [facility] ACTIVATED PARTIAL THRMPLAS 2022-11-04 02:34:00 Gerson Anguiano [facility] Medical Branch CARDIAC CATHETERIZATION 2022-11-03 23:14:00 Therese [facility] [place] [facility] CARDIAC CATHETERIZATION 2022-11-03 23:14:00 Therese [facility] [place] [facility] CARDIAC CATHETERIZATION 2022-11-03 23:14:00 Therese [facility] CARDIAC CATHETERIZATION 2022-11-03 23:14:00 Therese [facility] CARDIAC CATHETERIZATION 2022-11-03 23:14:00 Therese [facility] CARDIAC CATHETERIZATION 2022-11-03 23:14:00 Therese [facility] TRANSTHORACIC ECHO (TTE) 2022-11-03 17:34:00 Gerson Anguiano [facility] [place] COMPLETE W/ CONTRAST Medical Bra [facility] TRANSTHORACIC ECHO (TTE) 2022-11-03 17:34:00 Silvio Gerson [facility] [place] COMPLETE W/ CONTRAST Medical Bra [facility] TRANSTHORACIC ECHO (TTE) 2022-11-03 17:34:00 Gerson Anguiano [facility] [place] COMPLETE W/ CONTRAST Medical Bra [facility] TROPONIN I 2022-11-03 17:16:00 Timo [facility] ACTIVATED PARTIAL THRMPLAS 2022-11-03 17:16:00 [facility] TROPONIN I 2022-11-03 17:16:00 Timo [facility] ACTIVATED PARTIAL THRMPLAS 2022-11-03 17:16:00 Ellen [facility]reen[facility] TROPONIN I 2022-11-03 17:16:00 Timo [facility] ACTIVATED PARTIAL THRMPLAS 2022-11-03 17:16:00 [facility]ic [facility] MAGNESIUM 2022-11-03 09:55:00 [facility]vio[facility]OP[facility] 2022-11-03 09:55:00 Silvio, [facility] HEPATIC FUNCTION PANEL 2022-11-03 09:55:00 Silvio, [facility] ([id number]) (ALB,T.PRO,BILI Medical Branch T,BU/BC,ALT,AST,ALK PHOS) BASIC METABOLIC PANEL (NA, 2022-11-03 09:55:00 Silvio, [facility] K, CL, CO2, GLUCOSE, BUN, Medica l Branch CREATININE, CA) CBC WITH DIFF 2022-11-03 09:55:00 Silvio, [facility] MRSA / MSSA SCREEN BY PCR, 2022-11-03 09:55:00 Silvio, [facility] MAGNESIUM 2022-11-03 09:55:00 Silvio, [facility] TROPONIN I 2022-11-03 09:55:00 Silvio, [facility] HEPATIC FUNCTION PANEL 2022-11-03 09:55:00 Silvio, [facility] ([id number]) (ALB,T.PRO,BILI Medical Branch T,BU/BC,ALT,AST,ALK PHOS) BASIC METABOLIC PANEL (NA, 2022-11-03 09:55:00 Silvio, [facility] K, CL, CO2, GLUCOSE, BUN, Medica l Branch CREATININE, CA) CBC WITH DIFF 2022-11-03 09:55:00 Silvio, [facility] MRSA / MSSA SCREEN BY PCR, 2022-11-03 09:55:00 Silvio, [facility] MAGNESIUM 2022-11-03 09:55:00 Silvio, [facility] TROPONIN I 2022-11-03 09:55:00 Silvio, [facility] HEPATIC FUNCTION PANEL 2022-11-03 09:55:00 Silvio, [facility] ([id number]) (ALB,T.PRO,BILI Medical Branch T,BU/BC,ALT,AST,ALK PHOS) BASIC METABOLIC PANEL (NA, 2022-11-03 09:55:00 Gerson Anguiano [facility] K, CL, CO2, GLUCOSE, BUN, Medica l Branch CREATININE, CA) CBC WITH DIFF 2022-11-03 09:55:00 Gerson Anguiano [facility] MRSA / MSSA SCREEN BY PCR, 2022-11-03 09:55:00 Gerson Anguiano [facility] Encounters Start End Encounter Admission Attending Care Care Encounter Source Date/Time Date/Time Type Type Clinicians Facility Department ID 2022-11-03 Emergency [facility] [id number] Univers 01:41:08 ity [facility] 2022-11-01 Outpatient Pendleton, STLMLC STLMLC [id number] Common 14:29:00 Caleb [id number] [facility] 2022-09-28 Outpatient Pendleton, STLMLC STLMLC [id number] Common 13:14:00 Caleb [id number] [facility] 2022-09-14 Outpatient Pendleton, STLMLC STLMLC [id number] Common 13:29:00 Caleb [id number] [facility] 2022-06-17 Outpatient Pendleton, STLMLC STLMLC [id number] Common 13:57:00 Caleb [facility] 2022-06-16 Outpatient Pendleton, STLMLC STLMLC [id number] Common 13:24:00 Caleb [facility] 2022-03-01 Outpatient Pendleton, STLMLC STLMLC [id number] Common 10:23:01 Caleb [id number] [facility] 2022-02-24 Outpatient Pendleton, STLMLC STLMLC [id number] Common 07:49:00 Caleb [facility] 2021-12-09 Outpatient Pendleton, STLMLC STLMLC [id number] Common 14:24:32 Caleb [id number] [facility] 2021-12-09 Outpatient Pendleton, STLMLC STLMLC [id number] Common 14:20:37 Caleb [id number] [facility] 2021-12-09 Outpatient Pendleton, STLMLC STLC [id number] Common 12:25:28 Caleb [id number] [facility] 2021-12-09 Outpatient Pendleton, STLMLC STLMLC [id number] Common 12:22:39 Caleb [id number] [facility] 2021-12-09 Outpatient Pendleton, STLMLC STLMLC [id number] Common 12:14:43 Caleb 32538 [facility] 2021-12-09 Outpatient Pendleton, STLMLC STLMLC [id number] Common 11:58:24 Caleb [id number] [facility] 2021-12-09 Outpatient Pendleton, STLMLC STLC [id number] Common 11:57:28 Caleb [id number] [facility] 2021-12-09 Outpatient STLMLC STLMLC [id number] Common 11:57:19 [id number] [facility] 2021-12-09 Outpatient Garcia, STLMLC STLC [id number] Common 11:55:56 Jorge 57299 [facility] 2021-12-09 Outpatient Pendleton, STLMLC STLC [id number] Common 11:21:27 Caleb [id number] [facility] 2021-12-09 Outpatient Pendleton, STLMLC STLC [id number] Common 11:20:13 Caleb [id number] [facility] 2023-10-13 2023-10-13 Outpatient Silas PLUMMER [facility] [id number] Univers 08:30:00 08:30:00 BRUNA lara [facility] 2023-07-07 2023-07-07 Outpatient Silas [facility] [id number] Univers 07:32:20 23:59:00 DELFIN marco [facility] 2023-07-07 2023-07-07 [facility] 1.2.840.114 [id number] Univers 07:32:20 23:59:00 [facility].13.[facility] [place] [id number] Mo dical NAL [address] [facility] 2023-06-06 2023-06-06 Hospital Gage KIMBERLY [id number] Univers 07:27:00 23:59:00 Encounter Suraj Erika DEEPAK 350.1.13.10 ity of HOSPITAL 4.2.7.2.686 Adonis as [id number] [place] [address] Branch 2023-06-06 2023-06-06 Outpatient R [facility] [place] [id number] Univers 00:00:00 23:59:00 SURAJ ity o f [facility] 2023-06-06 2023-06-06 Letter [facility] 1.2.840.114 [id number] Univers 00:00:00 00:00:00 (Out) Suraj James MULTISPEC 350.1.13.10 ity of IALTY 4.2.7.2.686 Medical Center Hospital[facility] s [place] [id number] [address] [facility] 2023-06-06 2023-06-06 Telephone [facility] 1.2.840.114 [id number] Univers 00:00:00 00:00:00 Joslyn singh MULTISPEC 350.1.13.10 it[place] of [place] [id number] [address] [facility] 2023-06-02 2023-06-02 Telephone [facility] 1.2.840.114 [id number] Univers 00:00:00 00:00:00 Suraj James MULTISPEC 350.1.13.10 it[place] of [place] CENTER [id number] [facility] [address] [place] [facility] 2023-05-30 2023-05-30 Office [facility] 1.2.840.114 [id number] Univers 15:20:00 15:27:40 Visit Reg ROSENBERG 350.1.13.10 ity of [place] [id number] Mo dical NAL [address] BUILDING 2023-05-30 2023-05-30 Outpatient R SONNY [facility] [id number] Univers 15:20:00 15:27:40 REG lara o f [facility] 2023-04-18 2023-04-18 Outpatient R ZONIA BRAMBILA [facility] [id number] Univers 00:00:00 23:59:00 REZA BRAMBILATAIAndreas ity [facility] 2023-04-18 2023-04-18 [facility] JAYCOB Brambila [id number] Univers 00:00:00 23:59:00 Encounter Zonia DEEPAK 350.1.13.10 ity of [facility] 4.2.7.2.686 Adonis as [id number] [facility] [address] [place] 2023-04-12 2023-04-12 Outpatient [facility] [id number] Univers 08:30:00 08:45:49 BRUNAErika lara [facility] 2023-04-12 2023-04-12 Office [facility] 1.2.840.114 [id number] Univers 08:30:00 08:45:49 Visit [facility] 350.1.13.10 it y of [place] 4.2.7.2.686 [place] harrell BARATARIA [id number] [facility] [address] [place] OFFICE BUILDING 2023-04-12 2023-04-12 Orders Doctor KIMBERLY 1.2.840.114 [id number] Univers 00:00:00 00:00:00 Only Unassigned, DEEPAK 350.1.13.10 ity of [place] [facility] 4.2.7.2.686 Adonis as [id number] [facility] 009 Branch 2023-03-24 2023-03-24 Outpatient R SONNY [facility] [id number] Univers 11:00:00 11:00:00 REG lara o f [facility] 2023-02-10 2023-02-10 Outpatient [facility] [id number] Univers 08:30:00 09:26:25 BRUNA itfabby [facility] 2023-02-10 2023-02-10 Office [facility] 1.2.840.114 [id number] Univers 08:30:00 09:26:25 Visit Bruna HEALTH 350.1.13.10 it [place] [id number] [address] OFFICE [facility] 2023-02-10 2023-02-10 Telephone [facility] [id number] Univers 00:00:00 00:00:00 Bruna HEALTH 350.1.13.10 it [place] [id number] [address] OFFICE [facility] 2023-02-01 2023-02-01 Office [facility] 1.2.840.114 [id number] Univers 09:20:00 09:20:00 Visit Reg ROSENBERG 350.1.13.10 ity of [place] 4.2.7.2.[place] [id number] Mo dic[address] 2023-02-01 2023-02-01 Outpatient R SONNY [facility] [id number] Univers 09:20:00 09:09:09 REG lara o f [facility] 2023-01-28 2023-01-28 Telephone [facility] [id number] [id number] Univers 00:00:00 00:00:00 Bruna HEALTH 350.1.13.10 it [place] of [place] [id number] [address] OFFICE [facility] 2023-01-27 2023-01-27 Outpatient R ZONIA BRAMBILA [facility] [id number] Univers 08:45:00 23:59:00 ZONIA BRAMBILA ity of [facility] 2023-01-27 2023-01-27 [facility] 1.2.778.410 [id number] Univers 07:38:53 23:59:00 Encounter [facility] 350.1.13.10 ity of [place].2.[place] [id number] [facility] [address] [place] ([facility]) 2023-01-27 2023-01-27 Telephone Patty [facility] 1.2.840.114 [id number] Univers 00:00:00 00:00:00 [facility] HEALTH 350.1.13.10 it y of [place]2.7.2.[place] [id number] [address] OFFICE BUILDING 2023-01-25 2023-01-25 Pre-Anesth Call, [facility] 1.2.840.114 [id number] Univers 10:35:00 10:40:[address] [facility] Phone HEALTH 350.1.13.10 ity of Evaluation [place] 4.2.7.2.686 [place] [id number] [facility] [address] [place] ([facility]) 2023-01-25 2023-01-25 Outpatient R ZONIA BRAMBILA [facility] [id number] Univers 08:15:00 08:25:49 PATTY REZACARINA [facility] 2023-01-25 2023-01-25 Office [facility] 1.2.840.114 [id number] Univers 08:15:00 08:25:[address] [facility] 350.1.13.10 it y of [place]2.[place].2.[place] [id number] [address] OFFICE BUILDING 2023-01-17 2023-01-17 Telephone Christina [facility] 1.2.079.153 [id number] Univers 00:00:00 00:00:00 Delfin [place] 350.1.13.10 i ty of [place]2.7.2.[place] [id number] Mo dical [address] 2023-01-13 2023-01-13 Outpatient R CHRISTINA [facility] [id number] Univers 09:46:10 23:59:00 DELFIN ity [facility] 2022-12-30 2022-12-30 Outpatient R SONNY [facility] [id number] Univers 14:40:00 14:40:00 REG barros [facility] 2022-12-27 2022-12-27 Telephone [facility] 1.2.840.114 [id number] Univers 00:00:00 00:00:00 [facility] HEALTH 350.1.13.10 it y of [place] 4[place]2.7.2.[place] [id number] [facility] [address] OFFICE BUILDING 2022-12-21 2022-12-21 Outpatient R SONNY [facility] [id number] Univers 15:00:00 15:00:00 REG barros [facility] 2022-12-20 2022-12-20 (TEL) [facility] [id number] Co mmon 00:00:00 00:00:00 [facility] 2022-12-16 2022-12-16 Outpatient R REZA BRAMBILANCAndreas [facility] [id number] Univers 06:27:00 12:40:00 ZONIA BRAMBILA [facility] 2022-12-16 2022-12-16 Hospital [facility] 1.2.125.133 [id number] Univers 06:27:00 12:40:[address] [facility] 350.1.13.10 ity of [place]2.[place].2.[place] [id number] [address] ([facility]) 2022-12-16 2022-12-16 Surgery [facility] 1.2.840.114 [id number] Univers 07:30:00 09:30:[address] [facility] 350.1.13.10 it y of [place] [id number] [address] ([facility]) 2022-12-14 2022-12-14 Outpatient [facility] [id number] Univers 08:00:00 23:59:00 [facility] 2022-12-14 2022-12-14 [facility] 1.2.840.114 [id number] Univers 06:59:24 23:59:00 Encounter Marieflor HEALTH 350.1.13.10 ity of [place] [id number] [facility] [address] ([facility]) 2022-12-13 2022-12-13 Telephone Nurse, [facility] 1.2.840.114 [id number] Univers 00:00:00 00:00:00 Echo HEALTH 350.1.13.10 it y of [place] [id number] [facility] [address] [place] ([facility]) 2022-12-10 2022-12-10 Abstract Aracely [facility] 1.2.840.114 [id number] Univers 00:00:00 00:00:00 [facility] 350.1.13.10 ity of [place] [id number] [facility] [address] ([facility]) 2022-12-07 2022-12-07 Pre-Anesth Call, [facility] 1.2.840.114 [id number] Univers 11:10:00 11:15:00 [facility] Phone HEALTH 350.1.13.10 ity of Evaluation [place] 4.2.7.2.686 [place] [id number] [facility] [address] ([facility]) 2022-12-06 2022-12-06 Jazmyn Mccauley [facility] 1.2.840.114 [id number] Univers 00:00:00 00:00:00 Vicky HEALTH 350.1.13.10 [place] [phone] [facility] [address] ([facility]) 2022-11-30 2022-11-30 Telephone Patty LADENY 1.2.840.114 [id number] Univers 00:00:00 00:00:00 Mutne HEALTH 350.1.13.10 [place] [phone] [facility] [address] OFFICE BUILDING 2022-11-30 2022-11-30 Telephone Patty LADENY 1.2.840.114 [id number] Univers 00:00:00 00:00:00 Mutne HEALTH 350.1.13.10 [place] [id number] [address] OFFICE BUILDING 2022-11-25 2022-11-25 Office Patty [facility] 1.2.840.114 [id number] Univers 10:15:00 10:45:[address] [facility] 350.1.13.10 [place] [phone] [address] OFFICE BUILDING 2022-11-25 2022-11-25 Outpatient R ZONIA BRAMBILA [facility] [id number] Univers 10:15:00 10:15:00 ZONIA BRAMBILA [facility] 2022-11-18 2022-11-18 Outpatient R ARACELY [place] [facility] [id number] Univers 12:00:00 23:59:00 [facility] 2022-11-12 2022-11-12 Orders Doctor KIMBERLY 1.2.840.114 [id number] Univers 00:00:00 00:00:00 Only Unassigned, DEEPAK 350.1.13.10 ity of [place] [facility] 4.2.7.2.686 Adonis as [phone] [address] 2022-11-12 2022-11-12 Telephone Patty [facility] 1.2.840.114 [id number] Univers 00:00:00 00:00:[address] [facility] 350.1.13.10 [place] [id number] [address] OFFICE BUILDING 2022-11-09 2022-11-09 Transition DIXIE Rivero 1.2.840.114 [id number] Univers 00:00:00 00:00:00 of Care Steve James ANDERSON 350.1.13.10 [id number] [address] [address] 2022-11-03 2022-11-05 [facility] Gerson Anguiano [facility] 1.2.840.114 [id number] Univers 02:15:00 16:00:00 Encounter Luis Orta [facility] 350.1.13.10 [place] [phone] [facility] [address] ([facility]) 2022-11-03 2022-11-05 Inpatient U LUIS ORTA [facility] [id number] Univers 02:15:00 16:00:00 ity of [facility] 2022-11-05 2022-11-05 Refguille Mccauley [facility] 1.2.840.114 [id number] Univers 00:00:00 00:00:00 [facility] 350.1.13.10 [place] [phone] [facility] [address] ([facility]) 2022-11-04 2022-11-04 Hospital Zonia Brambila [facility] 1.2.840.11 [id number] Univers 11:04:12 23:59:00 Encounter Silvio, Gerson [facility] 350.1.13.10 [place] [id number] [facility] [address] ([facility]) 2022-11-04 2022-11-04 [facility] 1.2.840.114 [id number] Univers 14:00:00 15:45:[address] [facility] 350.1.13.10 it [place] [id number] [facility] [address] ([facility]) 2022-11-03 2022-11-03 Surgery Hugo Sandoval [facility] 1.2.840.114 [id number] Univers 14:55:00 16:55:00 HEALTH 350.1.13.10 it [place] [phone] [facility] [address] ([facility]) 2022-10-29 2022-10-29 (TEL) STLMLC STLMLC [id number] Co mmon 00:00:00 00:00:00 [facility] 2022-10-202022-10-20 (TEL) STLMLC STLMLC [id number] Co mmon 00:00:00 00:00:00 [facility] 2022-10-19 2022-10-19 (TEL) STLMLC STLMLC [id number] Co mmon 00:00:00 00:00:00 Spirit [facility] 2022-10-19 2022-10-19 OFFICE STLMLC STLMLC [id number] Co mmon 00:00:00 00:00:00 VISIT EST Spir it PT LEVEL 3 - [facility] 2022-09-30 2022-09-30 OFFICE STLMLC STLMLC [id number] Co mmon 00:00:00 00:00:00 VISIT [facility] ESTAB PT - CHI LEVEL 4 [facility] 2022-06-16 2022-06-16 OFFICE STLMLC STLMLC [id number] Co mmon 00:00:00 00:00:00 VISIT [facility] PT - CHI LEVEL 4 [facility] 2022-06-16 2022-06-16 SUB ANNUAL STLMLC STLMLC [id number] Common 00:00:00 00:00:00 MCR [facility] WELLNESS - [facility] VISIT [facility] 2022-06-07 2022-06-07 Outpatient R SONNY [facility] [id number] Univers 10:00:00 10:00:00 [facility] 2022-06-07 2022-06-07 Outpatient R SONNY, [facility] [id number] Univers 10:00:00 10:00:00 [facility] 2022-06-07 2022-06-07 (TEL) STLMLC STLMLC [id number] Co mmon 00:00:00 00:00:00 [facility] 2022-05-13 2022-05-13 (TEL) STLMLC STLMLC [id number] Co mmon 00:00:00 00:00:00 [facility] 2022-04-28 2022-04-28 (TEL) STLMLC STLMLC [id number] Co mmon 00:00:00 00:00:00 [facility] 2022-04-05 2022-04-05 (TEL) STLMLC STLMLC [id number] Co mmon 00:00:00 00:00:00 [facility] 2022-04-02 2022-04-02 (TEL) STLMLC STLMLC [id number] Co mmon 00:00:00 00:00:00 [facility] 2022-03-10 2022-03-10 [facility] [id number] Univers 00:00:00 00:00:00 REG maldonadoy o [facility] 2022-03-08 2022-03-08 (TEL) STLMLC STLMLC [id number] Co mmon 00:00:00 00:00:00 [facility] 2022-03-05 2022-03-05 (TEL) STLMLC STLMLC [id number] Co mmon 00:00:00 00:00:00 [facility] 2022-03-01 2022-03-01 [facility] [id number] Univers 15:40:00 16:52:06 KARLAOSNIJENNIFFER marco favian [facility] 2022-03-01 2022-03-01 [facility] 1.2.840.114 [id number] Univers 15:40:00 16:52:06 Visit Reg ROSENBERG 350.1.13.10 ity [facility] [place] [phone] [place] [id number] [facility] 2022-03-01 2022-03-01 [facility] [id number] Univers 15:40:00 16:52:06 REG joely o [facility] 2022-03-01 2022-03-01 Orders Doctor HARRIS 1.2.840.114 [id number] Univers 00:00:00 00:00:00 Only Unassigned, DEEPAK 350.1.13.10 ity of [place] [facility] 4.2.7.2.686 Adonis as [id number] [address] 2022-02-26 2022-02-26 (TEL) STLMLC STLMLC [id number] Co mmon 00:00:00 00:00:00 [facility] 2022-02-26 2022-02-26 (TEL) STLMLC STLMLC [id number] Co mmon 00:00:00 00:00:00 [facility] 2022-02-24 2022-02-24 OFFICE STLMLC STLMLC [id number] Co mmon 00:00:00 00:00:00 VISIT EST Spir it PT LEVEL 3 - [facility] 2022-02-24 2022-02-24 (TEL) STLMLC STLMLC [id number] Co mmon 00:00:00 00:00:00 [facility] 2022-02-23 2022-02-23 (TEL) STLMLC STLMLC [id number] Co mmon 00:00:00 00:00:00 [facility] 2022-02-22 2022-02-22 (TEL) STLMLC STLMLC [id number] Co mmon 00:00:00 00:00:00 [facility] 2022-01-26 2022-01-26 OFFICE STLMLC STLMLC [id number] Co mmon 00:00:00 00:00:00 VISIT Spirit ESTAB PT - [facility] LEVEL 4 [facility] 2022-01-21 2022-01-21 Orders Doctor KIMBERLY 1.2.840.114 [id number] Univers 00:00:00 00:00:00 Only Unassigned, DEEPAK 350.1.13.10 [facility] 4.2.7.2.686 Adonis [place] [phone] [place] [address] [address] 2022-01-19 2022-01-19 (TEL) STLMLC STLMLC [id number] Co mmon 00:00:00 00:00:00 [facility] 2021-12-07 2021-12-07 (TEL) STLMLC STLMLC [id number] Co mmon 00:00:00 00:00:00 [facility] 2021-11-19 2021-11-19 (TEL) STLMLC STLMLC [id number] Co mmon 00:00:00 00:00:00 [facility] 2021-10-28 2021-10-28 OFFICE STLMLC STLMLC [id number] Co mmon 00:00:00 00:00:00 VISIT [facility] 4 [facility] 2021-10-20 2021-10-20 (TEL) STLMLC STLMLC [id number] Co mmon 00:00:00 00:00:00 [facility] 2021-07-27 2021-07-27 (TEL) STLMLC STLMLC [id number] Co mmon 00:00:00 00:00:00 [facility] 2021-06-11 2021-06-11 Outpatient STLMLC STLMLC [id number] Common 00:00:00 00:00:00 [facility] 2021-03-12 2021-03-12 Outpatient STLMLC STLMLC [id number] Common 00:00:00 00:00:00 [facility] 2021-03-12 2021-03-12 Outpatient STLMLC STLMLC [id number] Common 00:00:00 00:00:00 [facility] 2020-12-11 2020-12-11 Outpatient STLMLC STLMLC [id number] Common 00:00:00 00:00:00 [facility] 2020-11-25 2020-11-25 Outpatient STLMLC STLMLC [id number] Common 00:00:00 00:00:00 [facility] 2020-10-29 2020-10-29 Outpatient STLMLC STLMLC [id number] Common 00:00:00 00:00:00 [facility] 2020-10-29 2020-10-29 Outpatient STLMLC STLMLC [id number] Common 00:00:00 00:00:00 [facility] 2020-10-28 2020-10-28 Outpatient STLMLC STLMLC [id number] Common 00:00:00 00:00:00 [facility] 2020-09-04 2020-09-04 Outpatient STLMLC STLMLC [id number] Common 00:00:00 00:00:00 [facility] 2020-08-29 2020-08-29 Outpatient STLMLC STLMLC [id number] Common 00:00:00 00:00:00 [facility] 2020-05-22 2020-05-22 [facility] [id number] Common 08:45:00 08:45:[address] [facility] 2020-05-20 2020-05-20 Outpatient [facility] [id number] Common 06:39:00 06:39:[address] [facility] 2020-05-05 2020-05-05 [facility] [id number] Common 10:18:00 10:18:[address] [facility] 2020-05-01 2020-05-01 Out[facility] [id number] Common 13:45:00 13:45:[address] [facility] 2020-05-01 2020-05-01 Out[facility] [id number] Common 13:45:00 13:45:[address] [facility] 2020-04-18 2020-04-18 [facility] [id number] Common 10:53:00 10:53:[address] [facility] [address] [facility] 2020-04-10 2020-04-10 [facility] [id number] Common 11:00:00 11:00:00 [facility] 2020-03-14 2020-03-14 Out[facility] [id number] Common 11:30:00 11:30:[address] [facility] Results Test Description Test Time Test Comments Results Result Comments Source POCT ACT LOW RANGE 2022-12-17 16:01:19 Test Item Value Reference Range Interpretation Comme nts ACTLR (test code = 6454636121) 346 See_Comment H [Automated message] The system which generated this result transmitted ref erence range: 89 - 169 Seconds. The reference range was not u sed to interpret this result as normal/abnormal. Lab Interpretation (test code Abnormal = 99164-6) [facility] ACT LOW [id number] 16:01:19 Test Item Value Reference Range Interpretation Comments ACTLR (test code = 246 See_Comment H [Automat ed message] [id number]) The system [employer] generated this result transmitted ref erence range: 89 - 169 Seconds. The reference range was not used to int erpret this result as normal/abnormal . Lab Interpretation (test Abnormal code = 62859-0) [facility] ACT LOW [id number] 16:01:19 Test Item Value Reference Range Interpretation Comments ACTLR (test code = 324 See_Comment H [Automat ed message] [id number]) The system [employer] generated this result transmitted ref erence range: 89 - 169 Seconds. The reference range was not used to int erpret this result as normal/abnormal . Lab Interpretation (test Abnormal code = 65933-2) [facility] ACT LOW [id number] 16:01:19 Test Item Value Reference Range Interpretation Comments ACTLR (test code = 334 See_Comment H [Automat ed message] [id number]) The system [employer] generated this result transmitted ref erence range: 89 - 169 Seconds. The reference range was not used to int erpret this result as normal/abnormal . Lab Interpretation (test Abnormal code = 82645-8) [facility] METABOLIC PANEL (NA, K, CL, CO2, GLUCOSE, BUN, CREATININE, CA)2022-12-16 13:27:22 Test Item Value Reference Range Interpretation Comments NA (test code = 139 mmol/L 135-145 9051070697) K (test code = 3.5 mmol/L 3.5-5.0 8823067997) CL (test code = 103 mmol/L 98-108 3492863375) CO2 TOTAL (test code = 28 mmol/L 23-31 3161719457) AGAP (test code = 8 2-16 8116606731) BUN (test code = 45 mg/dL 7-23 H 7236849937) GLUCOSE (test code = 100 mg/dL 70-110 1163546705) CREATININE (test code = 5.62 mg/dL 0.60-1.25 H 3091911922) CALCIUM (test code = 8.5 mg/dL 8.6-10.6 L 9432287221) eGFR (test code = 10.4 mL/min/1.73m2 8266244813) RAMON (test code = RAMON) Association of Glomerular Filtration Rate (GFR) and Staging of Kidney Disease* + --+ --+ ------+| GFR (mL/min/1.73 m2) ?| With Kidney Damage ?| ?Without Kidney Damage+ --------+ --------+ +| ?>90 ?| ?Stage one ?| ? Normal ?+ ---+ ---+ -------+| ?60-89 ?| ?Stage two ?| ? Decreased GFR ? + --+ --+ ------+| ?30-59 ?| ?Stage three ?| ? Stage three ? + --+ --+ ------+| ?15-29 ?| ?Stage four ? | ? Stage four ?+ ---+ ---+ -------+| ?<15 (or dialysis) ? ?| ?Stage five ? | ? Stage five ?+ ---+ ---+ -------+ *Each stage assumes the associated GFR level has been in effect for at least three months. ?Stages 1 to 5, with or without kidney disease, indicate chronic kidney disease. Notes: Determination of stages one and two (with eGFR >59mL/min/1.73 m2) requires estimation of kidney damage for at least three months as defined by structural or functional abnormalities of the kidney, manifested by either:Pathological abnormalities or Markers of kidney damage (including abnormalities in the composition of the blood or urine or abnormalities in imaging tests). Lab Interpretation Abnormal (test code = 23169-5) [facility] METABOLIC PANEL (NA, K, CL, CO2, GLUCOSE, BUN, CREATININE, CA)2022-12-16 13:27:22 Test Item Value Reference Range Interpretation Comments NA (test code = 139 mmol/L 135-145 7609921080) K (test code = 3.5 mmol/L 3.5-5.0 0817483145) CL (test code = 103 mmol/L 98-108 4841604258) CO2 TOTAL (test code = 28 mmol/L 23-31 8343892875) AGAP (test code = 8 2-16 5860271956) BUN (test code = 45 mg/dL 7-23 H 6543069988) GLUCOSE (test code = 100 mg/dL 70-110 4421151025) CREATININE (test code = 5.62 mg/dL 0.60-1.25 H 6469337407) CALCIUM (test code = 8.5 mg/dL 8.6-10.6 L 1794695061) eGFR (test code = 10.4 mL/min/1.73m2 3178639817) RAMON (test code = RAMON) Association of Glomerular Filtration Rate (GFR) and Staging of Kidney Disease* + --+ --+ ------+| GFR (mL/min/1.73 m2) ?| With Kidney Damage ?| ?Without Kidney Damage+ --------+ --------+ +| ?>90 ?| ?Stage one ?| ? Normal ?+ ---+ ---+ -------+| ?60-89 ?| ?Stage two ?| ? Decreased GFR ? + --+ --+ ------+| ?30-59 ?| ?Stage three ?| ? Stage three ? + --+ --+ ------+| ?15-29 ?| ?Stage four ? | ? Stage four ?+ ---+ ---+ -------+| ?<15 (or dialysis) ? ?| ?Stage five ? | ? Stage five ?+ ---+ ---+ -------+ *Each stage assumes the associated GFR level has been in effect for at least three months. ?Stages 1 to 5, with or without kidney disease, indicate chronic kidney disease. Notes: Determination of stages one and two (with eGFR >59mL/min/1.73 m2) requires estimation of kidney damage for at least three months as defined by structural or functional abnormalities of the kidney, manifested by either:Pathological abnormalities or Markers of kidney damage (including abnormalities in the composition of the blood or urine or abnormalities in imaging tests). Lab Interpretation Abnormal (test code = 63241-4) [facility] [id number] 13:23:35 Test Item Value Reference Range Interpretation Comments ABO & RH (test code O Negative Performe d at [facility] = 20) Laboratory [facility] Blood [facility] [place] [address] 4Toll Free: [phone] 266CLIA No. [id number] IAT (test code = Negative Performed a t [facility] 1185) [facility] [address] [place] [address] 4Toll Free: [phone] 266CLIA No. [id number] [facility] - ONCE [id number] 13:23:35 Test Item Value Reference Range Interpretation Comments ABO & RH (test code O Negative Performe d at [facility] = 20) [facility] [address] [place] [address] 4Toll Free: [phone] 266CLIA No. [id number] IAT (test code = Negative Performed a t [facility] 1185) [facility] Blood [place] [address] 4Toll Free: [phone] 266CLIA No. [id number] [facility] (JAG)2022-12-14 17:56:12 Test Item Value Reference Range Interpretation Comments Height (test code = 78 in 1350650474) Weight (test code = 285 lbs 1903346459) Systolic BP (test 125 mmHg code = 7665819096) Diastolic BP (test 81 mmHg code = 0724712061) Heart Rate (test code 90 bpm = 1116436016) BSA (test code = 2.6 m2 7147064355) Radiology Study observation (narrative) (test code = 51411-7) RAMON (test code = RAMON) ?Left?Atrium: Left atrium is dilated. Dense spontaneous echo contrast visualized in the left atrial appendage. Left VentricleLeft ventricle size is normal. Moderately reduced systolic function.Right VentricleRight ventricle is normal in size and function.Left AtriumLeft atrium is dilated. Dense spontaneous echo contrast visualized in the left atrial appendage.Right AtriumRight atrium size is normal.Mitral ValveMitral valve structure is normal. Trace transvalvular regurgitation.Tricuspid ValveTricuspid valve structure is normal.Aortic ValveAortic valve structure is normal.Pulmonic ValveNot well visualized.Ascending AortaGrade 1 atherosclerosis of the aortic arch and descending aorta.PericardiumNo pericardial effusion.Study DetailsA complete transesophageal echocardiogram was performed using complete 2D, color flow Doppler and spectral Doppler. During the study the esophageal, transgastric and descending thoracic views were captured. The probe was inserted by the claims assistant. There was no probe insertion difficulty.There were 1 attempts to insert the probe. Probe in 08:13 am. Probe out 08:19 am. Sedation and monitoring provided by anesthesia, see Epic documentation. There were no complications during the procedure. [facility]2023-01-31 14:00:55 Test Item Value Reference Range Interpretation Comments MAGNESIUM (test code = 2475942115) 1.9 mg/dL 1.7-2.4 Lab Interpretation (test code = Normal 81540-6) [facility]2023-01-31 14:00:55 Test Item Value Reference Range Interpretation Comments MAGNESIUM (test code = 9653427818) 1.9 mg/dL 1.7-2.4 Lab Interpretation (test code = Normal 24511-0) [facility] METABOLIC PAN[facility] (NA, K, CL, CO2, GLUCOSE, BUN, CREATININE, CA)2022-12-14 14:00:54 Test Item Value Reference Range Interpretation Comments NA (test code = 140 mmol/L 135-145 3820468353) K (test code = 3.9 mmol/L 3.5-5.0 9802204705) CL (test code = 102 mmol/L 98-108 9412980136) CO2 TOTAL (test code = 27 mmol/L -31 4119228721) AGAP (test code = 11 2-16 6043298746) BUN (test code = 50 mg/dL 7-23 H 9047611126) GLUCOSE (test code = 92 mg/dL 70-110 4595365020) CREATININE (test code = 6.56 mg/dL 0.60-1.25 H 7971817087) CALCIUM (test code = 8.5 mg/dL 8.6-10.6 L 1387793073) eGFR (test code = 8.7 mL/min/1.73m2 8766548023) RAMON (test code = RAMON) Association of Glomerular Filtration Rate (GFR) and Staging of Kidney Disease* + --+ --+ ------+| GFR (mL/min/1.73 m2) ?| With Kidney Damage ?| ?Without Kidney Damage+ --------+ --------+ +| ?>90 ?| ?Stage one ?| ? Normal ?+ ---+ ---+ -------+| ?60-89 ?| ?Stage two ?| ? Decreased GFR ? + --+ --+ ------+| ?30-59 ?| ?Stage three ?| ? Stage three ? + --+ --+ ------+| ?15-29 ?| ?Stage four ? | ? Stage four ?+ ---+ ---+ -------+| ?<15 (or dialysis) ? ?| ?Stage five ? | ? Stage five ?+ ---+ ---+ -------+ *Each stage assumes the associated GFR level has been in effect for at least three months. ?Stages 1 to 5, with or without kidney disease, indicate chronic kidney disease. Notes: Determination of stages one and two (with eGFR >59mL/min/1.73 m2) requires estimation of kidney damage for at least three months as defined by structural or functional abnormalities of the kidney, manifested by either:Pathological abnormalities or Markers of kidney damage (including abnormalities in the composition of the blood or urine or abnormalities in imaging tests). Lab Interpretation Abnormal (test code = 21808-2) [facility] (NA, K, CL, CO2, GLUCOSE, BUN, CREATININE, CA)2022-12-14 14:00:54 Test Item Value Reference Range Interpretation Comments NA (test code = 140 mmol/L 135-145 0757107761) K (test code = 3.9 mmol/L 3.5-5.0 2135448288) CL (test code = 102 mmol/L 98-108 9979199097) CO2 TOTAL (test code = 27 mmol/L 23-31 6390675102) AGAP (test code = 11 2-16 8756463322) BUN (test code = 50 mg/dL 7-23 H 0558722467) GLUCOSE (test code = 92 mg/dL 70-110 5889807255) CREATININE (test code = 6.56 mg/dL 0.60-1.25 H 5194661426) CALCIUM (test code = 8.5 mg/dL 8.6-10.6 L 8973371346) eGFR (test code = 8.7 mL/min/1.73m2 4273372412) RAMON (test code = RAMON) Association of Glomerular Filtration Rate (GFR) and Staging of Kidney Disease* + --+ --+ ------+| GFR (mL/min/1.73 m2) ?| With Kidney Damage ?| ?Without Kidney Damage+ --------+ --------+ +| ?>90 ?| ?Stage one ?| ? Normal ?+ ---+ ---+ -------+| ?60-89 ?| ?Stage two ?| ? Decreased GFR ? + --+ --+ ------+| ?30-59 ?| ?Stage three ?| ? Stage three ? + --+ --+ ------+| ?15-29 ?| ?Stage four ? | ? Stage four ?+ ---+ ---+ -------+| ?<15 (or dialysis) ? ?| ?Stage five ? | ? Stage five ?+ ---+ ---+ -------+ *Each stage assumes the associated GFR level has been in effect for at least three months. ?Stages 1 to 5, with or without kidney disease, indicate chronic kidney disease. Notes: Determination of stages one and two (with eGFR >59mL/min/1.73 m2) requires estimation of kidney damage for at least three months as defined by structural or functional abnormalities of the kidney, manifested by either:Pathological abnormalities or Markers of kidney damage (including abnormalities in the composition of the blood or urine or abnormalities in imaging tests). Lab Interpretation Abnormal (test code = 40423-1) [facility] WITH [id number] 13:49:54 Test Item Value Reference Range Interpretation Comments WBC (test code = 6.27 See_Comment [Automated 0388-2) message] The sy stem which generated this result transmitted reference range : 4.20 - 10.70 10*3/?L. The reference range was not used to interpret this result as normal/abnormal . RBC (test code = 4.37 See_Comment [Automated 874-3) message] The sy stem which generated this result transmitted reference range : 4.26 - 5.52 10*6/?L. The reference range was not used to interpret this result as normal/abnormal . HGB (test code = 13.4 g/dL 12.2-16.4 718-7) HCT (test code = 39.4 % 38.4-49.3 4544-3) MCV (test code = 90.2 fL 81.7-95.6 787-2) MCH (test code = 30.7 pg 26.1-32.7 785-6) MCHC (test code = 34.0 g/dL 31.2-35.0 786-4) RDW-SD (test code = 44.3 fL 38.5-51.6 02894-6) RDW-CV (test code = 13.4 % 12.1-15.4 788-0) PLT (test code = 142 See_Comment L [Automated 777-3) message] The sy stem which generated this result transmitted reference range : 150 - 328 10*3/ ?L. The reference r viral was not used to interpret this result as normal/abnormal . MPV (test code = 9.5 fL 9.8-13.0 L 80039-9) NRBC/100 WBC (test 0.0 See_Comment [Automat ed code = 3800998226) message] The system which generated this result transmitted reference range : 0.0 - 10.0 /100 WBCs. The refer ence range was not u sed to interpret th is result as normal/abnormal . NRBC x10^3 (test code See_Comment [Auto mated = 5079024222) message] The s ystem which generated this result transmitted reference range : 10*3/?L. The reference range was not used to interpret this result as normal/abnormal . GRAN MAT (NEUT) % 62.0 % (test code = 770-8) IMM GRAN % (test code 0.20 % = 8420121794) LYMPH % (test code = 27.1 % 736-9) MONO % (test code = 7.8 % 5905-5) EOS % (test code = 2.4 % 713-8) BASO % (test code = 0.5 % 706-2) GRAN MAT x10^3(ANC) 3.89 10*3/uL 1.99-6.95 (test code = 6809138605) IMM GRAN x10^3 (test 0.00-0.06 code = 6585874939) LYMPH x10^3 (test code 1.70 10*3/uL 1.09-3.23 = 731-0) MONO x10^3 (test code 0.49 10*3/uL 0.36-1.02 = 742-7) EOS x10^3 (test code = 0.15 10*3/uL 0.06-0.53 711-2) BASO x10^3 (test code 0.03 10*3/uL 0.01-0.09 = 704-7) Lab Interpretation Abnormal (test code = 58140-6) [facility] WITH [id number] 13:49:54 Test Item Value Reference Range Interpretation Comments WBC (test code = 6.27 See_Comment [Automated 5590-2) message] The sy stem which generated this result transmitted reference range : 4.20 - 10.70 10*3/?L. The reference range was not used to interpret this result as normal/abnormal . RBC (test code = 4.37 See_Comment [Automated 089-8) message] The sy stem which generated this result transmitted reference range : 4.26 - 5.52 10*6/?L. The reference range was not used to interpret this result as normal/abnormal . HGB (test code = 13.4 g/dL 12.2-16.4 718-7) HCT (test code = 39.4 % 38.4-49.3 4544-3) MCV (test code = 90.2 fL 81.7-95.6 787-2) MCH (test code = 30.7 pg 26.1-32.7 785-6) MCHC (test code = 34.0 g/dL 31.2-35.0 786-4) RDW-SD (test code = 44.3 fL 38.5-51.6 78805-0) RDW-CV (test code = 13.4 % 12.1-15.4 788-0) PLT (test code = 142 See_Comment L [Automated 797-3) message] The sy stem which generated this result transmitted reference range : 150 - 328 10*3/ ?L. The reference r viral was not used to interpret this result as normal/abnormal . MPV (test code = 9.5 fL 9.8-13.0 L 29522-5) NRBC/100 WBC (test 0.0 See_Comment [Automat ed code = 6688122869) message] The system which generated this result transmitted reference range : 0.0 - 10.0 /100 WBCs. The refer ence range was not u sed to interpret th is result as normal/abnormal . NRBC x10^3 (test code See_Comment [Auto mated = 7049807535) message] The s ystem which generated this result transmitted reference range : 10*3/?L. The reference range was not used to interpret this result as normal/abnormal . GRAN MAT (NEUT) % 62.0 % (test code = 770-8) IMM GRAN % (test code 0.20 % = 7800003765) LYMPH % (test code = 27.1 % 736-9) MONO % (test code = 7.8 % 5905-5) EOS % (test code = 2.4 % 713-8) BASO % (test code = 0.5 % 706-2) GRAN MAT x10^3(ANC) 3.89 10*3/uL 1.99-6.95 (test code = 0518438962) IMM GRAN x10^3 (test 0.00-0.06 code = 4315535500) LYMPH x10^3 (test code 1.70 10*3/uL 1.09-3.23 = 731-0) MONO x10^3 (test code 0.49 10*3/uL 0.36-1.02 = 742-7) EOS x10^3 (test code = 0.15 10*3/uL 0.06-0.53 711-2) BASO x10^3 (test code 0.03 10*3/uL 0.01-0.09 = 704-7) Lab Interpretation Abnormal (test code = 85981-3) [facility] / [id number] 13:48:54 Test Item Value Reference Range Interpretation Comments PROTIME PATIENT (test 13.6 See_Comment H [Auto mated message] code = 5964-2) The system [employer] generated this result transmitted ref erence range: 10.1 - 1 2.6 Seconds. The reference range was not used to int erpret this result as normal/abnormal . INR (test code = 6301-6) 1.2 Nor mal INR <1.1; Warfarin Therap eutic range 2.0 to 3. 0 or 2.5 to 3.5, dep ending upon the indica tions. Lab Interpretation (test Abnormal code = 07797-8) [facility] / [id number] 13:48:54 Test Item Value Reference Range Interpretation Comments PROTIME PATIENT (test 13.6 See_Comment H [Auto mated message] code = 5964-2) The system [employer] generated this result transmitted ref erence range: 10.1 - 1 2.6 Seconds. The reference range was not used to int erpret this result as normal/abnormal . INR (test code = 6301-6) 1.2 Nor mal INR <1.1; Warfarin Therap eutic range 2.0 to 3. 0 or 2.5 to 3.5, dep ending upon the indica tions. Lab Interpretation (test Abnormal code = 28921-9) [facility] 19:18:34 Test Item Value Reference Range Interpretation Comments MAGNESIUM (test code = 0183352127) 1.7 mg/dL 1.7-2.4 Lab Interpretation (test code = Normal 74539-3) [facility] Test Item Value Reference Range Interpretation Comments MAGNESIUM (test code = 4158581787) 1.7 mg/dL 1.7-2.4 Lab Interpretation (test code = Normal 02355-9) [facility] Test Item Value Reference Range Interpretation Comments MAGNESIUM (test code = 7982159542) 1.7 mg/dL 1.7-2.4 Lab Interpretation (test code = Normal 16392-4) [facility] (NA, K, CL, CO2, GLUCOSE, BUN, CREATININE, CA)2022-11-05 07:49:04 Test Item Value Reference Range Interpretation Comments NA (test code = 132 mmol/L 135-145 L 2357397657) K (test code = 4.0 mmol/L 3.5-5.0 9006407323) CL (test code = 100 mmol/L 98-108 3189984939) CO2 TOTAL (test code = 22 mmol/L 23-31 L 6127499536) AGAP (test code = 2-16 1182968416) BUN (test code = 46 mg/dL 7-23 H 2798413565) GLUCOSE (test code = 98 mg/dL 70-110 9342619543) CREATININE (test code = 6.15 mg/dL 0.60-1.25 H 5166000678) CALCIUM (test code = 8.1 mg/dL 8.6-10.6 L 0333273480) eGFR (test code = mL/min/1.73m2 4275644389) RAMON (test code = RAMON) Association of Glomerular Filtration Rate (GFR) and Staging of Kidney Disease* + --+ --+ ------+| GFR (mL/min/1.73 m2) ?| With Kidney Damage ?| ?Without Kidney Damage+ --------+ --------+ +| ?>90 ?| ?Stage one ?| ? Normal ?+ ---+ ---+ -------+| ?60-89 ?| ?Stage two ?| ? Decreased GFR ? + --+ --+ ------+| ?30-59 ?| ?Stage three ?| ? Stage three ? + --+ --+ ------+| ?15-29 ?| ?Stage four ? | ? Stage four ?+ ---+ ---+ -------+| ?<15 (or dialysis) ? ?| ?Stage five ? | ? Stage five ?+ ---+ ---+ -------+ *Each stage assumes the associated GFR level has been in effect for at least three months. ?Stages 1 to 5, with or without kidney disease, indicate chronic kidney disease. Notes: Determination of stages one and two (with eGFR >59mL/min/1.73 m2) requires estimation of kidney damage for at least three months as defined by structural or functional abnormalities of the kidney, manifested by either:Pathological abnormalities or Markers of kidney damage (including abnormalities in the composition of the blood or urine or abnormalities in imaging tests). Lab Interpretation Abnormal (test code = 16337-4) [facility] (NA, K, CL, CO2, GLUCOSE, BUN, CREATININE, CA)2022-11-05 07:49:04 Test Item Value Reference Range Interpretation Comments NA (test code = 132 mmol/L 135-145 L 3647560675) K (test code = 4.0 mmol/L 3.5-5.0 1260879059) CL (test code = 100 mmol/L 98-108 0750103814) CO2 TOTAL (test code = 22 mmol/L 23-31 L 1079831085) AGAP (test code = 2-16 4696940076) BUN (test code = 46 mg/dL 7-23 H 9534212674) GLUCOSE (test code = 98 mg/dL 70-110 6289549535) CREATININE (test code = 6.15 mg/dL 0.60-1.25 H 8096776770) CALCIUM (test code = 8.1 mg/dL 8.6-10.6 L 5618709913) eGFR (test code = mL/min/1.73m2 5847095817) RAMON (test code = RAMON) Association of Glomerular Filtration Rate (GFR) and Staging of Kidney Disease* + --+ --+ ------+| GFR (mL/min/1.73 m2) ?| With Kidney Damage ?| ?Without Kidney Damage+ --------+ --------+ +| ?>90 ?| ?Stage one ?| ? Normal ?+ ---+ ---+ -------+| ?60-89 ?| ?Stage two ?| ? Decreased GFR ? + --+ --+ ------+| ?30-59 ?| ?Stage three ?| ? Stage three ? + --+ --+ ------+| ?15-29 ?| ?Stage four ? | ? Stage four ?+ ---+ ---+ -------+| ?<15 (or dialysis) ? ?| ?Stage five ? | ? Stage five ?+ ---+ ---+ -------+ *Each stage assumes the associated GFR level has been in effect for at least three months. ?Stages 1 to 5, with or without kidney disease, indicate chronic kidney disease. Notes: Determination of stages one and two (with eGFR >59mL/min/1.73 m2) requires estimation of kidney damage for at least three months as defined by structural or functional abnormalities of the kidney, manifested by either:Pathological abnormalities or Markers of kidney damage (including abnormalities in the composition of the blood or urine or abnormalities in imaging tests). Lab Interpretation Abnormal (test code = 33827-4) [facility] METABOLIC PANEL (NA, K, CL, CO2, GLUCOSE, BUN, CREATININE, CA)2022-11-05 07:49:04 Test Item Value Reference Range Interpretation Comments NA (test code = 132 mmol/L 135-145 L 8656579309) K (test code = 4.0 mmol/L 3.5-5.0 5066698352) CL (test code = 100 mmol/L 98-108 6680081355) CO2 TOTAL (test code = 22 mmol/L 23-31 L 5747343746) AGAP (test code = 2-16 8606866740) BUN (test code = 46 mg/dL 7-23 H 1615009992) GLUCOSE (test code = 98 mg/dL 70-110 2913720355) CREATININE (test code = 6.15 mg/dL 0.60-1.25 H 7517435469) CALCIUM (test code = 8.1 mg/dL 8.6-10.6 L 9007714212) eGFR (test code = mL/min/1.73m2 5402842092) RAMON (test code = RAMON) Association of Glomerular Filtration Rate (GFR) and Staging of Kidney Disease* + --+ --+ ------+| GFR (mL/min/1.73 m2) ?| With Kidney Damage ?| ?Without Kidney Damage+ --------+ --------+ +| ?>90 ?| ?Stage one ?| ? Normal ?+ ---+ ---+ -------+| ?60-89 ?| ?Stage two ?| ? Decreased GFR ? + --+ --+ ------+| ?30-59 ?| ?Stage three ?| ? Stage three ? + --+ --+ ------+| ?15-29 ?| ?Stage four ? | ? Stage four ?+ ---+ ---+ -------+| ?<15 (or dialysis) ? ?| ?Stage five ? | ? Stage five ?+ ---+ ---+ -------+ *Each stage assumes the associated GFR level has been in effect for at least three months. ?Stages 1 to 5, with or without kidney disease, indicate chronic kidney disease. Notes: Determination of stages one and two (with eGFR >59mL/min/1.73 m2) requires estimation of kidney damage for at least three months as defined by structural or functional abnormalities of the kidney, manifested by either:Pathological abnormalities or Markers of kidney damage (including abnormalities in the composition of the blood or urine or abnormalities in imaging tests). Lab Interpretation Abnormal (test code = 91154-2) [facility] WITHOUT [id number] 07:35:27 Test Item Value Reference Range Interpretation Comments WBC (test code = 6690-2) See_Comment [A utomated message] The system [employer] generated this result transmit karan reference range : 4.20 - 10.70 10*3/?L. The reference range was not used to interpret this result as normal/abnormal . RBC (test code = 789-8) See_Comment L [Au tomated message] The system [employer] generated this result transmit karan reference range : 4.26 - 5.52 10* 6/?L. The reference r viral was not used to interpret this result as normal/abnormal . HGB (test code = 718-7) 11.4 g/dL 12.2-16.4 L HCT (test code = 4544-3) 32.0 % 38.4-49.3 L MCH (test code = 785-6) 31.1 pg 26.1-32.7 MCV (test code = 787-2) 87.4 fL 81.7-95.6 MCHC (test code = 786-4) 35.6 g/dL 31.2-35.0 H PLT (test code = 777-3) See_Comment L [Au tomated message] The system [employer] generated this result transmit karan reference range : 150 - 328 10*3/?L. The reference range was not used to interpret this result as normal/abnormal . MPV (test code = 9.1 fL 9.8-13.0 L 79927-6) RDW-CV (test code = 13.2 % 12.1-15.4 788-0) RDW-SD (test code = 42.2 fL 38.5-51.6 88114-7) NRBC x10^3 (test code = See_Comment [Au tomated message] 7701457605) The system [employer] generated this result transmit karan reference range : 10*3/?L. The reference range was not used to interpret this result as normal/abnormal . NRBC/100 WBC (test code See_Comment [Au tomated message] = 4037509490) The system [facility] generated this result transmit karan reference range : 0.0 - 10.0 /100 WBC s. The reference r viral was not used to interpret this result as normal/abnormal . IPF % (test code = 6975519914) Lab Interpretation (test Abnormal code = 76908-8) [facility] WITHOUT [id number] 07:35:27 Test Item Value Reference Range Interpretation Comments WBC (test code = 6690-2) See_Comment [A utomated message] The system [employer] generated this result transmit karan reference range : 4.20 - 10.70 10*3/?L. The reference range was not used to interpret this result as normal/abnormal . RBC (test code = 789-8) See_Comment L [Au tomated message] The system [facility] generated this result transmit karan reference range : 4.26 - 5.52 10* 6/?L. The reference r viral was not used to interpret this result as normal/abnormal . HGB (test code = 718-7) 11.4 g/dL 12.2-16.4 L HCT (test code = 4544-3) 32.0 % 38.4-49.3 L MCH (test code = 785-6) 31.1 pg 26.1-32.7 MCV (test code = 787-2) 87.4 fL 81.7-95.6 MCHC (test code = 786-4) 35.6 g/dL 31.2-35.0 H PLT (test code = 777-3) See_Comment L [Au tomated message] The system [employer] generated this result transmit karan reference range : 150 - 328 10*3/?L. The reference range was not used to interpret this result as normal/abnormal . MPV (test code = 9.1 fL 9.8-13.0 L 21781-2) RDW-CV (test code = 13.2 % 12.1-15.4 788-0) RDW-SD (test code = 42.2 fL 38.5-51.6 60354-3) NRBC x10^3 (test code = See_Comment [Au tomated message] 0195281960) The system [employer] generated this result transmit karan reference range : 10*3/?L. The reference range was not used to interpret this result as normal/abnormal . NRBC/100 WBC (test code See_Comment [Au tomated message] = 7916908643) The system [email or web address] generated this result transmit karan reference range : 0.0 - 10.0 /100 WBC s. The reference r viral was not used to interpret this result as normal/abnormal . IPF % (test code = 4413082585) Lab Interpretation (test Abnormal code = 17435-3) [facility] WITHOUT [id number] 07:35:27 Test Item Value Reference Range Interpretation Comments WBC (test code = 6690-2) See_Comment [A utomated message] The system [employer] generated this result transmit karan reference range : 4.20 - 10.70 10*3/?L. The reference range was not used to interpret this result as normal/abnormal . RBC (test code = 789-8) See_Comment L [Au tomated message] The system [employer] generated this result transmit karan reference range : 4.26 - 5.52 10* 6/?L. The reference r viral was not used to interpret this result as normal/abnormal . HGB (test code = 718-7) 11.4 g/dL 12.2-16.4 L HCT (test code = 4544-3) 32.0 % 38.4-49.3 L MCH (test code = 785-6) 31.1 pg 26.1-32.7 MCV (test code = 787-2) 87.4 fL 81.7-95.6 MCHC (test code = 786-4) 35.6 g/dL 31.2-35.0 H PLT (test code = 777-3) See_Comment L [Au tomated message] The system [employer] generated this result transmit karan reference range : 150 - 328 10*3/?L. The reference range was not used to interpret this result as normal/abnormal . MPV (test code = 9.1 fL 9.8-13.0 L 97977-3) RDW-CV (test code = 13.2 % 12.1-15.4 788-0) RDW-SD (test code = 42.2 fL 38.5-51.6 74664-7) NRBC x10^3 (test code = See_Comment [Au tomated message] 6781479185) The system [employer] generated this result transmit karan reference range : 10*3/?L. The reference range was not used to interpret this result as normal/abnormal . NRBC/100 WBC (test code See_Comment [Au tomated message] = 0198150331) The system [employer] generated this result transmit karan reference range : 0.0 - 10.0 /100 WBC s. The reference r viral was not used to interpret this result as normal/abnormal . IPF % (test code = 8416573366) Lab Interpretation (test Abnormal code = 71152-1) [facility]ody (HBsAb)2022-11-04 23:20:23 Test Item Value Reference Range Interpretation Comments HBsAB (test code = Negative 3295009368) HBsAb mIU/mL Semi-Quantitative (test code = 2011303876) RAMON (test code = Interpretation: RAMON) ?Hepatitis B Surface Antibody ? Negative - Patient is considered to be not immune to infection with HBV. ? ? Positive - Anti-HBs detected at greater than or equal to 12 mIU/mL. ?Patient is considered to be immune to infection with HBV. ? [facility] Antibody (HBsAb)2022-11-04 23:20:23 Test Item Value Reference Range Interpretation Comments HBsAB (test code = Negative 1531460104) HBsAb mIU/mL Semi-Quantitative (test code = 8778980016) RAMON (test code = Interpretation: RAMON) ?Hepatitis B Surface Antibody ? Negative - Patient is considered to be not immune to infection with HBV. ? ? Positive - Anti-HBs detected at greater than or equal to 12 mIU/mL. ?Patient is considered to be immune to infection with HBV. ? [facility] B Surface Antibody (HBsAb)2022-11-04 23:20:23 Test Item Value Reference Range Interpretation Comments HBsAB (test code = Negative 9558090606) HBsAb mIU/mL Semi-Quantitative (test code = 3506107173) RAMON (test code = Interpretation: RAMON) ?Hepatitis B Surface Antibody ? Negative - Patient is considered to be not immune to infection with HBV. ? ? Positive - Anti-HBs detected at greater than or equal to 12 mIU/mL. ?Patient is considered to be immune to infection with HBV. ? [facility] B Surface Antigen (HBsAg)2022-11-04 15:56:46 Test Item Value Reference Range Interpretation Comments HBsAg Semi-Quantitative (test code = Negative Negative 5195-3) [facility] B Surface Antigen (HBsAg)2022-11-04 15:56:46 Test Item Value Reference Range Interpretation Comments HBsAg Semi-Quantitative (test code = Negative Negative 5195-3) [facility] B Surface Antigen (HBsAg)2022-11-04 15:56:46 Test Item Value Reference Range Interpretation Comments HBsAg Semi-Quantitative (test code = Negative Negative 5195-3) [facility] METABOLIC PANEL (NA, K, CL, CO2, GLUCOSE, BUN, CREATININE, CA)2022-11-04 10:47:39 Test Item Value Reference Range Interpretation Comments NA (test code = 128 mmol/L 135-145 L 8182215923) K (test code = 3.4 mmol/L 3.5-5.0 L 9628372363) CL (test code = 96 mmol/L 98-108 L 6809578015) CO2 TOTAL (test code = 19 mmol/L 23-31 L 2836415763) AGAP (test code = 2-16 5040574633) BUN (test code = 66 mg/dL 7-23 H 6429194542) GLUCOSE (test code = 228 mg/dL 70-110 H 2100280781) CREATININE (test code = 7.18 mg/dL 0.60-1.25 H 7194172822) CALCIUM (test code = 7.7 mg/dL 8.6-10.6 L 6403605484) eGFR (test code = mL/min/1.73m2 4004774875) RAMON (test code = RAMON) Association of Glomerular Filtration Rate (GFR) and Staging of Kidney Disease* + --+ --+ ------+| GFR (mL/min/1.73 m2) ?| With Kidney Damage ?| ?Without Kidney Damage+ --------+ --------+ +| ?>90 ?| ?Stage one ?| ? Normal ?+ ---+ ---+ -------+| ?60-89 ?| ?Stage two ?| ? Decreased GFR ? + --+ --+ ------+| ?30-59 ?| ?Stage three ?| ? Stage three ? + --+ --+ ------+| ?15-29 ?| ?Stage four ? | ? Stage four ?+ ---+ ---+ -------+| ?<15 (or dialysis) ? ?| ?Stage five ? | ? Stage five ?+ ---+ ---+ -------+ *Each stage assumes the associated GFR level has been in effect for at least three months. ?Stages 1 to 5, with or without kidney disease, indicate chronic kidney disease. Notes: Determination of stages one and two (with eGFR >59mL/min/1.73 m2) requires estimation of kidney damage for at least three months as defined by structural or functional abnormalities of the kidney, manifested by either:Pathological abnormalities or Markers of kidney damage (including abnormalities in the composition of the blood or urine or abnormalities in imaging tests). Lab Interpretation Abnormal (test code = 21923-1) [facility] METABOLIC PANEL (NA, K, CL, CO2, GLUCOSE, BUN, CREATININE, CA)2022-11-04 10:47:39 Test Item Value Reference Range Interpretation Comments NA (test code = 128 mmol/L 135-145 L 2442384154) K (test code = 3.4 mmol/L 3.5-5.0 L 9149323402) CL (test code = 96 mmol/L 98-108 L 2085067096) CO2 TOTAL (test code = 19 mmol/L 23-31 L 2269164478) AGAP (test code = 2-16 3649575658) BUN (test code = 66 mg/dL 7-23 H 8036007408) GLUCOSE (test code = 228 mg/dL 70-110 H 6082370204) CREATININE (test code = 7.18 mg/dL 0.60-1.25 H 0193041716) CALCIUM (test code = 7.7 mg/dL 8.6-10.6 L 0596493836) eGFR (test code = mL/min/1.73m2 8032782651) RAMON (test code = RAMON) Association of Glomerular Filtration Rate (GFR) and Staging of Kidney Disease* + --+ --+ ------+| GFR (mL/min/1.73 m2) ?| With Kidney Damage ?| ?Without Kidney Damage+ --------+ --------+ +| ?>90 ?| ?Stage one ?| ? Normal ?+ ---+ ---+ -------+| ?60-89 ?| ?Stage two ?| ? Decreased GFR ? + --+ --+ ------+| ?30-59 ?| ?Stage three ?| ? Stage three ? + --+ --+ ------+| ?15-29 ?| ?Stage four ? | ? Stage four ?+ ---+ ---+ -------+| ?<15 (or dialysis) ? ?| ?Stage five ? | ? Stage five ?+ ---+ ---+ -------+ *Each stage assumes the associated GFR level has been in effect for at least three months. ?Stages 1 to 5, with or without kidney disease, indicate chronic kidney disease. Notes: Determination of stages one and two (with eGFR >59mL/min/1.73 m2) requires estimation of kidney damage for at least three months as defined by structural or functional abnormalities of the kidney, manifested by either:Pathological abnormalities or Markers of kidney damage (including abnormalities in the composition of the blood or urine or abnormalities in imaging tests). Lab Interpretation Abnormal (test code = 08912-7) [facility] METABOLIC PANEL (NA, K, CL, CO2, GLUCOSE, BUN, CREATININE, CA)2022-11-04 10:47:39 Test Item Value Reference Range Interpretation Comments NA (test code = 128 mmol/L 135-145 L 7200844960) K (test code = 3.4 mmol/L 3.5-5.0 L 7780886897) CL (test code = 96 mmol/L 98-108 L 4989606428) CO2 TOTAL (test code = 19 mmol/L 23-31 L 2165735072) AGAP (test code = 2-16 3237255439) BUN (test code = 66 mg/dL 7-23 H 4752715735) GLUCOSE (test code = 228 mg/dL 70-110 H 2220578480) CREATININE (test code = 7.18 mg/dL 0.60-1.25 H 9280320382) CALCIUM (test code = 7.7 mg/dL 8.6-10.6 L 0594075493) eGFR (test code = mL/min/1.73m2 9470871215) RAMON (test code = RAMON) Association of Glomerular Filtration Rate (GFR) and Staging of Kidney Disease* + --+ --+ ------+| GFR (mL/min/1.73 m2) ?| With Kidney Damage ?| ?Without Kidney Damage+ --------+ --------+ +| ?>90 ?| ?Stage one ?| ? Normal ?+ ---+ ---+ -------+| ?60-89 ?| ?Stage two ?| ? Decreased GFR ? + --+ --+ ------+| ?30-59 ?| ?Stage three ?| ? Stage three ? + --+ --+ ------+| ?15-29 ?| ?Stage four ? | ? Stage four ?+ ---+ ---+ -------+| ?<15 (or dialysis) ? ?| ?Stage five ? | ? Stage five ?+ ---+ ---+ -------+ *Each stage assumes the associated GFR level has been in effect for at least three months. ?Stages 1 to 5, with or without kidney disease, indicate chronic kidney disease. Notes: Determination of stages one and two (with eGFR >59mL/min/1.73 m2) requires estimation of kidney damage for at least three months as defined by structural or functional abnormalities of the kidney, manifested by either:Pathological abnormalities or Markers of kidney damage (including abnormalities in the composition of the blood or urine or abnormalities in imaging tests). Lab Interpretation Abnormal (test code = 28153-5) [facility] WITHOUT [id number] 10:33:53 Test Item Value Reference Range Interpretation Comments WBC (test code = See_Comment [Automated message] 6690-2) The system [employer] generated this result transmitted ref erence range: 4.20 - 1 0.70 10*3/?L. The reference range was not used to int erpret this result as normal/abnormal . RBC (test code = 789-8) See_Comment L [Au tomated message] The system [employer] generated this result transmitted ref erence range: 4.26 - 5 .52 10*6/?L. The reference range was not used to int erpret this result as normal/abnormal . HGB (test code = 718-7) 11.9 g/dL 12.2-16.4 L HCT (test code = 33.5 % 38.4-49.3 L 4544-3) MCH (test code = 785-6) 30.9 pg 26.1-32.7 MCV (test code = 787-2) 87.0 fL 81.7-95.6 MCHC (test code = 35.5 g/dL 31.2-35.0 H 786-4) PLT (test code = 777-3) See_Comment [Au tomated message] The system [employer] generated this result transmitted ref erence range: 150 - 32 8 10*3/?L. The reference range was not used to int erpret this result as normal/abnormal . MPV (test code = 9.2 fL 9.8-13.0 L 37917-6) RDW-CV (test code = 13.3 % 12.1-15.4 788-0) RDW-SD (test code = 42.0 fL 38.5-51.6 68039-3) NRBC x10^3 (test code = See_Comment [Au tomated message] 8325340966) The system [employer] generated this result transmitted ref erence range: 10*3/?L. The reference range was not used to int erpret this result as normal/abnormal . NRBC/100 WBC (test code See_Comment [Au tomated message] = 9766979080) The system [facility] generated this result transmitted ref erence range: 0.0 - 10 .0 /100 WBCs. The reference range was not used to int erpret this result as normal/abnormal . IPF % (test code = 1.5 % 1.2-10.7 Platelet count 9759827055) measured by fluorescence me thod. Lab Interpretation Abnormal (test code = 42553-9) [facility] WITHOUT [id number] 10:33:53 Test Item Value Reference Range Interpretation Comments WBC (test code = See_Comment [Automated message] 6690-2) The system [employer] generated this result transmitted ref erence range: 4.20 - 1 0.70 10*3/?L. The reference range was not used to int erpret this result as normal/abnormal . RBC (test code = 789-8) See_Comment L [Au tomated message] The system [employer] generated this result transmitted ref erence range: 4.26 - 5 .52 10*6/?L. The reference range was not used to int erpret this result as normal/abnormal . HGB (test code = 718-7) 11.9 g/dL 12.2-16.4 L HCT (test code = 33.5 % 38.4-49.3 L 4544-3) MCH (test code = 785-6) 30.9 pg 26.1-32.7 MCV (test code = 787-2) 87.0 fL 81.7-95.6 MCHC (test code = 35.5 g/dL 31.2-35.0 H 786-4) PLT (test code = 777-3) See_Comment [Au tomated message] The system [employer] generated this result transmitted ref erence range: 150 - 32 8 10*3/?L. The reference range was not used to int erpret this result as normal/abnormal . MPV (test code = 9.2 fL 9.8-13.0 L 31228-3) RDW-CV (test code = 13.3 % 12.1-15.4 788-0) RDW-SD (test code = 42.0 fL 38.5-51.6 82913-3) NRBC x10^3 (test code = See_Comment [Au tomated message] 6014680661) The system [employer] generated this result transmitted ref erence range: 10*3/?L. The reference range was not used to int erpret this result as normal/abnormal . NRBC/100 WBC (test code See_Comment [Au tomated message] = 5414859559) The system E96 generated this result transmitted ref erence range: 0.0 - 10 .0 /100 WBCs. The reference range was not used to int erpret this result as normal/abnormal . IPF % (test code = 1.5 % 1.2-10.7 Platelet count [id number]) measured by fluorescence me thod. Lab Interpretation Abnormal (test code = 63927-1) [facility] WITHOUT [id number] 10:33:53 Test Item Value Reference Range Interpretation Comments WBC (test code = See_Comment [Automated message] 6690-2) The system [employer] generated this result transmitted ref erence range: 4.20 - 1 0.70 10*3/?L. The reference range was not used to int erpret this result as normal/abnormal . RBC (test code = 789-8) See_Comment L [Au tomated message] The system [employer] generated this result transmitted ref erence range: 4.26 - 5 .52 10*6/?L. The reference range was not used to int erpret this result as normal/abnormal . HGB (test code = 718-7) 11.9 g/dL 12.2-16.4 L HCT (test code = 33.5 % 38.4-49.3 L 4544-3) MCH (test code = 785-6) 30.9 pg 26.1-32.7 MCV (test code = 787-2) 87.0 fL 81.7-95.6 MCHC (test code = 35.5 g/dL 31.2-35.0 H 786-4) PLT (test code = 777-3) See_Comment [Au tomated message] The system [employer] generated this result transmitted ref erence range: 150 - 32 8 10*3/?L. The reference range was not used to int erpret this result as normal/abnormal . MPV (test code = 9.2 fL 9.8-13.0 L 24612-9) RDW-CV (test code = 13.3 % 12.1-15.4 788-0) RDW-SD (test code = 42.0 fL 38.5-51.6 15824-1) NRBC x10^3 (test code = See_Comment [Au tomated message] 3625988022) The system [employer] generated this result transmitted ref erence range: 10*3/?L. The reference range was not used to int erpret this result as normal/abnormal . NRBC/100 WBC (test code See_Comment [Au tomated message] = 2138187377) The system E96 generated this result transmitted ref erence range: 0.0 - 10 .0 /100 WBCs. The reference range was not used to int erpret this result as normal/abnormal . IPF % (test code = 1.5 % 1.2-10.7 Platelet count [id number]) measured by fluorescence me thod. Lab Interpretation Abnormal (test code = 03132-3) [place] [id number] 06:56:24 Test Item Value Reference Range Interpretation Comments APTT Patient (test code See_Comment H [Au tomated message] = 3173-2) The system [employer] generated this result transmitted ref erence range: 26 - 36 Seconds. The reference range was not used to int erpret this result as normal/abnormal . Lab Interpretation (test Abnormal code = 18763-2) [place] [id number] 06:56:24 Test Item Value Reference Range Interpretation Comments APTT Patient (test code See_Comment H [Au tomated message] = 3173-2) The system [employer] generated this result transmitted ref erence range: 26 - 36 Seconds. The reference range was not used to int erpret this result as normal/abnormal . Lab Interpretation (test Abnormal code = 93193-2) [place] [id number] 06:56:24 Test Item Value Reference Range Interpretation Comments APTT Patient (test code See_Comment H [Au tomated message] = 3173-2) The system [employer] generated this result transmitted ref erence range: 26 - 36 Seconds. The reference range was not used to int erpret this result as normal/abnormal . Lab Interpretation (test Abnormal code = 12775-0) [place] 94644-12-22 03:31:28 Test Item Value Reference Range Interpretation Comments APTT Patient (test code = See_Comment [ Automated message] 3173-2) The system [employer] generated this result transmitted ref erence range: 26 - 36 Seconds. The re ference range was not u sed to interpret this result as normal/abnor mal. Lab Interpretation (test Normal code = 09885-0) [facility] Test Item Value Reference Range Interpretation Comments APTT Patient (test code = See_Comment [ Automated message] 3173-2) The system [employer] generated this result transmitted ref erence range: 26 - 36 Seconds. The re ference range was not u sed to interpret this result as normal/abnor mal. Lab Interpretation (test Normal code = 27189-8) [place] [id number] 03:31:28 Test Item Value Reference Range Interpretation Comments APTT Patient (test code = See_Comment [ Automated message] 3173-2) The system [employer] generated this result transmitted ref erence range: 26 - 36 Seconds. The re ference range was not u sed to interpret this result as normal/abnor mal. Lab Interpretation (test Normal code = 78938-1) [facility] 21:09:18 Test Item Value Reference Range Interpretation Comments Height (test code = in 9847974431) Weight (test code = lbs 2429123490) Systolic BP (test code mmHg = 8340568643) Diastolic BP (test code mmHg = 6822284681) Heart Rate (test code = bpm 6319118669) BSA (test code = 2.6 m2 9572308385) Ao root diam (test code 4.10 cm = 7369088140) Aortic root (test code 4.1 cm = 1477914284) Ao root annulus (test 4.1 cm code = 3870515298) LA size (test code = 4.8 cm 5299903077) LVOT diameter (test 2.04 cm code = 0393956175) LVOT area (test code = 3.30 cm2 8550048410) LVIDD (test code = 5.50 cm 2550197303) Left Ventricular End 144.6 mL Diastolic Volume by Teichholz Method (test code = 8243565) IVS (test code = 1.20 cm 7468461787) Interventricular Septum 1.20 cm Diastolic Thickness by 2D (test code = 8242944) LVPWD (test code = 1.12 cm 5202568819) PW (test code = 1.12 cm 0.6-1.7 3854948873) EF(Teich) (test code = 42.60 % 8584540855) LVIDS (test code = 4.30 cm 0753119065) Left Ventricular End 83.0 mL Systolic Volume by Teichholz Method (test code = 6651747) FS (test code = 21 % 4870394925) EF - 2D (test code = 42.60 % 32025895) LAV(MOD-sp4) (test code 144.60 mL = 3249803096) MV valve area p 1/2 4.50 cm2 method (test code = 4366748093) MV dec slope (test code 518.10 cm/s2 = 6971290583) MV P1/2t max jamar (test 86.50 cm/s code = 3944517958) MV Peak E Jamar (test 86.1 cm/s code = 7031239445) MR max PG (test code = 75.50 mm[Hg] 8181868176) MR max jamar (test code = 434.40 cm/s 5730453207) Mr max jamar (test code = 434.4 m/s 0458784228) MV Prop V (test code = 54.00 cm/s 2039018229) MV E/e' septal (test 5.9 cm/s code = 4723730455) LVOT stroke volume 43.80 cm3 (test code = 8877321585) LVOT peak jamar (test 62.6 cm/s code = 8581240452) LVOT mn grad (test code mmHg = 9280742414) AV LVOT peak gradient mmHg (test code = 8048871376) LVOT peak VTI (test 13.5 cm code = 9924451545) LV V1 mean (test code = 42.50 cm/s 5168776996) Aortic valve mean 68.6 cm/s velocity (test code = 6622366880) Ao peak jamar (test code 88.9 cm/s = 3003395528) Ao VTI (test code = 19.2 cm 1730733615) AV area by cont VTI 2.3 cm2 (test code = 4975620556) AV area peak jamar (test 2.3 cm2 code = 3924230118) Ao max PG (test code = 3.20 mm[Hg] 7188931570) AV peak gradient (test mmHg code = 2551868574) AV valve area (test 2.28 cm2 code = 2447352801) AV mean gradient (test mmHg code = 3648145644) Left Ventricular 2.09 L/min Cardiac Output (test code = 3957148) Aortic HR (test code = BPM 4754954761) LA Volume Index (BP) 53.0 mL/m2 (test code = 9113518857) LA volume (BP) (test 137.7 mL code = 2122733311) LAV(MOD-sp2) (test code 107.40 mL = 8328268149) Radiology Study observation (narrative) (test code = 02379-6) RAMON (test code = RAMON) ?Left?Ventricle: Left ventricle size is normal. Normal wall thickness. Moderate global hypokinesis present. Moderately reduced systolic function with a visually estimated EF of 35 - 40%. ?IVC/SVC: IVC diameter is greater than 21 mm and decreases less than 50% during inspiration; therefore the estimated right atrial pressure is elevated (~15 mmHg). ?Left?Atrium: Left atrium is severely dilated. Left VentricleLeft ventricle size is normal. Normal wall thickness. Moderate global hypokinesis present. Moderately reduced systolic function with a visually estimated EF of 35 - 40%. Diastolic dysfunction.Right VentricleRight ventricle size is normal. Normal systolic function.Left AtriumLeft atrium is severely dilated.Right AtriumRight atrium size is normal.IVC/SVCIVC diameter is greater than 21 mm and decreases less than 50% during inspiration; therefore the estimated right atrial pressure is elevated (~15 mmHg). SVC was not assessed.Mitral ValveModerately thickened leaflets. Mild transvalvular regurgitation. No stenosis.Tricuspid ValveTricuspid valve structure is normal. Mild transvalvular regurgitation. Right ventricular systolic pressure is 30-35 mmHg. No stenosis.Aortic ValveAortic valve structure is normal. Trace transvalvular regurgitation. No evidence of aortic stenosis.Pulmonic ValveValve structure is normal. Trace transvalvular regurgitation. No stenosis.Ascending AortaNormal sized annulus, sinus of Valsalva and aortic root.PericardiumNo pericardial effusion.Study DetailsStudy quality was adequate. A complete echocardiogram was performed using 2D, color flow Doppler and spectral Doppler. The apical, parasternal and subcostal views were obtained. 5 mL of Lumason ultrasound enhancing agent used. [facility] 21:09:18 Test Item Value Reference Range Interpretation Comments Height (test code = in 9670335349) Weight (test code = lbs 6807445079) Systolic BP (test code mmHg = 3643512491) Diastolic BP (test code mmHg = 4116669469) Heart Rate (test code = bpm 2825498350) BSA (test code = 2.6 m2 4930839863) Ao root diam (test code 4.10 cm = 7720732067) Aortic root (test code 4.1 cm = 1390244543) Ao root annulus (test 4.1 cm code = 9360362883) LA size (test code = 4.8 cm 4698928232) LVOT diameter (test 2.04 cm code = 8338888909) LVOT area (test code = 3.30 cm2 6529750680) LVIDD (test code = 5.50 cm 4532957742) Left Ventricular End 144.6 mL Diastolic Volume by Teichholz Method (test code = 6354658) IVS (test code = 1.20 cm 2328039820) Interventricular Septum 1.20 cm Diastolic Thickness by 2D (test code = 4709214) LVPWD (test code = 1.12 cm 7641666274) PW (test code = 1.12 cm 0.6-1.7 9250263728) EF(Teich) (test code = 42.60 % 2839986686) LVIDS (test code = 4.30 cm 0505499274) Left Ventricular End 83.0 mL Systolic Volume by Teichholz Method (test code = 0403775) FS (test code = 21 % 6609056215) EF - 2D (test code = 42.60 % 98517040) LAV(MOD-sp4) (test code 144.60 mL = 7608056034) MV valve area p 1/2 4.50 cm2 method (test code = 0748579650) MV dec slope (test code 518.10 cm/s2 = 6865497239) MV P1/2t max jamar (test 86.50 cm/s code = 0987301636) MV Peak E Jamar (test 86.1 cm/s code = 9624811256) MR max PG (test code = 75.50 mm[Hg] 0602388294) MR max jamar (test code = 434.40 cm/s 5033793686) Mr max jamar (test code = 434.4 m/s 6987002623) MV Prop V (test code = 54.00 cm/s 3799594486) MV E/e' septal (test 5.9 cm/s code = 8443996840) LVOT stroke volume 43.80 cm3 (test code = 8573122257) LVOT peak jamar (test 62.6 cm/s code = 5924670337) LVOT mn grad (test code mmHg = 4895230079) AV LVOT peak gradient mmHg (test code = 7571803668) LVOT peak VTI (test 13.5 cm code = 0982778073) LV V1 mean (test code = 42.50 cm/s 8221960317) Aortic valve mean 68.6 cm/s velocity (test code = 6115441467) Ao peak jamar (test code 88.9 cm/s = 0736832369) Ao VTI (test code = 19.2 cm 4075817760) AV area by cont VTI 2.3 cm2 (test code = 4039974050) AV area peak jamar (test 2.3 cm2 code = 4377207676) Ao max PG (test code = 3.20 mm[Hg] 4355558402) AV peak gradient (test mmHg code = 9570188601) AV valve area (test 2.28 cm2 code = 3085290755) AV mean gradient (test mmHg code = 0641080236) Left Ventricular 2.09 L/min Cardiac Output (test code = 7201712) Aortic HR (test code = BPM 1446305538) LA Volume Index (BP) 53.0 mL/m2 (test code = 8829025993) LA volume (BP) (test 137.7 mL code = 3711306992) LAV(MOD-sp2) (test code 107.40 mL = 4597601338) Radiology Study observation (narrative) (test code = 81207-5) RAMON (test code = RAMON) ?Left?Ventricle: Left ventricle size is normal. Normal wall thickness. Moderate global hypokinesis present. Moderately reduced systolic function with a visually estimated EF of 35 - 40%. ?IVC/SVC: IVC diameter is greater than 21 mm and decreases less than 50% during inspiration; therefore the estimated right atrial pressure is elevated (~15 mmHg). ?Left?Atrium: Left atrium is severely dilated. Left VentricleLeft ventricle size is normal. Normal wall thickness. Moderate global hypokinesis present. Moderately reduced systolic function with a visually estimated EF of 35 - 40%. Diastolic dysfunction.Right VentricleRight ventricle size is normal. Normal systolic function.Left AtriumLeft atrium is severely dilated.Right AtriumRight atrium size is normal.IVC/SVCIVC diameter is greater than 21 mm and decreases less than 50% during inspiration; therefore the estimated right atrial pressure is elevated (~15 mmHg). SVC was not assessed.Mitral ValveModerately thickened leaflets. Mild transvalvular regurgitation. No stenosis.Tricuspid ValveTricuspid valve structure is normal. Mild transvalvular regurgitation. Right ventricular systolic pressure is 30-35 mmHg. No stenosis.Aortic ValveAortic valve structure is normal. Trace transvalvular regurgitation. No evidence of aortic stenosis.Pulmonic ValveValve structure is normal. Trace transvalvular regurgitation. No stenosis.Ascending AortaNormal sized annulus, sinus of Valsalva and aortic root.PericardiumNo pericardial effusion.Study DetailsStudy quality was adequate. A complete echocardiogram was performed using 2D, color flow Doppler and spectral Doppler. The apical, parasternal and subcostal views were obtained. 5 mL of Lumason ultrasound enhancing agent used. [facility] 21:09:18 Test Item Value Reference Range Interpretation Comments Height (test code = in 6129657140) Weight (test code = lbs 1060684444) Systolic BP (test code mmHg = 0329537131) Diastolic BP (test code mmHg = 6262979352) Heart Rate (test code = bpm 3528804495) BSA (test code = 2.6 m2 7304440855) Ao root diam (test code 4.10 cm = 6751557031) Aortic root (test code 4.1 cm = 8148837766) Ao root annulus (test 4.1 cm code = 5567455220) LA size (test code = 4.8 cm 3198443368) LVOT diameter (test 2.04 cm code = 9853092135) LVOT area (test code = 3.30 cm2 5001330265) LVIDD (test code = 5.50 cm 1573297942) Left Ventricular End 144.6 mL Diastolic Volume by Teichholz Method (test code = 4244580) IVS (test code = 1.20 cm 3252722252) Interventricular Septum 1.20 cm Diastolic Thickness by 2D (test code = 0855042) LVPWD (test code = 1.12 cm 3518940190) PW (test code = 1.12 cm 0.6-1.6 6262971197) EF(Teich) (test code = 42.60 % 0447097940) LVIDS (test code = 4.30 cm 8495804901) Left Ventricular End 83.0 mL Systolic Volume by Teichholz Method (test code = 0977530) FS (test code = 21 % 4656781400) EF - 2D (test code = 42.60 % 30892803) LAV(MOD-sp4) (test code 144.60 mL = 0970182600) MV valve area p 1/2 4.50 cm2 method (test code = 9699503775) MV dec slope (test code 518.10 cm/s2 = 8425988045) MV P1/2t max jamar (test 86.50 cm/s code = 8007988879) MV Peak E Jamar (test 86.1 cm/s code = 3890722797) MR max PG (test code = 75.50 mm[Hg] 6980892679) MR max jamar (test code = 434.40 cm/s 1622462708) Mr max jamar (test code = 434.4 m/s 0984015456) MV Prop V (test code = 54.00 cm/s 6020248559) MV E/e' septal (test 5.9 cm/s code = 3287114856) LVOT stroke volume 43.80 cm3 (test code = 1395792379) LVOT peak jamar (test 62.6 cm/s code = 8273931271) LVOT mn grad (test code mmHg = 2281948465) AV LVOT peak gradient mmHg (test code = 6254780564) LVOT peak VTI (test 13.5 cm code = 3324224539) LV V1 mean (test code = 42.50 cm/s 2358418882) Aortic valve mean 68.6 cm/s velocity (test code = 5547538873) Ao peak jamar (test code 88.9 cm/s = 5730098778) Ao VTI (test code = 19.2 cm 6816162563) AV area by cont VTI 2.3 cm2 (test code = 7898168414) AV area peak jamar (test 2.3 cm2 code = 3819881458) Ao max PG (test code = 3.20 mm[Hg] 1780636063) AV peak gradient (test mmHg code = 2997651678) AV valve area (test 2.28 cm2 code = 2266838958) AV mean gradient (test mmHg code = 4535558131) Left Ventricular 2.09 L/min Cardiac Output (test code = 4204186) Aortic HR (test code = BPM 7194574906) LA Volume Index (BP) 53.0 mL/m2 (test code = 6742292760) LA volume (BP) (test 137.7 mL code = 4501990650) LAV(MOD-sp2) (test code 107.40 mL = 1973163401) Radiology Study observation (narrative) (test code = 53396-6) RAMON (test code = RAMON) ?Left?Ventricle: Left ventricle size is normal. Normal wall thickness. Moderate global hypokinesis present. Moderately reduced systolic function with a visually estimated EF of 35 - 40%. ?IVC/SVC: IVC diameter is greater than 21 mm and decreases less than 50% during inspiration; therefore the estimated right atrial pressure is elevated (~15 mmHg). ?Left?Atrium: Left atrium is severely dilated. Left VentricleLeft ventricle size is normal. Normal wall thickness. Moderate global hypokinesis present. Moderately reduced systolic function with a visually estimated EF of 35 - 40%. Diastolic dysfunction.Right VentricleRight ventricle size is normal. Normal systolic function.Left AtriumLeft atrium is severely dilated.Right AtriumRight atrium size is normal.IVC/SVCIVC diameter is greater than 21 mm and decreases less than 50% during inspiration; therefore the estimated right atrial pressure is elevated (~15 mmHg). SVC was not assessed.Mitral ValveModerately thickened leaflets. Mild transvalvular regurgitation. No stenosis.Tricuspid ValveTricuspid valve structure is normal. Mild transvalvular regurgitation. Right ventricular systolic pressure is 30-35 mmHg. No stenosis.Aortic ValveAortic valve structure is normal. Trace transvalvular regurgitation. No evidence of aortic stenosis.Pulmonic ValveValve structure is normal. Trace transvalvular regurgitation. No stenosis.Ascending AortaNormal sized annulus, sinus of Valsalva and aortic root.PericardiumNo pericardial effusion.Study DetailsStudy quality was adequate. A complete echocardiogram was performed using 2D, color flow Doppler and spectral Doppler. The apical, parasternal and subcostal views were obtained. 5 mL of Lumason ultrasound enhancing agent used. [facility] [id number] 10:37:32 Test Item Value Reference Interpretation Comments Range TROPONIN I (test 0.759 ng/mL See_Comment H [Automated code = 6570926818) message] The system which generated this result transmitted reference range : <=0.034. The reference range was not used to interpret this result as normal/abnormal . RAMON (test code = Reference (Normal) RAMON) Range (defined by the 99th percentile reference limit): <= 0.034 ng/mL Note: Cardiac troponin begins to rise 3-4 hours after the onset of ischemia. Repeat in 4-6 hours if the sample was drawn within 3-4 hours of the onset of the symptom and found normal. Diagnosis of myocardial injury is made with acute changes in cTn concentrations with at least one serial sample above the 99th percentile upper reference limit (URL), taken together with the patient's clinical presentation. Biotin has been reported to cause a negative bias, interpret results relative to patient's use of biotin. Lab Interpretation Abnormal (test code = 53894-9) [facility] [id number] 10:37:32 Test Item Value Reference Interpretation Comments Range TROPONIN I (test 0.759 ng/mL See_Comment H [Automated code = 8183410920) message] The system which generated this result transmitted reference range : <=0.034. The reference range was not used to interpret this result as normal/abnormal . RAMON (test code = Reference (Normal) RAMON) Range (defined by the 99th percentile reference limit): <= 0.034 ng/mL Note: Cardiac troponin begins to rise 3-4 hours after the onset of ischemia. Repeat in 4-6 hours if the sample was drawn within 3-4 hours of the onset of the symptom and found normal. Diagnosis of myocardial injury is made with acute changes in cTn concentrations with at least one serial sample above the 99th percentile upper reference limit (URL), taken together with the patient's clinical presentation. Biotin has been reported to cause a negative bias, interpret results relative to patient's use of biotin. Lab Interpretation Abnormal (test code = 89245-6) [facility] [id number] 10:37:32 Test Item Value Reference Interpretation Comments Range TROPONIN I (test 0.759 ng/mL See_Comment H [Automated code = 9365792095) message] The system which generated this result transmitted reference range : <=0.034. The reference range was not used to interpret this result as normal/abnormal . RAMON (test code = Reference (Normal) RAMON) Range (defined by the 99th percentile reference limit): <= 0.034 ng/mL Note: Cardiac troponin begins to rise 3-4 hours after the onset of ischemia. Repeat in 4-6 hours if the sample was drawn within 3-4 hours of the onset of the symptom and found normal. Diagnosis of myocardial injury is made with acute changes in cTn concentrations with at least one serial sample above the 99th percentile upper reference limit (URL), taken together with the patient's clinical presentation. Biotin has been reported to cause a negative bias, interpret results relative to patient's use of biotin. Lab Interpretation Abnormal (test code = 57524-4) [facility] (NA, K, CL, CO2, GLUCOSE, BUN, CREATININE, CA)2022-11-03 10:27:52 Test Item Value Reference Range Interpretation Comments NA (test code = 132 mmol/L 135-145 L 9160604027) K (test code = 3.8 mmol/L 3.5-5.0 3148160208) CL (test code = 98 mmol/L 98-108 9535623282) CO2 TOTAL (test code = 21 mmol/L 23-31 L 5410181081) AGAP (test code = 2-16 8986546561) BUN (test code = 57 mg/dL 7-23 H 0973643361) GLUCOSE (test code = 102 mg/dL 70-110 1461357323) CREATININE (test code = 6.59 mg/dL 0.60-1.25 H 1369423550) CALCIUM (test code = 8.1 mg/dL 8.6-10.6 L 2731093591) eGFR (test code = mL/min/1.73m2 2157152589) RAMON (test code = RAMON) Association of Glomerular Filtration Rate (GFR) and Staging of Kidney Disease* + --+ --+ ------+| GFR (mL/min/1.73 m2) ?| With Kidney Damage ?| ?Without Kidney Damage+ --------+ --------+ +| ?>90 ?| ?Stage one ?| ? Normal ?+ ---+ ---+ -------+| ?60-89 ?| ?Stage two ?| ? Decreased GFR ? + --+ --+ ------+| ?30-59 ?| ?Stage three ?| ? Stage three ? + --+ --+ ------+| ?15-29 ?| ?Stage four ? | ? Stage four ?+ ---+ ---+ -------+| ?<15 (or dialysis) ? ?| ?Stage five ? | ? Stage five ?+ ---+ ---+ -------+ *Each stage assumes the associated GFR level has been in effect for at least three months. ?Stages 1 to 5, with or without kidney disease, indicate chronic kidney disease. Notes: Determination of stages one and two (with eGFR >59mL/min/1.73 m2) requires estimation of kidney damage for at least three months as defined by structural or functional abnormalities of the kidney, manifested by either:Pathological abnormalities or Markers of kidney damage (including abnormalities in the composition of the blood or urine or abnormalities in imaging tests). Lab Interpretation Abnormal (test code = 64429-2) [facility]:27:52 Test Item Value Reference Range Interpretation Comments MAGNESIUM (test code = 6210596530) 2.0 mg/dL 1.7-2.4 Lab Interpretation (test code = Normal 09527-5) [facility] (NA, K, CL, CO2, GLUCOSE, BUN, CREATININE, CA)2022-11-03 10:27:52 Test Item Value Reference Range Interpretation Comments NA (test code = 132 mmol/L 135-145 L 7471827559) K (test code = 3.8 mmol/L 3.5-5.0 8476340712) CL (test code = 98 mmol/L 98-108 4537119116) CO2 TOTAL (test code = 21 mmol/L 23-31 L 2376883749) AGAP (test code = 2-16 2392203945) BUN (test code = 57 mg/dL 7-23 H 2052735445) GLUCOSE (test code = 102 mg/dL 70-110 4565795742) CREATININE (test code = 6.59 mg/dL 0.60-1.25 H 2974804934) CALCIUM (test code = 8.1 mg/dL 8.6-10.6 L 2762336976) eGFR (test code = mL/min/1.73m2 6177731024) RAMON (test code = RAMON) Association of Glomerular Filtration Rate (GFR) and Staging of Kidney Disease* + --+ --+ ------+| GFR (mL/min/1.73 m2) ?| With Kidney Damage ?| ?Without Kidney Damage+ --------+ --------+ +| ?>90 ?| ?Stage one ?| ? Normal ?+ ---+ ---+ -------+| ?60-89 ?| ?Stage two ?| ? Decreased GFR ? + --+ --+ ------+| ?30-59 ?| ?Stage three ?| ? Stage three ? + --+ --+ ------+| ?15-29 ?| ?Stage four ? | ? Stage four ?+ ---+ ---+ -------+| ?<15 (or dialysis) ? ?| ?Stage five ? | ? Stage five ?+ ---+ ---+ -------+ *Each stage assumes the associated GFR level has been in effect for at least three months. ?Stages 1 to 5, with or without kidney disease, indicate chronic kidney disease. Notes: Determination of stages one and two (with eGFR >59mL/min/1.73 m2) requires estimation of kidney damage for at least three months as defined by structural or functional abnormalities of the kidney, manifested by either:Pathological abnormalities or Markers of kidney damage (including abnormalities in the composition of the blood or urine or abnormalities in imaging tests). Lab Interpretation Abnormal (test code = 55090-1) [facility] 10:27:52 Test Item Value Reference Range Interpretation Comments MAGNESIUM (test code = 3740141023) 2.0 mg/dL 1.7-2.4 Lab Interpretation (test code = Normal 13150-5) [facility] (NA, K, CL, CO2, GLUCOSE, BUN, CREATININE, CA)2022-11-03 10:27:52 Test Item Value Reference Range Interpretation Comments NA (test code = 132 mmol/L 135-145 L 9854275208) K (test code = 3.8 mmol/L 3.5-5.0 1363079497) CL (test code = 98 mmol/L 98-108 9080348145) CO2 TOTAL (test code = 21 mmol/L 23-31 L 0612227069) AGAP (test code = 2-16 3700641112) BUN (test code = 57 mg/dL 7-23 H 5186659407) GLUCOSE (test code = 102 mg/dL 70-110 4837532042) CREATININE (test code = 6.59 mg/dL 0.60-1.25 H 0540228784) CALCIUM (test code = 8.1 mg/dL 8.6-10.6 L 1514719025) eGFR (test code = mL/min/1.73m2 4784668196) RAMON (test code = RAMON) Association of Glomerular Filtration Rate (GFR) and Staging of Kidney Disease* + --+ --+ ------+| GFR (mL/min/1.73 m2) ?| With Kidney Damage ?| ?Without Kidney Damage+ --------+ --------+ +| ?>90 ?| ?Stage one ?| ? Normal ?+ ---+ ---+ -------+| ?60-89 ?| ?Stage two ?| ? Decreased GFR ? + --+ --+ ------+| ?30-59 ?| ?Stage three ?| ? Stage three ? + --+ --+ ------+| ?15-29 ?| ?Stage four ? | ? Stage four ?+ ---+ ---+ -------+| ?<15 (or dialysis) ? ?| ?Stage five ? | ? Stage five ?+ ---+ ---+ -------+ *Each stage assumes the associated GFR level has been in effect for at least three months. ?Stages 1 to 5, with or without kidney disease, indicate chronic kidney disease. Notes: Determination of stages one and two (with eGFR >59mL/min/1.73 m2) requires estimation of kidney damage for at least three months as defined by structural or functional abnormalities of the kidney, manifested by either:Pathological abnormalities or Markers of kidney damage (including abnormalities in the composition of the blood or urine or abnormalities in imaging tests). Lab Interpretation Abnormal (test code = 73094-6) [facility] 10:27:52 Test Item Value Reference Range Interpretation Comments MAGNESIUM (test code = 5673847408) 2.0 mg/dL 1.7-2.4 Lab Interpretation (test code = Normal 00722-1) [facility] FUN[facility] PAN[facility] (84645) (ALB,T.PRO,BILI T,BU/BC,ALT,AST,ALK PHOS)2022-11-03 10:18:32 Test Item Value Reference Range Interpretation Comments TOTAL BILI (test code = 1133412726) 0.9 mg/dL 0.1-1.1 BILI UNCON (test code = 9260820021) 0.5 mg/dL 0.1-1.1 BILI CONJ (test code = 0961356674) 0.0 mg/dL 0.0-0.3 T PROTEIN (test code = 3039846855) 7.0 g/dL 6.3-8.2 ALBUMIN (test code = 1637080937) 4.0 g/dL 3.5-5.0 ALK PHOS (test code = 6542857769) 174 U/L 34-122 H ALTv (test code = 1742-6) 34 U/L 5-50 AST(SGOT) (test code = 5163315442) 34 U/L 13-40 Lab Interpretation (test code = Abnormal 63410-7) [facility] (39718) (ALB,T.PRO,BILI T,BU/BC,ALT,AST,ALK PHOS)2022-11-03 10:18:32 Test Item Value Reference Range Interpretation Comments TOTAL BILI (test code = 0883796388) 0.9 mg/dL 0.1-1.1 BILI UNCON (test code = 5218708873) 0.5 mg/dL 0.1-1.1 BILI CONJ (test code = 7524355751) 0.0 mg/dL 0.0-0.3 T PROTEIN (test code = 1839055729) 7.0 g/dL 6.3-8.2 ALBUMIN (test code = 4579841798) 4.0 g/dL 3.5-5.0 ALK PHOS (test code = 8386394365) 174 U/L 34-122 H ALTv (test code = 1742-6) 34 U/L 5-50 AST(SGOT) (test code = 5299089389) 34 U/L 13-40 Lab Interpretation (test code = Abnormal 61954-1) [facility] (74533) (ALB,T.PRO,BILI T,BU/BC,ALT,AST,ALK PHOS)2022-11-03 10:18:32 Test Item Value Reference Range Interpretation Comments TOTAL BILI (test code = 3336128080) 0.9 mg/dL 0.1-1.1 BILI UNCON (test code = 4712810851) 0.5 mg/dL 0.1-1.1 BILI CONJ (test code = 4649200397) 0.0 mg/dL 0.0-0.3 T PROTEIN (test code = 9668444191) 7.0 g/dL 6.3-8.2 ALBUMIN (test code = 0555979705) 4.0 g/dL 3.5-5.0 ALK PHOS (test code = 3427675965) 174 U/L 34-122 H ALTv (test code = 1742-6) 34 U/L 5-50 AST(SGOT) (test code = 5933230517) 34 U/L 13-40 Lab Interpretation (test code = Abnormal 34918-2) [facility] WITH [id number] 10:09:29 Test Item Value Reference Range Interpretation Comments WBC (test code = See_Comment [Automated 6690-2) message] The sy stem which generated this result transmitted reference range : 4.20 - 10.70 10*3/?L. The reference range was not used to interpret this result as normal/abnormal . RBC (test code = See_Comment L [Automated 789-8) message] The sy stem which generated this result transmitted reference range : 4.26 - 5.52 10*6/?L. The reference range was not used to interpret this result as normal/abnormal . HGB (test code = 12.3 g/dL 12.2-16.4 718-7) HCT (test code = 35.9 % 38.4-49.3 L 4544-3) MCV (test code = 87.6 fL 81.7-95.6 787-2) MCH (test code = 30.0 pg 26.1-32.7 785-6) MCHC (test code = 34.3 g/dL 31.2-35.0 786-4) RDW-SD (test code = 41.6 fL 38.5-51.6 55845-8) RDW-CV (test code = 13.0 % 12.1-15.4 788-0) PLT (test code = See_Comment [Automated 777-3) message] The sy stem which generated this result transmitted reference range : 150 - 328 10*3/ ?L. The reference r viral was not used to interpret this result as normal/abnormal . MPV (test code = 9.1 fL 9.8-13.0 L 98879-3) NRBC/100 WBC (test See_Comment [Automat ed code = 4770791621) message] The system which generated this result transmitted reference range : 0.0 - 10.0 /100 WBCs. The refer ence range was not u sed to interpret th is result as normal/abnormal . NRBC x10^3 (test code See_Comment [Auto mated = 5614994540) message] The s ystem which generated this result transmitted reference range : 10*3/?L. The reference range was not used to interpret this result as normal/abnormal . GRAN MAT (NEUT) % 69.9 % (test code = 770-8) IMM GRAN % (test code 0.30 % = 5953477982) LYMPH % (test code = 18.1 % 736-9) MONO % (test code = 8.6 % 5905-5) EOS % (test code = 2.5 % 713-8) BASO % (test code = 0.6 % 706-2) GRAN MAT x10^3(ANC) 5.01 10*3/uL 1.99-6.95 (test code = 6380249560) IMM GRAN x10^3 (test 0.00-0.06 code = 1691684532) LYMPH x10^3 (test code 1.30 10*3/uL 1.09-3.23 = 731-0) MONO x10^3 (test code 0.62 10*3/uL 0.36-1.02 = 742-7) EOS x10^3 (test code = 0.18 10*3/uL 0.06-0.53 711-2) BASO x10^3 (test code 0.04 10*3/uL 0.01-0.09 = 704-7) Lab Interpretation Abnormal (test code = 20200-1) [facility] WITH [id number] 10:09:29 Test Item Value Reference Range Interpretation Comments WBC (test code = See_Comment [Automated 6690-2) message] The sy stem which generated this result transmitted reference range : 4.20 - 10.70 10*3/?L. The reference range was not used to interpret this result as normal/abnormal . RBC (test code = See_Comment L [Automated 789-8) message] The sy stem which generated this result transmitted reference range : 4.26 - 5.52 10*6/?L. The reference range was not used to interpret this result as normal/abnormal . HGB (test code = 12.3 g/dL 12.2-16.4 718-7) HCT (test code = 35.9 % 38.4-49.3 L 4544-3) MCV (test code = 87.6 fL 81.7-95.6 787-2) MCH (test code = 30.0 pg 26.1-32.7 785-6) MCHC (test code = 34.3 g/dL 31.2-35.0 786-4) RDW-SD (test code = 41.6 fL 38.5-51.6 66645-3) RDW-CV (test code = 13.0 % 12.1-15.4 788-0) PLT (test code = See_Comment [Automated 777-3) message] The sy stem which generated this result transmitted reference range : 150 - 328 10*3/ ?L. The reference r viral was not used to interpret this result as normal/abnormal . MPV (test code = 9.1 fL 9.8-13.0 L 51179-2) NRBC/100 WBC (test See_Comment [Automat ed code = 9301774944) message] The system which generated this result transmitted reference range : 0.0 - 10.0 /100 WBCs. The refer ence range was not u sed to interpret th is result as normal/abnormal . NRBC x10^3 (test code See_Comment [Auto mated = 6320660902) message] The s ystem which generated this result transmitted reference range : 10*3/?L. The reference range was not used to interpret this result as normal/abnormal . GRAN MAT (NEUT) % 69.9 % (test code = 770-8) IMM GRAN % (test code 0.30 % = 6254627260) LYMPH % (test code = 18.1 % 736-9) MONO % (test code = 8.6 % 5905-5) EOS % (test code = 2.5 % 713-8) BASO % (test code = 0.6 % 706-2) GRAN MAT x10^3(ANC) 5.01 10*3/uL 1.99-6.95 (test code = 3116393030) IMM GRAN x10^3 (test 0.00-0.06 code = 2388333462) LYMPH x10^3 (test code 1.30 10*3/uL 1.09-3.23 = 731-0) MONO x10^3 (test code 0.62 10*3/uL 0.36-1.02 = 742-7) EOS x10^3 (test code = 0.18 10*3/uL 0.06-0.53 711-2) BASO x10^3 (test code 0.04 10*3/uL 0.01-0.09 = 704-7) Lab Interpretation Abnormal (test code = 68432-4) [facility] WITH [id number] 10:09:29 Test Item Value Reference Range Interpretation Comments WBC (test code = See_Comment [Automated 6690-2) message] The sy stem which generated this result transmitted reference range : 4.20 - 10.70 10*3/?L. The reference range was not used to interpret this result as normal/abnormal . RBC (test code = See_Comment L [Automated 789-8) message] The sy stem which generated this result transmitted reference range : 4.26 - 5.52 10*6/?L. The reference range was not used to interpret this result as normal/abnormal . HGB (test code = 12.3 g/dL 12.2-16.4 718-7) HCT (test code = 35.9 % 38.4-49.3 L 4544-3) MCV (test code = 87.6 fL 81.7-95.6 787-2) MCH (test code = 30.0 pg 26.1-32.7 785-6) MCHC (test code = 34.3 g/dL 31.2-35.0 786-4) RDW-SD (test code = 41.6 fL 38.5-51.6 17547-0) RDW-CV (test code = 13.0 % 12.1-15.4 788-0) PLT (test code = See_Comment [Automated 777-3) message] The sy stem which generated this result transmitted reference range : 150 - 328 10*3/ ?L. The reference r viral was not used to interpret this result as normal/abnormal . MPV (test code = 9.1 fL 9.8-13.0 L 22512-6) NRBC/100 WBC (test See_Comment [Automat ed code = 9420248940) message] The system which generated this result transmitted reference range : 0.0 - 10.0 /100 WBCs. The refer ence range was not u sed to interpret th is result as normal/abnormal . NRBC x10^3 (test code See_Comment [Auto mated = 3439734405) message] The s ystem which generated this result transmitted reference range : 10*3/?L. The reference range was not used to interpret this result as normal/abnormal . GRAN MAT (NEUT) % 69.9 % (test code = 770-8) IMM GRAN % (test code 0.30 % = 4080471142) LYMPH % (test code = 18.1 % 736-9) MONO % (test code = 8.6 % 5905-5) EOS % (test code = 2.5 % 713-8) BASO % (test code = 0.6 % 706-2) GRAN MAT x10^3(ANC) 5.01 10*3/uL 1.99-6.95 (test code = 3628226296) IMM GRAN x10^3 (test 0.00-0.06 code = 5666872186) LYMPH x10^3 (test code 1.30 10*3/uL 1.09-3.23 = 731-0) MONO x10^3 (test code 0.62 10*3/uL 0.36-1.02 = 742-7) EOS x10^3 (test code = 0.18 10*3/uL 0.06-0.53 711-2) BASO x10^3 (test code 0.04 10*3/uL 0.01-0.09 = 704-7) Lab Interpretation Abnormal (test code = 10594-0) [facility] LDL/HDL [id number] 00:00:00 Test Item Value Reference Range Interpretation Comments Cholesterol, Total (test code = 2093-3) 83 100-199 Triglycerides (test code = 2571-8) 56 0-149 HDL Cholesterol (test code = 2085-9) 35 >39 Comp. Metabolic Panel (14) (CMP)2022-01-18 00:00:00 Test Item Value Reference Range Interpretation Comments Glucose (test code = 2345-7) 93 65-99 BUN (test code = 3094-0) 50 6-24 Creatinine (test code = 2160-0) 6.11 0.76-1.27 BUN/Creatinine Ratio (test code = 8 9-20 3097-3) Sodium (test code = 2951-2) 140 134-144 Potassium (test code = 2823-3) 3.6 3.5-5.2 Chloride (test code = 2075-0) 109 96-106 Carbon Dioxide, Total (test code = 15 20-2027-9) Calcium (test code = 09082-8) 8.9 8.7-10.2 Protein, Total (test code = 2885-2) 7.1 6.0-8.5 Albumin (test code = 1751-7) 4.3 3.8-4.9 Globulin, Total (test code = 43069-4) 2.8 1.5-4.5 A/G Ratio (test code = 1759-0) 1.5 1.2-2.2 Bilirubin, Total (test code = 1974-) 1.2 0.0-1.2 Alkaline Phosphatase (test code = 206 44-121 6768-6) AST (SGOT) (test code = 1920-8) 16 0-40 ALT (SGPT) (test code = 1742-6) 12 0-44 Uric Acid, [id number] 00:00:00 Test Item Value Reference Range Interpretation Comments Uric Acid (test code = 3084-1) 7.8 3.8-8.4 CBC With Differential/[id number] 00:00:00 Test Item Value Reference Range Interpretation Comments WBC (test code = 6690-2) 5.8 3.4-10.8 RBC (test code = 789-8) 3.76 4.14-5.80 Hemoglobin (test code = 718-7) 10.4 13.0-17.7 Hematocrit (test code = 4544-3) 32.4 37.5-51.0 MCV (test code = 787-2) 86 79-97 MCH (test code = 785-6) 27.7 26.6-33.0 MCHC (test code = 786-4) 32.1 31.5-35.7 RDW (test code = 788-0) 15.7 11.6-15.4 Platelets (test code = 777-3) 115 150-450 Neutrophils (test code = 770-8) 57 Not Estab. Lymphs (test code = 736-9) 32 Not Estab. Monocytes (test code = 5905-5) 7 Not Estab. Eos (test code = 713-8) 3 Not Estab. Basos (test code = 706-2) 1 Not Estab. Immature Cells (test code = UNLOINC) Neutrophils (Absolute) (test code = 3.3 1.4-7.0 751-8) Lymphs (Absolute) (test code = 731-0) 1.8 0.7-3.1 Monocytes(Absolute) (test code = 742-7) 0.4 0.1-0.9 Eos (Absolute) (test code = 711-2) 0.2 0.0-0.4 Baso (Absolute) (test code = 704-7) 0.1 0.0-0.2 Immature Granulocytes (test code = 0 Not Estab. 43350-6) Immature Grans (Abs) (test code = 0.0 0.0-0.1 60024-8) NRBC (test code = 41362-9) Hematology Comments: (test code = 41896-0) Vitamin D, 75-Uuxrkra9745-31-07 00:00:00 Test Item Value Reference Range Interpretation Comments Vitamin D, 25-Hydroxy (test code = 44.4 30.0-100.0 1988-3) Notes Date/Time Note Provider Source 2023-06-06 11:53:57-00:00 Formatting of this note migh t be different from the original. [facility] Removed 06/06/23 NOT $$ CLEARED NAME DISCREPANCY LETTER SENT 06/02/2023: submitted for financial clearance Electronically signed by Yesenia Da Silva at 11:54 AM CDT 2023-06-02 15:58:44-00:00 Formatting of this note migh t be different from the original. Lea Cordero [facility] Please request a signed PHI. Referral received via: On-Line How did the patient hear about our program: [facility] Referring MD: Justus Greco Specialty: Director Institution (Kidney) accounts payable representative: Rashmi Pendleton Insurance Information: Renetta Policy: [id number] SSN: [id number] Request a copy of insurance if it is not includ ed. Are you currently employed: UNK If Yes What type of work do you do? 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 Kidney Is the patient listed for transplant at this parker e at another center: no Has the patient been evaluat ed or are they being evaluated at another center? no If yes, Name of center: N/A Has the patient had a previous transplant (s): n o If yes, Where: N/A What caused the patients' disease? High Blood Pr essure Is the patient on dialysis? yes If yes, date of first dialysis: 03/12/2022 , Name of Dialysis Center: [facility]; Dialysis Center phone number: [phone]; What type of dialysis: hemodialysis , Days of di alysis: DIALYSIS DAYS: MWF: Does the patient have cancer or a history of : No If yes Date of diagnosis: N/A If yes, where were you treated? N/A Does the patient have HIV/AIDS: no Do you have a history of heart problems or heart disease: yes Do you have a claims assistant? No If yes Desizing Machine Back Tender name and contact information : UNK Have you had heart testing: No If yes, what did you have done and where was it done and date done? UNK Have you ever had any amputations? no Have you ever had a stroke? no Do you have a history of diabetes? no If yes: Age of diabetes onset: N/A Does the patient use assistive devices: No Does the patient have any special needs? Oxygen? no Do you have a dentist? UNK If Yes: What is the Dentist name and phone numbe r: UNK Do you have a ward supervisor? No If yes, name and contact information: N/A Have you had a colonoscopy within 10 years: No If yes when and where: UNK (Request report) Have you had any x-rays, CTs or other im ages completed in the past 3 years? No If yes where: UNK Requested CD: No Do you have a living donor: Yes If yes: Please have your eri ing donor call [phone] and and speak to the Living Donor [employer] Professor Coordinator. The urology physician assistant will take their information and provide directions for their next steps. Electronically signed by Lea Cordero at 05/15 4:12 PM CDT
[2023-08-02 12:43] LABS: Absolute Lymphocytes (CBC) 1.3 K/uL (0.7-4.9); MCV 91.4 fL (80-100); Platelets 152 thou/uL (152-406); RBC Red Blood Cell Count 4.48 M/uL (4.33-5.43)
[2023-08-02 12:46] LABS: Protime INR 1.21
[2023-08-02 13:09] LABS: Magnesium 1.9 mg/dL (1.6-2.4); Potassium 3.6 mEq/L (3.5-5.1); Troponin High Sensitivity 47.1 pg/mL (<58.9)
[2023-08-02] MEDS ORDERED: METOPROLOL TAR 25 MG TAB ONE (13:13)
[2023-08-02] MEDS ORDERED: NA CHLORIDE 0.9% 250 ML ONE (13:14)
[2023-08-02] MEDS ORDERED: MAGNESIUM SULFATE 1 gm IVPB 1 GM/100 ML BAG IV ONE (13:14)
--- NOTE | 2023-08-02 13:22 | RAD REPORT ---
EXAM DESCRIPTION: RAD - Chest Single View - 08/02/2023 1:15 pm CLINICAL HISTORY: defibrillator fired Chest pain. COMPARISON: Chest Single View dated 03/12/2022; Chest Single View dated 03/10/2022; Chest Pa And Lat ( 2 Views) dated 11/29/2018; Chest Single View dated 09/15/2018 FINDINGS: Portable technique limits examination quality. The lungs are grossly clear. The heart is upper limit normal in size. No displaced fractures.Dual cortes d pacer device. IMPRESSION: No acute intrathoracic process suspected.
--- NOTE | 2023-08-02 14:08 | EDPHYS ---
Physician Documentation [facility] Name: Steve Gutierrez Age: 58 yrs Sex: Male : 1965 Arrival Date: 08/02/2023 Time: 11:39 Bed 25 Private MD: ED Physician Jl Velasquez HPI: 08/02 12:33 This 58 yrs old Male presents to ER via Ambulatory with complaints of Weakness, rn Pacemaker Went Off. 13:08 Patient reports was out fishing when defibrillator fired 1 time. Reports was feeling rn lightheaded like was going to pass out and then defibrillator went off. No longer feels dizzy. No chest pain. Reports generalized weakness and malaise. Last dialysis was yesterday.. Onset: The symptoms/episode began/occurred just prior to arrival. Severity of symptoms: At their worst the symptoms were moderate in the emergency department the symptoms have improved. The patient has not experienced similar symptoms in the past. The patient has not recently seen a physician. Historical: - Allergies: 12:07 Cephalexin; jl7 - Home Meds: 12:07 Metoprolol Tartrate Oral [Active]; Aspirin Oral [Active]; Eliquis oral [Active]; jl7 - PMHx: 12:07 Atrial Fib; CHF; Dialysis; M-W-F; Gastric Reflux; Gout; Hypertension; Renal Disease; jl7 - PSHx: 12:07 Appendectomy; jaw; left knee; left leg; jl7 - Immunization history:: Adult Immunizations unknown. - Social history:: Smoking status: Patient reports use of chewing tobacco. - Family history:: not pertinent. - Hospitalizations: : No recent hospitalization is reported. ROS: 13:08 Constitutional: Negative for fever, chills, and weight loss, Cardiovascular: Negative rn for chest pain, palpitations, and edema, Respiratory: Negative for shortness of breath, cough, wheezing, and pleuritic chest pain, Abdomen/GI: Negative for abdominal pain, nausea, vomiting, diarrhea, and constipation, Back: Negative for injury and pain, MS/Extremity: Negative for injury and deformity, Skin: Negative for injury, rash, and discoloration, Neuro: Positive for generalized weakness Exam: 13:08 Constitutional: This is a well developed, well nourished patient who is awake, alert, rn and in no acute distress. Head/Face: Normocephalic, atraumatic. Cardiovascular: Tachycardic, irregular. No pulse deficits. Respiratory: No increased work of breathing, no retractions or nasal flaring. Abdomen/GI: Soft, nontender Skin: Warm, dry MS/ Extremity: Pulses equal, no cyanosis. Neuro: Awake and alert, GCS 15 15:42 ECG was reviewed by the Attending Physician. rn Vital Signs: 12:05 BP 127 / 80; Pulse 106; Resp 17; Temp 97.9; Pulse Ox 98% ; Weight 129.27 kg; Height 6 jl7 ft. 6 in. ; Pain 0/10; 13:31 BP 133 / 79; Pulse 105; Resp 19; Pulse Ox 98% ; Pain 0/10; dd1 14:50 BP 128 / 72; Pulse 89; Resp 17; Pulse Ox 98% ; Pain 0/10; dd1 12:05 Body Mass Index 32.93 (129.27 kg, 198.12 cm) jl7 12:05 Pain Scale: Adult jl7 13:31 Pain Scale: Adult dd1 14:50 Pain Scale: Adult dd1 MDM: 11:52 Patient medically screened. rn 14:05 Differential Diagnosis afib with rvr, arrythmia, dehydration. Data reviewed: vital rn signs, nurses notes, lab test result(s), EKG, radiologic studies, plain films, and as a result, I will admit patient. Consideration of Admission/Observation Patient was admitted/placed on observation. Escalation of care including admission/observation considered. Management of patient was discussed with the following: Whipper Beater: Dr. Brooks, requests pacemaker interrogation and admission with cardiac monitoring. I considered the following discharge prescriptions or medication management in the emergency department Medications were administered in the Emergency Department. See MAR. Independent interpretation of the following test(s) in the Emergency Department X-Ray: My interpretation is Chest x-ray images negative for pneumonia or pulmonary edema per my interpretation.. Care significantly affected by the following chronic conditions: Hypertension, Congestive Heart Failure. Counseling: I had a detailed discussion with the patient and/or guardian regarding the historical points, exam findings, and any diagnostic results supporting the discharge/admit diagnosis, lab results, radiology results, the need for further work-up and treatment in the hospital. Response to treatment: the patient's symptoms have markedly improved after treatment, and as a result, I will admit patient. 08/02 12:02 Order name: Basic Metabolic Panel; Complete Time: 13:20 rn 08/02 12:02 Order name: CBC with Diff; Complete Time: 13:20 rn 08/02 12:02 Order name: NT PRO-BNP; Complete Time: 13:20 rn 08/02 12:02 Order name: PT-INR; Complete Time: 13:20 rn 08/02 12:02 Order name: Troponin HS; Complete Time: 13:20 rn 08/02 12:02 Order name: Magnesium; Complete Time: 13:20 rn 08/02 15:13 Order name: Magnesium EDMS 08/02 15:13 Order name: Phosphorus EDMS 08/02 15:13 Order name: Urinalysis w/ reflexes EDMS 08/02 15:13 Order name: Basic Metabolic Panel EDMS 08/02 15:13 Order name: Basic Metabolic Panel EDMS 08/02 15:13 Order name: CBC with Automated Diff EDMS 08/02 15:14 Order name: CBC with Automated Diff EDMS 08/02 12:02 Order name: XRAY Chest (1 view); Complete Time: 13:24 rn 08/02 12:02 Order name: EKG; Complete Time: 12:02 rn 08/02 15:13 Order name: Heart Healthy; Complete Time: 15:30 EDMS 08/02 12:02 Order name: Cardiac monitoring; Complete Time: 12:05 rn 08/02 12:02 Order name: EKG - Nurse/Tech; Complete Time: 12:05 rn 08/02 12:02 Order name: IV Saline Lock; Complete Time: 12:57 rn 08/02 12:02 Order name: Labs collected and sent; Complete Time: 12:57 rn 08/02 12:02 Order name: O2 Per Protocol; Complete Time: 12:05 rn 08/02 12:02 Order name: O2 Sat Monitoring; Complete Time: 12:05 rn EC:42 Rate is 112 beats/min. Rhythm is irregularly irregular. QRS New Point is Normal. QRS rn interval is normal. QT interval is normal. No Q waves. T waves are Normal. No ST changes noted. Clinical impression: Atrial Fibrillation. Interpreted by me. Reviewed by me. Administered Medications: 13:17 Drug: Magnesium Sulfate IVPB 1 grams IVPB once over 1 hrs Route: IVPB; Infused Over: 1 dd1 hrs; Site: right antecubital; 13:17 Drug: NS 0.9% IV 250 ml IV at bolus once Route: IV; Rate: bolus; Site: right dd1 antecubital; 13:36 Drug: Metoprolol PO 25 mg PO once Route: PO; dd1 Disposition Summary: 08/02/23 14:08 Hospitalization Ordered Notes: Hospitalization Status: Observation rn Provider: Hernandez Pisano rn [facility] rn Condition: Stable rn Problem: new rn Symptoms: have improved rn Bed/Room Type: Standard rn Room Assignment: 404(08/02/23 15:27) [email or web address] Diagnosis - Encounter for adjustment and management of 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 Total time: 35 rn minutes Signatures: Dispatcher [employer] EDJl Bowie MD MD rn Leal, Jahala RN RN jl7 Mk Mayen, RN RN ja1 Juan José Pichardo, RN RN dd1 Corrections: (The following items were deleted from the chart) 15:27 14:08 keenan arnold
--- NOTE | 2023-08-02 14:08 | ER ---
Nurse's Notes [facility] Name: Steve Gutierrez Age: 58 yrs Sex: Male : 1965 Arrival Date: 08/02/2023 Time: 11:39 Bed 25 Private MD: Diagnosis: Encounter for adjustment and management of automatic implantable cardiac defibrillator-With defibrillator discharge;Paroxysmal atrial fibrillation Presentation: 08/02 12:05 Chief complaint: Patient states: Defibrillator went off at 1100, pt denies SOB, denies jl7 CP. Coronavirus screen: At this time, the client does not indicate any symptoms associated with coronavirus-19. Ebola Screen: No symptoms or risks identified at this time. Initial Sepsis Screen: Does the patient meet any 2 criteria? No. Patient's initial sepsis screen is negative. Does the patient have a suspected source of infection? No. Patient's initial sepsis screen is negative. Risk Assessment: Do you want to hurt yourself or someone else? Patient reports no desire to harm self or others. Onset of symptoms was August 02, 2023 at 11:00. 12:05 Method Of Arrival: Ambulatory jl7 12:05 Acuity: DELIA 2 jl7 Triage Assessment: 16:45 General: Appears in no apparent distress. Behavior is calm. dd1 Historical: - Allergies: 12:07 Cephalexin; jl7 - Home Meds: 12:07 Metoprolol Tartrate Oral [Active]; Aspirin Oral [Active]; Eliquis oral [Active]; jl7 - PMHx: 12:07 Atrial Fib; CHF; Dialysis; M-W-F; Gastric Reflux; Gout; Hypertension; Renal Disease; jl7 - PSHx: 12:07 Appendectomy; jaw; left knee; left leg; jl7 - Immunization history:: Adult Immunizations unknown. - Social history:: Smoking status: Patient reports use of chewing tobacco. - Family history:: not pertinent. - Hospitalizations: : No recent hospitalization is reported. Screenin:36 [facility] ED Fall Risk Assessment (Adult) Score/Fall Risk Level 0 - 2 = Low Risk. Abuse dd1 screen: Denies threats or abuse. Nutritional screening: No deficits noted. Tuberculosis screening: No symptoms or risk factors identified. Assessment: 13:36 Pain: Denies pain. Cardiovascular: Reports None Denies chest pain, lightheadedness, dd1 nausea, Heart tones S1 S2 Capillary refill < 3 seconds Rhythm is PT STATES HE WAS FISHING AND HE HAD SUDDEN SHOCK, STATES DID FEEL LIGHTHEADED PRIOR TO SHOCK. STATES NOT MISSING DIALYSIS OR ANY MEDICATIONS. Vital Signs: 12:05 BP 127 / 80; Pulse 106; Resp 17; Temp 97.9; Pulse Ox 98% ; Weight 129.27 kg; Height 6 jl7 ft. 6 in. ; Pain 0/10; 13:31 BP 133 / 79; Pulse 105; Resp 19; Pulse Ox 98% ; Pain 0/10; dd1 14:50 BP 128 / 72; Pulse 89; Resp 17; Pulse Ox 98% ; Pain 0/10; dd1 12:05 Body Mass Index 32.93 (129.27 kg, 198.12 cm) jl7 12:05 Pain Scale: Adult jl7 13:31 Pain Scale: Adult dd1 14:50 Pain Scale: Adult dd1 ED Course: 11:41 Patient arrived in ED. rg4 11:52 Jl Velasquez MD is Attending Physician. rn 12:07 Triage completed. jl7 12:16 Juan José Pichardo, RN is Primary Nurse. dd1 12:36 Initial lab(s) drawn, by ED staff, sent to lab. Inserted saline lock: 22 gauge in right em1 antecubital area, using aseptic technique. Blood collected. 13:18 XRAY Chest (1 view) In Process Unspecified. EDMS 13:36 Bed in low position. Side rails up X 1. dd1 14:07 Hernandez Pisano is Hospitalizing Provider. rn 14:14 contacted Thea with [employer] [phone].. bd 15:36 CBC with Automated Diff Sent. dd1 15:36 Basic Metabolic Panel Sent. dd1 15:36 Basic Metabolic Panel Sent. dd1 15:36 CBC with Automated Diff Sent. dd1 16:45 Arm band placed on left wrist. dd1 Administered Medications: 13:17 Drug: Magnesium Sulfate IVPB 1 grams IVPB once over 1 hrs Route: IVPB; Infused Over: 1 dd1 hrs; Site: right antecubital; 13:17 Drug: NS 0.9% IV 250 ml IV at bolus once Route: IV; Rate: bolus; Site: right dd1 antecubital; 13:36 Drug: Metoprolol PO 25 mg PO once Route: PO; dd1 Medication: 13:36 VIS not applicable for this client. dd1 Outcome: 14:08 Decision to Hospitalize by Provider. rn 16:45 Patient left the ED. kj1 Signatures: Dispatcher [employer] EDMS Yolanda Sandoval Roman, MD MD rn Martinez, Eric emDianne Galicia rg4 Heide Bower RN RN jl7 Heide Farley kj1 Juan José Pichardo RN RN dd1
[2023-08-02] MEDS ORDERED: ACETAMINOPHEN 325 MG TABLET PO PRN (15:02)
[2023-08-02] MEDS ORDERED: HYDROCODONE/APAP 5/325 MG TAB PO PRN (15:02)
--- NOTE | 2023-08-02 15:12 | P.HP ---
Certification for Inpatient Patient admitted to: Observation With expected LOS: <2 Midnights Patient will require the following post-hospital care: None Practitioner: I am a practitioner with admitting privileges, knowledge of patient current condition, hospital course, and medical plan of care. Services: Services provided to patient in accordance with Admission requirements found in Title 42 Section 412.3 of the Code of Federal Regulations Patient History Date of Service: 08/02/23 Reason for admission: AICD discharge History of Present Illness: Patient is a 58-year-old male with a past medical history significant for CHF, hypertension, A-fib, ESRD, GERD, gout who presents with complaint of AICD discharge. Patient reported that he bent down to vegetable picker something when he felt lightheaded and dizzy. He felt like passing out and had to sit down quickly. Shortly after patient reported that he experienced a shock from his AICD. Patient reported associated signs and symptoms of generalized weakness and malaise. Patient denies any other signs and symptoms. Symptoms are aggravated or relieved by nothing. Patient was brought to the hospital for medical evaluation. Of note, patient reported that he has been having intermittent episodes of dizziness for quite some time now. Allergies cephalexin [From Keflex] Allergy (Verified 03/12/22 12:08) Hives/Rash Tape Allergy (Uncoded 10/31/18 04:08) Hives/Rash Home Medications: Apixaban [Eliquis *] 2.5 mg PO BID #60 tablet 03/18/22 Calcitrol [Rocaltrol*] 0.5 mcg PO DAILY #60 cap 03/18/22 Cholecalciferol (Vitamin D3) [Vitamin D 5,000 IU Cap*] 5,000 unit PO DAILY #30 cap 03/18/22 Docusate [Colace Cap*] 100 mg PO BID #60 cap 03/18/22 Epoetin [Retacrit] 10,000 unit SQ M,W,F vial 03/18/22 Heparin [Heparin 1,000 units/mL *] 2,000 unit IV EVERY HD PRN vial 03/18/22 Heparin [Heparin 1,000 units/mL *] 4,000 unit IV EVERY HD PRN vial 03/18/22 Mannitol 25% [Mannitol*] 12.5 gm IV EVERY HD PRN vial 03/18/22 Metoprolol Tartrate [Lopressor*] 25 mg PO BID #60 tab 03/18/22 Ubidecarenone [Coenzyme Q10*] 200 mg PO DAILY #30 cap 03/18/22 - Past Medical/Surgical History Diabetic: No -: HTN -: Chronic diastolic CHF -: Gout -: ESRD/ Dr. Greco -: A. fib -: Appendectomy -: Knee surgery -: Vasectomy -: Jaw surgery -: Tracheostomy -: L hand sx -: L. knee TKR Psychosocial/ Personal History: Patient lives at home with his family - Family History Father -: Cancer Notes: colon- - Social History Smoking Status: Never smoker Alcohol use: No CD- Drugs: No Caffeine use: No Place of Residence: Home Review of Systems General: Weakness, Malaise Eyes: Unremarkable Respiratory: Unremarkable Cardiovascular: Light Headedness Gastrointestinal: Unremarkable Genitourinary: Unremarkable Musculoskeletal: Unremarkable Neurological: Other (Dizziness) Lymphatics: Unremarkable Physical Examination - Physical Exam General: Alert, In no apparent distress, Oriented x3, Cooperative HEENT: Atraumatic, PERRLA, Mucous membr. moist/pink, EOMI, Sclerae nonicteric Neck: Supple, 2+ carotid pulse no bruit, No LAD, Without JVD or thyroid abnormality Respiratory: Clear to auscultation bilaterally, Normal air movement Cardiovascular: No edema, Regular rate/rhythm, Normal S1 S2 Capillary refill: <2 Seconds Gastrointestinal: Normal bowel sounds, No tenderness Musculoskeletal: No clubbing, No swelling, No tenderness Integumentary: No rashes Neurological: Normal speech, Normal tone, Normal affect Lymphatics: No axilla or inguinal lymphadenopathy - Studies Laboratory Data (last 24 hrs) 08/02/23 08/02/23 08/02/23 12:34 12:34 12:34 WBC 7.10 Hgb 14.2 Hct 41.0 Plt Count 152 PT 13.3 H INR 1.21 Sodium 136 Potassium 3.6 BUN 45 H Creatinine 7.05 H Glucose 96 Magnesium 1.9 Assessment and Plan - Plan -- AICD discharge. Rare/Endangered Species Specialist consulted. Pending interrogation. Telemetry to monitor for any significant arrhythmia. We await further recommendation from shared services manager. --ESRD. Rope Maker consulted. Will await further recommendation. --Chronic diastolic CHF. Continue home medication. Daily weight and strict I/O. --Atrial fibrillation. Continue Eliquis. --Hypertension. Stable. Continue home medications. --Near syncope. Echocardiogram pending for further evaluation. Carotid Doppler pending to rule out any carotid artery stenosis. We will get some orthostatic blood pressure levels. Continue supportive care -- Gout. Continue home medication. --GERD. Patient placed on Protonix. -- UTI POA. Continue antibiotics. Urine cultures pending. -- DVT prophylaxis with Eliquis. - Advance Directives Does patient have a Living Will: No Does patient have a Durable POA for Healthcare: No
[2023-08-02] MEDS ORDERED: ONDANSETRON 4 MG/2 ML VIAL IV PRN (15:19)
[2023-08-02 15:21] VITALS: O2SAT 98
[2023-08-02 15:59] LABS: Magnesium 2.4 mg/dL (1.6-2.4); Phosphorus 4.6 mg/dL (2.5-4.9)
[2023-08-02 17:21] VITALS: BMI 32.9
[2023-08-02 17:34] LABS: Specific Gravity 1.016 (1.005-1.030); Urine Bacteria <20 /HPF (<20); Urine Bilirubin NEGATIVE (Negative); Urine Blood Trace (Negative); Urine Clarity Turbid (Clear); Urine Color Yellow (Yellow); Urine Crystals Unidentified Few /HPF (None Seen); Urine Glucose NEGATIVE (Negative); Urine Mucus Slight /HPF (None Seen); Urine Protein 2+ (Negative); Urine Urobilinogen Normal (Normal); Urine pH 6.5 (5.0-7.0)
--- NOTE | 2023-08-02 19:15 | CON ---
Date of Consultation: 08/02/2023 Reason For Consultation: ICD shock. History Of Present Illness: This is a 58-year-old male with past medical history of congestive heart failure, has ICD in place. He has history of atrial fibrillation, end-stage renal disease, on hemod ialysis, hypertension, presented after an ICD shock. He said he felt hit going through him, felt diz zy and did not pass out, but right before he received shock and then he felt very weak after that. D enies having any chest pain. No nausea, vomiting, diarrhea. He said he had a coronary angiogram in the past that was entirely normal. Past Medical History: As outlined above in the HPI. Medications: Refer to reconciliation sheet for detailed list. Allergies: CEPHALEXIN. Family History: No premature coronary artery disease or cancer. Social History: He chews tobacco. Does not drink or use any drugs. Review of Systems: All systems reviewed and they were negative except what mentioned in HPI. Physical Examination: Vital Signs: Reviewed. Head and Neck: Pupils are equal, reactive to light. Intact eye movements. No JVD. No cervical lym phadenopathy. Neck is supple. Thyroid is not enlarged. Lungs: Clear to auscultation bilaterally. No rhonchi, wheezing, or crackles. No accessory muscle u se. Heart: Irregular. No extra sounds. Abdomen: Soft, nontender. Bowel sounds positive. No organomegaly. No masses or hernia. No rigidi ty or rebound. Extremities: No clubbing or cyanosis. Positive edema. Neurologic: Alert, awake, oriented x3. No acute focal deficits appreciated. Investigations: BUN is 45, creatinine 7, troponin is 47.1, and hemoglobin is 14.2. Assessment And Recommendations: 1.ICD shock. First troponin is negative. Please trend 2 more troponins and obtain an echo and inte rrogate the ICD device to see the etiology behind the shock. If it is ventricular fibrillation, then ischemia workup is needed, but if it is monomorphic ventricular tachycardia or an atrial fibrillatio n, then we will target the treatment accordingly. 2.Atrial fibrillation. Heart rate is controlled. Continue metoprolol and apixaban. 3.Chronic heart failure. Under the care of Cardiology in [place]. Obtain echo to understand his s tatus further. SR/MODL Voice ID: [id number] Report ID: [id number]
--- NOTE | 2023-08-02 20:28 | P.CNS ---
Date of Consult: 08/02/23 Reason for Consult: ESRD Requesting Physician: maribell stuart Chief Complaint: AICD discharge History of Present Illness: Patient is a 58-year-old male with a past medical history significant for CHF, hypertension, A-fib, ESRD, GERD, gout who presents with complaint of AICD discharge. Patient reported that he bent down to turkey picker something when he felt lightheaded and dizzy. He felt like passing out and had to sit down quickly. Shortly after patient reported that he experienced a shock from his AICD. Patient reported associated signs and symptoms of generalized weakness and malaise. Patient denies any other signs and symptoms. Symptoms are aggravated or relieved by nothing. Patient was brought to the hospital for medical evaluation. Of note, patient reported that he has been having intermittent e pisodes of dizziness for quite some time now. [id number] 12:33 This 58 yrs old Male presents to ER via Ambulatory with complaints of Weakness, rn Pacemaker Went Off. 13:08 Patient reports was out fishing when defibrillator fired 1 time. Reports was feeling rn lightheaded like was going to pass out and then defibrillator went off. No longer feels dizzy. No chest pain. Reports generalized weakness and malaise. Last dialysis was yesterday.. Onset: The symptoms/episode began/occurred just prior to arrival. Severity of symptoms: At their worst the symptoms were moderate in the emergency department the symptoms have improved. The patient has not experienced similar symptoms in the past. The patient has not recently seen a physician. Allergies cephalexin [From Keflex] Allergy (Verified 03/12/22 12:08) Hives/Rash Tape Allergy (Uncoded 10/31/18 04:08) Hives/Rash Home medications list reviewed: Yes Home Medications: Apixaban [Eliquis *] 2.5 mg PO BID #60 tablet 03/18/22 Calcitrol [Rocaltrol*] 0.5 mcg PO DAILY #60 cap 03/18/22 Cholecalciferol (Vitamin D3) [Vitamin D 5,000 IU Cap*] 5,000 unit PO DAILY #30 cap 03/18/22 Docusate [Colace Cap*] 100 mg PO BID #60 cap 03/18/22 Epoetin [Retacrit] 10,000 unit SQ M,W,F vial 03/18/22 Heparin [Heparin 1,000 units/mL *] 2,000 unit IV EVERY HD PRN vial 03/18/22 Heparin [Heparin 1,000 units/mL *] 4,000 unit IV EVERY HD PRN vial 03/18/22 Mannitol 25% [Mannitol*] 12.5 gm IV EVERY HD PRN vial 03/18/22 Metoprolol Tartrate [Lopressor*] 25 mg PO BID #60 tab 03/18/22 Ubidecarenone [Coenzyme Q10*] 200 mg PO DAILY #30 cap 03/18/22 - Past Medical/Surgical History Diabetic: No -: HTN -: Chronic diastolic CHF -: Gout -: ESRD (Dr. Greco/ Dr. Sanches) -: A. fib -: Appendectomy -: Knee surgery -: Vasectomy -: Jaw surgery -: Tracheostomy -: L hand sx -: L. knee TKR Psychosocial/ Personal History: Patient lives at home with his family - Family History Father Medical History: Cancer Notes: colon- - Social History Smoking Status: Current every day smoker Alcohol use: No CD- Drugs: No Caffeine use: No Place of Residence: Home Review of Systems 10-point ROS is otherwise unremarkable General: Weakness Physical Examination Temp Pulse Resp BP Pulse Ox 98.0 F 84 18 140/74 99 08/02/23 17:38 08/02/23 17:38 08/02/23 17:38 08/02/23 17:38 08/02/23 17:38 General: In no apparent distress, Oriented x3, Cooperative HEENT: Atraumatic Neck: Supple Respiratory: Clear to auscultation bilaterally Cardiovascular: No edema Gastrointestinal: Soft and benign, Non-distended Musculoskeletal: No clubbing, No contractures Integumentary: No rashes, No cyanosis Neurological: Normal speech Laboratory Data (last 24 hrs) 08/02/23 08/02/23 08/02/23 12:34 12:34 12:34 WBC 7.10 Hgb 14.2 Hct 41.0 Plt Count 152 PT 13.3 H INR 1.21 Sodium 136 Potassium 3.6 BUN 45 H Creatinine 7.05 H Glucose 96 Magnesium 1.9 Imagings Data: [id number] EXAM DESCRIPTION: RAD - Chest Single View - 08/02/2023 1:15 pm CLINICAL HISTORY: defibrillator fired Chest pain. COMPARISON: Chest Single View dated 03/12/2022; Chest Single View dated 03/10/2022; Chest Pa And Lat (2 Views) dated 11/29/2018; Chest Single View dated 09/15/2018 FINDINGS: Portable technique limits examination quality. The lungs are grossly clear. The heart is upper limit normal in size. No displaced fractures.Dual lead pacer device. IMPRESSION: No acute intrathoracic process suspected. Conclusions/Impression: ESRD on HD Proteinuria -HD TIW HTN with CKD/ CHF -Start Metoprolol BID Diastolic CHF, chronic -Low sodium diet -HD with UF Anemia in CKD -Retacrit prn CKD MBD -Start Ergo -Start Renvela Hospitalist and ER notes reviewed Thank you kindly for the consultation
[2023-08-02] MEDS ORDERED: MANNITOL 25% 12.5 GM/50 ML VIAL IV PRN (20:35)
[2023-08-02] MEDS ORDERED: NA CHLORIDE 0.9% 1,000 ML IV PRN (20:35)
[2023-08-02] MEDS ORDERED: EPOETIN ALFA 10,000 UNIT/ML VIAL IV SCH (20:45)
[2023-08-02] MEDS: CEFTRIAXONE 1,000 MG in NA CHLORIDE 0.9% 50 ML IVPB SCH (20:57)
[2023-08-02] MEDS: APIXABAN 2.5 MG TABLET PO SCH (20:57)
[2023-08-02] MEDS: DOCUSATE NA 100 MG CAP PO SCH (20:58)
[2023-08-02] MEDS: METOPROLOL TAR 25 MG TAB PO SCH (20:58)
[2023-08-02] MEDS ORDERED: ALBUMIN HUMAN 25% 50 ML IV SCH (21:00)
[2023-08-02] MEDS ORDERED: HEPARIN 5000 UNIT/ML 1 ML VIAL SQ SCH (21:00)
[2023-08-03 03:44] LABS: Absolute Lymphocytes (CBC) 1.9 K/uL (0.7-4.9); Hematocrit 35.3 % (39.6-49.0); Lymphocytes % 32.3 % (15.3-44.8); MCV 89.9 fL (80-100); MPV 6.9 fL (7.6-11.3); Platelets 129 thou/uL (152-406); RBC Red Blood Cell Count 3.92 M/uL (4.33-5.43)
[2023-08-03 04:36] LABS: Potassium 3.3 mEq/L (3.5-5.1)
[2023-08-03] MEDS ORDERED: PANTOPRAZOLE 40MG TABLET PO SCH (07:30)
--- NOTE | 2023-08-03 07:55 | RAD REPORT ---
EXAM DESCRIPTION: - CP - 08/03/2023 12:04 am CLINICAL HISTORY: near synope Headache, drowsiness, syncope COMPARISON: No comparisons TECHNIQUE: Real-time sonographic evaluation of both carotid systems was performed. Doppler interroga tion was performed with waveform tracing bilaterally. FINDINGS: Normal high resistance waveforms are noted in both external carotid arteries. The common c arotid arteries and internal carotid arteries show normal low resistance waveforms. No significant plaque formation is seen. Peak systolic and end diastolic velocity values and the ICA/ CCA ratios are in the non-hemodynamically significant range. Antegrade flow seen in both vertebral arteries. IMPRESSION: No significant atherosclerotic changes noted. No evidence of a hemodynamically significant stenosis.
[2023-08-03] MEDS ORDERED: DRISDOL (VITAMIN D=ERGOCALCIFEROL) 50000 UNIT CAP PO SCH (08:00)
[2023-08-03] MEDS: METOPROLOL TAR 25 MG TAB PO SCH (08:39)
[2023-08-03] MEDS: APIXABAN 2.5 MG TABLET PO SCH (08:39)
[2023-08-03] MEDS: SEVELAMER CARBONATE 800 MG TABLET PO SCH ×3 (08:39→16:08)
[2023-08-03] MEDS: DOCUSATE NA 100 MG CAP PO SCH (08:39)
[2023-08-03] MEDS: CEFTRIAXONE 1,000 MG in NA CHLORIDE 0.9% 50 ML IVPB SCH (08:40)
[2023-08-03] MEDS ORDERED: ASPIRIN 81 MG CHEWABLE TABLET PO SCH (09:00)
[2023-08-03] MEDS ORDERED: MULTIVITAMINS,THERAPEUT 1 TAB PO SCH (09:00)
[2023-08-03] MEDS ORDERED: COENZYME Q10- 200 MG CAP PO SCH (09:00)
[2023-08-03] MEDS ORDERED: POTASSIUM CL SA 10 MEQ TAB PO ONE (09:00)
--- NOTE | 2023-08-03 14:34 | EKG ---
Test Date: 2023-08-02 Test Time: 11:58:26 Electrotyper Helper: GUILLERMO MEASUREMENT RESULTS: Intervals: Rate: 112 [place]: QRSD: 94 QT: 350 QTc: 477 [place]: P: CA: QRS: 3 T: 58 INTERPRETIVE STATEMENTS: Atrial fibrillation with rapid ventricular response Nonspecific T wave abnormality Abnormal ECG Compared to ECG 03/11/2022 01:05:56 T-wave abnormality now present Electronically Signed On 08-03-23 14:31:40 CDT by Keon Brooks
[2023-08-03 14:41] LABS: Hepatitis B surface AG Interp. Nonreactive (Nonreactive)
[2023-08-03 14:43] LABS: Hepatitis B Surface Ab - Quant < 3.10 mIU/mL (<8.0)
[2023-08-03 17:06] VITALS: BP 140/70; TEMP 98.2
--- NOTE | 2023-08-03 17:57 | P.DS ---
Admission Date: 08/02/23 Discharge Date: 08/03/23 Disposition: ROUTINE DISCHARGE Discharge Condition: FAIR Reason for Admission: AICD discharge Consultations: Cardiology-Dr. Brooks - Problems (1) AICD discharge Current Visit: Yes Status: Acute (2) Ventricular fibrillation Current Visit: Yes Status: Acute (3) ESRD (end stage renal disease) on dialysis Current Visit: Yes Status: Acute Brief History of Present Illness: Patient is a 58-year-old male with a past medical history significant for CHF, hypertension, A-fib, ESRD, GERD, gout who presented with complaint of AICD discharge. Patient reported that he bent down to slat pickler something, felt lightheaded and almost passed out and had to sit down quickly. Shortly after patient reported that he experienced a shock from his AICD. Patient reported associated signs and symptoms of generalized weakness and malaise. Of note, patient reported intermittent episodes of dizziness. His initial troponin was negative. Patient was hospitalized for further management. Hospital Course: Patient was placed on observation on the medical floor, AICD was interrogated which demonstrated ventricular fibrillation. Patient was seen and evaluated by cardiology Dr. Brooks who recommended that patient follows up with his vehicle refinisher for further management. Dr. Brooks recommended increasing patient's metoprolol dose. Patient was taking metoprolol 25 mg daily which has been increased to 25 mg twice a day. He has been asymptomatic with stable vital since admission. Patient was seen by nephrology for routine hemodialysis. Patient is deemed stable for discharge. Vital Signs/Physical Exam: Temp Pulse Resp BP Pulse Ox 98.2 F 91 H 18 140/70 98 08/03/23 16:00 08/03/23 16:00 08/03/23 16:08/03/23 16:08/03/23 16:00 General: Alert, In no apparent distress, Oriented x3 HEENT: Mucous membr. moist/pink Neck: Supple, JVD not distended Respiratory: Clear to auscultation bilaterally, Normal air movement Cardiovascular: No edema, Regular rate/rhythm, Normal S1 S2 Gastrointestinal: Normal bowel sounds, Soft and benign, Non-distended, No tenderness Musculoskeletal: No swelling Integumentary: No rashes Neurological: Normal speech, Normal strength at 5/5 x4 extr, Cranial nerves 3-12 intact Laboratory Data at Discharge: WBC 6.00 thou/uL (4.3-10.9) 08/03/23 03:20 Hgb 12.6 g/dL (13.6-17.9) L D 08/03/23 03:20 Hct 35.3 % (39.6-49.0) L 08/03/23 03:20 Plt Count 129 thou/uL (152-406) L 08/03/23 03:20 PT 13.3 SECONDS (9.5-12.5) H 08/02/23 12:34 INR 1.21 08/02/23 12:34 Sodium 135 mEq/L (136-145) L 08/03/23 03:20 Potassium 3.3 mEq/L (3.5-5.1) L 08/03/23 03:20 BUN 53 mg/dL (7-18) H 08/03/23 03:20 Creatinine 7.47 mg/dL (0.70-1.30) H 08/03/23 03:20 Glucose 96 mg/dL (74-106) 08/03/23 03:20 Phosphorus 4.6 mg/dL (2.5-4.9) 08/02/23 15:34 Magnesium 2.4 mg/dL (1.6-2.4) 08/02/23 15:34 Home Medications: Apixaban [Eliquis *] 2.5 mg PO BID #60 tablet 03/18/22 Cholecalciferol (Vitamin D3) [Vitamin D 5,000 IU Cap*] 5,000 unit PO DAILY #30 cap 03/18/22 Docusate [Colace Cap*] 100 mg PO BID #60 cap 03/18/22 Epoetin [Retacrit] 10,000 unit SQ M,W,F vial 03/18/22 Heparin [Heparin 1,000 units/mL *] 4,000 unit IV EVERY HD PRN vial 03/18/22 Mannitol 25% [Mannitol*] 12.5 gm IV EVERY HD PRN vial 03/18/22 Ubidecarenone [Coenzyme Q10*] 200 mg PO DAILY #30 cap 03/18/22 Allopurinol 100 mg PO DAILY 08/02/23 Apixaban [Eliquis] 5 mg PO DAILY 08/02/23 Atorvastatin Calcium 40 mg PO BEDTIME 08/02/23 Losartan Potassium 25 mg PO DAILY 08/02/23 Omeprazole [Prilosec] 40 mg PO DAILY 08/02/23 Sildenafil Citrate [Viagra] 100 mg PO PRN 08/02/23 Metoprolol Tartrate [Lopressor*] 25 mg PO BID #60 tab 08/03/23 Sevelamer Carbonate [Renvela*] 800 mg PO TIDWM #90 tab 08/03/23 New Medications: Metoprolol Tartrate [Lopressor*] 25 mg PO BID #60 tab Sevelamer Carbonate [Renvela*] 800 mg PO TIDWM #90 tab Diet: Renal Activity: Ad zackery Followup: Caleb Pendleton DO [Primary Care Provider] - 1-2 Weeks Time spent managing pt's care (in minutes): 27
--- NOTE | 2023-08-03 19:16 | PN ---
Date of Progress Note: 08/03/2023 Subjective: Seen by bedside. Doing well. No further episodes. Interrogation showed ventricular fi brillation episode. Review of Systems: No chest pain, shortness of breath, orthopnea, or cough. No nausea, vomiting, or diarrhea. All othe r systems were reviewed and they were negative. Objective: Vital Signs: Reviewed. Head and Neck: Pupils are equal, reactive to light. Intact eye movements. No JVD. No cervical lym phadenopathy. Neck is supple. Thyroid is not enlarged. Lungs: Clear to auscultation bilaterally. No rhonchi, wheezing, or crackles. No accessory muscle u se. Heart: Regular rate and rhythm. No extra sounds. Abdomen: Soft, nontender. Bowel sounds positive. No organomegaly. No masses or hernia. No rigidi ty or rebound. Extremities: Trace edema. No clubbing or cyanosis. Intact pulses. Skin: No rash. No nodule. Neurologic: Alert, awake, and oriented x3. No acute focal deficits appreciated. Investigations: BUN 53, creatinine 7.47, potassium is 3.3. Assessment And Recommendations: 1.ICD shock due to ventricular fibrillation. Patient told me that he had a heart catheterization in October that was negative and that is when the ventricular fibrillation was discovered and that is why he had the ICD placed. Increase metoprolol to 50 mg daily and correct the potassium and patient can be released from my perspective to follow up with his pickling drum operator this week to send him to his [facility] hair spinner and patient was instructed not to drive or do any activities that require his attention as this could happen any time again. Further management per EP. 2.Atrial fibrillation, he is in sinus. Continue current management. Increase metoprolol as above a nd continue Eliquis. 3.Congestive heart failure, appears to be euvolemic. Continue his current therapy. From my perspective, patient can be released and cardiology will sign off from the case. SR/MODL Voice ID: [id number] Report ID: [id number]
--- NOTE | 2023-08-03 20:40 | P.PN ---
Date of Service: 08/03/23 Vital Signs Temp Pulse Resp BP Pulse Ox 98.2 F 91 H 18 140/70 98 08/03/23 16:00 08/03/23 16:00 08/03/23 16:00 08/03/23 16:00 08/03/23 16:00 Assessment/ Plan: Nephrology No dyspnea No chest pain Feeling better No acute events overnight Vitals, medications, blood work and imaging reviewed in the chart. General: In no apparent distress, Oriented x3, Cooperative HEENT: Atraumatic Neck: Supple Respiratory: Clear to auscultation bilaterally Cardiovascular: No edema Gastrointestinal: Soft and benign, Non-distended Musculoskeletal: No clubbing, No contractures Integumentary: No rashes, No cyanosis Neurological: Normal speech Laboratory Data (last 24 hrs) 08/02/23 08/02/23 08/02/23 12:34 12:34 12:34 WBC 7.10 Hgb 14.2 Hct 41.0 Plt Count 152 PT 13.3 H INR 1.21 Sodium 136 Potassium 3.6 BUN 45 H Creatinine 7.05 H Glucose 96 Magnesium 1.9 Imagings Data: [id number] EXAM DESCRIPTION: RAD - Chest Single View - 08/02/2023 1:15 pm CLINICAL HISTORY: defibrillator fired Chest pain. COMPARISON: Chest Single View dated 03/12/2022; Chest Single View dated 03/10/2022; Chest Pa And Lat (2 Views) dated 11/29/2018; Chest Single View dated 09/15/2018 FINDINGS: Portable technique limits examination quality. The lungs are grossly clear. The heart is upper limit normal in size. No displaced fractures.Dual lead pacer device. IMPRESSION: No acute intrathoracic process suspected. Conclusions/Impression: ESRD on HD Proteinuria -HD TIW HTN with CKD/ CHF -Continue Metoprolol BID Diastolic CHF, chronic -Low sodium diet -HD with UF Anemia in CKD -Retacrit prn CKD MBD -Continue Ergo -Continue Renvela Hospitalist note reviewed Case reviewed with Dr. Pisano
== END 2023-08-03 18:20 | disposition home or self-care (01) ==
LOC: ER 11:39 → ERHOLD 15:00 → 4TH 16:33
PROVIDERS: ADMIT Internal Medicine; ATTEND Internal Medicine
DX: T82.897A Other specified complication of cardiac prosthetic devices, implants and grafts, initial encounter (principal); I49.01 Ventricular fibrillation; I13.2 Hypertensive heart and chronic kidney disease with heart failure and with stage 5 chronic kidney disease, or end stage renal disease; I50.32 Chronic diastolic (congestive) heart failure; I48.11 Longstanding persistent atrial fibrillation; N18.6 End stage renal disease; R55 Syncope and collapse; M10.9 Gout, unspecified; K21.9 Gastro-esophageal reflux disease without esophagitis; N39.0 Urinary tract infection, site not specified; F17.210 Nicotine dependence, cigarettes, uncomplicated; D63.1 Anemia in chronic kidney disease; Z79.01 Long term (current) use of anticoagulants; Z80.0 Family history of malignant neoplasm of digestive organs; Z88.1 Allergy status to other antibiotic agents; Z99.2 Dependence on renal dialysis
CPT/HCPCS: 93005; 87088; 85025 ×2; 81001; 87086; 80048 ×2; 36415; 83735 ×2; 84100; 85610; 84484; 83880; 87340; 86706; 71045; 90935; 93880; 96375; 96374; 99284; J3475; Q4081; J1644; J7050; J0696 ×2; G0378

== ENCOUNTER 2024-03-29 07:49 | Day surgery (SDC) | payer OTHER ==
[2024-03-27 11:57] LABS: Absolute Basophils 0.1 K/uL (0-0.5); Absolute Eosinophils 0.1 K/uL (0-0.5); Absolute Lymphocytes (CBC) 1.5 K/uL (0.7-4.9); Absolute Monocytes 0.4 K/uL (0.1-1.3); Absolute Neutrophil 3.5 K/uL (1.8-8.0); Basophils % 1.1 % (0-1.3); Eosinophils % 2.5 % (0-4.4); Hematocrit 42.6 % (39.6-49.0); Hemoglobin 14.2 g/dL (13.6-17.9); Lymphocytes % 27.3 % (15.3-44.8); MCH 31.2 pg (27.0-35.0); MCHC 33.3 g/dL (32.0-36.0); MCV 93.6 fL (80-100); MPV 7.6 fL (7.6-11.3); Monocytes % 7.1 % (3.3-12.3); Nucleated Red Blood Cells % 0.2 % (0-0); Platelets 150 thou/uL (152-406); RBC Red Blood Cell Count 4.55 M/uL (4.33-5.43); Red Cell Distribution Width 14.2 % (12.1-15.2)
[2024-03-27 12:11] LABS: PT Prothrombin Time 11.4 SECONDS (9.5-12.5); PTT, Activated Partial Thromb 29.9 SECONDS (24.3-36.9); Protime INR 1.04
--- NOTE | 2024-03-28 11:14 | EKG ---
Test Date: 2024-03-27 Test Time: 10:54:47 Curtain Roller Assembler: PREO MEASUREMENT RESULTS: Intervals: Rate: 66 [place]: QRSD: 106 QT: 456 QTc: 478 [place]: P: MS: QRS: 11 T: 24 INTERPRETIVE STATEMENTS: Demand pacemaker, interpretation is based on intrinsic rhythm Atrial fibrillation with premature ventricular or aberrantly conducted complexes Abnormal ECG Compared to ECG 08/02/2023 11:58:26 Ventricular premature complex(es) now present T-wave abnormality no longer present Electronically Signed On 03-28-24 11:14:02 CDT by Ryan Kowalski
[2024-03-29] MEDS: NA CHLORIDE 0.9% 500 ML ONE ×2 (08:25→10:51)
[2024-03-29] MEDS ORDERED: LIDOCAINE 1% MPF 5 ML VIAL ONE (09:42)
[2024-03-29] MEDS ORDERED: propofoL 200 MG/20 ML VIAL IV ONE ×3 (09:42→10:58)
[2024-03-29] MEDS ORDERED: EPHEDRINE SULF 50 MG/ML VIAL ONE (09:56)
[2024-03-29 12:26] VITALS: BP 106/68; TEMP 97.1; O2SAT 97
--- NOTE | 2024-03-30 14:48 | EKG ---
Test Date: 2024-03-27 Test Time: 10:55:37 Fire Control System Installer: PREO MEASUREMENT RESULTS: Intervals: Rate: 67 NM: QRSD: 102 QT: 450 QTc: 475 [place]: P: NM: QRS: 6 T: -10 INTERPRETIVE STATEMENTS: Demand pacemaker, interpretation is based on intrinsic rhythm Atrial fibrillation with premature ventricular or aberrantly conducted complexes Abnormal ECG Compared to ECG 03/27/2024 10:54:47 No significant changes Electronically Signed On 03-30-24 14:39:54 CDT by Keon Brooks
== END 2024-03-29 11:43 | disposition home or self-care (01) ==
LOC: OR 07:49
PROVIDERS: ATTEND Surgery
PROC: 0DBL8ZX Excision of Transverse Colon, Via Natural or Artificial Opening Endoscopic, Diagnostic (ICD-10-PCS; 2024-03-29)
PROC: 0DBN8ZX Excision of Sigmoid Colon, Via Natural or Artificial Opening Endoscopic, Diagnostic (ICD-10-PCS; 2024-03-29)
PROC: 0DBF8ZX Excision of Right Large Intestine, Via Natural or Artificial Opening Endoscopic, Diagnostic (ICD-10-PCS; principal; 2024-03-29 09:30)
DX: Z12.11 Encounter for screening for malignant neoplasm of colon (principal); K64.8 Other hemorrhoids
CPT/HCPCS: 36415; 80048; 85025; 85610; 85730; 88305; 93005; J2001; J2704; J7040

== ENCOUNTER 2024-05-24 09:34 | Day surgery (SDC) | payer OTHER ==
[2024-05-23 13:53] LABS: Absolute Eosinophils 0.1 K/uL (0-0.5); Absolute Lymphocytes (CBC) 1.2 K/uL (0.7-4.9); Absolute Monocytes 0.4 K/uL (0.1-1.3); Basophils % 0.4 % (0-1.3); Eosinophils % 1.6 % (0-4.4); Hematocrit 43.1 % (39.6-49.0); Hemoglobin 14.3 g/dL (13.6-17.9); Lymphocytes % 21.7 % (15.3-44.8); MCHC 33.2 g/dL (32.0-36.0); MCV 93.5 fL (80-100); MPV 7.6 fL (7.6-11.3); Monocytes % 6.5 % (3.3-12.3); Neutrophils % 69.8 % (41.7-73.7); Platelets 163 thou/uL (152-406); Red Cell Distribution Width 14.6 % (12.1-15.2)
[2024-05-23 14:07] LABS: PT Prothrombin Time 13.7 SECONDS (9.4-12.5); PTT, Activated Partial Thromb 33.9 SECONDS (24.3-36.9); Protime INR 1.25
[2024-05-23 14:40] LABS: Anion Gap 9.4 mEq/L (5.0-15.0); Potassium 3.4 mEq/L (3.5-5.1)
[2024-05-24] MEDS: NA CHLORIDE 0.9% 500 ML ONE (10:01)
[2024-05-24] MEDS ORDERED: propofoL 200 MG/20 ML VIAL IV ONE ×2 (11:09→11:10)
[2024-05-24 13:02] VITALS: BP 109/63; TEMP 98.2; O2SAT 99
== END 2024-05-24 12:12 | disposition home or self-care (01) ==
LOC: OR 09:34
PROVIDERS: ATTEND Surgery
PROC: 0DJD8ZZ Inspection of Lower Intestinal Tract, Via Natural or Artificial Opening Endoscopic (ICD-10-PCS; principal; 2024-05-24 12:00)
DX: Z12.11 Encounter for screening for malignant neoplasm of colon (principal); Z91.199 Patient's noncompliance with other medical treatment and regimen due to unspecified reason
CPT/HCPCS: 36415; 80048; 85025; 85610; 85730; J2704; J7040